=== PATIENT | male | born 1945 | race Caucasian/White ===

== ENCOUNTER → 2018-05-19 03:03 | Outpatient (CLI) | payer OTHER, SELFPAY ==
[2018-05-19 10:23] LABS: Abs Immature Grans 0.05 k/cumm (0.0-0.09); Absolute Basophil Count 0.02 k/cumm (0.0-0.2); Absolute Eosinophil Count 0.07 k/cumm (0.0-0.7); Absolute Lymphocyte Count 0.54 k/cumm (1.2-3.4); Absolute Monocyte Count 0.53 k/cumm (0.11-0.7); Basophils % 0.2; Eosinophils % 0.6; HCT 37.8 % (40.0-50.0); HGB 12.3 g/dL (13.5-17.5); Immature Grans % 0.4; Lymphocytes % 4.4; Mean Corp. HGB Concentration 32.5 g/dL (32.0-36.0); Mean Corpuscular Hemoglobin 31.1 pg (27.0-33.0); Mean Corpuscular Volume 95.7 fL (80-95); Mean Platelet Volume 8.1 fL (8.0-11.0); Monocytes % 4.3; Neutrophils % 90.1; Platelet Count 250 x1000/uL (130-400); RBC 3.95 m/cumm (4.50-6.00); RBC Distribution Width 15.9 % (11.8-14.1); White Blood Cell Count 12.33 k/cumm (4.4-10.8)
[2018-05-19 10:25] LABS: Absolute Neutrophil Count 11.11 k/cumm (1.2-6.7)
[2018-05-19 10:40] LABS: ALT 16 U/L (12-78); AST 17 U/L (15-37); Albumin 3.2 g/dL (3.4-5.0); Alkaline Phosphatase 53 U/L (46-116); BUN 13 mg/dL (7-18); Bilirubin, Total 0.6 mg/dL (0.2-1.0); CREATININE 0.83 mg/dL (0.70-1.30); Calcium 8.8 mg/dL (8.5-10.1); Chloride 98 mmol/L (98-107); Glucose 153 mg/dL (70-100); Potassium 3.5 mmol/L (3.5-5.1); Sodium 138 mmol/L (136-145); Total Protein 6.7 g/dL (6.4-8.2)
[2018-05-19 11:12] LABS: ESR 45 MM/HR (1-20)
== END ==
PROVIDERS: PCP Internal Medicine; Visit Provider Internal Medicine Rheumatology
DX: M19.90 Unspecified osteoarthritis, unspecified site (principal); M35.3 Polymyalgia rheumatica; R79.82 Elevated C-reactive protein (CRP); Z79.899 Other long term (current) drug therapy
CPT/HCPCS: 36415; 80053; 85652; 85025; 86140

== ENCOUNTER 2018-06-23 02:37 | Outpatient (CLI) | payer OTHER, SELFPAY ==
[2018-06-23 16:21] LABS: Abs Immature Grans 0.04 k/cumm (0.0-0.09); Absolute Basophil Count 0.02 k/cumm (0.0-0.2); Absolute Eosinophil Count 0.02 k/cumm (0.0-0.7); Absolute Monocyte Count 0.88 k/cumm (0.11-0.7); Absolute Neutrophil Count 10.51 k/cumm (1.2-6.7); Basophils % 0.2; Eosinophils % 0.2; HCT 35.9 % (40.0-50.0); HGB 11.7 g/dL (13.5-17.5); Immature Grans % 0.3; Lymphocytes % 7.3; Mean Corp. HGB Concentration 32.6 g/dL (32.0-36.0); Mean Corpuscular Hemoglobin 29.7 pg (27.0-33.0); Mean Corpuscular Volume 91.1 fL (80-95); Mean Platelet Volume 7.6 fL (8.0-11.0); Monocytes % 7.1; Neutrophils % 84.9; Platelet Count 302 x1000/uL (130-400); RBC 3.94 m/cumm (4.50-6.00); RBC Distribution Width 15.6 % (11.8-14.1); White Blood Cell Count 12.38 k/cumm (4.4-10.8)
[2018-06-23 17:00] LABS: ESR 67 MM/HR (1-20)
[2018-06-23 17:29] LABS: ALT 15 U/L (12-78); AST 16 U/L (15-37); Albumin 3.2 g/dL (3.4-5.0); Alkaline Phosphatase 55 U/L (46-116); Anion Gap 7.3 mmol/L (3-11); BUN 12 mg/dL (7-18); Bilirubin, Total 0.6 mg/dL (0.2-1.0); C-Reactive Protein 3.16 mg/dL (0.0-0.3); CO2 31.7 mmol/L (21.0-32.0); Calcium 8.7 mg/dL (8.5-10.1); Chloride 93 mmol/L (98-107); Glucose 129 mg/dL (70-100); Potassium 3.8 mmol/L (3.5-5.1); Sodium 132 mmol/L (136-145)
== END 2018-06-23 02:57 ==
PROVIDERS: PCP Internal Medicine; Visit Provider Internal Medicine Rheumatology
DX: R79.82 Elevated C-reactive protein (CRP) (principal); M35.3 Polymyalgia rheumatica; M19.90 Unspecified osteoarthritis, unspecified site; Z79.899 Other long term (current) drug therapy
CPT/HCPCS: 36415; 80053; 85652; 85025; 86140

== ENCOUNTER 2018-08-11 02:33 | Outpatient (CLI) | payer OTHER, SELFPAY ==
[2018-08-11 14:04] LABS: Abs Immature Grans 0.05 k/cumm (0.0-0.09); Absolute Basophil Count 0.01 k/cumm (0.0-0.2); Absolute Eosinophil Count 0.02 k/cumm (0.0-0.7); Absolute Lymphocyte Count 0.68 k/cumm (1.2-3.4); Absolute Monocyte Count 0.58 k/cumm (0.11-0.7); Absolute Neutrophil Count 10.01 k/cumm (1.2-6.7); Basophils % 0.1; Eosinophils % 0.2; HCT 37.9 % (40.0-50.0); HGB 12.4 g/dL (13.5-17.5); Immature Grans % 0.4; Mean Corp. HGB Concentration 32.7 g/dL (32.0-36.0); Mean Corpuscular Volume 91.5 fL (80-95); Mean Platelet Volume 7.9 fL (8.0-11.0); Monocytes % 5.1; Neutrophils % 88.2; Platelet Count 261 x1000/uL (130-400); RBC 4.14 m/cumm (4.50-6.00); RBC Distribution Width 16.2 % (11.8-14.1); White Blood Cell Count 11.35 k/cumm (4.4-10.8)
[2018-08-11 14:52] LABS: ESR 21 MM/HR (1-20)
[2018-08-11 15:21] LABS: ALT 24 U/L (12-78); AST 19 U/L (15-37); Albumin 3.6 g/dL (3.4-5.0); Alkaline Phosphatase 57 U/L (46-116); Anion Gap 6.9 mmol/L (3-11); BUN 12 mg/dL (7-18); Bilirubin, Total 0.7 mg/dL (0.2-1.0); C-Reactive Protein 0.17 mg/dL (0.0-0.3); CO2 30.1 mmol/L (21.0-32.0); CREATININE 0.78 mg/dL (0.70-1.30); Calcium 8.6 mg/dL (8.5-10.1); Chloride 93 mmol/L (98-107); Glucose 109 mg/dL (70-100); Potassium 3.5 mmol/L (3.5-5.1); Sodium 130 mmol/L (136-145); Total Protein 6.3 g/dL (6.4-8.2)
== END 2018-08-11 02:53 ==
PROVIDERS: PCP Internal Medicine; Visit Provider Internal Medicine Rheumatology
DX: Z00.00 Encounter for general adult medical examination without abnormal findings (principal); M35.3 Polymyalgia rheumatica; R79.82 Elevated C-reactive protein (CRP); M85.80 Other specified disorders of bone density and structure, unspecified site; Z79.52 Long term (current) use of systemic steroids; M19.90 Unspecified osteoarthritis, unspecified site; Z79.899 Other long term (current) drug therapy
CPT/HCPCS: 36415; 80053; 85652; 85025; 86140

== ENCOUNTER 2018-09-01 01:01 | Outpatient (CLI) | payer OTHER, SELFPAY ==
--- NOTE | 2018-09-01 15:21 | DI.RAD_ITS ---
SYMPTOMS/DIAGNOSIS: PMR ON CHRONIC STEROIDS, ASSESS BMD, M35.3, M85.80, Z79.52 DEXA SCAN WITH KHUSHBOO: Comparison is made with August,. The KHUSHBOO image shows accentuation of the normal thoracic kyphosis, which appears to have worsened when compared with the previous exam. No compression fractures are seen. There is stable mild anterior wedging of thoracic vertebral bodies. The bone mineral density measurements of the lumbar spine correspond to a total T score of 0.3, in the normal range. This is a 7.5% decrease when compared with 2016. The bone mineral density measurements of the left hip correspond to a total T score of - 1.2 and a femoral neck T score of -2.0. This is a 9.7% decrease when compared with 2016. The bone mineral density measurements of the left forearm correspond to a T score in the distal third of 0, in the normal range. This is a 4.7% decrease when compared with 2016. IMPRESSION: Normal bone mineral density of the lumbar spine and left forearm. Osteopenia of the left hip. Bone mineral density has decreased when compared with the previous exam.
== END 2018-09-01 01:21 ==
PROVIDERS: PCP Internal Medicine; Visit Provider Internal Medicine Rheumatology
DX: M35.3 Polymyalgia rheumatica (principal); M85.80 Other specified disorders of bone density and structure, unspecified site; Z79.52 Long term (current) use of systemic steroids
CPT/HCPCS: 77080

== ENCOUNTER 2018-09-04 09:19 | Day surgery (SDC) | payer OTHER, SELFPAY ==
--- NOTE | 2018-09-03 11:50 | POEE_ITS ---
History of Present Illness Chief Complaint: Progressive decreased vision, right eye Narrative: The patient is a 72-year-old male with history of progressive decreased vision in both eyes at both distance and near. He has significant difficulty driving at night with halos around lights. On examination he was noted to have significant bilateral nuclear cataracts with mild cortical and posterior subcapsular cataract OU. He was significantly symptomatic that he desired cataract surgery and attempt to improve and maximize his vision. NOTE: The Chief Complaint, HPI, Past Medical History, Past Surgical History, Family History, Social History, Medications, and complete Ophthalmic Exam with detailed Assessment and Plan have already been documented in the patient's outpatient ophthalmic record and are not covered again in detail here. [facility] Medical History Cortical cataract of right eye (Acute) Nuclear sclerotic cataract of right eye (Acute) Posterior subcapsular age-related cataract, right eye (Acute) Social History Smoking/Tobacco Use Status: Never Meds Home Medications Medication Instructions Recorded Confirmed Type aspirin [Aspir 81] 81 mg PO DAILY 04/20/13 09/02/18 History hydrochlorothiazide 25 mg PO DAILY 04/20/13 09/02/18 History metoprolol succinate [Toprol Xl] 100 mg PO DAILY 04/20/13 09/02/18 History valacyclovir [Valtrex] 2,000 mg PO PRN PRN 04/20/13 09/02/18 History zolpidem [Ambien Cr] 12.5 mg PO HS 04/20/13 10/15/16 History methylprednisolone [Medrol] 6 mg PO PRN 01/03/16 09/02/18 History simvastatin 20 mg PO QPM 01/12/16 09/02/18 History alendronate 35 mg PO .QWEEKLY 09/18/16 09/02/18 History methocarbamol [Robaxin] 500 mg PO QID #40 tab 10/15/16 Rx tamsulosin 0.4 mg PO DAILY 10/15/16 10/15/16 History diclofenac sodium 100 gm TOPICAL PRN gm 09/12/17 History folic acid 1 mg PO DAILY tab-cap 09/12/17 09/02/18 History methotrexate sodium 2.5 mg PO 6 TABS WEEKLY 09/12/17 History omeprazole 20 mg PO DAILY tab-cap 09/12/17 09/02/18 History triamcinolone acetonide 15 gm TOPICAL PRN script 09/12/17 09/02/18 History cholecalciferol (vitamin D3) 1,000 unit PO DAILY 08/31/18 09/02/18 History [Vitamin D3] Allergies Allergy/AdvReac Type Severity Reaction Status Date / Time No Known Allergies Allergy Unverified 09/02/18 08:48 Exam OCULAR EXAM:: Visual acuity at distance: Corrected to 20/40 right eye, 20/30 left eye Pupils: Pupils equal, round, and reactive without afferent pupillary defect IOP: 20 right eye, 20 left eye Extraocular Motility: Significant for exophoria on alternate cover test Pertinent Slit Lamp Findings: 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 Pupils dilate to 7 mm OU. 3+ nuclear cataracts with 1-2+ cortical and trace posterior subcapsular cataract OU. Dilated Funduscopic Examination: Disc cupping is 0.25 OD 0.2 OS with good color. The retinal vasculature is normal. There are some pigmentary changes in both maculas. Peripheral retina and vitreous is normal OU. BRIGHTNESS ACUITY TESTING (BAT):: Off right eye 20/40 Low: 20/60 Medium: 20/70 High: 20/80 Assessment and Plan (1) Posterior subcapsular age-related cataract, right eye: Current visit: Yes Status: Acute Assessment: Visually significant cataract, right eye. Plan: Cataract extraction with intraocular lens implantation, right eye (2) Nuclear sclerotic cataract of right eye: Current visit: Yes Status: Acute Assessment: Visually significant cataract, right eye. Plan: Cataract extraction with intraocular lens implantation, right eye (3) Cortical cataract of right eye: Current visit: Yes Status: Acute Assessment: Visually significant cataract, right eye. Plan: Cataract extraction with intraocular lens implantation, right eye Note: NOTE:: The details of the planned surgery, including the risks, indications, limitations,expectations,outcome and possible complications were explained to the patient. The patient understands the complications including, but not limited to: infection, hemorrhage, posterior dislocation of the lens or nuclear fragments which may require the intervention of a vitreoretinal surgeon, possible loss of the eye, or from anesthetic complications. The patient has been made aware of the option of not having surgery, that vision following surgery may not be equal to that prior to surgery, and that the planned surgery may not achieve the intended results. Following this discussion, which the patient appeared to understand, the patient wishes to proceed with cataract surgery with lens implantation of the affected eye to improve and maximize vision.
[2018-09-04] MEDS: Tetracaine 0.5% 4 ML BTL OD (09:01)
[2018-09-04] MEDS: Lidocaine 2% Jelly 6 ML SYR (09:02)
[2018-09-04] MEDS: Lidocaine 1% Pres-Free 5 ML VIAL (09:08)
[2018-09-04] MEDS: Balanced Salt Soln.-PLUS 500 ML BAG (09:08)
[2018-09-04] MEDS: Povidone-Iodine Ophth 30 ML BTL (09:22)
--- NOTE | 2018-09-04 09:35 | W.PM.DSUDISC ---
Discharge Plan Discharge Details Attending Provider: Tano Mccormick Primary Care Provider: Jennifer Pelaez Home Meds and New Rx's Prescriptions: No Action methylprednisolone [Medrol (Josue)] 4 MG tablets,dose pack 6 mg PO PRN RF: 0 triamcinolone acetonide 15 GM cream 15 gm Topical PRN RF: 0 methotrexate sodium 2.5 MG tablet 2.5 mg PO 6 TABS WEEKLY RF: 0 omeprazole 20 MG capsule,delayed release(DR/EC) 20 mg PO DAILY RF: 0 folic acid 1 MG tablet 1 mg PO DAILY RF: 0 metoprolol succinate [Toprol XL] 100 MG tablet extended release 24 hr 100 mg PO DAILY RF: 0 valacyclovir [Valtrex] 500 MG tablet 2,000 mg PO PRN PRNRF: 0 hydrochlorothiazide 25 MG tablet 25 mg PO DAILY RF: 0 aspirin [Aspir-81] 81 MG tablet,delayed release (DR/EC) 81 mg PO DAILY RF: 0 simvastatin 20 MG tablet 20 mg PO QPM RF: 0 cholecalciferol (vitamin D3) [Vitamin D3] 1,000 unit Capsule 1,000 unit PO DAILY RF: 0 methotrexate (PF) 25 mg/0.4 mL Auto-Injector 25 mg subcut RF: 0 alendronate 35 MG tablet 35 mg PO .QWEEKLY RF: 0 Discharge Instructions Stand Alone Forms: Post-op Topical CataractAngi (DSU) DS: Diagnosis Discharge Diagnosis (1) Posterior subcapsular age-related cataract, right eye: Status: Resolved (2) Nuclear sclerotic cataract of right eye: Status: Resolved (3) Cortical cataract of right eye: Status: Resolved (4) Status post cataract extraction and insertion of intraocular lens of right eye: Status: Chronic
--- NOTE | 2018-09-04 09:38 | ROE_ITS ---
Date of service: 09/04/18 Time of Service: 09:36 Operative Note PRE-OP DIAGNOSIS: Cataract, right eye POST-OP DIAGNOSIS: same SURGEON: Tano Mccormick ANESTHESIA: MAC and local (sub-tenon's anesthetic infiltration) PATHOLOGY: none sent COMPLICATIONS: None Patient was transported to: same day Patient's condition: stable Implants: [employer] / [employer] Tecnis ZCB00 Indications: Progressive decreased vision due to cataract, right eye Procedure Description: CATARACT SURGERY OPERATIVE REPORT PREOPERATIVE DIAGNOSIS: Nuclear/cortical/posterior subcapsular cataract, right eye POSTOPERATIVE DIAGNOSIS: Same OPERATION: Cataract extraction using phacoemulsification with posterior chamber intraocular lens implant, right eye. IOL: IOL Seismic Prospecting Supervisor/Model: J&J Vision / ADAL Tecnis ZCB00 IOL Power: + 21.0 diopters IOL Serial Number: [id number] Optic Diameter: 6.0mm Haptic/Overall Diameter: 13.0mm PHACO INFO: Joe K[employer]aturion Vision System with OZil and Active Fluidics Cumulative Dispersed Energy (CDE): 17.13 seconds SURGEON: Tano Mccormick MD, SHARON ANESTHESIA: Monitored Anesthesia Care (MAC), with local sub-tenon's anesthetic infiltration COMPLICATIONS: None SPECIMENS: None INDICATIONS FOR PROCEDURE: The patient is a 73-year-old male with history of progressive decreased vision in his right eye. He was noted to have a significant nuclear cortical and posterior subcapsular cataract in the right eye with visual acuity of 20/40 with significant glare disability. The option of cataract surgery was offered to the patient and he wished to proceed. PROCEDURE: The correct surgical eye was identified and marked as the right eye and the pupil was dilated in the preoperative area using mydriatics and cycloplegics. The dilated pupil size was 7.0 mm. Oral sedation was administered in the form of an Imprimis MKO Melt (midazolam 3mg/ketamine 25mg/ ondansetron 2mg). The patient was brought to the operating room where cardiopulmonary monitoring was instituted and surgical time-out was performed, confirming the correct operative eye and IOL power. Topical anesthesia was administered and ophthalmic povidone-iodine 5% was instilled into the conjunctival fornices. Lidocaine gel was applied to the cornea and the gabrielle-ocular area was prepped with Betadine 10% solution and draped in the usual sterile fashion for intraocular surgery. Steri-strips were used to cover the lashes and lid margins and an adhesive eye drape was placed. Care was taken to isolate the lashes and lid margins under the Steri-strips and adhesive eye drape. A lid speculum was placed between the lids of the operative eye and the Monae-Isis operating microscope was maneuvered into position. Bogdan scissors were then used to make a conjunctival buttonhole approximately 6mm posterior to the limbus in the inferonasal quadrant. Blunt dissection was carried out to expose bare sclera, and a blunt-tipped sub-tenon? s anesthesia cannula was introduced and passed posteriorly along the globe where non-preserved plain lidocaine was injected into posterior sub-Tenon?s space. A sideport knife was used to make a paracentesis port at the 7:00 postion and the anterior chamber was filled with Healon GV. A 2.4mm keratome knife was used to create a half-thickness groove at the limbus and then to construct a three-plane near-clear corneal tunnel extending 2.0mm into clear cornea at the 10:00 position. A flap was raised on the anterior capsule and capsulorhexis forceps were used to complete a continuous curvilinear capsulorhexis of 5 0 mm. Balanced salt solution was then used to perform cortical cleaving hydrodissection and nuclear hydrodelineation until the lens could be freely rotated within the capsular bag. The lens nucleus was then disassembled and removed within the capsular bag and iris plane using phacoemulsification. Residual cortical material was removed using the 45-degree angled silicone I/A tip with 0.3mm port. The posterior capsule was carefully polished to remove as much residual lens epithelial cells as safely possible. The capsular bag was then inflated and the anterior chamber deepened with viscoelastic. The lens implant described above was inserted into the capsular bag using the ADAL [place] Injector. A Kuglen hook was used to dial the IOL into position. Residual viscoelastic was then removed first from posterior to the IOL, then from the anterior chamber using the I/A handpiece. The lens implant was noted to center nicely within the capsular bag. The incisions were stromally hydrated , and the anterior chamber was reformed using BSS. Then 0.4cc of moxifloxacin 1.5mg/ml were injected into the capsular bag and anterior chamber. The incisions were checked with a Weck spear and found to be secure. Several drops of ophthalmic povidone-iodine 5% were then applied to the eye followed by two drops of Imprimis combination moxifloxacin/dexamethasone solution. The drapes were removed and a clear plastic protective eye shield was placed over the eye. The patient was then returned to Same Day Surgery in stable condition.
[2018-09-04 10:15] VITALS: BP 123/77; PULSE 81; RESP 16; TEMP 37; O2SAT 100
== END 2018-09-04 10:40 | disposition home or self-care (01) ==
LOC: SUR 09:20
PROVIDERS: PCP Internal Medicine; Visit Provider Ophthalmology
PROC: (CPT 66984; principal; 2018-09-04 09:30)
DX: H25.811 Combined forms of age-related cataract, right eye (principal); I10 Essential (primary) hypertension; K21.9 Gastro-esophageal reflux disease without esophagitis
CPT/HCPCS: 66984; V2632

== ENCOUNTER 2018-09-18 09:06 | Day surgery (SDC) | payer OTHER, SELFPAY ==
--- NOTE | 2018-09-17 17:12 | W.PIPPEYE ---
History of Present Illness Chief Complaint: Progressive decreased vision, left eye Narrative: The patient is a 72-year-old male who presented with complaints of diminished visual acuity in both eyes at both distance and near. He was noting a halo around lights at night. On examination he was noted to have moderate bilateral nuclear and cortical cataracts with mild posterior subcapsular cataracts in both eyes. He was significantly symptomatic that he desired cataract surgery which was performed in the right eye on 09/04/2018. He has regained uncorrected visual acuity of 20/20 in the right eye. He now presents for cataract surgery in the left eye. NOTE: The Chief Complaint, HPI, Past Medical History, Past Surgical History, Family History, Social History, Medications, and complete Ophthalmic Exam with detailed Assessment and Plan have already been documented in the patient's outpatient ophthalmic record and are not covered again in detail here. PFSH Nuclear sclerotic cataract of left eye (Acute) Cortical cataract of left eye (Acute) Posterior subcapsular age-related cataract of left eye (Acute) Cortical cataract of right eye (Resolved) Nuclear sclerotic cataract of right eye (Resolved) Posterior subcapsular age-related cataract, right eye (Resolved) Status post cataract extraction and insertion of intraocular lens of right eye (Chronic 09/04/18) Social History Smoking/Tobacco Use Status: Never Meds Home Medications Medication Instructions Recorded Confirmed Type aspirin [Aspir 81] 81 mg PO DAILY 04/20/13 09/02/18 History hydrochlorothiazide 25 mg PO DAILY 04/20/13 09/02/18 History metoprolol succinate [Toprol Xl] 100 mg PO DAILY 04/20/13 09/02/18 History valacyclovir [Valtrex] 2,000 mg PO PRN PRN 04/20/13 09/02/18 History methylprednisolone [Medrol] 6 mg PO PRN 01/03/16 09/02/18 History simvastatin 20 mg PO QPM 01/12/16 09/02/18 History alendronate 35 mg PO .QWEEKLY 09/18/16 09/04/18 History folic acid 1 mg PO DAILY tab-cap 09/12/17 09/02/18 History methotrexate sodium 2.5 mg PO 6 TABS WEEKLY 09/12/17 09/04/18 History omeprazole 20 mg PO DAILY tab-cap 09/12/17 09/02/18 History triamcinolone acetonide 15 gm TOPICAL PRN script 12/08/17 11/28/18 History cholecalciferol (vitamin D3) 1,000 unit PO DAILY 08/31/18 09/02/18 History [Vitamin D3] methotrexate (PF) 25 mg SUBCUT 09/04/18 History Allergies Allergy/AdvReac Type Severity Reaction Status Date / Time No Known Allergies Allergy Unverified 09/04/18 07:49 Exam OCULAR EXAM:: Most recent ocular examination reveals an uncorrected visual acuity of 20/20 in the right eye. Best corrected vision is 20/30 in the left eye. Intraocular pressure is 20 in each eye. Pupils equal, round, and reactive without afferent pupillary defect. Extraocular motility is significant for an exophoria on alternate cover testing. Slit-lamp examination reveals conjunctival chalasis OU. Pupils dilate to 7 mm. There is a well-positioned PCIOL in the right eye with clear posterior capsule. A 3+ nuclear with 1+ cortical and trace posterior subcapsular cataract is present OS. Funduscopic examination reveals disc cupping of 0.25 OD 0.2 OS with normal vessels. Macular pigmentary changes are present OU. Peripheral retina is normal OU. Retinal vasculature shows some narrowing. BRIGHTNESS ACUITY TESTING (BAT):: brightness acuity testing of the left eye off is 20/30. Low is 20/40. Medium is 20/50. High is 20/80. Assessment and Plan (1) Posterior subcapsular age-related cataract of left eye: Current visit: No Status: Acute Assessment: Visually significant cataract, left eye. Plan: Cataract extraction with intraocular lens implantation, left eye (2) Cortical cataract of left eye: Current visit: No Status: Acute Assessment: Visually significant cataract, left eye. Plan: Cataract extraction with intraocular lens implantation, left eye (3) Nuclear sclerotic cataract of left eye: Current visit: No Status: Acute Assessment: Visually significant cataract, left eye. Plan: Cataract extraction with intraocular lens implantation, left eye Note: NOTE:: The details of the planned surgery, including the risks, indications,limitations,expectations,outcome and possible complications were explained to the patient. The patient understands the complications including, but not limited to: infection, hemorrhage, posterior dislocation of the lens or nuclear fragments which may require the intervention of a vitreoretinal surgeon, possible loss of the eye, or from anesthetic complications. The patient has been made aware of the option of not having surgery, that vision following surgery may not be equal to that prior to surgery, and that the planned surgery may not achieve the intended results. Following this discussion, which the patient appeared to understand, the patient wishes to proceed with cataract surgery with lens implantation of the affected eye to improve and maximize vision.
[2018-09-18 09:36] VITALS: BP 139/85; PULSE 77; RESP 16; TEMP 36.6; O2SAT 94
[2018-09-18] MEDS: Tetracaine 0.5% 4 ML BTL OS ×4 (09:44→10:21)
[2018-09-18] MEDS: Tropicam./Phenyleph. (1/2.5%) 5 ML BTL OS ×3 (09:44→09:48)
[2018-09-18] MEDS: Povidone-Iodine Ophth 30 ML BTL (10:21)
[2018-09-18] MEDS: Lidocaine 2% Jelly 6 ML SYR (10:21)
[2018-09-18] MEDS: Lidocaine 1% Pres-Free 5 ML VIAL (10:26)
[2018-09-18] MEDS: Balanced Salt Soln.-PLUS 500 ML BAG (10:27)
--- NOTE | 2018-09-18 10:52 | W.PM.DSUDISC ---
Discharge Plan Discharge Details Reason For Visit: CATARACT OS Attending Provider: Tano Mccormick Primary Care Provider: Jennifer Pelaez Home Meds and New Rx's Prescriptions: No Action methylprednisolone [Medrol (Josue)] 4 MG tablets,dose pack 6 mg PO PRN RF: 0 triamcinolone acetonide 15 GM cream 15 gm Topical PRN RF: 0 methotrexate sodium 2.5 MG tablet 2.5 mg PO 6 TABS WEEKLY RF: 0 omeprazole 20 MG capsule,delayed release(DR/EC) 20 mg PO DAILY RF: 0 folic acid 1 MG tablet 1 mg PO DAILY RF: 0 metoprolol succinate [Toprol XL] 100 MG tablet extended release 24 hr 100 mg PO DAILY RF: 0 valacyclovir [Valtrex] 500 MG tablet 2,000 mg PO PRN PRNRF: 0 hydrochlorothiazide 25 MG tablet 25 mg PO DAILY RF: 0 aspirin [Aspir-81] 81 MG tablet,delayed release (DR/EC) 81 mg PO DAILY RF: 0 simvastatin 20 MG tablet 20 mg PO QPM RF: 0 cholecalciferol (vitamin D3) [Vitamin D3] 1,000 unit Capsule 1,000 unit PO DAILY RF: 0 methotrexate (PF) 25 mg/0.4 mL Auto-Injector 25 mg subcut RF: 0 alendronate 35 MG tablet 35 mg PO .QWEEKLY RF: 0 Discharge Instructions Stand Alone Forms: Post-op Topical Cataract, Angi Cordero (DSU) DS: Diagnosis Discharge Diagnosis (1) Status post cataract extraction and insertion of intraocular lens of left eye: Status: Acute
--- NOTE | 2018-09-18 10:56 | ROE_ITS ---
Date of service: 09/18/18 Time of Service: 10:54 Operative Note DATE OF PROCEDURE: 09/18/18 PRE-OP DIAGNOSIS: Cataract, left eye POST-OP DIAGNOSIS: same PROCEDURE: Cataract extraction using phacoemulsification with intraocular lens implant, left eye SURGEON: Tano Mccormick ANESTHESIA: MAC and local (sub-tenon's anesthetic infiltration) PATHOLOGY: none sent COMPLICATIONS: None Patient was transported to: same day Patient's condition: stable Implants: [employer] and [employer] Vision / [employer] Tecnis ZCB00 Indications: Progressive decreased vision due to cataract, left eye Procedure Description: CATARACT SURGERY OPERATIVE REPORT PREOPERATIVE DIAGNOSIS: Nuclear/cortical/posterior subcapsular cataract, left eye POSTOPERATIVE DIAGNOSIS: Same OPERATION: Cataract extraction using phacoemulsification with posterior chamber intraocular lens implant, left eye. IOL: IOL Orange Picker/Model: J&J Vision / ADAL Tecnis ZCB00 IOL Power: + 20.50 diopters IOL Serial Number: [id number] Optic Diameter: 6.0mm Haptic/Overall Diameter: 13.0mm PHACO INFO: Joe [employer] Smarturion Vision System with OZil and Active Fluidics Cumulative Dispersed Energy (CDE): 20.41 seconds SURGEON: Tano Mccormick MD, SHARON ANESTHESIA: Monitored Anesthesia Care (MAC), with local sub-tenon's anesthetic infiltration COMPLICATIONS: None SPECIMENS: None INDICATIONS FOR PROCEDURE: The patient is a 73-year old gentleman with history of having undergone eye muscle surgery many years ago. He developed significant bilateral nuclear cortical and posterior subcapsular cataracts. He was significantly symptomatic that he desired cataract surgery. He has already undergone cataract surgery in the right eye on 09/04/2018. He is doing well postoperatively, and now presents for cataract surgery of the left eye. PROCEDURE: The correct surgical eye was identified and marked as the left eye and the pupil was dilated in the preoperative area using mydriatics and cycloplegics. The dilated pupil size was 7.0 mm. Oral sedation was administered in the form of an Imprimis MKO Melt (midazolam 3mg/ketamine 25mg/ondansetron 2mg). The patient was brought to the operating room where cardiopulmonary monitoring was instituted and surgical time-out was performed, confirming the correct operative eye and IOL power. Topical anesthesia was administered and ophthalmic povidone-iodine 5% was instilled into the conjunctival fornices. Lidocaine gel was applied to the cornea and the gabrielle-ocular area was prepped with Betadine 10% solution and draped in the usual sterile fashion for intraocular surgery, including an aperture drape. A Tegaderm transparent film dressing was cut in half and used to cover the lashes and lid margins. Care was taken to sequester the lashes and lid margins under the Tegaderm dressing. A lid speculum was placed between the lids of the operative eye and the Monae-Isis operating microscope was maneuvered into position. Bogdan scissors were then used to make a conjunctival buttonhole approximately 6mm posterior to the limbus in the inferonasal quadrant. Blunt dissection was carried out to expose bare sclera, and a blunt-tipped sub-tenon?s anesthesia cannula was introduced and passed posteriorly along the globe where non- preserved plain lidocaine was injected into posterior sub-Tenon?s space. A sideport knife was used to make a paracentesis port superior/superiortemporal, and the anterior chamber was filled with Healon GV. A 2.4mm keratome knife was used to create a half-thickness groove at the limbus and then to construct a three-plane near-clear corneal tunnel extending 2.0mm into clear cornea in the temporal position. . A flap was raised on the anterior capsule and capsulorhexis forceps were used to complete a continuous curvilinear capsulorhexis of 5.0 mm. Balanced salt solution was then used to perform cortical cleaving hydrodissectio n and nuclear hydrodelineation until the lens could be freely rotated within the capsular bag. The lens nucleus was then disassembled and removed within the capsular bag and iris plane using phacoemulsification. Residual cortical material was removed using the 45-degree angled silicone I/A tip with 0.3mm port. The posterior capsule was carefully polished to remove as much residual lens epithelial cells as safely possible. The capsular bag was then inflated and the anterior chamber deepened with viscoelastic. The lens implant described above was inserted into the capsular bag using the ADAL [place] Injector. A Kuglen hook was used to dial the IOL into position. Residual viscoelastic was then removed first from posterior to the IOL, then from the anterior chamber using the I/A handpiece. The lens implant was noted to center nicely within the capsular bag. The incisions were stromally hydrated, and the anterior chamber was reformed using BSS. Then 0.4cc of moxifloxacin 1.5mg/ml were injected into the capsular bag and anterior chamber. The incisions were checked with a Weck spear and found to be secure. Several drops of ophthalmic povidone-iodine 5% were then applied to the eye followed by two drops of Imprimis combination moxifloxacin/dexamethasone solution. The drapes were removed and a clear plastic protective eye shield was placed over the eye. The patient was then returned to Same Day Surgery in stable condition.
[2018-09-18 11:10] VITALS: BP 119/76; PULSE 76; RESP 18; TEMP 37; O2SAT 100
== END 2018-09-18 11:20 | disposition home or self-care (01) ==
LOC: SUR 09:07
PROVIDERS: PCP Internal Medicine; Visit Provider Ophthalmology
PROC: (CPT 66984; principal; 2018-09-18 10:30)
DX: H25.812 Combined forms of age-related cataract, left eye (principal); Z98.41 Cataract extraction status, right eye; Z96.1 Presence of intraocular lens; I10 Essential (primary) hypertension; K21.9 Gastro-esophageal reflux disease without esophagitis
CPT/HCPCS: 66984; V2632

== ENCOUNTER 2018-09-24 07:00 | Outpatient (CLI) | payer OTHER, SELFPAY ==
[2018-09-24 08:01] LABS: ESR 27 MM/HR (1-20)
[2018-09-24 09:38] LABS: C-Reactive Protein 0.86 mg/dL (0.0-0.3)
[2018-09-24 14:52] LABS: ALT 21 U/L (12-78); AST 17 U/L (15-37); Albumin 3.6 g/dL (3.4-5.0); Alkaline Phosphatase 52 U/L (46-116); Anion Gap 10.7 mmol/L (3-11); BUN 18 mg/dL (7-18); Bilirubin, Total 0.8 mg/dL (0.2-1.0); CO2 29.3 mmol/L (21.0-32.0); CREATININE 0.88 mg/dL (0.70-1.30); Calcium 9.2 mg/dL (8.5-10.1); Chloride 100 mmol/L (98-107); Cholesterol 179 mg/dL (50-200); Glucose 105 mg/dL (70-100); HDL Cholesterol 66 mg/dL (40-60); LDL CHOLESTEROL 100 mg/dL (<100); Potassium 3.8 mmol/L (3.5-5.1); Sodium 140 mmol/L (136-145); Total Protein 6.2 g/dL (6.4-8.2); Triglyceride 90 mg/dL (30-150)
[2018-09-25 09:35] LABS: PSA, Diagnostic 6.4 ng/ml (0-6.5)
== END 2018-09-24 07:20 ==
PROVIDERS: Internal Medicine Rheumatology; Urology; PCP Internal Medicine; Visit Provider Internal Medicine
DX: R97.20 Elevated prostate specific antigen [PSA] (principal); M35.3 Polymyalgia rheumatica; Z00.00 Encounter for general adult medical examination without abnormal findings; Z79.899 Other long term (current) drug therapy; M19.90 Unspecified osteoarthritis, unspecified site; R79.82 Elevated C-reactive protein (CRP); M85.80 Other specified disorders of bone density and structure, unspecified site; Z79.52 Long term (current) use of systemic steroids; B00.1 Herpesviral vesicular dermatitis; Z13.220 Encounter for screening for lipoid disorders
CPT/HCPCS: 36415; 80053; 80061; 83721; 85652; 84153; 86140

== ENCOUNTER 2018-11-03 01:37 | Outpatient (CLI) | payer OTHER, SELFPAY ==
[2018-11-03 13:25] LABS: Abs Immature Grans 0.06 k/cumm (0.0-0.09); Absolute Basophil Count 0.01 k/cumm (0.0-0.2); Absolute Eosinophil Count 0.02 k/cumm (0.0-0.7); Absolute Lymphocyte Count 0.62 k/cumm (1.2-3.4); Absolute Monocyte Count 0.49 k/cumm (0.11-0.7); Absolute Neutrophil Count 9.79 k/cumm (1.2-6.7); Basophils % 0.1; Eosinophils % 0.2; HCT 37.9 % (40.0-50.0); HGB 12.2 g/dL (13.5-17.5); Immature Grans % 0.5; Lymphocytes % 5.6; Mean Corp. HGB Concentration 32.2 g/dL (32.0-36.0); Mean Corpuscular Volume 93.1 fL (80-95); Mean Platelet Volume 8.2 fL (8.0-11.0); Monocytes % 4.5; Neutrophils % 89.1; Platelet Count 263 x1000/uL (130-400); RBC 4.07 m/cumm (4.50-6.00); RBC Distribution Width 16.9 % (11.8-14.1); White Blood Cell Count 10.99 k/cumm (4.4-10.8)
[2018-11-03 14:20] LABS: ALT 18 U/L (12-78); AST 16 U/L (15-37); Albumin 3.5 g/dL (3.4-5.0); Alkaline Phosphatase 45 U/L (46-116); Anion Gap 8.4 mmol/L (3-11); BUN 19 mg/dL (7-18); Bilirubin, Total 0.5 mg/dL (0.2-1.0); C-Reactive Protein 0.14 mg/dL (0.0-0.3); CO2 30.6 mmol/L (21.0-32.0); CREATININE 0.89 mg/dL (0.70-1.30); Calcium 8.5 mg/dL (8.5-10.1); Chloride 100 mmol/L (98-107); Glucose 125 mg/dL (70-100); Sodium 139 mmol/L (136-145); Total Protein 6.2 g/dL (6.4-8.2)
[2018-11-03 14:36] LABS: ESR 18 MM/HR (1-20)
== END 2018-11-03 01:57 ==
PROVIDERS: PCP Internal Medicine; Visit Provider Internal Medicine Rheumatology
DX: M35.3 Polymyalgia rheumatica (principal); Z00.00 Encounter for general adult medical examination without abnormal findings; M19.90 Unspecified osteoarthritis, unspecified site; R79.82 Elevated C-reactive protein (CRP); M85.80 Other specified disorders of bone density and structure, unspecified site; Z79.52 Long term (current) use of systemic steroids; Z79.899 Other long term (current) drug therapy
CPT/HCPCS: 36415; 80053; 85652; 85025; 86140

== ENCOUNTER 2018-12-02 14:22 | Outpatient (CLI) | payer OTHER, SELFPAY ==
[2018-12-05 14:35] LABS: 25-Hydroxy D Total 39 ng/mL; 25-Hydroxy D2 <4.0 ng/mL; 25-Hydroxy D3 39 ng/mL
== END 2018-12-02 14:42 ==
PROVIDERS: PCP Internal Medicine; Visit Provider Internal Medicine Rheumatology
DX: M35.3 Polymyalgia rheumatica (principal); Z79.899 Other long term (current) drug therapy; Z79.1 Long term (current) use of non-steroidal anti-inflammatories (NSAID)
CPT/HCPCS: 36415; 82306

== ENCOUNTER 2019-02-11 14:21 | Outpatient (CLI) | payer OTHER, SELFPAY ==
[2019-02-11 14:55] LABS: Abs Immature Grans 0.03 k/cumm (0.0-0.09); Absolute Basophil Count 0.01 k/cumm (0.0-0.2); Absolute Eosinophil Count 0.02 k/cumm (0.0-0.7); Absolute Lymphocyte Count 0.62 k/cumm (1.2-3.4); Absolute Monocyte Count 0.37 k/cumm (0.11-0.7); Absolute Neutrophil Count 8.42 k/cumm (1.2-6.7); Basophils % 0.1; Eosinophils % 0.2; HGB 11.5 g/dL (13.5-17.5); Immature Grans % 0.3; Lymphocytes % 6.5; Mean Corp. HGB Concentration 31.9 g/dL (32.0-36.0); Mean Corpuscular Hemoglobin 28.8 pg (27.0-33.0); Monocytes % 3.9; Platelet Count 271 x1000/uL (130-400); RBC Distribution Width 16.5 % (11.8-14.1); White Blood Cell Count 9.47 k/cumm (4.4-10.8)
[2019-02-11 15:40] LABS: ESR 32 MM/HR (1-20)
[2019-02-11 16:25] LABS: ALT 21 U/L (12-78); AST 17 U/L (15-37); Albumin 3.6 g/dL (3.4-5.0); Alkaline Phosphatase 50 U/L (46-116); Anion Gap 7.1 mmol/L (3-11); BUN 12 mg/dL (7-18); Bilirubin, Total 0.6 mg/dL (0.2-1.0); C-Reactive Protein 0.71 mg/dL (0.0-0.3); CO2 29.9 mmol/L (21.0-32.0); CREATININE 0.67 mg/dL (0.70-1.30); Calcium 8.6 mg/dL (8.5-10.1); Chloride 95 mmol/L (98-107); Glucose 139 mg/dL (70-100); Potassium 3.9 mmol/L (3.5-5.1); Sodium 132 mmol/L (136-145); Total Protein 6.2 g/dL (6.4-8.2)
== END 2019-02-11 14:41 ==
PROVIDERS: PCP Internal Medicine; Visit Provider Internal Medicine Rheumatology
DX: M35.3 Polymyalgia rheumatica (principal); Z00.00 Encounter for general adult medical examination without abnormal findings; M19.90 Unspecified osteoarthritis, unspecified site; R79.82 Elevated C-reactive protein (CRP); M85.80 Other specified disorders of bone density and structure, unspecified site; Z79.52 Long term (current) use of systemic steroids; Z79.899 Other long term (current) drug therapy
CPT/HCPCS: 36415; 80053; 85652; 85025; 86140

== ENCOUNTER 2019-03-04 02:12 | Outpatient (CLI) | payer OTHER, SELFPAY ==
[2019-03-04 07:37] LABS: Abs Immature Grans 0.03 k/cumm (0.0-0.09); Absolute Basophil Count 0.02 k/cumm (0.0-0.2); Absolute Lymphocyte Count 0.74 k/cumm (1.2-3.4); Absolute Monocyte Count 0.66 k/cumm (0.11-0.7); Basophils % 0.2; Eosinophils % 0.7; HCT 36.5 % (40.0-50.0); HGB 11.6 g/dL (13.5-17.5); Immature Grans % 0.2; Lymphocytes % 6.1; Mean Corp. HGB Concentration 31.8 g/dL (32.0-36.0); Mean Corpuscular Volume 88.2 fL (80-95); Mean Platelet Volume 7.9 fL (8.0-11.0); Monocytes % 5.5; Neutrophils % 87.3; Platelet Count 296 x1000/uL (130-400); RBC 4.14 m/cumm (4.50-6.00); RBC Distribution Width 16.5 % (11.8-14.1); Reticulocyte 2.1 % (0.5-2.4); White Blood Cell Count 12.06 k/cumm (4.4-10.8)
[2019-03-04 07:38] LABS: Absolute Eosinophil Count 0.08 k/cumm (0.0-0.7); Absolute Neutrophil Count 10.53 k/cumm (1.2-6.7)
[2019-03-04 08:32] LABS: Iron 39 ug/dL (50-175); Total Iron Binding Capacity 292 ug/dL (250-450); Transferrin Sat 13 % (20-55)
[2019-03-04 08:57] LABS: ALT 18 U/L (12-78); AST 15 U/L (15-37); Albumin 3.5 g/dL (3.4-5.0); Alkaline Phosphatase 59 U/L (46-116); Anion Gap 8.2 mmol/L (3-11); BUN 11 mg/dL (7-18); Bilirubin, Total 0.5 mg/dL (0.2-1.0); CO2 30.8 mmol/L (21.0-32.0); CREATININE 0.76 mg/dL (0.70-1.30); Calcium 8.9 mg/dL (8.5-10.1); Chloride 98 mmol/L (98-107); Ferritin 29 ng/mL (8-388); Glucose 99 mg/dL (70-100); Potassium 3.4 mmol/L (3.5-5.1); Sodium 137 mmol/L (136-145); Total Protein 6.2 g/dL (6.4-8.2); Vitamin B12 430 pg/mL (193-986)
[2019-03-04 09:02] LABS: Folate > 20.0 ng/mL (8.6-20.0)
== END 2019-03-04 02:32 ==
PROVIDERS: PCP Internal Medicine; Visit Provider Internal Medicine Rheumatology
DX: M35.3 Polymyalgia rheumatica (principal); Z79.899 Other long term (current) drug therapy; Z00.00 Encounter for general adult medical examination without abnormal findings; M19.90 Unspecified osteoarthritis, unspecified site; R79.82 Elevated C-reactive protein (CRP); M85.80 Other specified disorders of bone density and structure, unspecified site; Z79.52 Long term (current) use of systemic steroids
CPT/HCPCS: 36415; 80053; 82607; 82728; 82746; 83036; 83540; 83550; 85025; 85045

== ENCOUNTER 2019-03-30 15:40 | Outpatient (CLI) | payer OTHER, SELFPAY ==
[2019-03-30 16:10] LABS: Abs Immature Grans 0.03 k/cumm (0.0-0.09); Absolute Basophil Count 0.01 k/cumm (0.0-0.2); Absolute Eosinophil Count 0.04 k/cumm (0.0-0.7); Absolute Lymphocyte Count 0.62 k/cumm (1.2-3.4); Absolute Monocyte Count 0.65 k/cumm (0.11-0.7); Absolute Neutrophil Count 8.75 k/cumm (1.2-6.7); Basophils % 0.1; Eosinophils % 0.4; HCT 34.3 % (40.0-50.0); HGB 10.9 g/dL (13.5-17.5); Immature Grans % 0.3; Lymphocytes % 6.1; Mean Corp. HGB Concentration 31.8 g/dL (32.0-36.0); Mean Corpuscular Hemoglobin 27.6 pg (27.0-33.0); Mean Corpuscular Volume 86.8 fL (80-95); Mean Platelet Volume 7.8 fL (8.0-11.0); Monocytes % 6.4; Neutrophils % 86.7; Platelet Count 267 x1000/uL (130-400); RBC 3.95 m/cumm (4.50-6.00); RBC Distribution Width 16.8 % (11.8-14.1)
[2019-03-30 17:00] LABS: ALT 21 U/L (12-78); AST 20 U/L (15-37); Albumin 3.5 g/dL (3.4-5.0); Alkaline Phosphatase 51 U/L (46-116); Anion Gap 10.3 mmol/L (3-11); BUN 10 mg/dL (7-18); Bilirubin, Total 0.8 mg/dL (0.2-1.0); C-Reactive Protein 0.25 mg/dL (0.0-0.3); CO2 27.7 mmol/L (21.0-32.0); CREATININE 0.72 mg/dL (0.70-1.30); Calcium 8.7 mg/dL (8.5-10.1); Chloride 94 mmol/L (98-107); Glucose 164 mg/dL (70-100); Potassium 3.9 mmol/L (3.5-5.1); Sodium 132 mmol/L (136-145); Total Protein 6.3 g/dL (6.4-8.2)
[2019-03-30 18:19] LABS: ESR 27 MM/HR (1-20)
== END 2019-03-30 16:00 ==
PROVIDERS: PCP Internal Medicine; Visit Provider Internal Medicine Rheumatology
DX: Z00.00 Encounter for general adult medical examination without abnormal findings (principal); M35.3 Polymyalgia rheumatica; Z79.899 Other long term (current) drug therapy; R79.82 Elevated C-reactive protein (CRP); M85.80 Other specified disorders of bone density and structure, unspecified site; Z79.52 Long term (current) use of systemic steroids; M19.90 Unspecified osteoarthritis, unspecified site
CPT/HCPCS: 36415; 80053; 85652; 85025; 86140

== ENCOUNTER 2019-05-14 06:58 | Outpatient (CLI) | payer OTHER, SELFPAY ==
[2019-05-14 07:19] LABS: Abs Immature Grans 0.04 k/cumm (0.0-0.09); Absolute Basophil Count 0.02 k/cumm (0.0-0.2); Absolute Eosinophil Count 0.14 k/cumm (0.0-0.7); Absolute Lymphocyte Count 1.13 k/cumm (1.2-3.4); Absolute Monocyte Count 0.59 k/cumm (0.11-0.7); Absolute Neutrophil Count 8.47 k/cumm (1.2-6.7); Basophils % 0.2; Eosinophils % 1.3; HCT 35.2 % (40.0-50.0); HGB 11.1 g/dL (13.5-17.5); Immature Grans % 0.4; Lymphocytes % 10.9; Mean Corp. HGB Concentration 31.5 g/dL (32.0-36.0); Mean Corpuscular Hemoglobin 27.2 pg (27.0-33.0); Mean Corpuscular Volume 86.3 fL (80-95); Mean Platelet Volume 7.6 fL (8.0-11.0); Monocytes % 5.7; Neutrophils % 81.5; Platelet Count 279 x1000/uL (130-400); RBC 4.08 m/cumm (4.50-6.00); RBC Distribution Width 17.4 % (11.8-14.1); White Blood Cell Count 10.39 k/cumm (4.4-10.8)
[2019-05-14 08:43] LABS: C-Reactive Protein 0.41 mg/dL (0.0-0.3)
[2019-05-14 08:50] LABS: ESR 23 mm/hr (1-20)
== END 2019-05-14 07:18 ==
PROVIDERS: PCP Internal Medicine; Visit Provider Internal Medicine Rheumatology
DX: Z00.00 Encounter for general adult medical examination without abnormal findings (principal); R79.82 Elevated C-reactive protein (CRP); M85.80 Other specified disorders of bone density and structure, unspecified site; M35.3 Polymyalgia rheumatica; Z79.899 Other long term (current) drug therapy; M19.90 Unspecified osteoarthritis, unspecified site
CPT/HCPCS: 36415; 85652; 85025; 86140

== ENCOUNTER 2019-06-08 14:16 | Outpatient (CLI) | payer OTHER, SELFPAY ==
[2019-06-08 14:51] LABS: Abs Immature Grans 0.04 k/cumm (0.0-0.09); Absolute Basophil Count 0.02 k/cumm (0.0-0.2); Absolute Eosinophil Count 0.06 k/cumm (0.0-0.7); Absolute Lymphocyte Count 0.73 k/cumm (1.2-3.4); Basophils % 0.2; Eosinophils % 0.5; HCT 33.1 % (40.0-50.0); HGB 10.4 g/dL (13.5-17.5); Immature Grans % 0.3; Lymphocytes % 6.1; Mean Corp. HGB Concentration 31.4 g/dL (32.0-36.0); Mean Corpuscular Hemoglobin 26.9 pg (27.0-33.0); Mean Corpuscular Volume 85.5 fL (80-95); Monocytes % 5.7; Neutrophils % 87.2; Platelet Count 291 x1000/uL (130-400); RBC 3.87 m/cumm (4.50-6.00); RBC Distribution Width 17.7 % (11.8-14.1); White Blood Cell Count 12.02 k/cumm (4.4-10.8)
[2019-06-08 14:52] LABS: Absolute Monocyte Count 0.69 k/cumm (0.11-0.7); Absolute Neutrophil Count 10.48 k/cumm (1.2-6.7)
[2019-06-08 15:31] LABS: C-Reactive Protein 0.31 mg/dL (0.0-0.3)
[2019-06-08 15:46] LABS: ESR 16 mm/hr (1-20)
== END 2019-06-08 14:36 ==
PROVIDERS: PCP Internal Medicine; Visit Provider Internal Medicine Rheumatology
DX: M35.3 Polymyalgia rheumatica (principal); Z79.899 Other long term (current) drug therapy; Z00.00 Encounter for general adult medical examination without abnormal findings; R79.82 Elevated C-reactive protein (CRP); M19.90 Unspecified osteoarthritis, unspecified site; M85.80 Other specified disorders of bone density and structure, unspecified site; Z79.52 Long term (current) use of systemic steroids
CPT/HCPCS: 36415; 85652; 85025; 86140

== ENCOUNTER 2019-06-17 11:27 | Outpatient (CLI) | payer OTHER, SELFPAY ==
[2019-06-17 12:09] LABS: Reticulocyte 1.7 % (0.5-2.4)
[2019-06-17 12:39] LABS: Iron 43 ug/dL (50-175); Total Iron Binding Capacity 326 ug/dL (250-450); Transferrin Sat 13 % (20-55)
[2019-06-17 12:54] LABS: Ferritin 19 ng/mL (8-388)
== END 2019-06-17 11:47 ==
PROVIDERS: PCP Internal Medicine; Visit Provider Internal Medicine Rheumatology
DX: M35.3 Polymyalgia rheumatica (principal); Z79.899 Other long term (current) drug therapy; Z79.1 Long term (current) use of non-steroidal anti-inflammatories (NSAID)
CPT/HCPCS: 36415; 82728; 83540; 83550; 85045

== ENCOUNTER 2019-08-13 07:43 | Outpatient (CLI) | payer OTHER, SELFPAY ==
[2019-08-13 08:27] LABS: Abs Immature Grans 0.06 k/cumm (0.0-0.09); Absolute Basophil Count 0.03 k/cumm (0.0-0.2); Absolute Eosinophil Count 0.13 k/cumm (0.0-0.7); Absolute Lymphocyte Count 0.91 k/cumm (1.2-3.4); Absolute Monocyte Count 0.87 k/cumm (0.11-0.7); Absolute Neutrophil Count 11.31 k/cumm (1.2-6.7); Basophils % 0.2; HCT 34.7 % (40.0-50.0); HGB 10.5 g/dL (13.5-17.5); Immature Grans % 0.5; Lymphocytes % 6.8; Mean Corp. HGB Concentration 30.3 g/dL (32.0-36.0); Mean Corpuscular Hemoglobin 25.9 pg (27.0-33.0); Mean Corpuscular Volume 85.5 fL (80-95); Mean Platelet Volume 8.2 fL (8.0-11.0); Monocytes % 6.5; Platelet Count 347 x1000/uL (130-400); RBC 4.06 m/cumm (4.50-6.00); RBC Distribution Width 18.7 % (11.8-14.1); White Blood Cell Count 13.31 k/cumm (4.4-10.8)
[2019-08-13 08:59] LABS: ALT 21 U/L (16-63); AST 17 U/L (15-37); Albumin 3.8 g/dL (3.4-5.0); Alkaline Phosphatase 48 U/L (46-116); Anion Gap 10.6 mmol/L (3-11); BUN 12 mg/dL (7-18); Bilirubin, Total 0.4 mg/dL (0.2-1.0); C-Reactive Protein 0.18 mg/dL (0.0-0.3); CO2 28.4 mmol/L (21.0-32.0); CREATININE 0.78 mg/dL (0.70-1.30); Calcium 8.9 mg/dL (8.5-10.1); Chloride 99 mmol/L (98-107); Glucose 103 mg/dL (70-100); Potassium 3.6 mmol/L (3.5-5.1); Sodium 138 mmol/L (136-145); Total Protein 6.5 g/dL (6.4-8.2)
[2019-08-13 11:08] LABS: ESR 22 mm/hr (1-20)
== END 2019-08-13 08:03 ==
PROVIDERS: PCP Internal Medicine; Visit Provider Internal Medicine Rheumatology
DX: M35.3 Polymyalgia rheumatica (principal); Z79.899 Other long term (current) drug therapy; Z79.1 Long term (current) use of non-steroidal anti-inflammatories (NSAID)
CPT/HCPCS: 36415; 80053; 85652; 85025; 86140

== ENCOUNTER 2019-08-23 08:03 | Day surgery (SDC) | payer OTHER, SELFPAY ==
--- NOTE | 2019-08-23 06:43 | COLE_ITS ---
Date of service: 08/23/19 Time of Service: 09:13 Colonoscopy Report Date of procedure: 08/23/19 Pre-op diagnosis general: Colon Cancer Screening Post-op diagnosis procedure note: other (Diverticulosis, internal hemorrhoids) Procedure: Colonoscopy Surgeon: Radha Mancera Anesthesia proc note operative: other (General/ ASA2 /Shala Le, EMILIANO) Estimated blood loss (mL): 0 Pathology: none sent Complications: None Disposition: no change Indications: Mr. Zambrano was seen in the office for a screening colonoscopy. His last colonoscopy was normal. Risks, benefits and complications have been reviewed. Complications include but are not limited to bleeding, pain, perforation, missed small lesion/polyp, sore throat, aspiration and adverse reaction to the medications. Questions were entertained and answered to their satisfaction and they wished to proceed. No guarantees were given or implied. Prep: Miralax/Dulcolax Procedure Start Time: :13 Procedure End Time: 09:29 Retraction Time: 11 minutes Findings: Mild diverticulosis of the sigmoid colon and Grade 1 internal hemor rhoids Procedure Description: After informed consent was obtained the patient was taken to the procedure room and placed in a left decubitous position. Monitors were applied and a time out was done. The patients name, date of , procedure, allergies to medications and metal in their body was reviewed. The patient was then sedated. Once sedated and comfortable a rectal exam was done. External exam was normal. Internal exam revealed a normal sphincter tone and no palpable masses. The prostate felt smooth and slightly enlarged. The scope was then introduced and retro-flexed. Grade 1 internal hemorrhoids were identified. There were no masses or polyps on retro-felxion. The scope was then advanced to the cecum without difficulty. The TI and appendiceal orifice were identified. The prep was adequate. The scope was then slowly retracted over 11 minutes back into the rectum. There were no polyps. There was mild diverticulosis in the sigmoid colon. The scope was removed and the patient was woken up and taken back to Same day surgery in stable condition. The patient tolerated the procedure well and there were no immediate c omplications. Follow up: The patient as needed if they develop changes in bowel habits or other new gastrointestinal complaints.
--- NOTE | 2019-08-23 06:45 | W.PM.DSUDISC ---
Discharge Plan Disposition Patient Disposition: HOME Condition: Good Discharge Details Reason For Visit: Colon Cancer Screening Attending Provider: Radha Mancera Primary Care Provider: Jennifer Pelaez Home Meds and New Rx's Prescriptions: Continued methylprednisolone [Medrol (Josue)] 4 MG tablets,dose pack 4 mg PO DAILY RF: 0 omeprazole 20 MG capsule,delayed release(DR/EC) 20 mg PO DAILY RF: 0 folic acid 1 MG tablet 1 mg PO DAILY RF: 0 metoprolol succinate [Toprol XL] 100 MG tablet extended release 24 hr 100 mg PO DAILY RF: 0 valacyclovir [Valtrex] 500 MG tablet 2,000 mg PO PRN PRNRF: 0 hydrochlorothiazide 25 MG tablet 25 mg PO DAILY RF: 0 aspirin [Aspir-81] 81 MG tablet,delayed release (DR/EC) 81 mg PO DAILY RF: 0 simvastatin 20 MG tablet 20 mg PO QPM RF: 0 cholecalciferol (vitamin D3) [Vitamin D3] 1,000 unit Capsule 1,000 unit PO DAILY RF: 0 methotrexate (PF) 25 mg/0.4 mL Auto-Injector 25 mg subcut RF: 0 alendronate 35 MG tablet 35 mg PO .QWEEKLY RF: 0 Discharge Instructions Instructions: Colonoscopy (DC), Diverticulosis (DC), Hemorrhoids (DC) Additional Instructions: Findings: mild diverticulosis small internal hemorrhoids Follow up: as needed Please call if you develop: fevers >101.5 Nausea or Vomiting Abdominal pain that is not transient DAY SURGERY UNIT POST ENDOSCOPY INSTRUCTIONS 1. Because there will be medication in your system for the next 24 hours, you may feel a little sleepy. Your coordination will be affected. Therefore: a. Do not drive or operate dangerous equipment for 24 hours. b. Do not drink alcohol beverages for 24 hours (not even beer). c. Plan to go home and rest for the day. 2. Generally there are no restrictions on your activity after a day or so has gone by, but you may feel a bit fatigued for a few days. 3 After you arrive home you may have a light meal and return to a normal diet as you can tolerate it without feeling sick to your stomach. 4. After surgery, you may feel pain or discomfort. This should be only transient, but if it persists please contact your doctor. 5. If there are any questions regarding the findings of your procedure, please feel free to contact your doctor. 6. If you are unable to contact your doctor with a problem, contact the hospital at [phone]. 7. Continue all your regular medications unless directed otherwise. I understand the above instructions and have no questions. Signature of Patient or Responsible Adult Escort Date/Time Name of Responsible Adult Escort Signature of Nurse Date/Time Activity:: Activity as Tolerated Diet:: High Fiebr diet Discharge Orders Discharge Orders: Discharge Order (Routine); Ordered 08/23/19 Ordered By: Radha Mancera DS: Diagnosis Discharge Diagnosis (1) S/P colonoscopy: Status: Acute (2) Diverticulosis: Status: Acute
[2019-08-23 08:33] VITALS: BP 146/86; PULSE 83; RESP 18; TEMP 36.5; O2SAT 100
[2019-08-23] MEDS: Lactated Ringers 1,000 ML 80 ML IV (08:44)
[2019-08-23 10:15] VITALS: BP 116/72; PULSE 68; RESP 16; TEMP 36.6; O2SAT 100
== END 2019-08-23 11:00 | disposition home or self-care (01) ==
LOC: SUR 08:03
PROVIDERS: PCP Internal Medicine; Visit Provider Surgery
PROC: 0DJD8ZZ Inspection of Lower Intestinal Tract, Via Natural or Artificial Opening Endoscopic (ICD-10-PCS; CPT 45378; principal; 2019-08-23 09:15)
DX: Z12.11 Encounter for screening for malignant neoplasm of colon (principal); K57.30 Diverticulosis of large intestine without perforation or abscess without bleeding; K64.0 First degree hemorrhoids; I10 Essential (primary) hypertension; K21.9 Gastro-esophageal reflux disease without esophagitis
CPT/HCPCS: 45378

== ENCOUNTER 2019-10-07 17:46 | Outpatient (REF) | payer OTHER, SELFPAY ==
[2019-10-07 13:13] LABS: Abs Immature Grans 0.03 k/cumm (0.0-0.09); Absolute Basophil Count 0.02 k/cumm (0.0-0.2); Absolute Eosinophil Count 0.12 k/cumm (0.0-0.7); Absolute Lymphocyte Count 1.36 k/cumm (1.2-3.4); Absolute Neutrophil Count 8.15 k/cumm (1.2-6.7); Basophils % 0.2; Eosinophils % 1.2; HCT 33.9 % (40.0-50.0); HGB 10.2 g/dL (13.5-17.5); Immature Grans % 0.3 %; Lymphocytes % 13.1; Mean Corp. HGB Concentration 30.1 g/dL (32.0-36.0); Mean Corpuscular Hemoglobin 25.2 pg (27.0-33.0); Mean Corpuscular Volume 83.9 fL (80-95); Mean Platelet Volume 8.5 fL (8.0-11.0); Monocytes % 6.7; Neutrophils % 78.5; Platelet Count 352 x1000/uL (130-400); RBC 4.04 m/cumm (4.50-6.00); RBC Distribution Width 18.8 % (11.8-14.1); White Blood Cell Count 10.38 k/cumm (4.4-10.8)
[2019-10-07 13:33] LABS: ALT 17 U/L (16-63); AST 20 U/L (15-37); Alkaline Phosphatase 48 U/L (46-116); Anion Gap 8.8 mmol/L (3-11); BUN 18 mg/dL (7-18); Bilirubin, Total 0.7 mg/dL (0.2-1.0); C-Reactive Protein 0.73 mg/dL (0.0-0.3); CO2 30.2 mmol/L (21.0-32.0); Calcium 8.9 mg/dL (8.5-10.1); Chloride 97 mmol/L (98-107); Glucose 93 mg/dL (74-106); Potassium 3.6 mmol/L (3.5-5.1); Sodium 136 mmol/L (136-145); Total Protein 6.6 g/dL (6.4-8.2)
[2019-10-07 14:00] LABS: ESR 27 mm/hr (1-20)
[2019-10-08 10:14] LABS: PSA, Screening 8.5 ng/mL (0.0-6.5)
== END 2019-10-07 18:06 ==
LOC: LOS 17:46
PROVIDERS: Internal Medicine Rheumatology; PCP Internal Medicine; Visit Provider Urology
DX: M35.3 Polymyalgia rheumatica (principal); Z79.899 Other long term (current) drug therapy; Z79.1 Long term (current) use of non-steroidal anti-inflammatories (NSAID); Z12.5 Encounter for screening for malignant neoplasm of prostate
CPT/HCPCS: 36415; 80053; 84153; 85652; 85025; 86140

== ENCOUNTER 2019-11-18 11:43 | Outpatient (CLI) | payer OTHER, SELFPAY ==
[2019-11-18 13:30] LABS: C-Reactive Protein 0.63 mg/dL (0.0-0.3)
[2019-11-18 13:56] LABS: ESR 26 mm/hr (1-20)
== END 2019-11-18 12:03 ==
PROVIDERS: PCP Internal Medicine; Visit Provider Nurse Practitioner Family
DX: M35.3 Polymyalgia rheumatica (principal)
CPT/HCPCS: 36415; 85652; 86140

== ENCOUNTER 2019-12-10 14:40 | Outpatient (CLI) | payer OTHER, SELFPAY ==
[2019-12-10 15:42] LABS: C-Reactive Protein 0.67 mg/dL (0.0-0.3)
[2019-12-10 15:56] LABS: ESR 31 mm/hr (1-20)
== END 2019-12-10 15:00 ==
PROVIDERS: PCP Internal Medicine; Visit Provider Nurse Practitioner Family
DX: M35.3 Polymyalgia rheumatica (principal)
CPT/HCPCS: 36415; 85652; 86140

== ENCOUNTER 2020-01-04 15:05 | Outpatient (CLI) | payer OTHER, SELFPAY ==
[2020-01-04 15:36] LABS: Abs Immature Grans 0.03 k/cumm (0.0-0.09); Absolute Basophil Count 0.01 k/cumm (0.0-0.2); Absolute Monocyte Count 0.74 k/cumm (0.11-0.7); Absolute Neutrophil Count 11.28 k/cumm (1.2-6.7); Basophils % 0.1; Eosinophils % 0.2; HCT 34.2 % (40.0-50.0); HGB 10.4 g/dL (13.5-17.5); Immature Grans % 0.2 %; Lymphocytes % 3.7; Mean Corp. HGB Concentration 30.4 g/dL (32.0-36.0); Mean Corpuscular Hemoglobin 24.9 pg (27.0-33.0); Mean Platelet Volume 8.1 fL (8.0-11.0); Monocytes % 5.9; Neutrophils % 89.9; Platelet Count 322 x1000/uL (130-400); RBC 4.17 m/cumm (4.50-6.00); RBC Distribution Width 19.6 % (11.8-14.1); White Blood Cell Count 12.55 k/cumm (4.4-10.8)
[2020-01-04 15:39] LABS: Absolute Eosinophil Count 0.03 k/cumm (0.0-0.7); Absolute Lymphocyte Count 0.46 k/cumm (1.2-3.4)
[2020-01-04 16:29] LABS: ESR 30 mm/hr (1-20)
[2020-01-04 17:14] LABS: ALT 20 U/L (16-63); AST 19 U/L (15-37); Albumin 3.8 g/dL (3.4-5.0); Alkaline Phosphatase 53 U/L (46-116); Anion Gap 10.1 mmol/L (3-11); BUN 20 mg/dL (7-18); Bilirubin, Total 0.8 mg/dL (0.2-1.0); C-Reactive Protein 1.13 mg/dL (0.0-0.3); CO2 28.9 mmol/L (21.0-32.0); CREATININE 0.73 mg/dL (0.70-1.30); Chloride 96 mmol/L (98-107); Glucose 110 mg/dL (74-106); Potassium 3.9 mmol/L (3.5-5.1); Sodium 135 mmol/L (136-145); Total Protein 6.6 g/dL (6.4-8.2)
== END 2020-01-04 15:25 ==
PROVIDERS: PCP Internal Medicine; Visit Provider Internal Medicine Rheumatology
DX: M35.3 Polymyalgia rheumatica (principal); Z79.1 Long term (current) use of non-steroidal anti-inflammatories (NSAID); Z79.899 Other long term (current) drug therapy
CPT/HCPCS: 36415; 80053; 85652; 85025; 86140

== ENCOUNTER 2020-03-28 09:59 | Outpatient (CLI) | payer OTHER, SELFPAY ==
[2020-03-28 14:56] LABS: Abs Immature Grans 0.02 k/cumm (0.0-0.09); Absolute Basophil Count 0.01 k/cumm (0.0-0.2); Absolute Eosinophil Count 0.15 k/cumm (0.0-0.7); Absolute Lymphocyte Count 0.99 k/cumm (1.2-3.4); Absolute Monocyte Count 0.71 k/cumm (0.11-0.7); Absolute Neutrophil Count 6.94 k/cumm (1.2-6.7); Basophils % 0.1; Eosinophils % 1.7; HCT 33.2 % (40.0-50.0); HGB 9.9 g/dL (13.5-17.5); Immature Grans % 0.2 %; Lymphocytes % 11.2; Mean Corp. HGB Concentration 29.8 g/dL (32.0-36.0); Mean Corpuscular Hemoglobin 24.1 pg (27.0-33.0); Mean Corpuscular Volume 80.8 fL (80-95); Mean Platelet Volume 8.1 fL (8.0-11.0); Neutrophils % 78.8; Platelet Count 310 x1000/uL (130-400); RBC 4.11 m/cumm (4.50-6.00); White Blood Cell Count 8.82 k/cumm (4.4-10.8)
[2020-03-28 15:31] LABS: Anisocytosis 1+; Diff Comment RBC Morph Reviewed
[2020-03-28 15:32] LABS: Hypochromasia 1+; Microcytosis 1+; Poikilocytes 1+
[2020-03-28 15:48] LABS: ALT 17 U/L (16-63); AST 17 U/L (15-37); Albumin 3.8 g/dL (3.4-5.0); Alkaline Phosphatase 50 U/L (46-116); Anion Gap 8.7 mmol/L (3-11); BUN 13 mg/dL (7-18); Bilirubin, Total 0.6 mg/dL (0.2-1.0); C-Reactive Protein 0.31 mg/dL (0.0-0.3); CO2 29.3 mmol/L (21.0-32.0); CREATININE 0.96 mg/dL (0.70-1.30); Calcium 8.7 mg/dL (8.5-10.1); Chloride 94 mmol/L (98-107); Glucose 130 mg/dL (74-106); Potassium 3.4 mmol/L (3.5-5.1); Sodium 132 mmol/L (136-145); Total Protein 6.3 g/dL (6.4-8.2)
[2020-03-28 15:55] LABS: ESR 22 mm/hr (1-20)
[2020-03-29 11:42] LABS: PSA, Diagnostic 5.1 ng/mL (0.0-6.5)
== END 2020-03-28 10:19 ==
PROVIDERS: Urology; PCP Internal Medicine; Visit Provider Internal Medicine Rheumatology
DX: R73.01 Impaired fasting glucose (principal); M35.3 Polymyalgia rheumatica; Z79.1 Long term (current) use of non-steroidal anti-inflammatories (NSAID); Z79.899 Other long term (current) drug therapy; R97.20 Elevated prostate specific antigen [PSA]
CPT/HCPCS: 80053; 85652; 83036; 84153; 85025; 86140

== ENCOUNTER 2020-06-22 04:25 | Outpatient (CLI) | payer OTHER, SELFPAY ==
[2020-06-22 12:29] LABS: Hemoglobin A1C 5.5 % (<5.7)
[2020-06-22 12:39] LABS: Abs Immature Grans 0.04 10^3/uL (0.0-0.06); Absolute Basophil Count 0.03 10^3/uL (0.0-0.2); Absolute Eosinophil Count 0.11 10^3/uL (0.0-0.7); Absolute Monocyte Count 0.49 10^3/uL (0.1-0.8); Absolute Neutrophil Count 8.81 10^3/uL (1.2-6.7); Basophils % 0.3; Eosinophils % 1.1; HCT 31.6 % (40.0-50.0); HGB 9.7 g/dL (13.5-17.5); Immature Grans % 0.4; Lymphocytes % 6.9; MCH 24.7 pg (27.0-33.0); MCHC 30.7 % (32.0-36.0); MCV 80.6 fL (80-95); MPV 8.5 fL (8.0-11.0); Monocytes % 4.8; Neutrophils % 86.5; Nucleated RBC 0 %; Platelet Count 307 10^3/uL (130-400); RBC 3.92 10^6/uL (4.36-5.78); RDW 19.1 % (11.8-14.1); WBC 10.18 10^3/uL (4.4-10.8)
[2020-06-22 13:09] LABS: ALT 16 U/L (16-63); AST 13 U/L (15-37); Albumin 3.2 g/dL (3.4-5.0); Alkaline Phosphatase 42 U/L (46-116); Anion Gap 7.4 mmol/L (3-11); BUN 15 mg/dL (7-18); Bilirubin, Total 0.6 mg/dL (0.2-1.0); CO2 27.6 mmol/L (21.0-32.0); CREATININE 0.75 mg/dL (0.70-1.30); Calcium 8.4 mg/dL (8.5-10.1); Chloride 104 mmol/L (98-107); Ferritin 59 ng/mL (26-388); Glucose 90 mg/dL (74-106); Potassium 4.2 mmol/L (3.5-5.1); Sodium 139 mmol/L (136-145)
[2020-06-22 13:14] LABS: ESR 39 mm/hr (1-20)
[2020-06-22 22:39] LABS: PSA, Screening 7.8 ng/mL (0.0-6.5)
== END 2020-06-22 04:45 ==
PROVIDERS: PCP Internal Medicine; Visit Provider Internal Medicine Rheumatology
DX: D50.9 Iron deficiency anemia, unspecified (principal); R73.01 Impaired fasting glucose; R97.20 Elevated prostate specific antigen [PSA]; M35.3 Polymyalgia rheumatica; Z79.899 Other long term (current) drug therapy; Z00.00 Encounter for general adult medical examination without abnormal findings; M19.90 Unspecified osteoarthritis, unspecified site; R79.82 Elevated C-reactive protein (CRP); M85.80 Other specified disorders of bone density and structure, unspecified site; Z79.52 Long term (current) use of systemic steroids
CPT/HCPCS: 36415; 80053; 84153; 85652; 82728; 83036; 85025; 86140

== ENCOUNTER 2020-07-27 04:01 | Outpatient (CLI) | payer OTHER, SELFPAY ==
[2020-07-27 11:41] LABS: ESR 18 mm/hr (1-20)
[2020-07-27 11:48] LABS: C-Reactive Protein 0.14 mg/dL (0.0-0.3)
== END 2020-07-27 04:21 ==
PROVIDERS: PCP Internal Medicine; Visit Provider Nurse Practitioner
DX: M35.3 Polymyalgia rheumatica (principal)
CPT/HCPCS: 36415; 85652; 86140

== ENCOUNTER 2020-08-29 20:37 | Emergency (ER) | payer OTHER, SELFPAY ==
[2020-08-29 20:47] VITALS: BP 151/74; PULSE 72; RESP 18; TEMP 36.5; O2SAT 99
--- NOTE | 2020-08-29 20:59 | ED.GENADUL_ITS ---
Discharge Plan Disposition Patient Disposition: HOME Condition: Good Discharge Details Clinical Impression: Contusion, Skin tear Primary Care Provider: Jennifer Pelaez ED Provider: Evelyn Smith Meds and New Rx's Prescriptions: Continued prednisone 2.5 mg tablet 6 mg PO DAILY RF: 0 omeprazole 20 MG capsule,delayed release(DR/EC) 20 mg PO DAILY RF: 0 folic acid 1 MG tablet 1 mg PO DAILY RF: 0 metoprolol succinate [Toprol XL] 100 MG tablet extended release 24 hr 100 mg PO DAILY RF: 0 valacyclovir [Valtrex] 500 MG tablet 2,000 mg PO PRN PRNRF: 0 aspirin [Aspir-81] 81 MG tablet,delayed release (DR/EC) 81 mg PO DAILY RF: 0 simvastatin 20 MG tablet 20 mg PO QPM RF: 0 cholecalciferol (vitamin D3) [Vitamin D3] 1,000 unit Capsule 1,000 unit PO DAILY RF: 0 methotrexate (PF) 25 mg/0.4 mL Auto-Injector 25 mg subcut QWEEK RF: 0 alendronate 35 mg tablet 70 mg PO .QWEEKLY RF: 0 Medrol 2 mg tablet 2 mg PO DAILY RF: 0 Discharge Instructions Instructions: Contusion in Adults (ED) Additional Instructions: Your imaging is reassuring as discussed. Incidental findings as discussed, please discuss these further with your primary care. Tylenol as needed for discomfort. Rest, ice, elevation. Please continue with non-adhesive dressings for your skin tears. These should be rechecked by your primary care in one week. If you noticed redness, warmth, drainage, increased pain, fevers/chill, vomiting or other new/worsening symptoms please seek care urgently once again. Referrals: Jennifer Pelaez [Primary Care Provider] - Discharge Data Discharge Date/Time-TO BE ENTERED AT DEPARTURE: 08/29/20 23:10 Medical Decision Making Patient is a pleasant 75-year-old gentleman presenting today for pain after fall. He reports he was walking outside when he tripped over a rise in the sidewalk and landed with his left lower chest wall striking the edge of a step. Suffered injury to the left thumb, skin tears to left forearm and pain in the left lower ribs. He denies striking his head. No loss conscious. Denies any neck or back pain. Denies any nausea vomiting. Denies any numbness or tingling in the left upper extremity. On exam, patient appears to be resting comfortably. He appears to be in the distress. He has swelling and ecchymosis to the interphalangeal joint of the left thumb. He does have good range of motion and is ligamentously intact. Sensation is intact in the distal phalanx. Plan for x-ray. Patient also has 2 skin tears to the left forearm. No deep wound requiring closure. Plan to wash and dress wounds. He does have very fragile skin. We will apply a nonadhesive dressing. Patient initially reported rib tenderness on exam the pain seems to much more in the left upper quadrant than left ribs. He does have some guarding with palpation over this area. I am concerned for potential splenic injury and feel that imaging would be appropriate. I discussed this plan with the patient who is in agreement. FINDINGS: Bones/joints: A tiny bony density adjacent to the interphalangeal joint of the 1st digit is unchanged. There are moderate degenerative changes. Slight subluxation of the 1st MCP joint is unchanged from the prior study. There is a tiny bony density adjacent to the radial styloid which was not seen on the prior study. Soft tissues: There is mild soft tissue swelling. IMPRESSION: Tiny bony density seen adjacent to the radial styloid is of indeterminate age. X-ray results did not correlate clinically. FINDINGS: Liver: Small hypodensity in the liver may be a cyst. Gallbladder and bile ducts: Unremarkable. Pancreas: Unremarkable. Spleen: Unremarkable. Adrenal glands: Unremarkable. Kidneys and ureters: There are multiple renal cysts. No hydronephrosis. Subcentimeter renal hypodensities are too small to characterize. Stomach and bowel: No bowel obstruction. There is colonic diverticulosis. No evidence of acute diverticulitis. Appendix: No evidence of appendicitis. Intraperitoneal space: No free air. No significant fluid collection. Vasculature: There are coronary artery calcifications. No aortic aneurysm. No aortic dissection. There are atherosclerotic calcifications of the aorta. Lymph nodes: No pathologically enlarged lymph nodes. Urinary bladder: There is mild diffuse bladder wall thickening. Reproductive: The prostate is mildly enlarged. Bones/joints: Mild wedge deformities seen in the thoracic and lumbar spine. L1 and L2 vertebral body deformities are unchanged from the prior study. Lower thoracic spine deformities were not included prior study. There are multilevel degenerative changes in the spine. Soft tissues: Unremarkable. IMPRESSION: 1. Stable mild wedge deformities in the lumbar spine. Mild wedge deformities seen in the lower thoracic spine are of uncertain age. Recommend correlation with exam. 2. Bladder wall thickening may be due to cystitis or outlet obstruction. 3. No other acute abnormality identified. Discussed these findings with the patient. Discussed the incidental findings. Will follow up with primary care regarding the incidentals. No evidence to suggest acute traumatic injury. Patient reports he is feeling improved after the acetaminophen. His wounds were cleansed and dressed. I encouraged that he follow-up closely with his primary care she could have his wounds were evaluated. He would continue with Tylenol as needed for discomfort. Return precautions were discussed. All his questions and concerns were addressed and he is in agreement this plan. [facility] General Mode of arrival: ambulatory . Date/Time Provider Initiated Documentation: 08/29/20 20:59 . Limitations to Documentation: no limitations . Information obtained by: patient and RN notes reviewed . History of Present Illness 75 year old M presents to the emergency department with the chief complaint of left sided rib and arm pain, described as moderate, with intensity rated at 7. Quality is described as aching, and is localized to the chest. Patient reports no radiation. Patient started experiencing this minute(s) and it has been constant. Immobilization improves symptom(s), Movement worsens symptoms . Patient notes no other symptoms.. Patient did receive the following treatments prior to arrival, none Related Data Home Medications Medication Instructions Recorded Confirmed aspirin [Aspir-81] 81 mg PO DAILY 04/20/13 04/14/20 metoprolol succinate [Toprol XL] 100 mg PO DAILY 04/20/13 08/29/20 valacyclovir [Valtrex] 2,000 mg PO PRN PRN 04/20/13 08/29/20 simvastatin 20 mg PO QPM 01/12/16 08/29/20 folic acid 1 mg PO DAILY tab-cap 09/12/17 08/29/20 omeprazole 20 mg PO DAILY tab-cap 09/12/17 08/29/20 cholecalciferol (vitamin D3) 1,000 unit PO DAILY 08/31/18 04/14/20 [Vitamin D3] methotrexate (PF) 25 mg SUBCUT QWEEK 09/04/18 08/29/20 alendronate 35 mg tablet 70 mg PO .QWEEKLY tab 11/26/19 04/14/20 prednisone 2.5 mg tablet 6 mg PO DAILY tab 11/26/19 08/29/20 Medrol 2 mg PO DAILY 08/29/20 08/29/20 Allergies Allergy/AdvReac Type Severity Reaction Status Date / Time No Known Allergies Allergy Unverified 08/29/20 20:55 General Stated Complaint: Trauma JOE: 3 Review of Systems Constitutional Constitutional: Reports as per HPI, Denies chills, Denies fatigue, Denies fever(s), Denies headache(s) and Denies weakness Eyes Eyes: Reports as per HPI, Denies blurry vision, Denies change in vision and Denies loss of vision ENT Ears, Nose, Mouth, and Throat: Denies abnormal hearing and Denies headache(s) Cardiovascular Cardiovascular: Reports as per HPI, Denies chest pain and Denies dyspnea Respiratory Respiratory: Reports as per HPI, Denies cough, Denies pain on inspiration, Denies pain with cough and Denies dyspnea Gastrointestinal Gastrointestinal: Reports as per HPI, Denies abdominal pain, Denies nausea and Denies vomiting Genitourinary Genitourinary: Reports as per HPI and Denies urinary incontinence Musculoskeletal Musculoskeletal: Reports as per HPI Integumentary/Breasts Skin/Breast: Reports as per HPI and Reports wounds Neurologic Neurologic: Reports as per HPI, Denies abnormal hearing, Denies abnormal movements, Denies abnormal speech, Denies headache(s), Denies lack of coordination, Denies localized weakness, Denies loss of vision, Denies seizure- like activity, Denies paresthesias and Denies weakness Endocrine Endocrine: Denies fatigue [facility] Medical History (Updated 08/29/20 @ 23:06 by GERONIMO Davis) Cortical cataract of left eye Cortical cataract of right eye Diverticulosis Elevated PSA (09/12/17) GERD (gastroesophageal reflux disease) Hypertension Internal hemorrhoids Nuclear sclerotic cataract of left eye Nuclear sclerotic cataract of right eye Posterior subcapsular age-related cataract of left eye Posterior subcapsular age-related cataract, right eye Primary osteoarthritis of right knee (04/30/18) Sensorineural hearing loss, bilateral (07/23/16) Surgical History History of carpal tunnel release of both wrists History of heart bypass surgery History of hernia repair S/P colonoscopy (~08/23/19) Status post cataract extraction and insertion of intraocular lens of left eye (09/18/18) Status post cataract extraction and insertion of intraocular lens of right eye (09/04/18) Social History Smoking/Tobacco Use Status: Never Smoking risk assessment performed?: Yes Alcohol Intake: current Alcohol Intake frequency: holidays/special occasions only Drug use: Never Substance use type: does not use Current gender identity: male Do you feel safe at home: Yes Do you feel safe in your relationship?: Yes Exam Const General: cooperative, healthy appearing, comfortable, no acute distress, well developed and well groomed Nutritional Appearance: average body habitus and well nourished Orientation: alert, awake and oriented x3 HENMT Head: normal to inspection, no palpable skull fracture, normocephalic and atraumatic Ears: hearing grossly normal bilaterally, external ears normal and TM's normal bilaterally General nose exam: external nose normal Mouth: oral mucosae normal, lip normal and tongue normal Throat: posterior oropharynx normal Eyes General: appearance normal, both eyes and all related structures Visual Puga: normal visual puga by confrontation Alignment and Position: alignment normal Periorbital: periorbital findings normal Eyelids: eyelids normal Conjunctivae: conjunctivae normal Pupils: PERRL EOM: EOM intact bilaterally Neck Neck: normal visual inspection, full ROM, no lymphadenopathy, no meningeal signs, trachea midline and supple Chest Chest: normal inspection of the chest, normal palpation of entire chest wall, no crepitus and no localized rib tenderness Resp Effort & Inspection: normal respiratory effort, able to speak in complete sentences and no respiratory distress Auscultation: clear to auscultation bilaterally, no rales, no rhonchi and no wheezes Cardio Rate: regular rate Rhythm: regular rhythm Heart Sounds: S1 normal and S2 normal GI Inspection: normal to inspection, no abdominal wall ecchymosis, no edema and non-distended Palpation: soft, no hepatosplenomegaly, not firm, guarding in the LUQ, no pulsatile masses, not rigid and tender Auscultation: normal bowel sounds Back/Spine/Pelvis Back: no CVA tenderness Cervical Spine: normal cervical lordosis and cervical ROM normal Thoracic/Lumbar Spine: thoracic and lumbar spine normal to inspection, thoraco- lumbar ROM normal, No thoraco-lumbar ROM limited, No thoraco-lumbar spasm and No thoracic spinal tenderness Pelvis: no pain with anterior-posterior compression and no pain with lateral compression Skin Wounds: wounds noted (2 skin tears to left forearm/elbow) Neuro General: patient alert, patient awake, patient oriented x3, gait normal, tone normal and moves all extremities Cranial Nerves: CN's II-XI intact bilaterally Cognition: normal cognition Speech: speech normal Gait: normal gait Motor: muscle tone normal throughout and strength 5/5 throughout Sensory Exam: no sensory deficits noted (no saddle paresthesias) Extrem General: normal to inspection, full ROM and capillary refill normal Left upper extremity: abnormal to inspection (swelling and pain to IP joint) Psych Appearance: grossly normal and well kempt Mental Status: mental status grossly normal Speech and Movement: speech and movement normal Course Vital Signs Vital signs: Vital Signs Temperature 36.5 C 08/29/20 20:47 Pulse 72 08/29/20 20:47 Respiratory Rate 18 08/29/20 20:47 Blood Pressure 151/74 H 08/29/20 20:47 Pulse Oximetry 99 08/29/20 20:47 Temperature 36.5 C 08/29/20 20:47 Pulse 72 08/29/20 20:47 Respiratory Rate 18 08/29/20 20:47 Respiratory Effort Non-Labored 08/29/20 20:56 Respiratory Depth Normal 08/29/20 20:56 Respiratory Pattern Normal 08/29/20 20:56 Blood Pressure 151/74 H 08/29/20 20:47 Blood Pressure Position Sitting 08/29/20 20:47 Pulse Oximetry 99 08/29/20 20:47 Oxygen Delivery Method Room Air 08/29/20 20:47 Oxygen Flow Rate 0 08/29/20 20:47 Pain Level 7 08/29/20 20:56
[2020-08-29 22:03] LABS: Abs Immature Grans 0.07 10^3/uL (0.0-0.06); Absolute Basophil Count 0.01 10^3/uL (0.0-0.2); Absolute Eosinophil Count 0.04 10^3/uL (0.0-0.7); Absolute Lymphocyte Count 0.41 10^3/uL (1.2-3.4); Absolute Monocyte Count 0.59 10^3/uL (0.1-0.8); Absolute Neutrophil Count 9.47 10^3/uL (1.2-6.7); Basophils % 0.1; Eosinophils % 0.4; HCT 35.9 % (40.0-50.0); HGB 10.5 g/dL (13.5-17.5); Immature Grans % 0.7; Lymphocytes % 3.9; MCH 23.9 pg (27.0-33.0); MCHC 29.2 % (32.0-36.0); MCV 81.6 fL (80-95); MPV 8.8 fL (8.0-11.0); Monocytes % 5.6; Neutrophils % 89.3; Nucleated RBC 0 %; Platelet Count 234 10^3/uL (130-400); RDW 19.6 % (11.8-14.1); RDW-SD 57.1 fL; WBC 10.59 10^3/uL (4.4-10.8)
[2020-08-29] MEDS: Omnipaque 350 MG/ML 100 ML BTL IV (22:10)
--- NOTE | 2020-08-29 22:15 | DI.RAD_ITS ---
EXAM: XR THUMB LT CLINICAL HISTORY: FOOSH TECHNIQUE: COMPARISON: No exams were available for comparison FINDINGS: Three views were obtained. There are degenerative changes of the joints of thumb. Periarticular ero sions of the head of the 1st metatarsal may represent erosive osteoarthritis or gout. There is no evidence of acute fracture or dislocation. IMPRESSION: RADIATION DOSE DELIVERED: Total DLP
[2020-08-29] MEDS: Normal Saline - Diluent 50 ML VIAL IV (22:16)
--- NOTE | 2020-08-29 22:17 | DI.CT_ITS ---
EXAM: CT ABDOMEN PELVIS W CLINICAL HISTORY: LUQ pain after fall TECHNIQUE: COMPARISON: CT ABD PELVIS WITH CONTRAST from 12/18/2011 CT LUMBAR SPINE WITHOUT CONTRAST from 10/15/2016 FINDINGS: CT examination of the abdomen and pelvis was performed with bolus infusion of 100 cc of Omnipaque 350 . Images obtained through the lung bases are unremarkable. Mild stable chronic lower thoracic and upper lumbar vertebral deformities noted, unchanged from prior CT of October 2016. The liver appears normal with no evidence of a focal mass except for a tiny incidental presumed right hepatic lobe cyst.. Spleen is unremarkable in appearance.. Gallbladder and bile ducts are unremarkable. Pancreas is unremarkable in appearance. Adrenals appear normal bilaterally. There are bilateral renal cysts. Kidneys are otherwise unremarkable in appearance with no evidence o f hydronephrosis or nephrolithiasis. Urinary bladder has thickened wall which may represent chronic bladder obstruction. There is no evidence of abdominal or pelvic adenopathy. Abdominal aorta is of normal diameter and no major vascular abnormality is seen. Appendix is normal. No evidence diverticulitis or bowel obstruction. No significant abdominal wall hernia seen. Impression: No evidence of acute intra-abdominal process. RADIATION DOSE DELIVERED: 785.71mGy.cm Total DLP 785.71mGy.cm Total DLP DATA REPOSITORY: All CT scans at this facility are submitted to the National Radiology Data Registry (NRDR) Dose Index Registry (DIR) with the [employer] (A[employer]). RADIATION OPTIMIZATION: All CT scans at this facility use at least one of these dose optimization te chniques: automated exposure control; mA and/or kV adjustment per patient size (includes targeted exa ms where dose is matched to clinical indication); or iterative reconstruction.
[2020-08-29] MEDS: Normal Saline Flush 10 ML SYR IVP (22:19)
[2020-08-29] MEDS: ACETAMINOPHEN 1,000 MG/100 ML BTL 400 MG IVPB (22:31)
[2020-08-29] MEDS: Lactated Ringers 1,000 ML 150 ML IV (22:31)
[2020-08-29 22:37] LABS: ALT 20 U/L (16-63); AST 21 U/L (15-37); Albumin 3.5 g/dL (3.4-5.0); Alkaline Phosphatase 47 U/L (46-116); Anion Gap 7.3 mmol/L (3-11); BUN 21 mg/dL (7-18); Bilirubin, Total 0.5 mg/dL (0.2-1.0); CO2 26.7 mmol/L (21.0-32.0); CREATININE 0.82 mg/dL (0.70-1.30); Calcium 8.8 mg/dL (8.5-10.1); Chloride 101 mmol/L (98-107); Glucose 96 mg/dL (74-106); Potassium 4.6 mmol/L (3.5-5.1); Sodium 135 mmol/L (136-145); Total Protein 6.2 g/dL (6.4-8.2)
--- NOTE | 2020-08-29 22:50 | DI.VRAD_ITS ---
PROCEDURE INFORMATION: Exam: XR Left Finger(s) Exam date and time: 08/29/2020 10:30 PM Age: 75 years old Clinical indication: Other: [place] TECHNIQUE: Imaging protocol: XR Left fingers. Views: Minimum 2 views. COMPARISON: CR ARTHITIS SERIES-[place] [facility] 02/02/2016 1:20 PM FINDINGS: Bones/joints: A tiny bony density adjacent to the interphalangeal joint of the 1st digit is unchanged. There are moderate degenerative changes. Slight subluxation of the 1st MCP joint is unchanged from the prior study. There is a tiny bony density adjacent to the radial styloid which was not seen on the prior study. Soft tissues: There is mild soft tissue swelling. IMPRESSION: Tiny bony density seen adjacent to the radial styloid is of indeterminate age. Dictated and Authenticated by: Marlon Longoria MD. Ordering:ANTELMO Rivas MD
--- NOTE | 2020-08-29 22:55 | DI.VRAD_ITS ---
PROCEDURE INFORMATION: Exam: CT Abdomen And Pelvis With Contrast Exam date and time: 08/29/2020 10:17 PM Age: 75 years old Clinical indication: Abdominal tenderness and other: Luq pain after fall TECHNIQUE: Imaging protocol: Computed tomography of the abdomen and pelvis with intravenous contrast. Radiation optimization: All CT scans at this facility use at least one of these dose optimization techniques: automated exposure control; mA and/or kV adjustment per patient size (includes targeted exams where dose is matched to clinical indication); or iterative reconstruction. Contrast material: OMNIPAQUE 350; Contrast volume: 100 ml; Contrast route: INTRAVENOUS (IV); COMPARISON: 1. MRI - PELVIS WO CONTRAST 06/27/2015 5:[address] - LUMBAR SPINE WITHOUT CONTRAST 10/15/2016 1:36:10 PM FINDINGS: Liver: Small hypodensity in the liver may be a cyst. Gallbladder and bile ducts: Unremarkable. Pancreas: Unremarkable. Spleen: Unremarkable. Adrenal glands: Unremarkable. Kidneys and ureters: There are multiple renal cysts. No hydronephrosis. Subcentimeter renal hypodensities are too small to characterize. Stomach and bowel: No bowel obstruction. There is colonic diverticulosis. No evidence of acute diverticulitis. Appendix: No evidence of appendicitis. Intraperitoneal space: No free air. No significant fluid collection. Vasculature: There are coronary artery calcifications. No aortic aneurysm. No aortic dissection. There are atherosclerotic calcifications of the aorta. Lymph nodes: No pathologically enlarged lymph nodes. Urinary bladder: There is mild diffuse bladder wall thickening. Reproductive: The prostate is mildly enlarged. Bones/joints: Mild wedge deformities seen in the thoracic and lumbar spine. L1 and L2 vertebral body deformities are unchanged from the prior study. Lower thoracic spine deformities were not included prior study. There are multilevel degenerative changes in the spine. Soft tissues: Unremarkable. IMPRESSION: 1. Stable mild wedge deformities in the lumbar spine. Mild wedge deformities seen in the lower thoracic spine are of uncertain age. Recommend correlation with exam. 2. Bladder wall thickening may be due to cystitis or outlet obstruction. 3. No other acute abnormality identified. Dictated and Authenticated by: Marlon Longoria MD. Ordering:ANTELMO Rivas MD
[2020-08-29 23:00] VITALS: BP 153/63; PULSE 67; RESP 20; O2SAT 98
== END 2020-08-29 23:10 | disposition home or self-care (01) ==
PROVIDERS: Emergency Provider Physician Assistant; PCP Internal Medicine
DX: S20.212A Contusion of left front wall of thorax, initial encounter (principal); S51.812A Laceration without foreign body of left forearm, initial encounter; W01.198A Fall on same level from slipping, tripping and stumbling with subsequent striking against other object, initial encounter; R10.12 Left upper quadrant pain; I10 Essential (primary) hypertension; S60.012A Contusion of left thumb without damage to nail, initial encounter
CPT/HCPCS: 80053; 96361; 96365; 99285; 73140; 74177; 85025; J0131; J3490

== ENCOUNTER 2020-10-05 03:20 | Outpatient (CLI) | payer OTHER, SELFPAY ==
[2020-10-06 08:22] LABS: PSA, Diagnostic 6.1 ng/mL (0.0-6.5)
== END 2020-10-05 03:40 ==
PROVIDERS: PCP Internal Medicine; Visit Provider Urology
DX: R97.20 Elevated prostate specific antigen [PSA] (principal)
CPT/HCPCS: 36415; 84153

== ENCOUNTER → 2020-10-13 12:54 | Outpatient (BNVA) | payer MEDICARE, OTHER, SELFPAY | PROVIDERS: PCP Internal Medicine; Referring Provider Internal Medicine; Visit Provider Urology | DX: Z12.5 Encounter for screening for malignant neoplasm of prostate (principal); R97.20 Elevated prostate specific antigen [PSA] | CPT/HCPCS: 99213 ==

== ENCOUNTER 2020-10-31 03:43 | Outpatient (CLI) | payer MEDICARE, OTHER, SELFPAY ==
[2020-10-31 11:38] LABS: Abs Immature Grans 0.08 10^3/uL (0.0-0.06); Absolute Basophil Count 0.03 10^3/uL (0.0-0.2); Absolute Eosinophil Count 0.15 10^3/uL (0.0-0.7); Absolute Lymphocyte Count 1.37 10^3/uL (1.2-3.4); Absolute Monocyte Count 0.82 10^3/uL (0.1-0.8); Absolute Neutrophil Count 8.31 10^3/uL (1.2-6.7); Basophils % 0.3; Eosinophils % 1.4; HCT 38.2 % (40.0-50.0); HGB 11.5 g/dL (13.5-17.5); Immature Grans % 0.7; Lymphocytes % 12.7; MCH 25.9 pg (27.0-33.0); MCHC 30.1 % (32.0-36.0); Monocytes % 7.6; Neutrophils % 77.3; Nucleated RBC 0 %; Platelet Count 240 10^3/uL (130-400); RBC 4.44 10^6/uL (4.36-5.78); RDW 19.1 % (11.8-14.1); RDW-SD 59.7 fL; WBC 10.76 10^3/uL (4.4-10.8)
[2020-10-31 12:22] LABS: ALT 16 U/L (16-63); AST 15 U/L (15-37); Albumin 3.6 g/dL (3.4-5.0); Alkaline Phosphatase 49 U/L (46-116); Anion Gap 5.9 mmol/L (3-11); BUN 15 mg/dL (7-18); Bilirubin, Total 0.7 mg/dL (0.2-1.0); C-Reactive Protein 1.26 mg/dL (0.0-0.3); CO2 29.1 mmol/L (21.0-32.0); CREATININE 0.76 mg/dL (0.70-1.30); Calcium 8.6 mg/dL (8.5-10.1); Chloride 101 mmol/L (98-107); Glucose 89 mg/dL (74-106); Sodium 136 mmol/L (136-145); Total Protein 6.4 g/dL (6.4-8.2)
[2020-10-31 12:54] LABS: ESR 33 mm/hr (1-20)
== END 2020-10-31 04:03 ==
PROVIDERS: PCP Internal Medicine; Visit Provider Internal Medicine Rheumatology
DX: M35.3 Polymyalgia rheumatica (principal); Z79.899 Other long term (current) drug therapy; M19.90 Unspecified osteoarthritis, unspecified site; M85.80 Other specified disorders of bone density and structure, unspecified site; Z79.52 Long term (current) use of systemic steroids; R79.82 Elevated C-reactive protein (CRP)
CPT/HCPCS: 36415; 80053; 85652; 85025; 86140

== ENCOUNTER 2021-01-23 02:42 | Outpatient (CLI) | payer MEDICARE, OTHER, SELFPAY ==
[2021-01-23 10:17] LABS: Abs Immature Grans 0.07 10^3/uL (0.0-0.06); Absolute Basophil Count 0.02 10^3/uL (0.0-0.2); Absolute Lymphocyte Count 1.12 10^3/uL (1.2-3.4); Absolute Neutrophil Count 6.88 10^3/uL (1.2-6.7); Basophils % 0.2; ESR 14 mm//hr (0-20); Eosinophils % 1.1; HCT 39.6 % (40.0-50.0); HGB 11.8 g/dL (13.5-17.5); Immature Grans % 0.8; Lymphocytes % 12.6; MCH 26.2 pg (27.0-33.0); MCHC 29.8 % (32.0-36.0); MCV 87.8 fL (80-95); MPV 7.8 fL (8.0-11.0); Monocytes % 7.9; Neutrophils % 77.4; Nucleated RBC 0 %; Platelet Count 225 10^3/uL (130-400); RBC 4.51 10^6/uL (4.36-5.78); RDW 17.7 % (11.8-14.1); RDW-SD 56.3 fL; WBC 8.89 10^3/uL (4.4-10.8)
[2021-01-23 11:50] LABS: ALT 18 U/L (16-63); AST 15 U/L (15-37); Albumin 3.5 g/dL (3.4-5.0); Alkaline Phosphatase 50 U/L (46-116); Anion Gap 8.3 mmol/L (3-11); BUN 12 mg/dL (7-18); Bilirubin, Total 0.5 mg/dL (0.2-1.0); C-Reactive Protein 2.54 mg/dL (0.0-0.3); CO2 28.7 mmol/L (21.0-32.0); CREATININE 0.8 mg/dL (0.70-1.30); Calcium 8.9 mg/dL (8.5-10.1); Chloride 102 mmol/L (98-107); Glucose 80 mg/dL (74-106); Potassium 4.7 mmol/L (3.5-5.1); Sodium 139 mmol/L (136-145); Total Protein 6.4 g/dL (6.4-8.2)
== END 2021-01-23 02:43 | disposition home or self-care (01) ==
LOC: LBO 02:42
PROVIDERS: PCP Internal Medicine; Visit Provider Internal Medicine Rheumatology
DX: M35.3 Polymyalgia rheumatica (principal); Z79.899 Other long term (current) drug therapy; R79.82 Elevated C-reactive protein (CRP); M85.80 Other specified disorders of bone density and structure, unspecified site; Z79.52 Long term (current) use of systemic steroids
CPT/HCPCS: 36415; 80053; 85652; 85025; 86140

== ENCOUNTER 2021-02-14 03:15 | Outpatient (CLI) | payer MEDICARE, OTHER, SELFPAY ==
--- NOTE | 2021-02-14 14:21 | DI.DEXA_ITS ---
Exam(s) XR DEXA BONE DENSITY W/WO KHUSHBOO EXAM: XR DEXA BONE DENSITY W/WO KHUSHBOO CLINICAL HISTORY: SKILLED NURSING USE SYSTEMIC STEROIDS,Z79.52,HIGH RISK MEDICATION USE,Z79.899,PMR TECHNIQUE: Routine DEXA evaluation of the lumbar spine, hip, or forearm. COMPARISON: Prior DXA scans 2016 and 2018 FINDINGS: Performed on a [employer] unit. Lateral image: No acute compression fracture evident. Lumbar Spine total T-score: 0.4. Prior 2018 reading was 0.3 Hip total T-score:-1.7. Prior 2018 reading was -1.2. Independent reading at the femoral neck level yields a T-score of -2.3. Forearm total T-score: -0.7 IMPRESSION: Bone mineral density measures in the osteopenia range. Fracture risk is moderate. Note: Any spine fracture indicates 5x risk for subsequent spine fracture and 2x risk for subsequent h ip fracture. World Health Organization criteria for BMD interpretation classify patients: Normal...... T- Score at or above -1.0 Osteopenic... T- Score between -1.0 and -2.5 Osteoporosis... T-Score at or below -2.5
[2021-02-14 14:54] LABS: ESR 25 mm//hr (0-20)
[2021-02-14 15:25] LABS: C-Reactive Protein 2.22 mg/dL (0.0-0.3)
== END 2021-02-14 03:16 | disposition home or self-care (01) ==
LOC: LBO 03:15
PROVIDERS: PCP Internal Medicine; Visit Provider Internal Medicine Rheumatology
DX: M35.3 Polymyalgia rheumatica (principal); M81.0 Age-related osteoporosis without current pathological fracture; R79.82 Elevated C-reactive protein (CRP); M85.88 Other specified disorders of bone density and structure, other site; Z79.899 Other long term (current) drug therapy; Z79.52 Long term (current) use of systemic steroids
CPT/HCPCS: 36415; 77080; 85652; 86140

== ENCOUNTER 2021-04-02 14:16 | Outpatient (CLI) | payer MEDICARE, OTHER, SELFPAY ==
[2021-04-02 22:19] LABS: PSA, Diagnostic 8.2 ng/mL (0.0-6.5)
== END 2021-04-02 14:17 | disposition home or self-care (01) ==
LOC: LOS 14:16
PROVIDERS: PCP Internal Medicine; Visit Provider Urology
DX: R97.20 Elevated prostate specific antigen [PSA] (principal)
CPT/HCPCS: 36415; 84153

== ENCOUNTER → 2021-04-13 09:46 | Outpatient (BNVA) | payer MEDICARE, OTHER, SELFPAY | PROVIDERS: PCP Internal Medicine; Referring Provider Internal Medicine; Visit Provider Urology | DX: R39.15 Urgency of urination (principal); R97.20 Elevated prostate specific antigen [PSA]; F52.21 Male erectile disorder | CPT/HCPCS: 99213 ==

== ENCOUNTER 2021-07-31 03:35 | Outpatient (CLI) | payer MEDICARE, OTHER, SELFPAY ==
[2021-07-31 22:27] LABS: PSA, Diagnostic 9.8 ng/mL (0.0-6.5)
== END 2021-07-31 03:36 | disposition home or self-care (01) ==
LOC: LBO 03:36
PROVIDERS: PCP Internal Medicine; Visit Provider Urology
DX: R97.20 Elevated prostate specific antigen [PSA] (principal)
CPT/HCPCS: 36415; 84153

== ENCOUNTER 2021-10-11 04:22 | Outpatient (CLI) | payer MEDICARE, OTHER, SELFPAY ==
[2021-10-11 22:25] LABS: PSA, Diagnostic 9.5 ng/mL (0.0-6.5)
== END 2021-10-11 04:23 | disposition home or self-care (01) ==
LOC: LBO 04:22
PROVIDERS: Urology; PCP Internal Medicine; Visit Provider Nurse Practitioner Gerontology
DX: R97.20 Elevated prostate specific antigen [PSA] (principal)
CPT/HCPCS: 36415; 84153

== ENCOUNTER → 2021-10-19 10:17 | Outpatient (BNVA) | payer MEDICARE, OTHER, SELFPAY | PROVIDERS: PCP Internal Medicine; Visit Provider Urology | DX: R35.1 Nocturia (principal); R97.20 Elevated prostate specific antigen [PSA]; Z79.899 Other long term (current) drug therapy; Z12.5 Encounter for screening for malignant neoplasm of prostate | CPT/HCPCS: 99214 ==

== ENCOUNTER → 2022-01-29 14:18 | Outpatient (BNVA) | payer MEDICARE, OTHER, SELFPAY | PROVIDERS: PCP Internal Medicine; Referring Provider Internal Medicine; Visit Provider Urology | DX: R31.29 Other microscopic hematuria (principal); R97.20 Elevated prostate specific antigen [PSA]; M35.3 Polymyalgia rheumatica | CPT/HCPCS: 81003; 99214 ==

== ENCOUNTER 2022-04-12 02:20 | Outpatient (CLI) | payer MEDICARE, OTHER, SELFPAY ==
--- OUTSIDE RECORDS SUMMARY | 2022-04-12 02:24 | XMS_ITS | Encounter Summary ---
:1945 Author Organization [facility] [place] [place] [address] Care Team Providers Name Role Phone Jennifer Pelaez MD Primary Care Provider Reason for Referral Consultation (Routine) - Authorized Specialty Diagnoses / Referred By Referred To Cont act Procedures Contact Electrophysiology / Diagnoses SVT (supraventricular tachycardia) Syncope, unspecified syncope type SVT Jennifer Pelaez [facility] 4a Cardiology MD Tommie [address] [place], [place] [phone] Phone: Phone: Referral ID Status Reason Start Date Expiration Visits Visits Date Requested Authorized [id number] Authorized Consult, 03/12/2022 03/12/2023 1 1 Test & Treat Encounter Details Date Type Department Care Team Description 03/12/2022 Transcribe Orders eDH Incoming JER PelaezT (supra ventricular tachycardia); Referrals Jennifer Reilly MD Syncope, unspecified syncope type [phone] [place] [id number] Social History Tobacco Use Types Packs/Day Years Used Date Never Smoker Smokeless Tobacco: Never Used Sex Assigned at Date Recorded Not on file documented as of this encounter Plan of Treatment Upcoming Encounters Date Type Specialty Care Team Description 04/23/2022 Office Visit Dermatology Cecilio Barillas MD [address] [place] [address] DERMATOLOGY [place], [place] [address] (Wo rk) 05/30/2022 Office Visit Rheumatology Theresa Robledo, DO [facility] RHEUMATOLOGY [place], [place] [address] (Wo rk) Scheduled Referrals Name Type Priority Associated Order Schedule Diagnoses Referral to Cardiac Outpatient Routine SVT Ordered: Electrophysiology Referral (supraventricular 03/12 tachycardia) Syncope, unspecified syncope type documented as of this encounter Visit Diagnoses Diagnosis SVT (supraventricular tachycardia) Other specified cardiac dysrhythmias Syncope, unspecified syncope type documented in this encounter Care Teams Linoleum Floor Installer Relationship Specialty Start Date End Date Jennifer Pelaez MD PCP - General 02/09/[address] [place] [address] [place] [address] documented as of this encounter
--- OUTSIDE RECORDS SUMMARY | 2022-04-12 02:24 | XMS_ITS | Encounter Summary ---
:1945 Author Organization [facility] [address] Care Team Providers Name Role Phone Jennifer Pelaez MD Primary Care Provider Encounter Details Date Type Department Care Team Description 04/02/2021 Office Visit Rheumatology at [facility] Lois Robledo PMR (polymyalgia rheumatica) ; [facility] D, DO High risk medication use; Drive [facility] Osteoporosis, unspecified os teoporosis type, unspecified pathological fracture presence; [place] [address] [address] care home current use of non-steroidal a nti-inflammatories (NSAID); [phone] RHEUMATOLOGY DEP T Pain of great toe, unspecified lateralit y; [place], [place] [address] Healthcare maintenance; [phone] Arthritis; (Work) Elevated C-reactive protein (CRP); Osteopeni a, unspecified location; roasterman curre nt use of systemic steroids Social History Tobacco Use Types Packs/Day Years Used Date Never Smoker Smokeless Tobacco: Never Used Sex Assigned at Date Recorded Not on file documented as of this encounter Last Filed Vital Signs Vital Sign Reading Time Taken Comments Blood Pressure 136/72 04/02/2021 1:49 PM EDT Pulse 90 04/02/2021 1:49 PM EDT Temperature 37.4 ??C (99.3 ??F) 04/02/2021 1:49 PM EDT Respiratory Rate - - Oxygen Saturation 100% 04/02/2021 1:49 PM EDT Inhaled Oxygen Concentration - - Weight 75.3 kg (166 lb) 04/02/2021 1:49 PM EDT Height 177.8 cm (5' 10) 04/02/2021 1:49 PM EDT Body Mass Index 23.82 04/02/2021 1:49 PM EDT documented in this encounter Progress Notes Lois Robledo, DO - 04/02/2021 2:00 PM EDT Rheumatology History: PMR -difficulty tapering <6 mg of methylprednisone -methotrexate added, increased to 25 mg subcu IN April 2018; decreased to 20 mg subcu in April 2020. -no actemra due to extensive diverticulosis Interval History: Cruz Zambrano is a 75 y.o. male who presents today for continued management of polymyalgia rheumatica. His last visit was inperson with me in January 2021 Last labs were last week. Hb 11.1, sed rate 40, crp 9.7. cmp normal. He previously had hemoglobins in the nines and was diagnosed with B12 deficiency, he is currently on B12 supplementation with improvement in his anemia. He also is discontinued his baby aspirin. He is following with his primary care anand huerta for this issue. He overall reports that he is doing okay. He is on 4 mg of Medrol. He reports he is just started working out at the gym and has had some increased soreness, he is uncertain whether to attribute this toexercise versus his polymyalgia. Most of his pain seems to be unilateral on the left side. He notes some stiffness in the neck and the shoulders in the morning but this is after he falls asleep in his chair with his neck flexed forward. He denies any headaches, vision changes, jaw claudication. He denies any side effects from his medications and no recent infections. He did recently have left great toe swelling which occurred after exercise where he was doing calf raises and some leg strengthening he denies any trauma otherwise to the toe. He notes it swelled up over couple hours and was red and tender he also has large callus formation on the bottom of the foot. He has never anything like this before it did last 1 day he did not take anything for it. His queries if this could be gout there are also seeing podiatry today. Current Treatment: Medrol 4mg alternating with 3.5 mg daily, methotrexate 0.8 mg SC weekly, folic acid 1 mg daily Background: PMR history reviewed 07/12/2020: Patient reports that initially had swelling of two fingers swollen a few years ago, had carpel tunnel release but surgeon told him he had underlying issues. Does not recall joint swelling or redness. Then thighs and knees were stiff upon getting out of bed. He was on prednisone and plaquenil for a few months but that did not help. A few months later all of the sudden he had a flair with shoulder, leg, neck pain with aches. Couldn't get out of bed. He denies any history of GCA symptoms. Per Dr. Montano account, he has had longstanding polymyalgia rheumatica which has been difficult to control and he struggled to taper down his prednisone; symptoms initially presented like seronegative RA and then he developed PMR symptoms. Patient agrees with this account. Review of Systems: General: Denies fevers, chills, night sweats, unintended weight change. Fatigue. Energy level is good, he is sleeping well. Stable weight. 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 Negative subscap liftoff negative empty can sign no pain with AC joint testingsome mild pain with impingement Hips no tenderness to palpation over the greater trochanters Feet mild erythema and swelling over the left first great toe at the MTP joint no swelling or tenderness palpation of the other joints normal range of motion bilateral callus formation on the plantar surface of both MTPs. Quick look ultrasound showed a small effusion with out erosive disease at the first MTP no evidence of gout on ultrasonography.. Laboratory Data: 10/31/2020 [facility]: CBC unremarkable except for low --Hgb 11.5; HCT 38.2; MCV 86; RDW elevated at 19.1 (ULN 14.1); see scanned report for other mild abnormalities CMP unremarkable. CRP 1.26 mg/dL ESR 33 crp 2.5 01/2406/22/2020 [facility] : CBC unremarkable except low -- RBC 3.92; Hgb 9.7; Hct 31.6; borderline low MCV 80.6. CMP unremarkable except (not inclusive) low -- Calcium 8.4; total protein 6.0 (LLN 6.4); albumin 3.2(LLN 3.4) Normal ferritin at 59. Normal HgbA1c at 5.5%. ESR 39 Elevated CRP 3.60 mg/dL Per prior progress note: Last labs 05/23: ESR 45 (down from 54) and CrP 1 (down from 3). Labs: 08/11/18: esr 21, crp 0.17 Labs 09/22 esr 18, crp, 0.14.8 10/24 esr 18, crp0.31 02/21 esr 35 crp 0.71 06/24 esr 16 crp 0.31 12/23 crp 0.41, esr 23 Impression/Recommendations: Polymyalgia Rheumatica -- Cruz Zambrano is a 75 y.o. male who presents today for continued management of long-standing polymyalgia rheumatica which is been very difficult to control and has struggledto taper down his prednisone. He initially presented like seronegative RA and then developed PMR symptoms. We have had a challenge tapering down below 8mg without methotrexate, and on methotrexate 25 mg SC weekly he has been able to taper down to methylprednisolone 4 mg, with occasional tapers up to 4.5 or down to 3.5. We discussed tapering strategies before and he will try again once he is feeling be tter. His recent CRP was within normal limits and a sed rate was slightly elevated at 40 for repeat labs in a few weeks to reassess. This also may have nearly coincided with his toe swelling. Toe swelling was not classic for gout but definitely consideration will check his uric acid he can use topical diclofenac gel for this for now as it is improving already without intervention. Osteoporosis on Fosamax we will continue this continue calcium and vitamin D Tinnitus offenders on his list include alendronate, omeprazole holding alendronate did not make any major difference he is following with his primary care physician with use of his hearing aids has improvement in this. Anemia -- improved H&H with B12 supplementation per direction of PCP. Low albumin/total protein -- followed by primary care. Follow-up 3 months or sooner with issues Lois Robledo DO CC: Jennifer Pelaez MD documented in this encounter Plan of Treatment Upcoming Encounters Date Type Specialty Care Team Description 04/23/2022 Office Visit Dermatology Cecilio Barillas MD [address] [facility] DERMATOLOGY [place], [place] [address] (Wo rk) 05/30/2022 Office Visit Rheumatology Theresa Robledo DO [facility] DR RHEUMATOLOGY [place], [place] [address] (Wo rk) Scheduled Orders Name Type Priority Associated Diagnoses Order S chedule Uric acid Lab Routine Pain of great toe, unspecifi ed Expected: 04/02/2021 laterality (Approximate), Expires: 04/02/2022 documented as of this encounter Visit Diagnoses Diagnosis PMR (polymyalgia rheumatica) Polymyalgia rheumatica High risk medication use Encounter for long-term (current) use of other medications Osteoporosis, unspecified osteoporosis t ype, unspecified pathological fracture presence care home current use of non-steroidal a nti-inflammatories (NSAID) Encounter for long-term (current) use of non-steroidal anti-inflammatories Pain of great toe, unspecified lateralit y Healthcare maintenance Routine general medical examination at a health care facility Arthritis Arthropathy, unspecified, site unspecifi ed Elevated C-reactive protein (CRP) Osteopenia, unspecified location care home current use of systemic steroi ds Encounter for long-term (current) use of steroids documented in this encounter Care Teams Motor Teacher Relationship Specialty Start Date End Date Jennifer Pelaez MD PCP - General 02/09/[address] [place] [address] [place] [address] documented as of this encounter
--- OUTSIDE RECORDS SUMMARY | 2022-04-12 02:24 | XMS_ITS | Encounter Summary ---
:1945 Author Organization [facility] Address [address] [place] [address] Care Team Providers Name Role Phone Sandro Garcia MD Primary Care Provider Encounter Details Date Type Department Care Team Description 01/12/2016 Hospital Encounter [facility]- Karen Unknown, Provider, [facility] [address] [facility] [phone] [place] [address] (Work) [phone] Social History Tobacco Use Types Packs/Day Years Used Date Never Assessed Sex Assigned at Date Recorded Not on file documented as of this encounter Medications at Time of Discharge Medication Sig Dispensed Refills Start Date End Date aspirin chewable 81 mg tablet Take 81 mg by 0 mouth daily. ezetimibe-simvastatin (VYTORIN Take 1 Tab by 0 10-40) 10-40 mg per tablet mouth daily. hydrochlorothiazide Take 25 mg by 0 (HYDRODIURIL) 25 mg tablet mouth daily. metoprolol XL (TOPROL-XL) 100 Take 100 mg by 0 mg tablet mouth daily. valACYclovir (VALTREX) 500 mg Take 500 mg by 0 tablet mouth 3 times daily. zolpidem (AMBIEN CR) 12.5 mg CR Take 12.5 mg by 0 tablet mouth at bedtime. documented as of this encounter Discharge Disposition Disposition Code Departure Means Destination Home or Self [facility] documented in this encounter Plan of Treatment Not on filedocumented as of this encounter Visit Diagnoses Not on filedocumented in this encounter Care Teams Mixer Crane Operator Relationship Specialty Start Date End Date Sandro Garcia MD PCP - General 02/21/[address] [place] [address] DR [place] [id number] documented as of this encounter
--- OUTSIDE RECORDS SUMMARY | 2022-04-12 02:24 | XMS_ITS | Encounter Summary ---
:1945 Author Organization [place] [address] Care Team Providers Name Role Phone Jennifer Pelaez MD Primary Care Provider Reason for Visit Reason Comments Follow-up Encounter Details Date Type Department Care Team Description 04/20/2021 Office Visit Dermatology at Cec[facility] Barillas [place] (act inic keratosis); Dileep ANGULO History of basal cell carcinoma; [address] [address] [facility] [facility] [address] Seborrheic keratosis [address] DERMATOLOGY [place], [place] [phone] Social History Tobacco Use Types Packs/Day Years Used Date Never Smoker Smokeless Tobacco: Never Used Sex Assigned at Date Recorded Not on file documented as of this encounter Progress Notes Cecilio Barillas MD - 04/20/2021 10:00 AM EDT Problem: 1.?6-month??skin checkup??for actinic damage 2. ??Polymyalgia rheumatica/poorly defined connective tissue disease on prednisone/SC?methotrexate 3. 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 Status post 14-day course of 5-FU October 2020 Cruz follows up for 6-month check and has been doing well. He has noticed some new lesions on the right preauricular cheek and also in the right upper nasal sidewall. He has folds number of actinic's remaining on the scalp that are somewhat hyperkeratotic but many many fewer than he had prior to his course of 5-FU back in October. He is fully retired from [employer]. Physical examination confirms actinic present diffusely over the scalp, a total of 8 are noted. Otherwise examination of the sun exposed skin of the face the neck the hands and forearms is benign. Assessment and plan: Actinic keratosis, hyperkeratotic, thinning parietal scalp 1. LN2 applied to each of 8 sites [address]. Post LN2 instructions given 3. Return to clinic in another 6 months for repeat check Irritated seborrheic keratoses right preauricular cheek and right upper nasal sidewall near just below right medial canthus 1. Could consider C&D removal of these. CC: Jennifer Pelaez MD ?? documented in this encounter Plan of Treatment Upcoming Encounters Date Type Specialty Care Team Description 04/23/2022 Office Visit Dermatology Cecilio Barillas MD [address] [place] [address] DERMATOLOGY [place], [place] [address] (Wo rk) 05/30/2022 Office Visit Rheumatology Theresa Robledo, DO [facility] DR RHEUMATOLOGY [place], [place] [address] (Wo rk) documented as of this encounter Visit Diagnoses Diagnosis AK (actinic keratosis) Actinic keratosis History of basal cell carcinoma Personal history of other malignant neop lasm of skin Seborrheic keratosis Other seborrheic keratosis documented in this encounter Care Teams Acetone Button Paster Relationship Specialty Start Date End Date Jennifer Pelaez MD PCP - General 02/09/[address] [place] [address] [place] [address] documented as of this encounter
--- OUTSIDE RECORDS SUMMARY | 2022-04-12 02:24 | XMS_ITS | Encounter Summary ---
:1945 Author [address] [facility] [place] [address] Care Team Providers Name Role Phone Jennifer Pelaez MD Primary Care Provider Encounter Details Date Type Department Care Team Description 01/12/2020 Clinical Support [place] [address] Social History Tobacco Use Types Packs/Day Years Used Date Never Smoker Smokeless Tobacco: Never Used Sex Assigned at Date Recorded Not on file documented as of this encounter Progress Notes Evelyn Brown - 01/12/2020 11:00 AM EDT Patient showed no sign of adverse reaction after receiving medication or upon departure. documented in this encounter Plan of Treatment Upcoming Encounters Date Type Specialty Care Team Description 04/23/2022 Office Visit Dermatology Cecilio Barillas MD [address] [place] [address] DERMATOLOGY [place], [place] [address] (Wo rk) 05/30/2022 Office Visit Rheumatology Theresa Robledo, [facility] RHEUMATOLOGY [place], [place] [address] (Wo rk) documented as of this encounter Visit Diagnoses Diagnosis Health care maintenance Unspecified general medical examination documented in this encounter Care Teams Lining Caser Relationship Specialty Start Date End Date Jennifer Pelaez MD PCP - General 02/09/[address] [place] [address] [place] [address] documented as of this encounter
--- OUTSIDE RECORDS SUMMARY | 2022-04-12 02:24 | XMS_ITS | Encounter Summary ---
:1945 Author Organization [facility] Address [address] [place] [address] Care Team Providers Name Role Phone Sandro Garcia MD Primary Care Provider Reason for Visit Reason Comments Anal Fissure NPV Encounter Details Date Type Department Care Team Description 04/03/2012 Office Visit [facility] García Lin MD Coccydynia (Primary General Surgery - [address] [facility]) [facility] [address] [place] [address] Pavilion, [place] [id number] (Wo rk) Social History Tobacco Use Types Packs/Day Years Used Date Never Assessed Sex Assigned at Date Recorded Not on file documented as of this encounter Last Filed Vital Signs Vital Sign Reading Time Taken Comments Blood Pressure 161/83 04/03/2012 1020 EDT Pulse 62 04/03/2012 1020 EDT Temperature - - Respiratory Rate - - Oxygen Saturation - - Inhaled Oxygen Concentration - - Weight 87.1 kg (192 lb) 04/03/2012 1020 EDT Height 177.8 cm (5' 10) 04/03/2012 1020 EDT Body Mass Index 27.55 04/03/2012 1020 EDT documented in this encounter Progress Notes Sandro Lin MD - 04/03/2012 1048 EDT This office note has been dictated. documented in this encounter Consult Notes Sandro Lin MD - 04/06/2012 1037 EDT DIVISION OF GENERAL SURGERY CONSULTATION - 04/03/2012 REFERRING PHYSICIAN: Sandro Garcia MD CONSULTING PHYSICIAN: Sandro Lin MD HISTORY OF PRESENT ILLNESS: The patient is a 66-year-old gentleman with anal pain. The patient has had some left-sided pain and groin pain, which was treated with a transection of what presumably was his ilioinguinal or perhaps iliohypogastric nerve. This has not improved his symptoms dramatically. He developed some symptoms associated with an anal fissure and constipation, which was treated conservatively and resolved, and he developed some pain on the right posterior aspect of his anus, which was not related to bowel movements and absolutely related to sitting. The more he sat the worst in hurt. If he sat in this relative position it got worse. Sitting up was better. Physical activity otherwise is fine. Bowel movements did not exacerbate the pain. The pain even felt better after bowel movements on occasion. The patient does have constipation, but he currently denies change in bowel habits, weight loss, fatigue, nausea, vomiting or other systemic symptoms. Review of systems x10 is positive for the pain previously mentioned but otherwise negative. Past medical history, medications, allergies are all available on [facility]. The patient has had pyloricstenosis as a child, aortic surgery as well. He has not had anorectal surgery. OBJECTIVE: HEENT exam is unremarkable. Constitutional exam is positive for a gentleman who is standing up and clearly sits with difficulty. Lungs are clear. Cardiac exam is regular rate and rhythm. Abdomen is benign. External anal exam reveals no fissures, fistulae. There is tenderness over the coccyx. That does reproduce the patient's tenderness. Digital exam reveals no tenderness within the anal canal. Palpation of the coccyx, particularly on the right, clearly reproduces the patient's discomfort. No other abnormalities are noted. Prostate is smooth. IMPRESSION: Coccydynia. RECOMMENDATIONS: I informed the patient there is no surgical treatment for this. I have encouraged him to sit up straight, with weight off his coccyx, not to slouch, to try ibuprofen and ice and see physical therapy and also to continue with his myofascial release and also perhaps consider acupuncture. He will follow up p.r.n. Electronically Signed by Sandro Lin MD, FACS 04/13/2012 19:01 Sandro Lin MD, FACS [phone] - Sandro Lin MD, FACS - Job ID: SM Doc ID: [id number] Ext Doc ID: [id number] cc: MD Theodore Balderas MD documented in this encounter Plan of Treatment Not on filedocumented as of this encounter Visit Diagnoses Diagnosis Coccydynia - Primary Other disorder of coccyx documented in this encounter Historical Medications This list may reflect changes made after this encounter. Medication Sig Dispensed Refills Start Date End Date valACYclovir (VALTREX) 500 mg Take 500 mg by 0 tablet mouth 3 times daily. zolpidem (AMBIEN CR) 12.5 mg CR Take 12.5 mg by 0 tablet mouth at bedtime. ezetimibe-simvastatin (VYTORIN Take 1 Tab by 0 10-40) 10-40 mg per tablet mouth daily. aspirin chewable 81 mg tablet Take 81 mg by 0 mouth daily. hydrochlorothiazide Take 25 mg by 0 (HYDRODIURIL) 25 mg tablet mouth daily. metoprolol XL (TOPROL-XL) 100 Take 100 mg by 0 mg tablet mouth daily. added in this encounter Care Teams Director Consumer Affairs Relationship Specialty Start Date End Date Sandro Garcia MD PCP - General 02/21/[address] [place] [address] [place] [address] documented as of this encounter
--- OUTSIDE RECORDS SUMMARY | 2022-04-12 02:24 | XMS_ITS | Encounter Summary ---
:1945 [place] [address] Care Team Providers Name Role Phone Jennifer Pelaez MD Primary Care Provider Encounter Details Date Type Department Care Team Description 04/18/2020 Telephone [place] [facility] [place] [address] Social History Tobacco Use Types Packs/Day Years Used Date Never Smoker Smokeless Tobacco: Never Used Sex Assigned at Date Recorded Not on file documented as of this encounter Miscellaneous Notes Telephone Encounter - Suman Mendez - 04/18/2020 10:26 AM EDT Called patient to schedule 3 month f/u with Lois Robledo. Pt answered phone, but then connection was lost. Tried alternate phone number in chart, and voicemail box not set up. Letter sent for patient to call back to schedule appointment. documented in this encounter Plan of Treatment Upcoming Encounters Date Type Specialty Care Team Description 04/23/2022 Office Visit Dermatology Cecilio Barillas MD [address] [place] [address] RD DERMATOLOGY [place], [place] [address] (Wo rk) 05/30/2022 Office Visit Rheumatology Theresa Robledo, [facility] DR RHEUMATOLOGY [place], [place] [address] (Eren rk) documented as of this encounter Visit Diagnoses Not on filedocumented in this encounter Care Teams People Greeter Relationship Specialty Start Date End Date Jennifer Pelaez MD PCP - General 02/09/[address] [place] [address] [place] [address] documented as of this encounter
--- OUTSIDE RECORDS SUMMARY | 2022-04-12 02:24 | XMS_ITS | Clinical Summary ---
:1945 Author Organization [facility] Address [address] [place] [address] Care Team Providers Name Role Phone Sandro Garcia MD Primary Care Provider Allergies No known active allergies Medications Medication Sig Dispensed Refills Start Date End Date Status metoprolol XL (TOPROL-XL) Take 100 mg 0 Active 100 mg tablet by mouth daily. hydrochlorothiazide Take 25 mg by 0 Active (HYDRODIURIL) 25 mg tablet mouth daily. aspirin chewable 81 mg Take 81 mg by 0 Active tablet mouth daily. ezetimibe-simvastatin Take 1 Tab by 0 Active (VYTORIN 10-40) 10-40 mg mouth daily. per tablet zolpidem (AMBIEN CR) 12.5 Take 12.5 mg 0 Active mg CR tablet by mouth at bedtime. valACYclovir (VALTREX) 500 Take 500 mg 0 Active mg tablet by mouth 3 times daily. Active Problems Problem Noted Date Pain in the coccyx 04/03/2012 Social History Tobacco Use Types Packs/Day Years Used Date Never Assessed Sex Assigned at Date Recorded Not on file Last Filed Vital Signs Vital Sign Reading Time Taken Comments Blood Pressure 161/83 04/03/2012 1020 EDT Pulse 62 04/03/2012 1020 EDT Temperature - - Respiratory Rate - - Oxygen Saturation - - Inhaled Oxygen Concentration - - Weight 87.1 kg (192 lb) 04/03/2012 1020 EDT Height 177.8 cm (5' 10) 04/03/2012 1020 EDT Body Mass Index 27.55 04/03/2012 1020 EDT Plan of Treatment Health Maintenance Due Date Last Done Comments Hepatitis C Screen 1945 COVID-19 Vaccine (1) 1950 Fall Risk Screening 2012 Advance Directives For more information, please contact: [phone] Documents on File Type Date Recorded Patient Track Layer Head Explanati on Advance Directives and Living Will Power of Drilling Plant Operator Care Teams Welfare Aide Relationship Specialty Start Date End Date Sandro Garcia MD PCP - General 02/21/[address] [place] [address] [place] [address]
--- OUTSIDE RECORDS SUMMARY | 2022-04-12 02:24 | XMS_ITS | Encounter Summary ---
:1945 [place] [address] Care Team Providers Name Role Phone Jennifer Pelaez MD Primary Care Provider Encounter Details Date Type Department Care Team Description 08/02/2020 Telephone [place] [facility] [place] [address] Social History Tobacco Use Types Packs/Day Years Used Date Never Smoker Smokeless Tobacco: Never Used Sex Assigned at Date Recorded Not on file documented as of this encounter Miscellaneous Notes Telephone Encounter - Suman Mendez - 08/02/2020 10:29 AM EDT Called patient to schedule 4 month f/u with Lois Robledo or Bela Sawant. Spoke with patient's , she said that was just getting in, and asked if I could hold. Letwife know that I unfortunately could not, as I work at the department Exit desk, and had a patient in line. She will have patient call back to schedule appt. documented in this encounter Plan of Treatment Upcoming Encounters Date Type Specialty Care Team Description 04/23/2022 Office Visit Dermatology Cecilio Barillas MD [address] [place] [address] DERMATOLOGY [place], [place] [address] (Wo rk) 05/30/2022 Office Visit Rheumatology Theresa Robledo, [facility] DR RHEUMATOLOGY [place], [place] [address] (Wo rk) documented as of this encounter Visit Diagnoses Not on filedocumented in this encounter Care Teams Assembler Dc Field Yoke Relationship Specialty Start Date End Date Jennifer Pelaez MD PCP - General 02/09/[address] [place] [address] [place] [address] documented as of this encounter
--- OUTSIDE RECORDS SUMMARY | 2022-04-12 02:24 | XMS_ITS | Encounter Summary ---
:1945 Author Organization Health system Address [address] [place] [address] Care Team Providers Name Role Phone Sandro Garcia MD Primary Care Provider Encounter Details Date Type Department Care Team Description 09/20/2016 Results Only [facility] Kiran Holcomb, DPM [address] [place] [phone] (Wo rk) Social History Tobacco Use Types Packs/Day Years Used Date Never Assessed Sex Assigned at Date Recorded Not on file documented as of this encounter Plan of Treatment Not on filedocumented as of this encounter Procedures Procedure Name Priority Date/Time Associated Diagnosis [facility] SURGICAL PATHOLOGY Routine 09/20/2016 11:05 Resul ts for this EST procedure are i n the results section. documented in this encounter Results SURGICAL PATHOLOGY (09/20/2016 11:05 EST) Pathology Report: SURGICAL PATHOLOGY REPORT [facility] Reports generated via electronic interface contain javon ginal data; LABORATORY however they are lacking the format of the original re port. SERVICES Caution should be taken when reading/interpreting unfo rmatted reports. Name: ? ANTONIETTA ZHAO ? Accession #: ? [id number] ? : ? 1945 (Age: 71) ??M ? Collect Date: ? 09/20/2016 ? Location: ? [facility] ? Receive Date: ? 016 ? Provider: KIRAN HOLCOMB DPM Copy to: KANG MOMIN MD ? Final Pathologic Diagnosis: SOFT TISSUE, 3RD SPACE OF RIGHT FOOT, EXCISION: - Consistent with neuroma. Document reviewed and electronically signed by: GUZMAN FOSTER MD Report ??Date: 09/25/2016 17:45 By the signature above, the attending physician certif ies that he/she has personally conducted a gross and/or microscopic examin ation of the described specimens and rendered or confirmed the above diagnosi s. Specimen(s) Received: Soft tissue mass (neuroma) right 3rd space Clinical History: Neuroma Rt 3rd space Gross Description: ? Received in formalin labelled with proper patient identification (initials T, J) and soft tissue (neuroma) right 3rd space are two unoriented firm yellow-white fibrous soft tissues (1.5 x 1.5 x 0.3 cm in aggregate). The specimens are entirely submitted as 1. Dr. Sheridan 09/23/2016 3:58 PM End of Report Specimen Performing Organization Address City/State/ZIP Code Phon e Number [facility] [address] [place] [address] SERVICES documented in this encounter Visit Diagnoses Not on filedocumented in this encounter Care Teams Tire Buffer Relationship Specialty Start Date End Date Sandro Garcia MD PCP - General 02/21/[address] [place] [address] [place] [id number] documented as of this encounter
--- OUTSIDE RECORDS SUMMARY | 2022-04-12 02:24 | XMS_ITS | Encounter Summary ---
:1945 Author Organization [facility] Address [address] [place] [address] Care Team Providers Name Role Phone Sandro Garcia MD Primary Care Provider Encounter Details Date Type Department Care Team Description 10/11/2021 Lab Requisition [facility] Outr Resulting Lab, Pathology & Laboratory Provider [facility] [address] [place] [id number] Social History Tobacco Use Types Packs/Day Years Used Date Never Assessed Sex Assigned at Date Recorded Not on file documented as of this encounter Plan of Treatment Not on filedocumented as of this encounter Procedures Procedure Name Priority Date/Time Associated Comments Diagnosis PSA TOTAL, Routine 10/11/2021 13:08 Results for this DIAGNOSTIC EST procedure are i n the results section. documented in this encounter Results (ABNORMAL) PSA TOTAL, DIAGNOSTIC (10/11/2021 13:08 EST) Pathologist Sig nature PSA 9.5 (H) 0.0 - 6.5 ng/mL [facility] Specimen Blood - Venous blood (substance) Narrative [facility] - 10/11/2021 22:21 EST NOTE: Serum PSA concentration should not be in terpreted as absolute evidence for the presence or absence of malignant disease. Assayed on Siemens ADVIA Centaur XPT usi ng chemiluminescent technology.??Values obtained by using different assay methods cannot be used interchangeably. Performing Organization Address City/State/ZIP Code Phon e Number [facility] [address] [place] [address] SERVICES documented in this encounter Visit Diagnoses Not on filedocumented in this encounter Care Teams Link Cutter Relationship Specialty Start Date End Date Sandro Garcia MD PCP - General 02/21/[address] [place] [address] [place] [address] documented as of this encounter
--- OUTSIDE RECORDS SUMMARY | 2022-04-12 02:24 | XMS_ITS | Encounter Summary ---
:1945 Author Organization [facility] [place] [address] Care Team Providers Name Role Phone Jennifer Pelaez MD Primary Care Provider Reason for Visit Reason Comments Callouses Encounter Details Date Type Department Care Team Description 04/02/2021 Office Visit Podiatry at [facility] Bridget Castro DPM Foot arthropathy [facility] [place] [address] [address] [address] [phone] [place], [place] [address] (Wo rk) Social History Tobacco Use Types Packs/Day Years Used Date Never Smoker Smokeless Tobacco: Never Used Sex Assigned at Date Recorded Not on file documented as of this encounter Patient Instructions Patient InstructionsBridget Castro DPM - 04/02/2021 3:00 PM EDT Images from the original note were not included. Patient Education Foot Arthritis: Exercises Introduction Here are some examples of exercises for you to try. The exercises may be suggested for a condition or for rehabilitation. Start each exercise slowly. Ease off the exercises if you start to have pain. You will be told when to start these exercises and which ones will work best for you. How to do the exercises Calf stretch (knees straight) 1. Place a book on the floor a few inches from a wall or countertop, and put the balls of your feet on it. Your heels should be on the floor. The book needs to be thick enough so that you can feel a gentle stretch in your calf. If you are not steady on your feet, hold on to a chair, counter, or wall while you do this stretch. 2. Keep your knees straight, and lean forward until you feel a stretch in your calf. 3. To get more stretch, add another book or use a thicker book, such as a phone book, a dictionary, or an encyclopedia. 4. Hold the stretch for at least 15 to 30 seconds. 5. Repeat 2 to 4 times. Calf stretch (knees bent) 1. Place a book on the floor a few inches from a wall or countertop, and put the balls of your feet on it. Your heels should be on the floor. The book needs to be thick enough so that you can feel a gentle stretch in your calf. If you are not steady on your feet, hold on to a chair, counter, or wall while you do this stretch. 2. Bend your knees, and lean forward until you feel a stretch in your calf. 3. To get more stretch, add another book or use a thicker book, such as a phone book, a dictionary, or an encyclopedia. 4. Hold the stretch for at least 15 to 30 seconds. 5. Repeat 2 to 4 times. Great toe extension stretch 1. Sit in a chair, and put your affected foot across your other knee. 2. Grasp your heel with one hand and then slowly pull your big toe back with your other hand. Pull your toe back toward your ankle until you feel a stretch along the bottom of your foot. 3. Hold the stretch for at least 15 to 30 seconds. 4. Repeat 2 to 4 times. 5. Switch feet and repeat steps 1 through 4, even if only one foot is sore. Great toe flexion stretch 1. Sit in a chair, and put your affected foot across your other knee. 2. Grasp your heel with one hand and then slowly push your big toe down with your other hand. Push your toe down and away from your ankle until you feel a stretch along the top of your foot. 3. Hold the stretch for at least 15 to 30 seconds. 4. Repeat 2 to 4 times. 5. Switch feet and repeat steps 1 through 4, even if only one foot is sore. Ankle alphabet 1. Sit in a chair with your feet flat on the floor. (You can also do this exercise lying on your back with your affected leg propped up on a pillow). 2. Lift the heel of your sore foot off the floor, and slowly trace the letters of the alphabet. 3. Switch feet and repeat steps 1 through 2, even if only one foot is sore. Resisted ankle dorsiflexion 1. Tie the ends of an exercise band together to form a loop. Attach one end of the loop to a secure object or shut a door on it to hold it in place. (Or you can have someone hold one end of the loop toprovide resistance.) 2. While sitting on the floor or in a chair, loop the other end of the band over the top of your affected foot. 3. Keeping your knee and leg straight, slowly flex your foot to pull back on the exercise band, and then slowly relax. 4. Repeat 8 to 12 times. 5. Switch feet and repeat steps 1 through 4, even if only one foot is sore. Towel curl 1. While sitting, place your affected foot on a towel on the floor, and scrunch the towel toward youwith your toes. 2. Then use your toes to push the towel away from you. 3. Repeat 8 to 12 times. 4. Switch feet and repeat steps 1 through 3, even if only one foot is sore. Resisted ankle eversion 1. Sit on the floor with your legs straight. 2. Hold both ends of an exercise band and loop the band around the outside of your affected foot. Then press your other foot against the band. 3. Keeping your leg straight, slowly push your affected foot outward against the band and away from your other foot without letting your leg rotate. Then slowly relax. 4. Repeat 8 to 12 times. 5. Switch feet and repeat steps 1 through 4, even if only one foot is sore. Resisted ankle inversion 1. Sit on the floor with your good leg crossed over your other leg. 2. Hold both ends of an exercise band and loop the band around the inside of your affected foot. Then press your other foot against the band. 3. Keeping your legs crossed, slowly push your affected foot against the band so that foot moves away from your other foot. Then slowly relax. 4. Repeat 8 to 12 times. 5. Switch feet and repeat steps 1 through 4, even if only one foot is sore. Follow-up care is a ceja part of your treatment and safety. Be sure to make and go to all appointments, and call your doctor if you are having problems. It's also a good idea to know your test results and keep a list of the medicines you take. Where can you learn more? Visit our health information library at [email or web address] You can also view health information on [employer], your personal patient account. Log in or sign up today. Enter K113 in the search box to learn more about Foot Arthritis: Exercises. Current as of: August 21, 2020?Content Version: 12.9 ?? [employer]. Care instructions adapted under license by [facility]. If you have questions about a medical condition or this instruction, always ask your healthcare professional. [employer] disclaims any warranty or liability for your use of this information. Patient Education Purine-Restricted Diet: Care Instructions Your Care Instructions Purines are substances that are found in some foods. Your body turns purines into uric acid. High levels of uric acid can cause gout, which is a form of arthritis that causes pain and inflammation in joints. You may be able to help control the amount of uric acid in your body by limiting high-purine foods in your diet. Follow-up care is a ceja part of your treatment and safety. Be sure to make and go to all appointments, and call your doctor if you are having problems. It's also a good idea to know your test results and keep a list of the medicines you take. How can you care for yourself at home? ?? Plan your meals and snacks around foods that are low in purines and are safe for you to eat. These foods include: ? Green vegetables and tomatoes. ? Fruits. ? Whole-grain breads, rice, and cereals. ? Eggs, peanut butter, and nuts. ? Low-fat milk, cheese, and other milk products. ? Popcorn. ? Gelatin desserts, chocolate, cocoa, and cakes and sweets, in small amounts. ?? You can eat certain foods that are medium-high in purines, but eat them only once in a while. These foods include: ? Legumes, such as dried beans and dried peas. You can have 1 cup cooked legumes each day. ? Asparagus, cauliflower, spinach, mushrooms, and green peas. ? Fish and seafood (other than very high-purine seafood). ? Oatmeal, wheat bran, and wheat germ. ?? Limit very high-purine foods, including: ? Organ meats, such as liver, kidneys, sweetbreads, and brains. ? Meats, including andrade, beef, pork, and dawn. ? Game meats and any other meats in large amounts. ? Anchovies, sardines, chacon, mackerel, and scallops. ? Gravy. ? Beer. Where can you learn more? Visit our health information library at [email or web address] You can also view health information on [employer], your personal patient account. Log in or sign up today. Enter F448 in the search box to learn more about Purine-Restricted Diet: Care Instructions. Current as of: September 21, 2020?Content Version: 12.9 ?? [employer]. Care instructions adapted under license by [facility]. If you have questions about a medical condition or this instruction, always ask your healthcare professional. [employer] disclaims any warranty or liability for your use of this information. documented in this encounter Progress Notes Bridget Castro DPM - 04/02/2021 3:00 PM EDT Outpatient [facility] Note Name: Cruz Zambrano Age:75 y.o. MR#: [id number] Date of Service: 04/02/2021 SUBJECTIVE: Cruz Zambrano is a 75 y.o. male with PMR who returns to clinic today with chief complaint of left foot changes. Patient reports a weeks ago left great toe joint became red and swollen with severe pain which subsided within a week. Relates no significant discomfort today. Relates arthritic changes in feet and chronic callus bottom of right foot. Relates new sites which he is not activelytreating. No other pedal complaints today. Podiatric medical history: Abraham's neuroma, status post decompression nerve surgery right foot No Known Allergies No past medical history on file. Social History Socioeconomic History ??? Marital status: Spouse name: Not on file ??? Number of children: Not on file ??? Years of education: Not on file ??? Highest education level: Not on file Occupational History ??? Not on file Tobacco Use ??? Smoking status: Never Smoker ??? Smokeless tobacco: Never Used Vaping Use ??? Vaping Use: Never used Substance and Sexual Activity ??? Alcohol use: Not on file ??? Drug use: Not on file ??? Sexual activity: Not on file Other Topics Concern ??? Not on file Social History Narrative ??? Not on file Social Determinants of Health Financial Resource Strain: ??? Difficulty of Paying Living Expenses: Food Insecurity: ??? Worried About Running Out of Food in the Last Year: ??? Ran Out of Food in the Last Year: Transportation Needs: ??? Lack of Transportation (Medical): ??? Lack of Transportation (Non-Medical): Physical Activity: ??? Days of Exercise per Week: ??? Minutes of Exercise per Session: No family history on file. Current Outpatient Medications on File Prior to Visit Medication Sig Dispense Refill ??? ascorbic acid (VITAMIN C ORAL) Take by mouth. 2 gummies Daily ??? MAGNESIUM ORAL Take by mouth. 2 gummies Daily ??? BD SafetyGlide Shielding REG 1 mL 25 gauge x 5/8 Syringe Inject 1 Syringe subcutaneously once aweek. 50 Syringe 0 ??? cyanocobalamin, Vitamin B-12, (Vitamin B-12) 100 mcg Tablet Take 100 mcg by mouth daily. ??? simvastatin (Zocor) 10 mg Tablet ??? folic acid (Folvite) 1 mg Tablet Take 2 tablets by mouth daily. 180 tablet 3 ??? cholecalciferol, Vitamin D3, (VITAMIN D) 1,000 unit Capsule Take by mouth daily. ??? metoprolol succinate (TOPROL XL) 100 mg XL tablet (Patient taking differently: 50 mg daily.) ??? valACYclovir (VALTREX) 500 mg tablet ??? metHOTREXate 25 mg/mL Solution Inject 0.8 mLs subcutaneously once for 1 dose. 6 vial 2 No current facility-administered medications on file prior to visit. ROS: MSK: + foot pain--improved SKIN: + Callus The remainder of 10 ROS were reviewed and negative. OBJECTIVE: GEN: Alert, awake, NAD DERM: Hyperkeratosis improved right plantar forefoot centrally however minor changes to sub 1st-5th met heads. Skin atrophic, intact, not erythematous with no open lesions or signs of infection. No increased warmth. No rashes or maceration. VASC: Pedal pulses palpable. No color changes. No rest pain. NEURO: Epicritic sensation intact to light touch with no deficits. MSK: No significant pain on palpation. Gait stable and nonantalgic. Fat pad decreased. ASSESSMENT: Foot arthropathy Preulcerative foot callus right foot secondary to fat pad atrophy--improved History of neuroma right foot PLAN: Patient reexamined. Discussed with patient based on previous symptoms it may have been a possible episode of gout, however at this time no significant symptoms and previously reported changes have resolved. Discussed if any recurrence to return to clinic. Foot exercises dispensed for arthritic changes. Perform as tolerated. Prevention discussed. Continue with supportive shoe gear, moisturization. Increase use of pumice stone, avoidance of barefoot ambulation. Offloading would be beneficial. Uric acid pending. Patient verbalized understanding of all instructions. FOLLOW UP: NADINE Castro DPM Senior Quality Methods Specialist, [facility] documented in this encounter Plan of Treatment Upcoming Encounters Date Type Specialty Care Team Description 04/23/2022 Office Visit Dermatology Cecilio Barillas MD [address] [facility] DERMATOLOGY [place], [place] [address] (Wo rk) 05/30/2022 Office Visit Rheumatology Theresa Robledo, DO [facility] RHEUMATOLOGY [place], [place] [address] (Wo rk) documented as of this encounter Visit Diagnoses Diagnosis Foot arthropathy Unspecified arthropathy, ankle and foot documented in this encounter Care Teams Visual Display Manager Relationship Specialty Start Date End Date Jennifer Pelaez MD PCP - General 02/09/[address] [place] [address] [place] [address] documented as of this encounter
--- OUTSIDE RECORDS SUMMARY | 2022-04-12 02:24 | XMS_ITS | Encounter Summary ---
:1945 Author Organization [facility] Address [place] [id number] Care Team Providers Name Role Phone Jennifer Pelaez MD Primary Care Provider Encounter Details Date Type Department Care Team Description 01/29/2021 Office Visit Rheumatology at [facility] Lois Robledo PMR (polymyalgia rheumatica) ; [facility] D, DO High risk medication use; [facility] manager long term care current use of sys temic steroids; [place] [address] Osteoporosis, unspecified osteoporosis t ype, unspecified pathological fracture presence; [phone] RHEUMATOLOGY DEP T Healthcare maintenance; [place] [address] 6 Arthritis; [phone] Elevated C-reac tive protein (CRP); (Work) Osteopenia, unspecified location; Tinnitus, unspecified laterality Social History Tobacco Use Types Packs/Day Years Used Date Never Smoker Smokeless Tobacco: Never Used Sex Assigned at Date Recorded Not on file documented as of this encounter Last Filed Vital Signs Vital Sign Reading Time Taken Comments Blood Pressure 147/73 01/29/2021 1:58 PM EDT Pulse 83 01/29/2021 1:58 PM EDT Temperature 36.2 ??C (97.2 ??F) 01/29/2021 1:58 PM EDT Respiratory Rate - - Oxygen Saturation 100% 01/29/2021 1:58 PM EDT Inhaled Oxygen Concentration - - Weight 76.6 kg (168 lb 12.8 oz) 01/29/2021 1:58 PM EDT Height 177.8 cm (5' 10) 01/29/2021 1:58 PM EDT Body Mass Index 24.22 01/29/2021 1:58 PM EDT documented in this encounter Progress Notes Lois Robledo, DO - 01/29/2021 2:00 PM EDT Rheumatology History: PMR -difficulty tapering <6 mg of methylprednisone -methotrexate added, increased to 25 mg subcu IN April 2018; decreased to 20 mg subcu in April 2020. -no actemra due to extensive diverticulosis Interval History: Cruz Zambrano is a 75 y.o. male who presents today for continued management of polymyalgia rheumatica. His last visit was via telemed with Bela in Oct 2020. Current Treatment: Medrol 4mg alternating with 3.5 mg daily, methotrexate 0.8 mg SC weekly, folic acid 1 mg daily He notes blanco in the back ofh is head a week ago and notes he then had his las done and waited to do anything about his prednisone and then it went Away. Notes some pain in his legs and arms but is more activity related. This pain is intermittent as well. No vison changes no jaw claudciation. Notes he is okay first things in the am. No scalp tenderness. No injections symptoms covid vaccination first week nov- He has ringing in his ears which frequent. He has not seen ENT. Had his hearing aid fixed and then developed ringing, notes it when it is quiet in the house. Started one month ago, no hearing change. Background: PMR history reviewed 07/12/2020: Patient reports [...] scalp/temporal tenderness, dysphagia, dysphonia Skin: Denies rash Cardiovascular: Denies chest pain, palpitations, PND, orthopnea, LE claudication, DELANEY Pulmonary: Denies SOB, cough, hemoptysis Gastrointestinal: Denies abdominal pain, nausea, vomiting, melena, ryan blood in stool Neurologic: Denies dizziness, presyncope, syncope, recurrent or severe BLANCO SurgHX Right cts surgery, left cts surgery Knee athroscopic surgery Hernia repair, on the left side Pyloric stenosis as a child ?? 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 Laboratory Data: 10/31/2020 [facility]: CBC unremarkable except [...] 18, crp0.31 02/21 esr 35 crp 0.71 9/19 esr 16 crp 0.31 12/23 crp 0.41, [...] been able to taper down to methylprednisolone tp 3.5 mg alt with 4. He is interested in transitioning back to prednisone -repeat labs next week to see if crp trended back down to his baselin -start pred 8 mg if it has and taper by 0.5 mg every month as tolerated -cont' mtx -repeat bmd Tinnitus offenders on his list include alendronate, omeprazole (which he is not reg taking). Hold alendronate, fu with ent se. Anemia -- improved H&H with B12 supplementation per direction of PCP. Low albumin/total protein -- followed by primary care. Osteoporosis -- on Fosamax-on hold for how and vit d, has had 9% loss in two years,dexa ordered?? Follow up in 3 months. Lois Robledo DO CC: Jennifer Pelaez MD documented in this encounter Plan of Treatment Upcoming Encounters Date Type Specialty Care Team Description 04/23/2022 Office Visit Dermatology Cecilio Barillas MD [address] [place] [address] DERMATOLOGY [place], [place] [address] (Eren murdock) 05/30/2022 Office Visit Rheumatology Theresa Robledo DO [facility] DR RHEUMATOLOGY [place], [place] [address] (Eren murdock) documented as of this encounter Visit Diagnoses Diagnosis PMR (polymyalgia rheumatica) Polymyalgia rheumatica High risk medication use Encounter for long-term (current) use of other medications group home current use of systemic steroi ds Encounter for long-term (current) use of steroids Osteoporosis, unspecified osteoporosis t ype, unspecified pathological fracture presence Healthcare maintenance Routine general medical examination at a health care facility Arthritis Arthropathy, unspecified, site unspecifi ed Elevated C-reactive protein (CRP) Osteopenia, unspecified location Tinnitus, unspecified laterality documented in this encounter Care Teams Forming Department Supervisor Relationship Specialty Start Date End Date Jennifer Pelaez MD PCP - General 02/09/[address] [place] [address] [place] [address] documented as of this encounter
--- OUTSIDE RECORDS SUMMARY | 2022-04-12 02:24 | XMS_ITS | Encounter Summary ---
:1945 Author Organization [facility] [place] [address] Care Team Providers Name Role Phone Jennifer Pelaez MD Primary Care Provider Reason for Visit Reason Onset Date Comments Medication Refill 02/21/2020 Encounter Details Date Type Department Care Team Description 02/21/2020 Refill Rheumatology at [facility] Lois Robledo, PMR (polymyalgia rheumatica) ; [facility] Kam ferreira DO High risk medication use; [place] [address] [facility] Healthcare maintenance; [phone] RHEUMATOLOGY DEP T Arthritis; [address] Elevated C-reactive protein (CRP); [phone] (Wo rk) Osteopenia, unspecified location; alf current use of systemic steroids Social History Tobacco Use Types Packs/Day Years Used Date Never Smoker Smokeless Tobacco: Never Used Sex Assigned at Date Recorded Not on file documented as of this encounter Plan of Treatment Upcoming Encounters Date Type Specialty Care Team Description 04/23/2022 Office Visit Dermatology Cecilio Barillas MD [address] [place] [address] DERMATOLOGY [place], [place] [address] (Wo rk) 05/30/2022 Office Visit Rheumatology Theresa Robledo DO [facility] ER DR RHEUMATOLOGY DEP T [address] (Wo rk) documented as of this encounter Visit Diagnoses Diagnosis PMR (polymyalgia rheumatica) Polymyalgia rheumatica High risk medication use Encounter for long-term (current) use of other medications Healthcare maintenance Routine general medical examination at a health care facility Arthritis Arthropathy, unspecified, site unspecifi ed Elevated C-reactive protein (CRP) Osteopenia, unspecified location 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
--- OUTSIDE RECORDS SUMMARY | 2022-04-12 02:24 | XMS_ITS | Encounter Summary ---
:1945 Author Organization [facility] [place] [address] Care Team Providers Name Role Phone Jennifer Pelaez MD Primary Care Provider Encounter Details Date Type Department Care Team Description 07/31/2020 TH Visit Rheumatology at [facility] Lois Robledo PMR (polymyalgia rheumatica) ; (TeleHealth) [facility] D, DO High risk medication use; [facility] Healthcare maintenance; Line [place], [place] DR Arthritis; [id number] RHEUMATOLOGY DEPT Elevated C-reactive protein (CRP); [phone] [place], [place] [address] Osteopenia, unspecified location; [phone] retirement curre nt use of systemic steroids (Work) Social History Tobacco Use Types Packs/Day Years Used Date Never Smoker Smokeless Tobacco: Never Used Sex Assigned at Date Recorded Not on file documented as of this encounter Progress Notes Lois Robledo DO - 07/31/2020 1:30 PM EDT Rheumatology Outpatient Follow-up Note CC: here for a f/u for PMR RHEUMATOLOGY ATTENDING TELEPHONE VISIT Called Mr Zambrano at July 31, 2020 1:33 PM. At the outset of this visit, I made them aware that this telephone visit may be billed similar to a clinic visit to him or his insurance company. Maged were in agreement to continue this visit. Total telephone visit time: 133-155for a total 22 minutes. Rheumatology History: PMR -difficulty tapering <6 mg of methylprednisone -methotrexate added, increased to 25 mg subcu IN April 2018; decreased to 20 mg subcu in April 2020. -no actemra due to extensive diverticulosis Interval History: Cruz Zambrano is a 74 y.o. male who presents today for continued management of polymyalgia rheumatica. He was seen by Bela on 07/12 when he was on qod 3/4 mg and mtx. He had tried to taper his mtx down to 20 mg daily. He had been very active over the summer with walking, he started to have some mild myalgias and arthralgias which he initially attributed to his incr activity. Then he noted incr am stiffness in the beginning of June and completed labs in 06/22 with incr markers of inflammation. He was seen by Bela on 07/12. They increased his prednisone to 8 mg and his mtx is at 0.8cc. he is currently feeling well, without am stiffness, no shoulder or hip girdle pain, no headaches. heis overall feeling well and looking forward to getting back to activity. He denies cp/dyspnea.cough/f/c/night sweats/n/v/d/blanco/vision change/jaw claudication. Background: PMR history reviewed today: Patient reports that initially had swelling of two fingers swollen a few years ago, had carpel tunnel release but surgeon told him he had underlying issues. Doesnot recall joint swelling or redness. Then thighs [...] to taper down his prednisone; symptoms initially p resented like seronegative RA and then he developed PMR symptoms. Patient agrees with this account. Review of Systems: General: Denies fevers, chills, night sweats, unintended weight change. fatigue. 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 Alert and oriented x 3, mood appropriate, speaking in full sentences w/o dyspnea cough or wheeze Laboratory Data: 06/22/2020 [facility] (previously reviewed with patient by Dr. Robledo and pt reports that he has a copy of all results): CBC unremarkable except low -- RBC 3.92; [...] 0.71 06/24 esr 16 crp 0.31 12/23 crossbar frame wirer 0.41, esr 23 Impression/Recommendations: Polymyalgia Rheumatica -- Cruz Zambrano is a 74 y.o. male who presents today for continued [...] been able to taper down to methylprednisolone QOD 3mg and QOD 4 mg. At his visit in April 2020 he was doing very well, was asymptomatic re PMR/GCA symptoms, and he had normal markers of inflammation so methotrexate dose was reduced to 20 mg SC weekly. He did well with this new regimenuntil June when he had a flare of PMR symptoms, he was seen the first week of July and his medrol increased to 8 mg daily and he is now doing well. We dicussed decreasing to 7mg next week for 1-2 weeks and continuing at 1mg taper every 1-2 weeks until 5mg, then proceeding with 1mg every 3-4 weeks back to his base of 3mg alt with 4mg daily. con't mtx at 20 mg for now Repeat labs in 1 month Anemia/low albumin/total protein -- ongoing issues. Has been normocytic though looks like iron deficiency and I reiterated Dr. Robledo's recommendation that he needs to follow up with his PCP for additional evaluation. Evaluation thus far has been neg with us and his pcm. ?? Osteoporosis. on fosamax and vit d, has had 9% loss in two years, repeat bmd in 08/25, continue calcium and vit d ?? Lab order for CRP and ESR as well as cbcadn cmp sent to [facility] Fu 3 months with me or Bela CC: Jennifer Pelaez MD documented in this encounter Plan of Treatment Upcoming Encounters Date Type Specialty Care Team Description 04/23/2022 Office Visit Dermatology Cecilio Barillas MD [address] [place] [address] DERMATOLOGY [place], [place] [address] (Wo collette) 05/30/2022 Office Visit Rheumatology Theresa Robledo DO [facility] [address] RHEUMATOLOGY [place], [place] [address] (Wo rk) documented as of this encounter Visit Diagnoses Diagnosis PMR (polymyalgia rheumatica) Polymyalgia rheumatica High risk medication use Encounter for long-term (current) use of other medications Healthcare maintenance Routine general medical examination at a health care facility Arthritis Arthropathy, unspecified, site unspecifi ed Elevated C-reactive protein (CRP) Osteopenia, unspecified location retirement current use of systemic steroi ds Encounter for long-term (current) use of steroids documented in this encounter Care Teams Ore Grader Relationship Specialty Start Date End Date Jennifer Pelaez MD PCP - General 02/09/[address] [place] [id number] documented as of this encounter
--- OUTSIDE RECORDS SUMMARY | 2022-04-12 02:24 | XMS_ITS | Encounter Summary ---
:1945 Author Organization [facility] [place] [address] Care Team Providers Name Role Phone Jennifer Pelaez MD Primary Care Provider Reason for Referral Physical Therapy (Routine) - Specialty Diagnoses / Procedures Referred By Contact Refer red To Contact Physical Therapy Diagnoses PMR (polymyalgia rheumatica) High risk medication use Muscle weakness (generalized) oLis Robledo DO [facility] [place] [address] Referral ID Status Reason Start Date Expiration Date Visits V isits Requested Authorized [id number] Evaluate and 03/06/2021 09/02/2021 12 12 Treat Encounter Details Date Type Department Care Team Description 03/06/2021 Orders Only Rheumatology at [facility] [place] Lois Robledo PMR (polymyalgia rheumatica) ; [facility] DO Kam High risk medication use; [facility] Muscle weakness (generalized ) [place] [address] RHEUMATOLOGY DEP T [place], [place] [address] (Wo rk) Social History Tobacco Use Types Packs/Day Years Used Date Never Smoker Smokeless Tobacco: Never Used Sex Assigned at Date Recorded Not on file documented as of this encounter Plan of Treatment Upcoming Encounters Date Type Specialty Care Team Description 04/23/2022 Office Visit Dermatology Cecilio Barillas MD [address] [place] [address] DERMATOLOGY [place], [place] [address] (Wo rk) 05/30/2022 Office Visit Rheumatology Theresa Robledo, DO [facility] DR RHEUMATOLOGY [place], [place] [address] (Wo rk) Scheduled Referrals Name Type Priority Associated Diagnoses Order S chedule Referral to Outpatient Referral Routine PMR (polymyalgia Orde red: Physical Therapy rheumatica) 03/06/2021 High risk medication use Muscle weakness (generalized) documented as of this encounter Visit Diagnoses Diagnosis PMR (polymyalgia rheumatica) Polymyalgia rheumatica High risk medication use Encounter for long-term (current) use of other medications Muscle weakness (generalized) documented in this encounter Care Teams Harness Fitter Relationship Specialty Start Date End Date Jennifer Pelaez MD PCP - General 02/09/[address] [place] [address] [place] [address] documented as of this encounter
--- OUTSIDE RECORDS SUMMARY | 2022-04-12 02:24 | XMS_ITS | Encounter Summary ---
:1945 Author Organization [facility] Address [address] [place] [address] Care Team Providers Name Role Phone Sandro Garcia MD Primary Care Provider Encounter Details Date Type Department Care Team Description 03/27/[address] [facility] Outr Resulting Lab, Pathology & Laboratory Provider [facility] [address] [place], [place] [address] Social History Tobacco Use Types Packs/Day Years Used Date Never Assessed Sex Assigned at Date Recorded Not on file documented as of this encounter Plan of Treatment Not on filedocumented as of this encounter Procedures Procedure Name Priority Date/Time Associated Diagnosis Comme nts C REACTIVE PROTEIN Routine 03/27/2021 9:44 EDT Re sults for this procedure are i n the results section. documented in this encounter Results C REACTIVE PROTEIN (03/27/2021 9:44 EDT) Pathologist Sig nature C-Reactive Protein 9.7 <10.0 mg/L [facility] Specimen Blood - Venous blood (substance) Performing Organization Address City/State/ZIP Code Phon e Number [facility] [address] [place] [address] SERVICES documented in this encounter Visit Diagnoses Not on filedocumented in this encounter Care Teams Spring Crater Relationship Specialty Start Date End Date Sandro Garcia MD PCP - General 02/21/[address] [place] [address] [address] [place], [place] [phone] documented as of this encounter
--- OUTSIDE RECORDS SUMMARY | 2022-04-12 02:24 | XMS_ITS | Encounter Summary ---
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 MR#: [id number] Date of Service: 04/10/2020 SUBJECTIVE: Cruz Zambrano is a pleasant 74 y.o. 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 Patient reports he canceled last visit due to COVID-19. Relates using offloading padding and supportive shoe gear as instructed along with supportive orthotics. Reports significant improvement since last visit. Rates discomfort at thistime 1 out of 10. States he only feels discomfort when he is barefoot or only in socks. Relates using house slippers. Denies any recent injury, trauma or recent treatment. Denies other sites of involvement. Denies any previous episodes. Denies any sensory changes. Relates being active on feet. Denies any constitutional symptoms today. No other pedal complaints. No Known Allergies No past medical history on file. Social History Socioeconomic History ??? Marital status: Spouse name: Not on file ??? Number of children: Not on file ??? Years of education: Not on file ??? Highest education level: Not on file Occupational History ??? Not on file Social Needs ??? Financial resource strain: Not on file ??? Food insecurity Worry: Not on file Inability: Not on file ??? Transportation needs Medical: Not on file Non-medical: Not on file Tobacco Use ??? Smoking status: Never Smoker ??? Smokeless tobacco: Never Used Substance and Sexual Activity ??? Alcohol use: Not on file ??? Drug use: Not on file ??? Sexual activity: Not on file Lifestyle ??? Physical activity Days per week: Not on file Minutes per session: Not on file ??? Stress: Not on file Relationships ??? Social connections Talks on phone: Not on file Gets together: Not on file Attends [employer] service: Not on file Active member of club or organization: Not on file Attends meetings of clubs or organizations: Not on file Relationship status: Not on file ??? Intimate partner violence Fear of current or ex partner: Not on file Emotionally abused: Not on file Physically abused: Not on file Forced sexual activity: Not on file Other Topics Concern ??? Not on file Social History Narrative ??? Not on file No family history on file. Current Outpatient Medications on File Prior to Visit Medication Sig Dispense Refill ??? metHOTREXate 25 mg/mL Solution Inject 0.8 mLs subcutaneously once for 1 dose. 6 vial 2 ??? folic acid (Folvite) 1 mg Tablet Take 2 tablets by mouth daily. 180 tablet 3 ??? methylPREDNISolone (Medrol) 4 mg Tablet tablet Take 1.5 tablets by mouth daily. 120 tablet 3 ??? methylPREDNISolone (Medrol) 2 mg Tablet tablet Take 0.5 tablets by mouth daily. 180 tablet 1 ??? Syringe with Needle, Disp, (BD Tuberculin Syringe) 1 mL 27 x 1/2 Syringe 1 Units by [facility].(Non-Drug; Combo Route) route once a week. 20 Syringe 3 ??? cholecalciferol, Vitamin D3, (VITAMIN D) 1,000 unit Capsule Take by mouth daily. ??? alendronate (FOSAMAX) 70 mg Tablet Take 1 tablet by mouth every 7 days. 12 tablet 3 ??? vqqroyql-sgzgbensb-jhjflryyodxyb (DEXACINE) 3.5 mg/g-10,000 unit/g-0.1 % Ointment 5 ??? VIRTUSSIN AC 10-100 mg/5 mL Liquid ??? brimonidine (ALPHAGAN) 0.2 % Drops Place into both eyes 2 times daily. 3 ??? omeprazole (PRILOSEC) 20 mg Capsule, Delayed Release(E.C.) Take 1 capsule by mouth daily. ??? triamcinolone (KENALOG) 0.1 % Cream Apply 1 Application topically as needed. ??? aspirin 81 mg Tablet, Delayed Release (E.C.) Take 81 mg by mouth daily. ??? simvastatin (ZOCOR) 20 mg Tablet Take 20 mg by mouth nightly. ??? hydrochlorothiazide (HYDRODIURIL) 25 mg tablet (Patient taking differently: 25 mg by mouth daily.) ??? metoprolol succinate (TOPROL XL) 100 mg XL tablet (Patient taking differently: 100 mg by mouth daily.) ??? valACYclovir (VALTREX) 500 mg tablet (Patient taking differently: PRN.) ??? [DISCONTINUED] Syringe with Needle, Disp, (BD Tuberculin Syringe) 1 mL 27 x 1/2 Syringe 1 Unitsby [facility].(Non-Drug; Combo Route) route once a week. 20 Syringe 3 ??? [DISCONTINUED] folic acid (Folvite) 1 mg Tablet Take 2 tablets by mouth daily. 180 tablet 3 ??? [DISCONTINUED] metHOTREXate 25 mg/mL Solution 1 ml subcutaneous weekly 6 vial 2 ??? [DISCONTINUED] methylPREDNISolone (MEDROL) 4 mg Tablet Take 1.5 tablets by mouth daily. 120 tablet 3 ??? [DISCONTINUED] methylPREDNISolone (MEDROL) 2 mg Tablet Take 0.5 tablets by mouth daily. 180 tablet 1 No current facility-administered medications on file prior to visit. ROS: MSK: + Right foot pain NEURO: + Sensory changes right foot The remainder of 10 ROS were reviewed and negative. OBJECTIVE: GEN: Patient is in no acute distress and AAOX3. Gait stable and non-antalgic. DERM: Skin warm and dry with no open lesions or macerations appreciated. Hair growth present. Temperature gradient within normal limits. No apparent increased warmth to the affected side. No evidence of infection bilaterally. Slight hyperkeratotic skin lesion noted plantar aspect of right forefoot with no evidence of underlying infection or ulceration. VASC: Dorsalis pedis +2/4 bilaterally and posterior tibial pulse +2/4 bilaterally. Capillary refill 3 seconds. No edema noted. No varicose veins. No claudication, no rest pain, no color changes. Posterior calves soft and nontender. NEURO: Epicritic sensation intact bilaterally. MSK: No significant pain upon lateral compression of right forefoot. +Kra's sign. Minimal tenderness in third interspace right foot. No significant palpable mass appreciated. Muscle strength 5/5 allgroups. Active painfree ROM noted of ankle/pedal joints. +evidence of loss of the fat pad bilaterally, right greater than left. ASSESSMENT: Neuroma right foot with history of prior decompression surgery--improved Pre-ulcerative foot callus right foot--improved, infected Fat pad atrophy bilaterally, right greater than left PLAN: ??? Patient evaluated with condition and treatment options for management discussed at length. ??? Encouraged patient to continue using orthotics, supportive shoe gear, metatarsal offloading pads ??? Strict avoidance of barefoot ambulation ??? Encourage patient to use pumice stone after shower and daily moisturize feet ??? If failure to improve or any worsening will consider imaging studies. At this time symptoms are largely resolved with mild discomfort only when barefoot. ??? Advised patient to seek prompt medical care if any worsening/changes noted. ??? Answered all questions. Patient verbalized understanding of all instructions. FOLLOW UP: As needed or sooner if any concerns or changes arise Bridget Castro DPM Pbx Technician, [facility] documented in this encounter Plan of Treatment Upcoming Encounters Date Type Specialty Care Team Description 04/23/2022 Office Visit Dermatology Cecilio Barillas MD [address] [facility] DERMATOLOGY [place], [place] [address] (Wo rk) 05/30/2022 Office Visit Rheumatology Theresa Robledo, DO 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
--- OUTSIDE RECORDS SUMMARY | 2022-04-12 02:24 | XMS_ITS | Encounter Summary ---
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 use of non-steroidal a nti-inflammatories (NSAID); [facility] High risk medication use; [place] [address] [address] Arthritis; [phone] RHEUMATOLOGY DEP T Elevated C-reactive protein (CRP); [place] [id number] Healthcare maintenance; [phone] Osteopenia, uns pecified location; (Work) detention current use of systemic steroi ds; Osteoporo sis, unspecified osteoporosis type, unspecified pathological fracture presence Social History Tobacco Use Types Packs/Day Years Used Date Never Smoker Smokeless Tobacco: Never Used Sex Assigned at Date Recorded Not on file documented as of this encounter Last Filed Vital Signs Vital Sign Reading Time Taken Comments Blood Pressure 132/68 11/01/2021 1:52 PM EST Pulse 70 11/01/2021 1:52 PM EST Temperature 35.7 ??C (96.2 ??F) 11/01/2021 1:52 PM EST Respiratory Rate 16 11/01/2021 1:52 PM EST Oxygen Saturation 100% 11/01/2021 1:52 PM EST Inhaled Oxygen Concentration - - Weight 77.2 kg (170 lb 1.6 oz) 11/01/2021 1:52 PM EST Height 177.8 cm (5' 10) 11/01/2021 1:52 PM EST Body Mass Index 24.41 11/01/2021 1:52 PM EST documented in this encounter Progress Notes Lois Robledo, DO - 11/01/2021 2:00 PM EST Rheumatology History: PMR -difficulty tapering <6 mg of methylprednisone -methotrexate added, increased to 25 mg subcu IN April 2018; decreased to 20 mg subcu in April 2020. -no actemra due to extensive diverticulosis Interval History: Cruz Zambrano is a 76 y.o. male who presents today for continued management of polymyalgia rheumatica. His last visit was inperson with me in March 2021. He had an elevated crp in jun to and most recenlty to . He reports increasing pain over the last few weeks. Reports stiffness in the morning and inability to raise his arm above his head. He also had hip pain in the ability to bend over. He reports he increased his corticosteroids from 4-5. His pain got significantly better with the increase from 4 mg to 5mg. He denies any headache, jaw claudication, vision changes he denies any recent fevers chills night sweats. He has been fully vaccinated without any issues. He did have Covid s several months ago which was minor Denies any chest pain dyspnea cough. He denies any nausea vomiting diarrhea. Current Treatment: Medrol 5 mg mg methotrexate 0.8 mg SC weekly, folic acid [...] agrees with this account. 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 Physical Examination: Patient Vitals for the past 24 hrs: Temp Pulse Resp BP SpO2 11/01/21 1352 35.7 ??C (96.2 ??F) 70 16 132/68 100 % HEENT: Normocephalic atraumatic extraocular muscles intact Cardiovascular no lower extremity edema Pulmonary speaking in full sentences without dyspnea cough or wheeze Hands scattered OA changes is increasing Heberden nodes and on the third right DIP and on the right second PIP has Frederick's nodes no synovitis of the MCPs or PIPs Wrists no tenderness palpation or swelling Shoulders normal range of motion in abduction with palms facing up has some impingement otherwise nosig pain Hips no tenderness to palpation over the greater trochanters Lower extremities mild edema bilaterally Skin has thin skin with areas of mild bruising Laboratory Data: 10/31/2020 [facility]: CBC unremarkable except [...] Polymyalgia Rheumatica -- Cruz Zambrano is a 76 y.o. male who presents today for continued [...] been able to taper down to methylprednisolone 4.5 mg, he most recently had an increase in his CRP with increasing symptoms of polymyalgia rheumatica. He self increased his prednisone to 5 mg and notes improvement in his symptoms overall. We will repeat his inflammatory markers and see if the CRP has trended down. He would like to switch methotrexate to oral. We will transition to 20mg p.o. weekly with folic acid 2 mg daily. He has completed 3 vaccinations of Covid and will need his booster for maternal. We will give his influenza vaccine today. We discussed tapering strategies before and he will try again once he is feeling better and completed his 3rd moderna vaccine and his flu vaccination.. Osteoporosis on Fosamax, continue calcium and vitamin D Last bmd shows t score -2.3 in february 2021 FRAX showed risk of 9% and 3.5%. He is on Fosamax but still showed decline in bone density from 2018to now. He has been on Fosamax during that time. Question if this needs to be transitioned to Reclast. We will check a vitamin D. Uncertain if or would like to order the Reclast locally or if she would like me to try to order it up to [facility]. Anemia -- improved H&H with B12 supplementation per direction of PCP. Low albumin/total protein -- followed by primary care. Follow-up 3 months or sooner with issues Lois Robledo DO CC: Jennifer Pelaez MD documented in this encounter Plan of Treatment Upcoming Encounters Date Type Specialty Care Team Description 04/23/2022 Office Visit Dermatology Cecilio Barillas MD [address] [facility] DERMATOLOGY [place], [place] [address] (Wo rk) 05/30/2022 Office Visit Rheumatology Theresa Robledo DO [facility] [address] RHEUMATOLOGY [place], [place] [address] (Wo rk) Scheduled Orders Name Type Priority Associated Diagnoses Order S chedule CRP, acute inflammation Lab Routine PMR (polymyalgia Expected: 11/01/2021, rheumatica) Expires: 2021 Vitamin D, 25-Hydroxy Lab Routine Osteoporosis, unspe cified Expected: 11/01/2021 osteoporosis type, (Approxim ate), unspecified pathological Exp ires: 05/03/2022 fracture presence documented as of this encounter Visit Diagnoses Diagnosis PMR (polymyalgia rheumatica) 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-steroidal a nti-inflammatories (NSAID) Encounter for long-term (current) use of non-steroidal anti-inflammatories High risk medication use Encounter for long-term (current) use of other medications Arthritis Arthropathy, unspecified, site unspecifi ed Elevated C-reactive protein (CRP) Healthcare maintenance Routine general medical examination at a health care facility Osteopenia, unspecified location detention current use of systemic steroi ds Encounter for long-term (current) use of steroids Osteoporosis, unspecified osteoporosis t ype, unspecified pathological fracture presence documented in this encounter Care Teams Compliance Assistant Relationship Specialty Start Date End Date Jennifer Pelaez MD PCP - General 02/09/[address] [place] [address] [place] [address] documented as of this encounter
--- OUTSIDE RECORDS SUMMARY | 2022-04-12 02:24 | XMS_ITS | Encounter Summary ---
:1945 Author Organization [facility] [address] Care Team Providers Name Role Phone Jennifer Pelaez MD Primary Care Provider Reason for Visit Reason Comments Follow-up Encounter Details Date Type Department Care Team Description 03/10/2020 Office Visit Dermatology at Cecilio Barillas, Seborrh eic keratosis; Dileep ANGULO [place] (actinic keratosis) [address] [facility] [address] [place] B DERMATOLOGY [place], [place] [id number] [phone] Social History Tobacco Use Types Packs/Day Years Used Date Never Smoker Smokeless Tobacco: Never Used Sex Assigned at Date Recorded Not on file documented as of this encounter Progress Notes Cecilio Barillas MD - 03/10/2020 8:15 AM EDT Problem: 1. ??6-month skin checkup for actinic damage 2. ??Polymyalgia rheumatica/poorly defined connective tissue disease on prednisone/SC methotrexate 3. 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 He has been doing well. He is on 3.5 mg of prednisone a day and this seems to be keeping him fairly comfortable with his connective tissue disease. [facility] [place] [place] by Dr. Robledo in rheumatology. He has noted some new actinic's on his scalp. He has no lesions of concern on his torso or extremities. He is debating whether to retire or not at this point. We discussed the pros and cons of that. Physical examination reveals a pleasant 74-year-old gentleman who has hyperkeratotic actinic keratoses on the thinning parietal scalp on the frontal forehead several also on the lateral cheeks. He has number of seborrheic keratosis on the right lateral cheek and the right sideburn area. A total of 7 are noted. Otherwise careful examination of the scalp the ears the face the hands is benign. He continues to have ecchymoses of the dorsal hands from his chronic prednisone dosing. Assessment and plan: Actinic keratosis scalp and facial 1. LN2 applied each of 7 sites 2. Patient asked about and we discussed the utility of 5-FU and when it might be used. I do not think he is a candidate for that today. 3. Return to clinic in 6 months for recheck. Sooner for new lesion/concerns 4. No evidence of any cutaneous malignancies today. CC: Jennifer Pelaez MD documented in this encounter Plan of Treatment Upcoming Encounters Date Type Specialty Care Team Description 04/23/2022 Office Visit Dermatology Cecilio Barillas MD [address] [facility] DERMATOLOGY [place], [place] [address] (Wo rk) 05/30/2022 Office Visit Rheumatology Theresa Robledo, DO [facility] RHEUMATOLOGY [place], [place] [address] (Wo rk) documented as of this encounter Visit Diagnoses Diagnosis Seborrheic keratosis Other seborrheic keratosis [place] (actinic keratosis) Actinic keratosis documented in this encounter Care Teams Pull Tab Dealer Relationship Specialty Start Date End Date Jennifer Pelaez MD PCP - General 02/09/[address] [place] [address] FELY QUIROZ [address] documented as of this encounter
--- OUTSIDE RECORDS SUMMARY | 2022-04-12 02:24 | XMS_ITS | Encounter Summary ---
:1945 [place] [address] Care Team Providers Name Role Phone Jennifer Pelaez MD Primary Care Provider Encounter Details Date Type Department Care Team Description 02/14/2021 Ancillary Procedure [facility] [place] [address] RHEUMATOLOGY DEPT [phone] [place], [place] [address] (Wo rk) Social History Tobacco Use Types Packs/Day Years Used Date Never Smoker Smokeless Tobacco: Never Used Sex Assigned at Date Recorded Not on file documented as of this encounter Plan of Treatment Upcoming Encounters Date Type Specialty Care Team Description 04/23/2022 Office Visit Dermatology Cecilio Barillas MD [address] [place] [address] DERMATOLOGY [place], [place] [address] (Wo rk) 05/30/2022 Office Visit Rheumatology Theresa Robledo, [facility] RHEUMATOLOGY DEP T [place], [place] [address] (Wo rk) documented as of this encounter Procedures Procedure Name Priority Date/Time Associated Diagnosis Comme nts FILM LIBRARY- Routine 02/14/2021 8:49 PM Results for this STORAGE ONLY DXA EDT procedure a re in IMAGES the results section. documented in this encounter Results Film Library- Storage Only DXA Images (02/14/2021 8:49 PM EDT) Specimen (Source) Anatomical Location Collection Method / Collectio n Time Received Time / Laterality Volume Narrative RAD - 02/14/2021 8:49 PM EDT This exam is auto-finalizing. It's purpo se is for storage only. Lois Robledo DO IMG FILM LIBRARY ORDERABLES Performing Organization Address City/State/ZIP Code Phon e Number [place], [place] documented in this encounter Visit Diagnoses Not on filedocumented in this encounter Care Teams Certified Registered Dental Assistant Relationship Specialty Start Date End Date Jennifer Pelaez MD PCP - General 02/09/[address] [place] [address] [place] [address] documented as of this encounter
--- OUTSIDE RECORDS SUMMARY | 2022-04-12 02:24 | XMS_ITS | Encounter Summary ---
:1945 Author Organization [facility] [place] [address] Care Team Providers Name Role Phone Jennifer Pelaez MD Primary Care Provider Encounter Details Date Type Department Care Team Description 01/11/2020 Telephone Rheumatology at [facility] [place] [address] Social History Tobacco Use Types Packs/Day Years Used Date Never Smoker Smokeless Tobacco: Never Used Sex Assigned at Date Recorded Not on file documented as of this encounter Plan of Treatment Upcoming Encounters Date Type Specialty Care Team Description 04/23/2022 Office Visit Dermatology Cecilio Barillas MD [address] [place] [address] DERMATOLOGY [place], [place] [address] (Wo rk) 05/30/2022 Office Visit Rheumatology Theresa Robledo, DO [facility] DR RHEUMATOLOGY [place], [place] [address] (Wo rk) documented as of this encounter Visit Diagnoses Not on filedocumented in this encounter Care Teams Screw Machine Repairer Relationship Specialty Start Date End Date Jennifer Pelaez MD PCP - General 02/09/[address] [place] [address] [place] [address] documented as of this encounter
--- OUTSIDE RECORDS SUMMARY | 2022-04-12 02:24 | XMS_ITS | Encounter Summary ---
:1945 Author Organization [facility] Address [address] [place] [address] Care Team Providers Name Role Phone Sandro Garcia MD Primary Care Provider Encounter Details Date Type Department Care Team Description 10/05/2020 Lab Requisition [facility] Outr Resulting Lab, Pathology & Laboratory Provider [facility] [address] [place] [id number] Social History Tobacco Use Types Packs/Day Years Used Date Never Assessed Sex Assigned at Date Recorded Not on file documented as of this encounter Plan of Treatment Not on filedocumented as of this encounter Procedures Procedure Name Priority Date/Time Associated Comments Diagnosis PSA TOTAL, Routine 10/05/2020 14:44 Results for this DIAGNOSTIC EST procedure are i n the results section. documented in this encounter Results PSA TOTAL, DIAGNOSTIC (10/05/2020 14:44 EST) Pathologist Sig nature PSA 6.1 0.0 - 6.5 ng/mL [facility] Specimen Blood - Venous blood (substance) Narrative [facility] - 10/06/2020 8:18 EST NOTE: Serum PSA concentration should not be in terpreted as absolute evidence for the presence or absence of malignant disease. Assayed on Siemens ADVIA Centaur XPT usi ng chemiluminescent technology.??Values obtained by using different assay methods cannot be used interchangeably. Performing Organization Address City/State/ZIP Code Phon e Number [facility] [address] [place] [address] SERVICES documented in this encounter Visit Diagnoses Not on filedocumented in this encounter Care Teams Curtain Feller Blindstitch Relationship Specialty Start Date End Date Sandro Garcia MD PCP - General 02/21/[address] [place] [address] [place] [address] documented as of this encounter
--- OUTSIDE RECORDS SUMMARY | 2022-04-12 02:24 | XMS_ITS | Encounter Summary ---
:1945 Author Organization [facility] Address [address] [place] [address] Care Team Providers Name Role Phone Sandro Garcia MD Primary Care Provider Encounter Details Date Type Department Care Team Description 06/25/2021 Lab Requisition [facility] Outr Resulting Lab, Pathology & Laboratory Provider [facility] [address] [place], [place] [address] Social History Tobacco Use Types Packs/Day Years Used Date Never Assessed Sex Assigned at Date Recorded Not on file documented as of this encounter Plan of Treatment Not on filedocumented as of this encounter Procedures Procedure Name Priority Date/Time Associated Diagnosis Comme nts C REACTIVE PROTEIN Routine 06/25/2021 14:20 Resul ts for this EDT procedure are i n the results section. documented in this encounter Results (ABNORMAL) C REACTIVE PROTEIN (06/25/2021 14:20 EDT) Pathologist Sig nature C-Reactive Protein 19.7 (H) <10.0 mg/L [facility] Specimen Blood - Venous blood (substance) Performing Organization Address City/State/ZIP Code Phon e Number [facility] [address] [place] [address] SERVICES documented in this encounter Visit Diagnoses Not on filedocumented in this encounter Care Teams Satin Finisher Relationship Specialty Start Date End Date Sandro Garcia MD PCP - General 02/21/[address] [place] [address] [place], [place] [id number] documented as of this encounter
--- OUTSIDE RECORDS SUMMARY | 2022-04-12 02:24 | XMS_ITS | Encounter Summary ---
:1945 Author Organization [facility] Address [address] [place] [address] Care Team Providers Name Role Phone Jennifer Pelaez MD Primary Care Provider Reason for Visit Reason Comments Foot Pain Encounter Details Date Type Department Care Team Description 08/14/2020 Office Visit Podiatry at [facility] Bridget Castro DPM Right foot pain; [facility] Pre -ulcerative calluses; Drive Plantar fat pad atrophy [place] [phone] Social History Tobacco Use Types Packs/Day Years Used Date Never Smoker Smokeless Tobacco: Never Used Sex Assigned at Date Recorded Not on file documented as of this encounter Progress Notes Bridget Castro DPM - 08/14/2020 1:00 PM EST Out[facility] Note Name: Cruz Zambrano Age:74 y.o. MR#: [id number] Date of Service: 08/14/2020 SUBJECTIVE: Cruz Zambrano is a 74 y.o. male returns to clinic today with chief complaint of painful right foot. Patient patient was last seen approximately 4 months ago for evaluation. Relates overall improvement since then, however relates persisting discomfort ball of the right foot at site of callus. Denies any sensory changes. Rates pain today as 1 out of 10. Relates using pumice stone after shower. Denies moisturizing regularly. Relates supportive shoe gear. No other pedal complaints today. No constitutional symptoms. Podiatric medical history: Rosario's neuroma, status post decompression nerve surgery right [...] file Gets together: Not on file Attends moravian service: Not on file Active member of [...] to Visit Medication Sig Dispense Refill ??? methylPREDNISolone (Medrol) 4 mg Tablet tablet Take 1.5 tablets by mouth daily. 120 tablet 3 ??? methylPREDNISolone (Medrol) 2 mg Tablet tablet Take 1.5 tablets by mouth daily. 120 tablet 1 ??? alendronate (Fosamax) 70 mg Tablet Take 1 tablet by mouth every 7 days. Take in AM with full glass of water, on an empty stomach. Do not lie down for 30 min. 8 tablet 3 ??? folic acid (Folvite) 1 mg Tablet Take 2 tablets by mouth daily. 180 tablet 3 ??? methylPREDNISolone (Medrol) 2 mg Tablet tablet Take 0.5 tablets by mouth daily. 180 tablet 1 ??? Syringe with Needle, Disp, (BD Tuberculin Syringe) 1 mL 27 x 1/2 Syringe 1 Units by [facility].(Non-Drug; Combo Route) route once a week. 20 Syringe 3 ??? cholecalciferol, Vitamin D3, (VITAMIN D) 1,000 unit Capsule Take by mouth daily. ??? alendronate (FOSAMAX) 70 mg Tablet Take 1 tablet by mouth every 7 days. 12 tablet 3 ??? tthnnkyb-sgglvixcc-kxpvmwxfuytfy (DEXACINE) 3.5 mg/g-10,000 unit/g-0.1 % Ointment 5 [...] nightly. ??? hydrochlorothiazide (HYDRODIURIL) 25 mg tablet ??? metoprolol succinate (TOPROL XL) 100 mg XL tablet (Patient taking differently: 100 mg by mouth daily.) ??? valACYclovir (VALTREX) 500 mg tablet (Patient taking differently: PRN.) ??? metHOTREXate 25 mg/mL Solution Inject 0.8 mLs subcutaneously once for 1 dose. 6 vial 2 No current facility-administered medications on file prior to visit. ROS: MSK: + foot pain SKIN: + Callus The remainder of 10 ROS were reviewed and negative. OBJECTIVE: GEN: NAD, AAOx3 DERM: Skin thin dry and intact with no open lesions. No macerations. No signs of infection. Minimal hyperkeratotic lesion noted plantar right forefoot with no evidence of underlying infection or ulceration. VASC: No calf pain. No rest pain. No edema. No color changes. Pedal pulses palpable. Capillary refill 3 seconds. NEURO: Sensation intact to light touch with no deficits. MSK: No tenderness on exam. Active range of motion noted of bilateral lower extremities. Diminished plantar fat pad. 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 Advised patient to begin using full-length orthotic with metatarsal offloading pad. Consider custom orthotics long-term. Discussed with patient importance of using pumice stone after shower and daily moisturization. Continue with supportive shoe gear and avoidance of barefoot ambulation. Explained to patient high risk of recurrence due to foot structure and diminished fat pad and to begin using orthotic with gradual transition. Discussed if worsening or failure to improve return to clinic. Answered all questions. Patient verbalized understanding of all instructions. FOLLOW UP: As needed or sooner if any concerns or changes arise Bridget Castro DPM Health Careers Instructor, [facility] documented in this encounter Plan of Treatment Upcoming Encounters Date Type Specialty Care Team Description 04/23/2022 Office Visit Dermatology Cecilio Barillas MD [address] [place] [address] DERMATOLOGY [place], [place] [address] (Wo rk) 05/30/2022 Office Visit Rheumatology Theresa Robledo, DO [facility] DR RHEUMATOLOGY [place], [place] [address] (Wo rk) documented as of this encounter Visit Diagnoses Diagnosis Right foot pain Pain in limb Pre-ulcerative calluses Corns and callosities Plantar fat pad atrophy Other musculoskeletal symptoms referable to limbs documented in this encounter Care Teams Shell Plater Relationship Specialty Start Date End Date Jennifer Pelaez MD PCP - General 02/09/[address] [place] [address] [place] [address] documented as of this encounter
--- OUTSIDE RECORDS SUMMARY | 2022-04-12 02:24 | XMS_ITS | Encounter Summary ---
:1945 Author Organization [facility] [place] [address] Care Team Providers Name Role Phone Jennifer Pelaez MD Primary Care Provider Reason for Visit Reason Comments Follow-up Encounter Details Date Type Department Care Team Description 10/20/2020 Office Visit Dermatology at Cecilio Barillas [place] (act inic keratosis); Dileep ANGULO History of basal cell carcinoma [address] Fortun[place] B DERMATOLOGY [place], [place] [id number] [phone] Social History Tobacco Use Types Packs/Day Years Used Date Never Smoker Smokeless Tobacco: Never Used Sex Assigned at Date Recorded Not on file documented as of this encounter Progress Notes Cecilio Barillas MD - 10/20/2020 9:30 AM EST Problem: Follow-up 2-week course 5-FU/triamcinolone Cruz follows up and has had a moderately brisk reaction. The treated area looks quite red but it is not painful nor it does not feel sore he states. Physical examination reveals patchy erythema at sites of application on the lateral cheeks the temples the forehead and back to the thinning parietal scalp. He had a brisk moderate reaction but not excessive Assessment plan: Actinic keratoses status post 2-week course of 5-FU 5% cream/triamcinolone cream 1. May discontinue fluorouracil 2. Continue triamcinolone 0.1% cream applying on a twice daily basis for 10 to 14 days until erythema fades, then discontinue. 3. Return to clinic another 6 months for repeat check. CC: Jennifer Pelaez MD documented in this encounter Plan of Treatment Upcoming Encounters Date Type Specialty Care Team Description 04/23/2022 Office Visit Dermatology Cecilio Barlilas MD [address] [facility] DERMATOLOGY [place], [place] [address] (Wo rk) 05/30/2022 Office Visit Rheumatology Theresa Robledo, DO [facility] MEDICAL [facility] [address] RHEUMATOLOGY [place], [place] [address] (Wo rk) documented as of this encounter Visit Diagnoses Diagnosis [place] (actinic keratosis) Actinic keratosis History of basal cell carcinoma Personal history of other malignant neop lasm of skin documented in this encounter Care Teams Cinder Dump Crane Operator Relationship Specialty Start Date End Date Jennifer Pelaez MD PCP - General 02/09/[address] [place] [address] [place] [address] documented as of this encounter
--- OUTSIDE RECORDS SUMMARY | 2022-04-12 02:24 | XMS_ITS | Encounter Summary ---
:1945 Author Organization [facility] [place] [address] Care Team Providers Name Role Phone Jennifer Pelaez MD Primary Care Provider Encounter Details Date Type Department Care Team Description 07/02/2021 Office Visit Rheumatology at [facility] Lois Robledo PMR (polymyalgia rheumatica) ; [facility] D, DO care home current use of non-steroidal a nti-inflammatories (NSAID); [facility] Arthritis; [place] [address] Osteoporosis, unspecified osteoporosis t ype, unspecified pathological fracture presence [phone] RHEUMATOLOGY DEP [place], [place] [address] Social History Tobacco Use Types Packs/Day Years Used Date Never Smoker Smokeless Tobacco: Never Used Sex Assigned at Date Recorded Not on file documented as of this encounter Last Filed Vital Signs Vital Sign Reading Time Taken Comments Blood Pressure 152/80 07/02/2021 11:00 AM EDT Pulse 85 07/02/2021 11:00 AM EDT Temperature 36.9 ??C (98.4 ??F) 07/02/2021 11:00 AM EDT Respiratory Rate - - Oxygen Saturation 100% 07/02/2021 11:00 AM EDT Inhaled Oxygen Concentration - - Weight 74.8 kg (165 lb) 07/02/2021 11:00 AM EDT Height 177.8 cm (5' 10) 07/02/2021 11:00 AM EDT Body Mass Index 23.68 07/02/2021 11:00 AM EDT documented in this encounter Progress Notes oLis Robledo, DO - 07/02/2021 11:00 AM EDT Rheumatology History: PMR -difficulty tapering <6 mg of methylprednisone -methotrexate added, increased to 25 mg subcu IN April 2018; decreased to 20 mg subcu in April 2020. -no actemra due to extensive diverticulosis Interval History: Cruz Zambrano is a 75 y.o. male who presents today for continued management of polymyalgia rheumatica. His last visit was inperson with me in March 2021 He tested pos for covid with URI about one month ago. He had congestion and otherwise felt okay. He was walking 3-4 miles. He got tested and he didn't get his results. Notes Fri and and hewas monitoring his labs. He had his results on Friday from the [facility]. Hen otes that he was fine, and his was negative. He felt fine throughout. He reports yesterday. He didn't sleep well as he was up late and then ddin to feel well. He was fatigued. Reports he went to bed early and feels better today. No blanco no vision no jaw claudication Notes some new blinking. And reports it starts on its own. He tried drops. 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 Physical Examination: Patient Vitals for the past 24 hrs: Temp Pulse BP SpO2 07/02/21 1100 36.9 ??C (98.4 ??F) 85 152/80 100 % HEENT: Normocephalic atraumatic extraocular muscles intact Cardiovascular no lower extremity edema Pulmonary speaking in full sentences without dyspnea cough or wheeze Hands scattered OA changes no synovitis of the MCPs or PIPs Wrists no tenderness palpation or swelling Shoulders normal range of motion in abduction no sig pain Hips no tenderness to palpation over the greater trochanters Laboratory Data: 10/31/2020 [facility]: CBC unremarkable except [...] to taper down to methylprednisolone 4.5 mg, We discussed tapering strategies before and he will try again once he is feeling better and completed his 3rd moderna vaccine andhis flu vaccination.. Osteoporosis on Fosamax we will continue this continue calcium and vitamin D Last bmd shows t score -2.3 in february 2021 Anemia -- improved H&H with B12 supplementation per direction of PCP. Low albumin/total protein -- followed by primary care. Follow-up 3 months or sooner with issues Lois Robledo DO CC: Jennifer Pelaez MD documented in this encounter Plan of Treatment Upcoming Encounters Date Type Specialty Care Team Description 04/23/2022 Office Visit Dermatology Cecilio Barillas MD [address] [facility] DERMATOLOGY [place], [place] [address] (Eren murdock) 05/30/2022 Office Visit Rheumatology Theresa Robledo DO [facility] DR RHEUMATOLOGY [place], [place] [address] (Eren murdock) Scheduled Orders Name Type Priority Associated Diagnoses Order S chedule CBC (with Diff) Lab Routine PMR (polymyalgia Every 3 months for 4 rheumatica) Occurrences starting assistant terminal manager current use of until non-steroidal 07/02/2022 anti-inflammatories (NSAID) Arthritis Osteoporosis, unspecified osteoporosis type, unspecified pathological fracture presence Comprehensive metabolic Lab Routine PMR (polymyalgia Every 3 months for 4 panel (non-fasting) rheumatica) Occurrences starting care home current use of until non-steroidal 07/02/2022 anti-inflammatories (NSAID) Arthritis Osteoporosis, unspecified osteoporosis type, unspecified pathological fracture presence Sedimentation rate Lab Routine PMR (polymyalgia Every 3 months for 5 rheumatica) Occurrences starting care home current use of until non-steroidal 07/03/2022 anti-inflammatories (NSAID) Arthritis Osteoporosis, unspecified osteoporosis type, unspecified pathological fracture presence CRP, acute inflammation Lab Routine PMR (polymyalgia Every 3 months for 4 rheumatica) Occurrences starting assistant terminal manager current use of until non-steroidal 07/02/2022 anti-inflammatories (NSAID) Arthritis Osteoporosis, unspecified osteoporosis type, unspecified pathological fracture presence CBC (with Diff) Lab Routine PMR (polymyalgia Every 3 months for 4 rheumatica) Occurrences starting assistant terminal manager current use of until non-steroidal 07/02/2022 anti-inflammatories (NSAID) Arthritis Osteoporosis, unspecified osteoporosis type, unspecified pathological fracture presence Sedimentation rate Lab Routine PMR (polymyalgia Every 3 months for 5 rheumatica) Occurrences starting assistant terminal manager current use of until non-steroidal 07/03/2022 anti-inflammatories (NSAID) Arthritis Osteoporosis, unspecified osteoporosis type, unspecified pathological fracture presence CRP, acute inflammation Lab Routine PMR (polymyalgia Every 3 months for 4 rheumatica) Occurrences starting assistant terminal manager current use of until non-steroidal 07/02/2022 anti-inflammatories (NSAID) Arthritis Osteoporosis, unspecified osteoporosis type, unspecified pathological fracture presence documented as of this encounter Visit Diagnoses Diagnosis PMR (polymyalgia rheumatica) Polymyalgia rheumatica assistant terminal manager current use of non-steroidal a nti-inflammatories (NSAID) Encounter for long-term (current) use of non-steroidal anti-inflammatories Arthritis Arthropathy, unspecified, site unspecifi ed Osteoporosis, unspecified osteoporosis t ype, unspecified pathological fracture presence documented in this encounter Care Teams System Validation Engineer Relationship Specialty Start Date End Date Jennifer Pelaez MD PCP - General 02/09/[address] [place] [address] [place] [address] documented as of this encounter
--- OUTSIDE RECORDS SUMMARY | 2022-04-12 02:24 | XMS_ITS | Encounter Summary ---
:1945 Author Organization [facility] Address [address] [place] [address] Care Team Providers Name Role Phone Sandro Garcia MD Primary Care Provider Encounter Details Date Type Department Care Team Description 07/31/2021 Lab Requisition [facility] Outr Resulting Lab, Pathology & Laboratory Provider [facility] [address] [id number] Social History Tobacco Use Types Packs/Day Years Used Date Never Assessed Sex Assigned at Date Recorded Not on file documented as of this encounter Plan of Treatment Not on filedocumented as of this encounter Procedures Procedure Name Priority Date/Time Associated Comments Diagnosis PSA TOTAL, Routine 07/31/2021 13:00 Results for this DIAGNOSTIC EDT procedure are i n the results section. documented in this encounter Results (ABNORMAL) PSA TOTAL, DIAGNOSTIC (07/31/2021 13:00 EDT) Pathologist Sig nature PSA 9.8 (H) 0.0 - 6.5 ng/mL [facility] Specimen Blood - Venous blood (substance) Narrative [facility] - 07/31/2021 22:23 EDT NOTE: Serum PSA concentration should not be in terpreted as absolute evidence for the presence or absence of malignant disease. Assayed on Siemens ADVIA Centaur XPT usi ng chemiluminescent technology.??Values obtained by using different assay methods cannot be used interchangeably. Performing Organization Address City/State/ZIP Code Phon e Number [facility] [address] [place] [address] SERVICES documented in this encounter Visit Diagnoses Not on filedocumented in this encounter Care Teams Offal Roller Relationship Specialty Start Date End Date Sandro Garcia MD PCP - General 02/21/12 [address] [facility] [place] [address] documented as of this encounter
--- OUTSIDE RECORDS SUMMARY | 2022-04-12 02:24 | XMS_ITS | Encounter Summary ---
:1945 Author Organization [facility] [place] [address] Care Team Providers Name Role Phone Jennifer Pelaez MD Primary Care Provider Reason for Visit Reason Comments Skin Check Encounter Details Date Type Department Care Team Description 09/11/2020 Office Visit Dermatology at Cecilio Barillas, Seborrh eic keratosis; Dileep ANGULO [place] (actinic keratosis); [address] [facility] [facility] [address] History of basal cell carcinoma Fortunato B DERMATOLOGY [place], [place] [id number] [phone] Social History Tobacco Use Types Packs/Day Years Used Date Never Smoker Smokeless Tobacco: Never Used Sex Assigned at Date Recorded Not on file documented as of this encounter Progress Notes Cecilio Barillas MD - 09/11/2020 8:15 AM EST Problem: 1.?6-month??skin checkup for actinic damage 2. ??Polymyalgia rheumatica/poorly defined connective tissue disease on prednisone/SC?methotrexate 3. 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 Is noted a number of new actinic keratoses. He is still working[employer] only [employer]. Officially he is retired now from [employer]. Physical examination reveals a pleasant 75-year-old gentleman who has a number of hyperkeratotic actinic keratoses present on the parietal scalp temples and forehead. There is no evidence of any malignant lesions today. Assessment plan: Actinic keratosis scalp 1. Half an hour spent today discussing the use and appropriate application of 5 fluorouracil 5% cream. 2. Answered patient questions regarding this treatment. 3. Handwritten prescription were given the patient today to fill out his [facility] pharmacy for the followin. 5 fluorouracil 5% cream applied scalp forehead and temples twice daily for 2 weeks then return toclin. Dispense 30 g with 0 refills. He will begin this in the new year on October 09 return to clinic October 23 5. Triamcinolone 0.1% cream apply twice daily to 5-FU treated areas 30 minutes after each 5-FU application, then apply by itself twice daily until redness clears. Dispense 30 g with 0 refills. 6. Return to clinic October 23 for repeat check. 7. Hyperkeratotic actinic keratoses were treated today with LN 2 x 2 aggressively total of 5 sites treated Note: Discussed the option of 4.5% fluorouracil cream from [facility]. CC: Jennifer Pelaez MD documented in this encounter Plan of Treatment Upcoming Encounters Date Type Specialty Care Team Description 04/23/2022 Office Visit Dermatology Cecilio Barilals MD [address] [place] [address] DERMATOLOGY [place], [place] [address] (Wo rk) 05/30/2022 Office Visit Rheumatology Theresa Robledo, DO [facility] [address] RHEUMATOLOGY [place], [place] [address] (Wo rk) documented as of this encounter Visit Diagnoses Diagnosis Seborrheic keratosis Other seborrheic keratosis [place] (actinic keratosis) Actinic keratosis History of basal cell carcinoma Personal history of other malignant neop lasm of skin documented in this encounter Care Teams Tufting Supervisor Relationship Specialty Start Date End Date Jennifer Pelaez MD PCP - General 02/09/[address] [place] [address] [place] [address] documented as of this encounter
--- OUTSIDE RECORDS SUMMARY | 2022-04-12 02:24 | XMS_ITS | Encounter Summary ---
:1945 Author Organization [facility] [place] [address] Care Team Providers Name Role Phone Jennifer Pelaez MD Primary Care Provider Encounter Details Date Type Department Care Team Description 01/19/2020 TH Visit Rheumatology at [facility] Lois Robledo Arthritis; (TeleHealth) [facility] DDO PMR (polymyalgia rheumatica); [facility][note 2] Elevated C-reactive protein (CRP); [place], [place] High risk medication use; [address] RHEUMATOLOGY DEPT Healthcare maintenance; [phone] [place], [place] [address] Osteopenia, unspecified location; [phone] jail curre nt use of systemic steroids (Work) Social History Tobacco Use Types Packs/Day Years Used Date Never Smoker Smokeless Tobacco: Never Used Sex Assigned at Date Recorded Not on file documented as of this encounter Progress Notes Lois Robleod DO - 01/19/2020 12:30 PM EDT Rheumatology Outpatient Follow-up Note RHEUMATOLOGY ATTENDING TELEPHONE VISIT Called Mr Zambrano at January 19, 2020 12:07 PM. At the outset of this visit, I made them aware that this telephone visit may be billed similar to a clinic visit to him or his insurance company. MR Zambrano were in agreement to continue this visit. Total telephone visit time: [id number] for a total 25 minutes. CC: here for a f/u for PMR PMR -difficulty tapering <6 mg of methylprednisone -methotrexate added, increased to 25 mg sc April 2018 Able to taper to 3.5 mg Interval Hx: ESR 27 uln 20 CRP 0.73 uln 0.3 Cruz Zambrano is a 74 y.o. male w a hx of PMR, last seen by Jennifer in Oct. Last labs were done at the end of December. Notes some leg pain at the end of the day. Notes he is walking 1.5 hours, and is doing stuff around the house and is doing ok w that. Denies any sig am stiffness and feels good overall. He has been on 3.5 mg for 2 months and will stay on this. He did his shingrix vaccine as well. He noted the day after he had chills, he had sweats that night. This was done last Friday He still on mtx.. he feels the mtx has allowed him ot taper further. The colonoscopy was on 09/22/19 and had diverticulosis on it which was classified as mild. No GCA sxs No f/c/GI sxs; no n/v/diarrhea Past Dr. Robledo 06/14/19 Pt last seen in February 2019. He noted his hb was 10.4 on labs , in May it was 11.1 and 11.6 in May. The crp 0.41 and the esr 23. He had a low iron but nl ferritin. He is on 4/4.5 mg alternating which he has been on a month. He has been feeling well. He notes 3 weeks he has been doing well very active no sig pain. No headaches no vision changes. 72 y/o male here for a follow up for polymyalgia rheumatica who has had difficulty tapering down below 6 mg of methylprednisolone and mtx was added. He does develop increase markers of inflammation with the consistent symptoms of PMR as well Last labs 05/23: ESR 45 (down from 54) and CrP 1 (down from 3). Labs: 08/11/18: esr 21, crp 0.17 Labs 09/22 esr 18, crp, 0.14.8 10/24 esr 18, crp0.31 02/21 esr 35 crp 0.71 06/24 esr 16 crp 0.31 10/07/19 labs ESR 27 CRP 0.73 uln 0.3 No sig am stiffness, has some le pain with activity, has a hard time getting up from a squatting position No newberry.no vision changes. No jaw pain. Current Outpatient Medications: ??? metHOTREXate 25 mg/mL Solution, 1 ml subcutaneous weekly, Disp: 6 vial, Rfl: 2 ??? cholecalciferol, Vitamin D3, (VITAMIN D) 1,000 unit Capsule, Take by mouth daily., Disp: , Rfl: ??? alendronate (FOSAMAX) 70 mg Tablet, Take 1 tablet by mouth every 7 days., Disp: 12 tablet, Rfl: 3 ??? Syringe with Needle, Disp, (BD TUBERCULIN SYRINGE) 1 mL 27 x 1/2 Syringe, 1 Units by [facility].(Non-Drug; Combo Route) route once a week., Disp: 20 Syringe, Rfl: 3 ??? methylPREDNISolone (MEDROL) 4 mg Tablet, Take 1.5 tablets by mouth daily., Disp: 120 tablet, Rfl: 3 ??? methylPREDNISolone (MEDROL) 2 mg Tablet, Take 0.5 tablets by mouth daily., Disp: 180 tablet, Rfl: 1 ??? folic acid (FOLVITE) 1 mg Tablet, Take 2 tablets by mouth daily., Disp: 180 tablet, Rfl: 3 ??? glnefgoa-nptuvzemc-dfmtgjliomtdc (DEXACINE) 3.5 mg/g-10,000 unit/g-0.1 % Ointment, , Disp: , Rfl: 5 ??? VIRTUSSIN AC 10-100 mg/5 mL Liquid, , Disp: , Rfl: ??? brimonidine (ALPHAGAN) 0.2 % Drops, Place into both eyes 2 times daily., Disp: , Rfl: 3 ??? omeprazole (PRILOSEC) 20 mg Capsule, Delayed Release(E.C.), Take 1 capsule by mouth daily., Disp: , Rfl: ??? triamcinolone (KENALOG) 0.1 % Cream, Apply 1 Application topically as needed., Disp: , Rfl: ??? aspirin 81 mg Tablet, Delayed Release (E.C.), Take 81 mg by mouth daily., Disp: , Rfl: ??? simvastatin (ZOCOR) 20 mg Tablet, Take 20 mg by mouth nightly., Disp: , Rfl: ??? hydrochlorothiazide (HYDRODIURIL) 25 mg tablet, , Disp: , Rfl: ??? metoprolol succinate (TOPROL XL) 100 mg XL tablet, , Disp: , Rfl: ??? 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 General pt alert and oriented x 3, nad Mood appropriate Impression/Recommendations : PMR: Patient has had long-standing polymyalgia rheumatica which is been very difficult to control and has struggled to taper his prednisone. He initially presented like seronegative RA and then developed PMR symptoms. We have had a challenge tapering down below 8mg without methotrexate, and on mtx he has been able totaper down to his current dosing at 3.5 mg daily, he is currently asymptomatic but his most recent markers of inflammation were 1.13 (prior 0.7, lab nl 0.33). He has no current symptoms so will maintain on 3.5 mg for now with mtx 25 mg q weekly. Given dificulty given labs during the Coronavirus pandemic would hold off on tapering his medications. Labs this summer utd on vaccines Osteoporosis. On fosamax. Cont ca and vit d supplementation. Cont weight bearing activity. 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 Fu in 4 months Lois Robledo DO documented in this encounter Plan of Treatment Upcoming Encounters Date Type Specialty Care Team Description 04/23/2022 Office Visit Dermatology Cecilio Barillas MD [address] [place] [address] RD DERMATOLOGY [place], [place] [address] (Eren murdock) 05/30/2022 Office Visit Rheumatology Theresa Robledo DO [facility] DR RHEUMATOLOGY [place], [place] [address] (Eren murdock) documented as of this encounter Visit Diagnoses Diagnosis Arthritis Arthropathy, unspecified, site unspecifi ed PMR (polymyalgia rheumatica) Polymyalgia rheumatica Elevated C-reactive protein (CRP) High risk medication use Encounter for long-term (current) use of other medications Healthcare maintenance Routine general medical examination at a health care facility Osteopenia, unspecified location jail current use of systemic steroi ds Encounter for long-term (current) use of steroids documented in this encounter Care Teams Fire Management Technician Relationship Specialty Start Date End Date Jennifer Pelaez MD PCP - General 02/09/[address] [place] [address] [place] [address] documented as of this encounter
--- OUTSIDE RECORDS SUMMARY | 2022-04-12 02:24 | XMS_ITS | Encounter Summary ---
:1945 Author Organization [facility] Address [place] [id number] Care Team Providers Name Role Phone Jennifer Pelaez MD Primary Care Provider Encounter Details Date Type Department Care Team Description 04/10/2020 Office Visit Rheumatology at [facility] Lois Robledo PMR (polymyalgia rheumatica) ; [facility] D, DO High risk medication use; [facility] Healthcare maintenance; [place] [phone] Arthritis; [phone] RHEUMATOLOGY DEP T Elevated C-reactive protein (CRP); [place] [address] 6 Osteopenia, unspecified location; [phone] (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 of systemic steroi ds Social History Tobacco Use Types Packs/Day Years Used Date Never Smoker Smokeless Tobacco: Never Used Sex Assigned at Date Recorded Not on file documented as of this encounter Last Filed Vital Signs Vital Sign Reading Time Taken Comments Blood Pressure 136/65 04/10/2020 1:10 PM EDT Pulse 68 04/10/2020 1:10 PM EDT Temperature 36.8 ??C (98.3 ??F) 04/10/2020 1:10 PM EDT Respiratory Rate - - Oxygen Saturation 100% 04/10/2020 1:10 PM EDT Inhaled Oxygen Concentration - - Weight 77.6 kg (171 lb) 04/10/2020 1:10 PM EDT Height 175.3 cm (5' 9) 04/10/2020 1:10 PM EDT Body Mass Index 25.25 04/10/2020 1:10 PM EDT documented in this encounter Progress Notes Lois Robledo DO - 04/10/2020 1:30 PM EDT Rheumatology Outpatient Follow-up Note CC: here for a f/u for PMR PMR -difficulty tapering <6 mg of methylprednisone -methotrexate added, increased to 25 mg subcu IN April 2018 -no actemra due to extensive diverticulosis HPI: Pt last seen in January 2020 he is on 4/3 mg for some time and is doing well. He is at 3.5 overall. Notes some pain which is activity related in the hips/thighs but it is not particularly bothersome. No headaches, jaw claudication, vision changes, no prolonged am stiffness in the hips or shoulder girdle. Has been losing weight intentionally, retired las week. . . He noted his hb was 10.4 on [...] doing well very active no sig pain. Last labs 05/23: ESR 45 (down from 54) and CrP 1 (down from 3). 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 Syringe with Needle, Disp, (BD Tuberculin Syringe) 1 mL 27 x 1/2 Syringe, 1 Units by [facility].(Non-Drug; Combo Route) route once a week., Disp: 20 Syringe, Rfl: 3 ??? folic acid (Folvite) 1 mg Tablet, Take 2 tablets by mouth daily., Disp: 180 tablet, Rfl: 3 ??? metHOTREXate 25 mg/mL Solution, 1 ml subcutaneous weekly, Disp: 6 vial, Rfl: 2 ??? cholecalciferol, Vitamin D3, (VITAMIN D) 1,000 unit Capsule, Take by mouth daily., Disp: , Rfl: ??? alendronate (FOSAMAX) 70 mg Tablet, Take 1 tablet by mouth every 7 days., Disp: 12 tablet, Rfl: 3 ??? methylPREDNISolone (MEDROL) 4 mg Tablet, Take 1.5 tablets by mouth daily., Disp: 120 tablet, Rfl: 3 ??? methylPREDNISolone (MEDROL) 2 mg Tablet, Take 0.5 tablets by mouth daily., Disp: 180 tablet, Rfl: 1 ??? omeprazole (PRILOSEC) 20 mg Capsule, Delayed [...] 500 mg tablet, , Disp: , Rfl: ??? jplpvbhk-mloynlyyo-egkqyyizuctnu (DEXACINE) 3.5 mg/g-10,000 unit/g-0.1 % Ointment, , Disp: , Rfl: 5 ??? VIRTUSSIN AC 10-100 mg/5 mL Liquid, , Disp: , Rfl: ??? 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 General: Alert and oriented. Well developed and nourished. The patient did not appear distressed or uncomfortable. The patient ambulated without difficulty or assistance. Scalp: no prominent temporal artery vessels, no ttp Eyes: Extraocular muscles were intact. External Eye: No hyperemia of the conjunctiva noted Sclera: Not red. Neck: no lymphadenopathy Lungs: Respiration rhythm and depth was normal. Work of breathing was not increased. Cta bl no wrr Cardiovascular system: Lower Extremity Edema:none. rrr no mrg Musculoskeletal system: Hands: no ttp on the mcps, pips or dips, wrists; nl Elbows: nl Shoulders normal range of motion no sig pain Hips no tenderness palpation over the greater trochanters Ankles nl Skin: No rash seen.brusing bl ue skin tears bl upper ext Impression/Recommendations : PMR: Patient has had long-standing polymyalgia rheumatica which is been very difficult to control ndhas struggled to taper down his prednisone. He initially presented like seronegative RA and then developed PMR symptoms. We have had a challenge tapering down below 8mg without methotrexate, and on mtx he has been able totaper down to his current dosing, he is currently asymptomatic and with normal markers of inflammation, however he is havign some anemia which is normocytic. Evaluation thus far has been neg with us and his pcm. Will trial coming down on mtx to 20 mg q weekly and repeat labs in 4-8 weeks. Osteoporosis. Repeat dexa 08/25 on fosamax and vit d, has had 9% loss in two years, repeat bmd in 08/25,c on't calcium and vit d Anemia: mild, may be med related. Iron studies, retic, folate and b12 were wnl.. . rec fu with his pcm. decr mtx Vaccines utd F/U in 12 weeks Lois Robledo DO documented in this encounter Plan of Treatment Upcoming Encounters Date Type Specialty Care Team Description 04/23/2022 Office Visit Dermatology Cecilio Barillas MD [address] [address] RD DERMATOLOGY [place], [place] [address] (Wo rk) 05/30/2022 Office Visit Rheumatology Theresa Robledo DO [facility] DR RHEUMATOLOGY [place], [place] [address] (Wo rk) documented as of this encounter Visit Diagnoses Diagnosis PMR (polymyalgia rheumatica) Polymyalgia rheumatica High risk medication use Encounter for long-term (current) use of other medications Healthcare maintenance Routine general medical examination at a health care facility Arthritis Arthropathy, unspecified, site unspecifi ed Elevated C-reactive protein (CRP) Osteopenia, unspecified location [facility] current use of systemic steroi ds Encounter for long-term (current) use of steroids documented in this encounter Care Teams Absorber Operator Relationship Specialty Start Date End Date Jennifer Pelaez MD PCP - General 02/09/[address] [place] [address] [place] [address] documented as of this encounter
--- OUTSIDE RECORDS SUMMARY | 2022-04-12 02:24 | XMS_ITS | Encounter Summary ---
:1945 Author Organization [facility] Address [address] [place] [address] Care Team Providers Name Role Phone Sandro Garcia MD Primary Care Provider Encounter Details Date Type Department Care Team Description 06/22/2020 Lab Requisition [facility] Outr Resulting Lab, Pathology & Laboratory Provider [facility] [address] [place] [id number] Social History Tobacco Use Types Packs/Day Years Used Date Never Assessed Sex Assigned at Date Recorded Not on file documented as of this encounter Plan of Treatment Not on filedocumented as of this encounter Procedures Procedure Name Priority Date/Time Associated Comments Diagnosis PSA TOTAL, Routine 06/22/2020 12:05 Results for this DIAGNOSTIC EDT procedure are i n the results section. documented in this encounter Results (ABNORMAL) PSA TOTAL, DIAGNOSTIC (06/22/2020 12:05 EDT) Pathologist Sig nature PSA 7.8 (H) 0.0 - 6.5 ng/mL [facility] Specimen Blood - Venous blood (substance) Narrative [facility] - 06/22/2020 22:35 EDT NOTE: Serum PSA concentration should not be in terpreted as absolute evidence for the presence or absence of malignant disease. Assayed on Siemens ADVIA Centaur XPT usi ng chemiluminescent technology.??Values obtained by using different assay methods cannot be used interchangeably. Performing Organization Address City/State/ZIP Code Phon e Number [facility] [address] [place] [address] SERVICES documented in this encounter Visit Diagnoses Not on filedocumented in this encounter Care Teams No Bake Molder Relationship Specialty Start Date End Date Sandro Garcia MD PCP - General 02/21/[address] [place] [address] [place] [address] documented as of this encounter
--- OUTSIDE RECORDS SUMMARY | 2022-04-12 02:24 | XMS_ITS | Encounter Summary ---
:1945 [place] [address] Care Team Providers Name Role Phone Jennifer Pelaez MD Primary Care Provider Encounter Details Date Type Department Care Team Description 07/12/2020 Office Visit [place] [facility] Bela Sawant, PMR ([facility] RECOVERY ROOM RN rheumatica) [place] [address] [place] [address] [place] [address] Social History Tobacco Use Types Packs/Day Years Used Date Never Smoker Smokeless Tobacco: Never Used Sex Assigned at Date Recorded Not on file documented as of this encounter Last Filed Vital Signs Vital Sign Reading Time Taken Comments Blood Pressure 136/66 07/12/2020 1:44 PM EDT Pulse 78 07/12/2020 1:44 PM EDT Temperature 37.1 ??C (98.8 ??F) 07/12/2020 1:44 PM EDT Respiratory Rate - - Oxygen Saturation 100% 07/12/2020 1:44 PM EDT Inhaled Oxygen Concentration - - Weight 76.2 kg (168 lb) 07/12/2020 1:44 PM EDT Height 175.3 cm (5' 9) 07/12/2020 1:44 PM EDT Body Mass Index 24.81 07/12/2020 1:44 PM EDT documented in this encounter Patient Instructions Patient InstructionsBela Sawant APRN - 07/12/2020 2:00 PM EDT Medrol 8 mg daily. Continue Methotrexate 20 mg injections weekly. Continue folic acid 1 mg daily. Labs in 2 1/2 weeks. Telephone visit in [address] Robledo or me. documented in this encounter Progress Notes Bela Sawant APRN - 07/12/2020 2:00 PM EDT Rheumatology Outpatient Follow-up Note CC: here for a f/u for PMR Rheumatology History: PMR -difficulty tapering <6 mg of methylprednisone -methotrexate added, increased to 25 mg subcu IN April 2018; decreased to 20 mg subcu in April 2020. -no actemra due to extensive diverticulosis Interval History: Cruz Zambrano is a 74 y.o. male who presents today for continued management of polymyalgia rheumatica. He is accompanied by his , Bri. He has been followed by Lois Root DO and was lastseen in this practice on 04/10/2020. At that time he was feeling very well with methylprednisolone QOD3mg and QOD 4 mg plus he was taking injectible methotrexate 25 mg once weekly. At that April 2020 visit, his methotrexate was decreased to 20 mg subcu weekly. He says he did well for about 2-1/2 months.In the summer he would walk 3-6 miles per day at a good pace, work around the house, I could pick things up off the floor. About a month ago he noted rapid progression of symptoms reminiscent of his PMR symptoms including: His neck started to get stiff, leg stiffness, a little bit of a headache (upon questioning, he described this as in the muscles in the back of his neck), shoulders aches, pickingsomething off of the floor was very difficult due to lower extremity aching and getting up again waseven more difficult. He has continued to be active though has cut back somewhat. + fatigue. He has decreased his walking distance/pace and gets tired more easily. In the past 2-3 days he increased his methylprednisolone by 2 mg per day so now he is taking 5 mg and 6 mg alternating for the last 3 days.This increase helped a lot starting on the first day and he feels a bit better today, though he still has aching with lifting his arms over his head and he notes that he was very sore and tired in his legs getting out of the car. He is discouraged and says that he has been working closely with Dr. Robledo to decrease his steroid. He says that every time he changes the dose of methylprednisolone he does it very slowly and has not needed to increase it. CRP is now 3.6 mg/dL at an outside lab (see data section) He has anemia which has been worsening with no clearly identified etiology though he says Dr. Pelaez thinks it is related to the prednisone. Colonoscopy within a year showing diverticulosis per pt report. Cruz requests RFs of fosamax and a new Rx for Medrol for new dose today. Background PMR history reviewed today: Patient reports that [...] Couldn't get out of bed. He denies anyhistory of GCA symptoms. Per Dr. Montano account, he has had longstanding polymyalgia rheumatica which has been difficult to control and he struggled to taper down his prednisone; symptoms initially pr esented like seronegative RA and then he developed PMR symptoms. Patient agrees with this account. Review of Systems: General: Denies fevers, chills, night sweats, unintended weight change. + fatigue. HEENT: Denies acute visual changes, jaw claudication, scalp/temporal tenderness, dysphagia, dysphonia Skin: Denies rash Cardiovascular: Denies chest pain, palpitations, PND, orthopnea, LE claudication, DELANEY Pulmonary: Denies SOB, cough, hemoptysis Gastrointestinal: Denies abdominal pain, nausea, vomiting, melena, ryan blood in stool Musculoskeletal: See Interval History Neurologic: Denies dizziness, presyncope, syncope, recurrent or severe BLANCO SurgHX Right cts surgery, left cts surgery Knee athroscopic surgery Hernia repair, on the left side Pyloric stenosis as a child ?? 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 Normal gait. HEENT: No hyperemia, scleral injection, no icterus Neck: Supple, no lymphadenopathy, full range of motion Heart/Vascular: Regular rate and rhythm, no murmur/rub/gallop; 2+ radial and posterior tibialis pulses = bilaterally. No temporal bruits/marked pulsation/induration/tenderness; also no bruits over carotid, subclavian, renal arteries or abdominal aorta. Normal femoral pulses = bilaterally. Lungs: Clear to auscultation (no wheezes, rales, rubs) with expected respiratory excursion Abdomen: Soft, non-tender. Rectal: No ryan blood on exam, scant stool for sample with negative guaiac x 1 today. Neuro: Gait even and co-ordinated. Speech clearly articulated. No obvious deficits. International Accountant strength +5/5 = bilaterally. Skin: no obvious rashes Extremities: No tenderness or swelling of MCPs/PIPs/DIPs/wrists. Shoulders/upper arm aching with active lateral extension past 90 degrees, NT. Laboratory Data: 06/22/2020 [facility] RH (previously reviewed with patient by Dr. 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 male who presents today for continued management of long-standing polymyalgia rheumatica which is been very difficult to control nd has struggled to taper down his prednisone. He initially presented like seronegative RA and then developed PMR symptoms. We have had a challenge tapering down below 8mg without methotrexate, and on methotrexate 25 mgSC weekly he has been able to taper down to methylprednisolone QOD 3mg and QOD 4 mg. At his last visit in April 2020 he was doing very well, was asymptomatic re PMR/GCA symptoms, and he had normal markers of inflammation so methotrexate dose was reduced to 20 mg SC weekly. He did well with this new manuel men until about a month ago when he had a flare of PMR symptoms, which has persisted, with now elevated inflammatory markers. Partial improvement in symptoms with patient initiated increase in methylprednisolone to 5 mg/6 mg alternating days. No history of GCA symptoms and no exam findings concerning for GCA today. Anemia/low albumin/total protein -- ongoing issues. Has been normocytic though looks like iron deficiency and I reiterated Dr. Robledo's recommendation that he needs to follow up with his PCP for additional evaluation. Evaluation thus far has been neg with us and his pcm. ?? Osteoporosis. Repeat dexa 08/25 on fosamax and vit d, has had 9% loss in two years, repeat bmd in 08/25, continue calcium and vit d ?? I reviewed this case with Dr. Robledo on 07/13/2020. Will plan to get him in for an appointment with Dr. Robledo on 07/31/2020 at 1:30 via [employer]. Patient Instructions Medrol 8 mg daily. Continue Methotrexate 20 mg injections weekly. Continue folic acid 1 mg daily. Labs in 2 1/2 weeks. Telephone visit in [address] Robledo or me. Lab order for CRP and ESR provided to patient at office visit. CC: Jennifer Pelaez MD documented in this encounter Plan of Treatment Upcoming Encounters Date Type Specialty Care Team Description 04/23/2022 Office Visit Dermatology Cecilio Barillas MD [address] [facility] DERMATOLOGY [place], [place] [address] (Wo rk) 05/30/2022 Office Visit Rheumatology Theresa Robledo, DO [facility] DR RHEUMATOLOGY [place], [place] [address] (Wo rk) documented as of this encounter Visit Diagnoses Diagnosis PMR (polymyalgia rheumatica) Polymyalgia rheumatica documented in this encounter Care Teams Account Executive Healthcare Relationship Specialty Start Date End Date Jennifer Pelaez MD PCP - General 02/09/[address] [place] [address] [place] [address] documented as of this encounter
--- OUTSIDE RECORDS SUMMARY | 2022-04-12 02:24 | XMS_ITS | Clinical Summary ---
:1945 Author Organization [facility] [place] [address] Care Team Providers Name Role Phone Jennifer Pelaez MD Primary Care Provider Allergies No known active allergies Medications Medication Sig Dispensed Refills Start End Date Status Date valACYclovir (VALTREX) 0 Active 500 mg tablet 0 cholecalciferol, Take by mouth 0 Active Vitamin D3, (VITAMIN D) daily. 1,000 unit Capsule simvastatin (Zocor) 10 Take 10 mg by mouth 0 08/04/ 02 Active mg Tablet nightly. 0 cyanocobalamin, Vitamin Take 100 mcg by 0 Active B-12, (Vitamin B-12) mouth daily. 100 mcg Tablet ascorbic acid (VITAMIN Take by mouth. 2 0 Active C ORAL) gummies Daily MAGNESIUM ORAL Take by mouth. 2 0 Active gummies Daily BD SafetyGlide Inject 1 Syringe 50 Syringe 0 Active Shielding REG 1 mL 25 subcutaneously once 1 gauge x 5/8 a week. SyringeIndications: PMR (polymyalgia rheumatica), High risk medication use, intermediate manager current use of systemic steroids, Osteoporosis, unspecified osteoporosis type, unspecified pathological fracture presence, Healthcare maintenance, Arthritis, Elevated C-reactive protein (CRP), Osteopenia, unspecified location metoprolol succinate XL Take 50 mg by mouth 0 Active (Toprol-XL) 50 mg daily. 1 Tablet Sustained Release 24 hr folic acid (Folvite) 1 Take 2 tablets by 180 tablet 3 11/01/19 2 Active mg TabletIndications: mouth daily. 2 PMR (polymyalgia rheumatica), halfway current use of non-steroidal anti-inflammatories (NSAID), High risk medication use, Arthritis, Elevated C-reactive protein (CRP), Healthcare maintenance, Osteopenia, unspecified location, halfway current use of systemic steroids alendronate (Fosamax) Take 1 tablet by 12 tablet 3 Active 70 mg Tablet mouth every 7 days. 2 Take in AM with full glass of water, on an empty stomach. Do not lie down for 30 min. methylPREDNISolone Take 1.5 tablets by 120 tablet 3 Active (Medrol) 4 mg Tablet mouth daily. 2 tabletIndications: PMR (polymyalgia rheumatica), High risk medication use, Arthritis, Elevated C-reactive protein (CRP), Healthcare maintenance, Osteopenia, unspecified location, halfway current use of systemic steroids metHOTREXate 2.5 mg Take 8 tablets (20 96 tablet 1 Active TabletIndications: PMR mg) by mouth once a 2 (polymyalgia week. rheumatica), Arthritis, intermediate manager current use of systemic steroids, intermediate manager current use of non-steroidal anti-inflammatories (NSAID), High risk medication use, Elevated C-reactive protein (CRP), Healthcare maintenance, Osteopenia, unspecified location Active Problems Problem Noted Date intermediate manager current use of systemic steroids 04/10/2020 Arthritis 04/10/2020 PMR (polymyalgia rheumatica) 11/10/2018 intermediate manager current use of non-steroidal anti-inflammato porfirio (NSAID) 11/10/2018 High risk medication use 11/10/2018 Seborrheic keratosis 11/28/2015 Nevus 11/28/2015 AK (actinic keratosis) 02/09/2015 Inflamed seborrheic keratosis 12/04/2012 Encounters Date Type Specialty Care Team Description 03/12/2022 Transcribe Orders Primary Care Jennifer Pelaez SVT (supraventricular tachycardia); MD Tommie Syncope, unspec ified syncope type 01/30/2022 TH Visit Rheumatology Lois Robledo PMR (polym yalgia rheumatica); (TeleHealth) D, DO Arthritis; Osteoporosis, u nspecified osteoporosis type, unspecified pathological fracture presence; intermediate manager curre nt use of systemic steroids; halfway curre nt use of non-steroidal anti-inflammatories (NSAID); High risk medic ation use; Elevated C-reac tive protein (CRP); Healthcare main tenance; Osteopenia, uns pecified location from Last 3 Months Immunizations Name Administration Dates Next Due Influenza Vaccine (Novel) [id number], 11/08/2009 Injectable Influenza Vaccine w/Preservative, Split 07/06/2015 Influenza Vaccine, High Dose Quadrivalent 11/01/2021 PF Moderna Covid-19 (Rn Or Lpn 100mcg) Vaccine 07/14/2021, 2020, 10/31/2020 Pneumococcal Conjugate (13 Valent) 08/17/2018 Pneumococcal Polyvalent 23 11/11/2018, 08/24/2006 Zoster, Recombinant 01/12/2020, 10/13/2019 Social History Tobacco Use Types Packs/Day Years [...] Mass Index 24.41 11/01/2021 1:52 PM EST Plan of Treatment Upcoming Encounters Date Type Specialty Care Team Description 04/23/2022 Office Visit Dermatology Cecilio Barillas MD [address] [place] [address] RD DERMATOLOGY [place], [place] [address] (Wo rk) 05/30/2022 Office Visit Rheumatology Theresa Robledo, DO [facility] RHEUM[facility]OLOGY [place], [place] [address] (Wo rk) Health Maintenance Due Date Last Done Comments Hepatitis C Screening 1965 Tdap adult 1966 Tetanus vaccine 1966 Colonoscopy 1992 Covid-19 Vaccine (4 - Booster for 11/14/2021 07/14/2021, , Moderna series) 10/31/2020 Influenza (Flu) vaccine (1 of - 06/06/2022 11/01/2021, , Influenza standard series) 11/08/2009 Pneumoccocal Vaccine: 65+ Completed 11/11/2018, 08/17/2018 , 08/24/2006 Zoster vaccine Completed 01/12/2020, 10/13/2019 Procedures Procedure Name Priority Date/Time Associated Diagnosis Comme nts ECHO SCAN (SCAN) 02/26/2022 12:00 AM Resu lts for this EDT procedure are i n the results section. ORDS - PROVIDER 02/25/2022 12:00 AM CARE SCAN EDT BUILDING ASSOCIATE 02/15/2022 12:00 AM Resul ts for this SCAN EDT procedure are i n the results section. LAB SCAN 01/24/2022 12:00 AM Results for this EDT procedure are i n the results section. from Last 3 Months Results SCAN DOC: ECHO (02/26/2022 12:00 AM EDT) Narrative This result has an attachment that is no t available. Unknown MEDIA MGR SCAN EXT ORDR/RSLT SCAN DOC: ORDS - PROVIDER CARE (02/25/2022 12:00 AM EDT) Narrative This result has an attachment that is no t available. Unknown MEDIA MGR SCAN EXT ORDR/RSLT SCAN DOC: BUILDING ASSOCIATE (02/15/2022 12:00 AM EDT) Narrative This result has an attachment that is no t available. Unknown MEDIA MGR SCAN EXT ORDR/RSLT SCAN DOC: LAB (01/24/2022 12:00 AM EDT) Narrative This result has an attachment that is no t available. Unknown MEDIA MGR SCAN EXT ORDR/RSLT from Last 3 Months Insurance Payer Benefit Plan / Subscriber ID Effective Phone Address T ype Group Dates MEDICARE MEDICARE PART A [id number] 2020-Pres [id number] [place] [id number] AETNA MEDICARE AETNA MEDICARE [id number] 2020-Prese [address] [address] [place] [address] [phone] (Work) Advance Directives Documents on File Type Date Recorded Patient Public Health Educator Explanati on Advance Directives and Living 12/05/2010 8:39 AM Will Care Teams Installer Soft Top Relationship Specialty Start Date End Date Jennifer Pelaez MD PCP - General 02/09/[address] [place] [address] [place], [place] [id number]
--- OUTSIDE RECORDS SUMMARY | 2022-04-12 02:24 | XMS_ITS | Encounter Summary ---
:1945 Author Organization [facility] [place] [address] Care Team Providers Name Role Phone Jennifer Pelaez MD Primary Care Provider Encounter Details Date Type Department Care Team Description 10/23/2021 Office Visit Dermatology at Cecilio Barillas [place] (act inic keratosis); Dileep ANGULO History of basal cell carcinoma; [address] Seborrheic keratosis Fortunato B DERMATOLOGY [place], [place] [phone] [phone] Social History Tobacco Use Types Packs/Day Years Used Date Never Smoker Smokeless Tobacco: Never Used Sex Assigned at Date Recorded Not on file documented as of this encounter Progress Notes Cecilio Barillas MD - 10/23/2021 10:30 AM EST Problem: 1.?6-month??skin checkup??for actinic damage 2. ??Polymyalgia rheumatica/poorly defined connective tissue disease on prednisone/SC?methotrexate 3. 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 Status post 14-day course of 5-FU October 2020 Cruz follows up for a 6-month check. He has noted some new actinic's on his scalp. He is otherwise been doing well. He remains on his methylprednisolone for his polymyalgia rheumatica with a dose varying between 4-1/2 to 6 mg a day, and methotrexate for with fair control. He desires just to check of his scalp face and hands but I requested today that we also check his torso. Physical examination reveals a pleasant 76-year-old gentleman who has actinic's present throughout the entire balding parietal scalp. There is no evidence of any malignant lesions. Examination of the face the neck the chest the back hands arms forearms is otherwise benign. He has a number of small seborrheic keratosis keratoses developing on his back. Assessment and plan: Actinic keratoses thinning parietal scalp 1. LN 2 x 2 applied to each of 7 sites. 2. Post LN2 instructions given 3. Return to clinic in another 6 months recheck Benign seborrheic keratoses 1. Patient reassured about these benign lesions, no treatment necessary. CC: Jennifer Pelaez MD documented in this encounter Plan of Treatment Upcoming Encounters Date Type Specialty Care Team Description 04/23/2022 Office Visit Dermatology Cecilio Barillas MD [address] [place] [address] DERMATOLOGY [place], [place] [address] (Wo rk) 05/30/2022 Office Visit Rheumatology Theresa Robledo, DO [facility] DR RHEUMATOLOGY [place], [place] [address] (Wo rk) documented as of this encounter Visit Diagnoses Diagnosis AK (actinic keratosis) Actinic keratosis History of basal cell carcinoma Personal history of other malignant neop lasm of skin Seborrheic keratosis Other seborrheic keratosis documented in this encounter Care Teams Acoustical Installer Relationship Specialty Start Date End Date Jennifer Pelaez MD PCP - General 02/09/[address] [place] [address] [place] [address] documented as of this encounter
--- OUTSIDE RECORDS SUMMARY | 2022-04-12 02:24 | XMS_ITS | Encounter Summary ---
:1945 Author Organization [facility] [place] [address] Care Team Providers Name Role Phone Jennifer Pelaez MD Primary Care Provider Encounter Details Date Type Department Care Team Description 11/03/2020 TH Visit Rheumatology at [facility] Bela Sawant, PMR (polymyalgia rheumatica) ; (TeleHealth) [facility] CERTIFIED PROFESSIONAL CODER [place] [address] Center [phone] [place], [place] [address] Social History Tobacco Use Types Packs/Day Years Used Date Never Smoker Smokeless Tobacco: Never Used Sex Assigned at Date Recorded Not on file documented as of this encounter Progress Notes Bela Sawant APRN - 11/03/2020 12:00 PM EST Rheumatology Outpatient Follow-up Note TELEPHONE VISIT This visit was conducted via telephone due to COVID19 restrictions. I advised Cruz Zambrano that this telephone visit may be billed similar to a clinic visit to patient and insurance company. Patientagreed to continue this visit. Time (in minutes) with patient on the telephone: 23 Total time (in minutes) associated with this visit: 45 Rheumatology History: PMR -difficulty tapering <6 mg of methylprednisone -methotrexate added, increased to 25 mg subcu IN April 2018; decreased to 20 mg subcu in April 2020. -no actemra due to extensive diverticulosis Interval History: Cruz Zambrano is a 75 y.o. male who presents today for continued management of polymyalgia rheumatica. His last visit was 07/31/2020 via telehealth with Lois Root DO. He is doing well today. Current Treatment: Medrol 5 mg daily for the last month, methotrexate 0.8 mg SC weekly, folic acid 1mg daily At 07/12/2020 OV he was having some myalgias, arthralgias, AM stiffness, and elevated laboratory markers consistent with PMR flare. He had some improvement by increasing his dose of Medrol from 5 mg / 6mg on alternating days x3 days (up from his prior 3 mg / 4 mg regimen) prior to appointment. He responded well to increase in Medrol to 8 mg daily. At follow-up with Dr. Robledo on 07/31/2020 he was feeling well, without AM stiffness, no shoulder or hip girdle pain, no headaches and he was feeling welloverall and looking forward to getting back to his usual activities. The plan was to continue with the 1 mg taper every 1 to 2 weeks until 5 mg, then proceed with 1 mg every 3 to 4 weeks back to base of 3 mg alternating with 4 mg daily plus continuation of methotrexate 20 mg SC weekly. He is continue to feel well and tapered to 5 mg Medrol daily about a month ago. He is currently replacing his bathroom which he anticipates will take a month and plans to stay on 5 mg Medrol throughoutthat project. Previously noted anemia has improved with vitamin B12 supplementation. COVID vaccine #1 scheduled for next week. 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 CRP 1.26 mg/dL ESR 33 06/22/2020 [facility] : CBC unremarkable except low -- [...] did well with this new regimenuntil June 2020 when he had a flare of PMR symptoms, he was seen the first week of July and his medrol increased to 8 mg daily with rapid resolution of symptoms. He has tapered to 5 mg medrol daily a month ago and continues to feel well. He wants to continue with this dose until he finishes the hard work of renovating his bathroom which should take about a month. Plan: PMR -- Continue 5mg medrol daily while he renovates his bathroom and then taper by 1mg every 3-4 weeks backto his base of 3mg alt with 4mg daily. Continue mtx at 20 mg for now Repeat labs in 3 months (prefers [facility]) followed by OV with Dr. Robledo to review results and in-person assessment per patient preference. Hold methotrexate 2 doses after COVID vaccine. Reviewed rationale. If he feels that he is having anyPMR symptoms after holding the first dose then he should not hold the second dose. Anemia -- improved though still low H&H with B12 supplementation per direction of PCP. Low albumin/total protein -- followed by primary care. Osteoporosis -- on fosamax and vit d, has had 9% loss in two years, last DEXA 08/2018 and he is due for follow-up. Advised to split calcium dosing for better absorption. ?? Follow up in 3 months. Bela Sawant APRN CC: Jennifer Pelaez MD documented in this encounter Plan of Treatment Upcoming Encounters Date Type Specialty Care Team Description 04/23/2022 Office Visit Dermatology Cecilio Barillas MD [address] DERMATOLOGY [address] (Wo rk) 05/30/2022 Office Visit Rheumatology Theresa Robledo, DO [facility] ER DR RHEUMATOLOGY [place], [place] [address] (Wo rk) documented as of this encounter Visit Diagnoses Diagnosis PMR (polymyalgia rheumatica) Polymyalgia rheumatica High risk medication use Encounter for long-term (current) use of other medications documented in this encounter Care Teams Product Mgmt Dev Manager Relationship Specialty Start Date End Date Jennifer Pelaez MD PCP - General 02/09/[address] [place] [address] [place] [address] documented as of this encounter
--- OUTSIDE RECORDS SUMMARY | 2022-04-12 02:24 | XMS_ITS | Encounter Summary ---
:1945 Author Organization [facility] Address [address] [place] [address] Care Team Providers Name Role Phone Sandro Garcia MD Primary Care Provider Encounter Details Date Type Department Care Team Description 10/07/2019 Lab Requisition [facility] Unknown, Provider, Pathology & Laboratory [facility] [address] [place] [address] [place] [address] Social History Tobacco Use Types Packs/Day Years Used Date Never Assessed Sex Assigned at Date Recorded Not on file documented as of this encounter Plan of Treatment Not on filedocumented as of this encounter Procedures Procedure Name Priority Date/Time Associated Comments Diagnosis PSA TOTAL, Routine 10/07/2019 10:14 Results for this DIAGNOSTIC EST procedure are i n the results section. documented in this encounter Results (ABNORMAL) PSA TOTAL, DIAGNOSTIC (10/07/2019 10:14 EST) Pathologist Sig nature PSA 8.5 (H) 0.0 - 6.5 ng/mL [facility] Specimen Blood - Venous blood (substance) Narrative [facility] - 10/08/2019 10:10 EST NOTE: Serum PSA concentration should not be in terpreted as absolute evidence for the presence or absence of malignant disease. Assayed on Siemens ADVIA Centaur XPT usi ng chemiluminescent technology.??Values obtained by using different assay methods cannot be used interchangeably. Performing Organization Address City/State/ZIP Code Phon e Number [facility] [address] [place] [address] SERVICES documented in this encounter Visit Diagnoses Not on filedocumented in this encounter Care Teams Site Safety Coordinator Relationship Specialty Start Date End Date Sandro Garcia MD PCP - General 02/21/[address] [address] documented as of this encounter
--- OUTSIDE RECORDS SUMMARY | 2022-04-12 02:24 | XMS_ITS | Encounter Summary ---
:1945 Author Organization [facility] Address [address] [place] [address] Care Team Providers Name Role Phone Sandro Garcia MD Primary Care Provider Encounter Details Date Type Department Care Team Description 01/12/2016 Results Only [facility]- Kiran Alvarez MD [phone] [facility] [place] [address] (Wo rk) Social History Tobacco Use Types Packs/Day Years Used Date Never Assessed Sex Assigned at Date Recorded Not on file documented as of this encounter Plan of Treatment Not on filedocumented as of this encounter Procedures Procedure Name Priority Date/Time Associated Diagnosis Comme [facility] SURGICAL PATHOLOGY Routine 01/12/2016 6:19 EDT Re sults for this procedure are i n the results section. documented in this encounter Results SURGICAL PATHOLOGY (01/12/2016 6:19 EDT) Pathology SURGICAL PATHOLOGY REPORT [facility] Report: Reports generated via electronic interface conta in original data; CENTER however they are lacking the format of the original re port. LABORATORY Caution should be taken when reading/interpretin g unformatted reports. SERVICES Name: ? ANTONIETTA ZHAO ? Accession #: ? [id number] ? : ? 1945 (Age: 70) ??M ? Collect Date: ? 01/12/2016 ? Location: ? [facility] ? Receive Date: ? 6 ? Provider: KIRAN PACK MD Copy to: KANG MOMIN MD ? Final Pathologic Diagnosis: SYNOVIUM, WRIST/HAND, RIGHT, EXCISIONAL BIOPSY: - ??Chronic synovitis with reactive changes. ??See com ment. Comment: Superintendent Renting Managing slides of this case were reviewed at [facility] intradepartmental consultation conference. ??Sections feature reac tive synovitis with a mild to focally moderate amount of accompanying lymphoplasmacy tic inflammation. ??A detached portion of fibrin with neutrophils is present , but a neutrophilic infiltrate of the synovial tissue is not seen. ??A Treponema pallidum (polyclonal, Biocare) (block 2) to further evaluate for syphilitic synovitis is nega tive. ??No crystalline deposits are seen. ??However, crystal analysis is limited by the tissue having been submitted in aqueous (non-EtOH) media. 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 ??Amyloid deposition can be seen as a secondary phenomenon in a variety of chronic infl ammatory conditions. Features that would strongly support rheumatoid arthri tis, such as glorid papillary synovial hyperplasia with robust lymphoid ag gregates are not seen. However, the findings could still be compatible with r heumatoid arthritis. Other autoimmune etiologies, as well as Lyme disease, should also be considered. Correlation with the results of microbiological cultu res and clinicoradiographic findings is necessary. Document reviewed and electronically signed by: JASON WHITFIELD MD Report ??Date: 01/17/2016 16:17 By the signature above, the attending physician certif ies that he/she has personally conducted a gross and/or microscopic examin ation of the described specimens and rendered or confirmed the above diagnosi s. Specimen(s) Received: Synovium #1, #2 Clinical History: Acute flexor tenosynovitis R wrist causing carpal tunnel syndrome; no trauma; no signs of infection; sed rate 44; CRP 1.08; uric acid 5 .0; bilateral foot symptoms; suspect RA or inflammatory condition; RF augusta t (-); specimens are tenosynovium both in saline and formalin; cultures rosaura davila Gross Description: ? Received in formalin labelled with proper patient identification (initials T, J) and synovium right wrist/hand deep are multipl e phelan-monroy unoriented fibrous tissue fragments (2. 0 x 2.0 x 0.7 cm in aggregate). Specimen is entirely submitted as 1 and 2. Maryellen Marvin 01/15/2016 10:17 AM End of Report Specimen Performing Organization Address City/State/ZIP Code Phon e Number [facility] [address] [place] [address] SERVICES documented in this encounter Visit Diagnoses Not on filedocumented in this encounter Care Teams Zinc Furnace Charger Relationship Specialty Start Date End Date Sandro Garcia MD PCP - General 02/21/[address] [place] [address] [place], [place] [id number] documented as of this encounter
--- OUTSIDE RECORDS SUMMARY | 2022-04-12 02:24 | XMS_ITS | Encounter Summary ---
:1945 Author Organization [facility] [place] [address] Care Team Providers Name Role Phone Jennifer Pelaez MD Primary Care Provider Encounter Details Date Type Department Care Team Description 01/30/2022 [place] [facility]is Robledo PMR (polymyalgia rheumatica) ; (TeleHealth) [facility] D, DO Arthritis; [facility] Osteoporosis, unspecified os teoporosis type, unspecified pathological fracture presence; [place], [place] senior living current use of systemic steroi ds; [id number] RHEUMATOLOGY DEPT senior living current use of non-steroidal a nti-inflammatories (NSAID); [phone] [place], [place] [address] High risk medication use; [phone] Elevated C-reac tive protein (CRP); (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 At the outset of this visit, I made them aware that this telephone visit may be billed similar to a clinic visit to him or his insurance company. [employer] telephone visit time:2:05-2:25 for a total 20 minutes. Rheumatology History: PMR -difficulty tapering <6 mg of methylprednisone -methotrexate added, increased to 25 mg subcu IN April 2018; decreased to 20 mg subcu in April 2020. -no actemra due to extensive diverticulosis Interval History: Cruz Zambrano is a 76 y.o. male who presents today for continued management of polymyalgia rheumatica. His last visit was inperson with me in Oct 27. He notes he is doing well. Last mtx labs done in Oct 2021, was flaring w elevated crp. Then repeat crp in December was back down to 7. He is down to 4.5 mg Denies any am stiffness, no shoulder or hip girdle pain, no neck pain. No vision change that is acute, no headaches. He had an eyelid lift recently. He passed out at the gym after surgery was seen in in the ED and nothing was found. No medication side effects. 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 Speaking in full sentences w/o dyspnea cough or wheeze Laboratory Data: 10/31/2020 [facility]: CBC unremarkable except [...] taper down to methylprednisolone 4.5 mg, he is currently doing well without elevation in his inflammatory markers and his down on his corticosteroids. He is ready to taper again and will try tapering down his prednisone further. We do taper down quite slowly with him as he has had difficulty tolerating this before. His most recent CRP was within normal limits. His last labs were in October and repeat labs will be due in February. He has completed 3 vaccinations of Covid and will need his booster for moderna. Hold mtx one week after Osteoporosis on Fosamax, continue calcium and vitamin D Last bmd shows t score -2.3 in february 2021 FRAX showed risk of 9% and 3.5%. He is on Fosamax but still showed decline in bone density from 2018to now. He has been on Fosamax during that time. Question if this needs to be transitioned to Reclast. Recent vit d was normal Uncertain if or would like to order the Reclast locally or if she would like me to try to order it up to [facility]. Follow-up 4 months or sooner with issues Lois Robledo DO CC: Jennifer Pelaez MD documented in this encounter Plan of Treatment Upcoming Encounters Date Type Specialty Care Team Description 04/23/2022 Office Visit Dermatology Cecilio Barillas MD [address] [facility] DERMATOLOGY [place], [place] [address] (Wo rk) 05/30/2022 Office Visit Rheumatology Theresa Robledo DO [facility] DR RHEUMATOLOGY [place], [place] [address] (Wo rk) Scheduled Orders Name Type Priority Associated Diagnoses Order S chedule CBC (with Diff) Lab Routine PMR (polymyalgia Every 3 months for 4 rheumatica) Occurrences starting Arthritis 01/30/2022 until Osteoporosis, 01/30/2023 unspecified osteoporosis type, unspecified pathological fracture presence egg setter current use of systemic steroids Comprehensive metabolic Lab Routine PMR (polymyalgia Every 3 months for 4 panel (non-fasting) rheumatica) Occurrences starting Arthritis 01/30/2022 until Osteoporosis, 01/30/2023 unspecified osteoporosis type, unspecified pathological fracture presence egg setter current use of systemic steroids Sedimentation rate Lab Routine PMR (polymyalgia Every 3 months for 5 rheumatica) Occurrences starting Arthritis 01/30/2022 until Osteoporosis, 01/31/2023 unspecified osteoporosis type, unspecified pathological fracture presence egg setter current use of systemic steroids CRP, acute inflammation Lab Routine PMR (polymyalgia Every 3 months for 4 rheumatica) Occurrences starting Arthritis 01/30/2022 until Osteoporosis, 01/30/2023 unspecified osteoporosis type, unspecified pathological fracture presence senior living current use of systemic steroids documented as of this encounter Visit Diagnoses Diagnosis PMR (polymyalgia rheumatica) Polymyalgia rheumatica Arthritis Arthropathy, unspecified, site unspecifi ed Osteoporosis, unspecified osteoporosis t ype, unspecified pathological fracture presence senior living current use of systemic steroi ds Encounter for long-term (current) use of steroids senior living current use of non-steroidal a nti-inflammatories (NSAID) Encounter for long-term (current) use of non-steroidal anti-inflammatories High risk medication use Encounter for long-term (current) use of other medications Elevated C-reactive protein (CRP) Healthcare maintenance Routine general medical examination at a health care facility Osteopenia, unspecified location documented in this encounter Care Teams Dumper Mold Cleaner Relationship Specialty Start Date End Date Jennifer Pelaez MD PCP - General 02/09/[address] [place] [address] [place] [address] documented as of this encounter
--- OUTSIDE RECORDS SUMMARY | 2022-04-12 02:25 | XMS_ITS | Encounter Summary ---
:1945 Author Organization [place] [address] Care Team Providers Name Role Phone Jennifer Pelaez MD Primary Care Provider Reason for Visit Reason Comments Follow-up Skin Check Encounter Details Date Type Department Care Team Description 01/14/2017 Office Visit Dermatology at Cecilio Barillas, Seborrh eic keratosis; Dileep ANGULO [place] (actinic keratosis) [address] [place] [address] DERMATOLOGY [place], [place] [id number] [phone] Social History Tobacco Use Types Packs/Day Years Used Date Never Smoker Smokeless Tobacco: Never Used Sex Assigned at Date Recorded Not on file documented as of this encounter Progress Notes Cecilio Barillas MD - 01/14/2017 10:15 AM EDT PROBLEM: 1. Repeat skin checkup. 2. History of actinic keratoses. 3. Skin lesions of concern. Cruz follows up after last being seen in 05/2016. He continues on prednisone for some rheumatologic issues with his right hand strength and is now down to 5 mg a day. He is being followed by Rheumatology at [facility]. Dermatologically he is concerned about some rough scabbing spots on his scalp. Physical examination reveals an irritated seborrheic keratosis on the left adventism. There are about 5 actinic keratoses present throughout the occipital scalp and frontal parietal scalp. A/P: Actinic keratoses. a. LN2 x2 applied to each of 5 sites. b. Patient reassured about benign seborrheic keratosis. c. Recommend I see him again in another 6 months for repeat check. d. Discussed the difference between seborrheic keratosis and actinic keratosis, and the benign nature of the former. e. Continue sun avoidance precautions. cc: Jennifer Pelaez MD documented in this encounter Plan of Treatment Upcoming Encounters Date Type Specialty Care Team Description 04/23/2022 Office Visit Dermatology Cecilio Barillas MD [address] [facility] DERMATOLOGY [place], [place] [address] (Wo rk) 05/30/2022 Office Visit Rheumatology Theresa Robledo, DO [facility] DR RHEUMATOLOGY [place], [place] [address] (Wo rk) documented as of this encounter Visit Diagnoses Diagnosis Seborrheic keratosis Other seborrheic keratosis AK (actinic keratosis) Actinic keratosis documented in this encounter Care Teams Hog Room Supervisor Relationship Specialty Start Date End Date Jennifer Pelaez MD PCP - General 02/09/[address] [place] [address] [place] [address] documented as of this encounter
--- OUTSIDE RECORDS SUMMARY | 2022-04-12 02:25 | XMS_ITS | Encounter Summary ---
:1945 Author Organization [facility] Address [place] [id number] Care Team Providers Name Role Phone Jennifer Pelaez MD Primary Care Provider Encounter Details Date Type Department Care Team Description 06/29/2018 Office Visit [place] [facility] [place]is Robledo PMR (polymyalgia rheumatica) ; [facility] DDO High risk medication use; [facility] Healthcare maintenance; [place] [phone] Arthritis; [phone] RHEUMATOLOGY DEP T Elevated C-reactive protein (CRP); [place] [address] Osteopenia, unspecified location; [phone] (Wo rk) intermediate current use of systemic steroi ds Social History Tobacco Use Types Packs/Day Years Used Date Never Smoker Smokeless Tobacco: Never Used Sex Assigned at Date Recorded Not on file documented as of this encounter Last Filed Vital Signs Vital Sign Reading Time Taken Comments Blood Pressure 149/78 06/29/2018 2:21 PM EDT Pulse 76 06/29/2018 2:21 PM EDT Temperature - - Respiratory Rate - - Oxygen Saturation 100% 06/29/2018 2:21 PM EDT Inhaled Oxygen Concentration - - Weight 82.6 kg (182 lb) 06/29/2018 2:21 PM EDT Height 175.3 cm (5' 9) 06/29/2018 2:21 PM EDT Body Mass Index 26.88 06/29/2018 2:21 PM EDT documented in this encounter Progress Notes Lois Robledo DO - 06/29/2018 2:30 PM EDT Rheumatology Outpatient Follow-up Note CC: here for a f/u for PMR HPI: 72 y/o male here for a follow up for polymyalgia rheumatica. He was doing well on 6mg/4mg for 5 weeks without significant problems and he decreased to 4mg daily,he was on this dose for 4-5 days and had increasing pain and stiffness in shoulders and hips for hours in the am. He notes his crp was 3, and his esr was in the 50s on the Jun per his report. He went up to 8 mg for 2 days and felt better, he then went back to 6mg but does not feel great on this. He denies any newberry/jaw pain/vision changes. He is tolerating mtx without any issues. Taking folic acid daily. No recent infections. We increased his mtx to 25 mg in April. Patient denies any fevers, chills, night sweats, or GI symptoms. No pronounced headaches, no vision changes, no scalp tenderness or no jaw/tongue claudication. No CP or SOB. Current Outpatient Prescriptions: ??? BD SAFETYGLIDE SHIELDING REG 1 mL 25 gauge x 5/8 Syringe, once a week., Disp: , Rfl: ??? methylPREDNISolone (MEDROL) 4 mg Tablet, Take 2 tablets by mouth daily. (Patient taking differently: Take 6 mg by mouth daily.), Disp: 180 each, Rfl: 1 ??? metHOTREXate 25 mg/mL Solution, Inject 0.8 mLs into the vein once a week. (Patient taking differently: 1 ml subcutaneous weekly), Disp: 6 vial, Rfl: 2 ??? Syringe with Needle, Disp, (BD TUBERCULIN SYRINGE) 1 mL 27 x 1/2 Syringe, 1 Units by [facility]Non-Drug; Combo Route) route once a week., Disp: 25 Syringe, Rfl: 3 ??? alendronate (FOSAMAX) 35 mg Tablet, Take 1 tablet by mouth every 7 days. Take as directed., Disp: 4 tablet, Rfl: 12 ??? folic acid (FOLVITE) 1 mg Tablet, Take 1 tablet by mouth daily., Disp: 90 tablet, Rfl: 3 ??? omeprazole (PRILOSEC) 20 mg Capsule, Delayed Release(E.C.), Take 1 capsule by mouth daily., Disp: , Rfl: ??? ERGOCALCIFEROL, VITAMIN D2, (VITAMIN D ORAL), Take 2,000 Units by mouth daily., Disp: , Rfl: ??? 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 Well developed and nourished. The patient did not appear distressed or uncomfortable. The patient ambulated without difficulty or assistance. Scalp: No tenderness to palpation no prominent temporal artery vessels Eyes: Extraocular muscles were intact. External Eye: No hyperemia of the conjunctiva noted Sclera: Not red. Neck: no lymphadenopathy Lungs: Respiration rhythm and depth was normal. Work of breathing was not increased. Cta bl no wrr Cardiovascular system: Lower Extremity Edema: Not present. rrr no mrg Musculoskeletal system: Able to get up from the chair and onto the exam table with no difficulty. Nojoint swelling or tenderness. Shoulders normal range of motion Hips no tenderness palpation over the greater trochanters Neurologic: non antalgic gait, sensory grossly intact Skin: No rash seen. + multiple bruises and small skin tears Impression/Recommendations : PMR: Patient has had long-standing polymyalgia rheumatica which is been very difficult to control and a very difficult and tapering down his prednisone. He initially presented like seronegative RA and then developed PMR symptoms. We have had a challenge tapering down below 8mg without methotrexate, and on mtx he was able to taper down to 5 mg (average dosing) daily. We dicussed taking 8 mg daily x 1-2 weeks, then 6mg/8 mg x 2 weeks then 6mg for 4-8 weeks. We dicussed With him trying a TNF agent, he would like to hold off for now.He is not a candidate forActemra given extensive diverticulosis seen on colonoscopy several years ago. High risk med; mtx utd, recommend flu vaccination labs every 3 months intermediate frame tender steroids, osteopenia, Con't fosamax, ca/vit d.dexa due in August/ in 8 weeks Lois Robledo DO documented in this encounter Plan of Treatment Upcoming Encounters Date Type Specialty Care Team Description 04/23/2022 Office Visit Dermatology Cecilio Barillas MD [address] [facility] DERMATOLOGY [place], [place] [address] (Wo rk) 05/30/2022 Office Visit Rheumatology Theresa Robledo DO [address] [facility] [address] RHEUMATOLOGY [place], [place] [address] (Wo rk) documented as of this encounter Visit Diagnoses Diagnosis PMR (polymyalgia rheumatica) Polymyalgia rheumatica High risk medication use Encounter for long-term (current) use of other medications Healthcare maintenance Routine general medical examination at a health care facility Arthritis Arthropathy, unspecified, site unspecifi ed Elevated C-reactive protein (CRP) Osteopenia, unspecified location intermediate frame tender current use of systemic steroi ds Encounter for long-term (current) use of steroids documented in this encounter Care Teams Plant Assigner Relationship Specialty Start Date End Date Jennifer Pelaez MD PCP - General 02/09/[address] [place] [address] [place] [address] documented as of this encounter
--- OUTSIDE RECORDS SUMMARY | 2022-04-12 02:25 | XMS_ITS | Encounter Summary ---
:1945 [place] [address] Care Team Providers Name Role Phone Jennifer Pelaez MD Primary Care Provider Encounter Details Date Type Department Care Team Description 08/12/2017 [facility] [place] [address] [place] [address] [phone] (Wo rk) Social History Tobacco Use Types Packs/Day Years Used Date Never Smoker Smokeless Tobacco: Never Used Sex Assigned at Date Recorded Not on file documented as of this encounter Medications at Time of Discharge Medication Sig Dispensed Refills Start Date End Date valACYclovir (VALTREX) 500 0 0 mg tablet methylPREDNISolone Take 8 mg by mouth 0 7 09/10/2017 (MEDROL) 4 mg Tablet daily. alendronate (FOSAMAX) 35 Take 1 tablet by 4 tablet 12 08/1106/29/2018 mg TabletIndications: mouth every 7 Osteopenia, unspecified days. Take as location directed. methotrexate 2.5 mg Take 6 tablets by 36 tablet 2 7 09/10/2017 TabletIndications: mouth once a week. Arthritis, PMR (polymyalgia rheumatica), Elevated C-reactive protein (CRP) folic acid (FOLVITE) 1 mg Take 1 tablet by 90 tablet 3 07/0606/29/2018 TabletIndications: mouth daily. Arthritis, PMR (polymyalgia rheumatica), Elevated C-reactive protein (CRP) hydroxychloroquine Take 1 tablet by 120 tablet 3 07/16/2017 03/11/2018 (PLAQUENIL) 200 mg mouth 2 times TabletIndications: daily. Arthritis, PMR (polymyalgia rheumatica), Elevated C-reactive protein (CRP) omeprazole (PRILOSEC) 20 Take 1 capsule by 0 05/0 05/201709/11/2020 mg Capsule, Delayed mouth daily. Release(E.C.)Indications: Arthritis, PMR (polymyalgia rheumatica), Elevated C-reactive protein (CRP) ERGOCALCIFEROL, VITAMIN Take 2,000 Units 0 06/14/2019 D2, (VITAMIN D by mouth daily. ORAL)Indications: PMR (polymyalgia rheumatica), Arthritis triamcinolone (KENALOG) Apply 1 0 05/22/2016 0 11/03/2020 0.1 % CreamIndications: Application Arthritis, PMR topically as (polymyalgia rheumatica), needed. Pain in right hip, Pain in left hip aspirin 81 mg Tablet, Take 81 mg by 0 04/02/2021 Delayed Release mouth daily. (E.C.)Indications: Pseudogout zolpidem (AMBIEN CR) 12.5 Take 12.5 mg by 0 12/0611/19/2017 mg Tablet, Multiphasic mouth nightly. ReleaseIndications: Pseudogout simvastatin (ZOCOR) 20 mg Take 20 mg by 0 09/11/2020 TabletIndications: mouth nightly. Tenosynovitis hydrochlorothiazide 0 03/19/201009/11 (HYDRODIURIL) 25 mg tablet metoprolol succinate 0 03/19/201004/05 (TOPROL XL) 100 mg XL tablet documented as of this encounter Plan of Treatment Upcoming Encounters Date Type Specialty Care Team Description 04/23/2022 Office Visit Dermatology Cecilio Barillas MD [address] [place] [address] DERMATOLOGY [place], [place] [address] (Eren murdock) 05/30/2022 Office Visit Rheumatology Theresa Robledo, DO [facility] [address] RHEUMATOLOGY [place], [place] [address] (Wo rk) documented as of this encounter Procedures Procedure Name Priority Date/Time Associated Comments Diagnosis FILM LIBRARY STORAGE Routine 08/12/2017 12:00 AM Results for this ONLY ULTRASOUND EST procedure ar jerica in STUDY the results section. documented in this encounter Results Film Library- Storage Only Ultrasound Study (08/12/2017 12:00 AM EST) Specimen (Source) Anatomical Location Collection Method / Collectio n Time Received Time / Laterality Volume Narrative MICHEAL - 08/13/2017 8:13 AM EST This exam is for storage only and is aut o-finalizing. Lois Robledo DO IMG FILM LIBRARY ORDERABLES Performing Organization Address City/State/ZIP Code Phon e Number [place], [place] documented in this encounter Visit Diagnoses Not on filedocumented in this encounter Care Teams Application Architect Manager Relationship Specialty Start Date End Date Jennifer Pelaez MD PCP - General 02/09/[address] [place] [address] [place] [address] documented as of this encounter
--- OUTSIDE RECORDS SUMMARY | 2022-04-12 02:25 | XMS_ITS | Encounter Summary ---
:1945 Author Organization [facility] [place] [address] Care Team Providers Name Role Phone Jennifer Pelaez MD Primary Care Provider Encounter Details Date Type Department Care Team Description 11/19/2017 Office Visit Rheumatology at [facility] Haley Hamilton PMR (polymyalgia rheumatica) ; [facility] SKIP Albert High risk medication use; Drive [facility] Osteopenia, unspecified loca tion; [place] [address] [address] [address] correction current use of systemic steroi ds; [phone] [place] [id number] 6 Arthritis; [phone] (Wo rk) Steroid-induced myopathy Social History Tobacco Use Types Packs/Day Years Used Date Never Smoker Smokeless Tobacco: Never Used Sex Assigned at Date Recorded Not on file documented as of this encounter Last Filed Vital Signs Vital Sign Reading Time Taken Comments Blood Pressure 142/82 11/19/2017 10:31 AM EST Pulse 90 11/19/2017 10:31 AM EST Temperature 36.3 ??C (97.3 ??F) 11/19/2017 10:31 AM EST Respiratory Rate 100 11/19/2017 10:31 AM EST Oxygen Saturation - - Inhaled Oxygen Concentration - - Weight 84.9 kg (187 lb 3.2 oz) 11/19/2017 10:31 AM EST Height 175.3 cm (5' 9) 11/19/2017 10:31 AM EST Body Mass Index 27.64 11/19/2017 10:31 AM EST documented in this encounter Progress Notes Haley Hamilton APRN - 11/19/2017 10:30 AM EST Rheumatology Outpatient Follow-up Note Pt of Dr. Robledo Last OV Sep 2017 CC: here for a f/u for PMR HPI: 72 y/o male here for a follow up for polymyalgia rheumatica. Has been on alt 6 mg with 8 mg of methylprednisolone for 2 weeks. He started 15 mg MTX weekly in Jul 2017 and the dose was increased 6 weeksago to 20 mg per week for elevated APRs, ESR 43, CRP 7.9. His medrol dose was 6 mg alt 7 mg and he was feeling so so, his whole body was hurting, butt and legs were the most bothersome. On Nov 06 ESR 28, CRP 0.28. His butt and leg pain is also better. He is tolerating MTX well. No oral ulcers, hair loss, or GI upset. No infections or fevers. He is on400 mg plaquenil per day. His eye exam is up to date. Joints are good, he seems to be responding to increased MTX. He has no joint complaints today. Stillwith generalized diffuse muscle weakness. 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 Started PT for weakness, this is going well. Stopped Ambien and sleep is better. Had been on Ambien for 10 years. Patient denies any fevers, chills, night sweats, or GI symptoms. No pronounced headaches, no vision changes, no scalp tenderness or no jaw/tongue claudication. No CP or SOB. Labs dated Nov 06 2017 are stable and will be scanned into [facility]. Current Outpatient Prescriptions: ??? methotrexate 2.5 mg Tablet, Take 8 tablets by mouth once a week., Disp: 40 tablet, Rfl: 3 ??? methylPREDNISolone (MEDROL) 4 mg Tablet, Tapering by 2 mg as tolerated., Disp: 60 tablet, Rfl: 3 ??? alendronate (FOSAMAX) 35 mg Tablet, Take 1 tablet by mouth every 7 days. Take as directed., Disp: 4 tablet, Rfl: 12 ??? folic acid (FOLVITE) 1 mg Tablet, Take 1 tablet by mouth daily., Disp: 90 tablet, Rfl: 3 ??? hydroxychloroquine (PLAQUENIL) 200 mg Tablet, Take 1 tablet by mouth 2 times daily., Disp: 120 tablet, Rfl: 3 ??? omeprazole (PRILOSEC) 20 mg Capsule, Delayed Release(E.C.), Take 1 capsule by mouth daily., Disp: , Rfl: ??? ERGOCALCIFEROL, VITAMIN D2, (VITAMIN D ORAL), Take 2,000 Units by mouth daily., Disp: , Rfl: ??? triamcinolone (KENALOG) 0.1 % Cream, prn, Disp: , Rfl: ??? aspirin 81 mg [...] mg tablet, , Disp: , Rfl: ??? 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 Well developed and nourished. The patient did not appear distressed or uncomfortable. The patient ambulated without difficulty or assistance. in the exam room with himtoday. Oral: no ulcers Eyes: Extraocular muscles were intact. External Eye: No hyperemia of the conjunctiva noted Sclera: Not red. Neck: no lymphadenopathy Lungs: Respiration rhythm and depth was normal. Work of breathing was not increased. Cardiovascular system:RRR Lower Extremity Edema: Not present. Musculoskeletal system: Able to get up from the chair and onto the exam table with no difficulty. No joint swelling or tenderness. Neurologic: non antalgic gait, sensory grossly intact Skin: No rash seen. + multiple bruises and small skin tears Impression/Recommendations : PMR, seems stable on medrol 8 mg alt with 6 mg, 20 mg weekly MTX and 400 mg daily plaquenil. Will continue to taper medrol as tolerated, he is alternating doses of 8 mg and 6 mg every other day and will attempt 6 mg per day now. Keep same MTX. Labs every 4 weeks, due on December 04. Is taking FA 1 mg every day. Had his flu vaccine this fall Poor sleep, he stopped his ambien and is sleeping better and he wants to hold off on sleep study fornow. 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 correction steroids, osteopenia, Con't fosamax, ca/vit d. DEXA due Aug 2018. OA, seems stable. Gets his knee injected every 6 months. F/U in 2 months HALEY HAMILTON APRN documented in this encounter Plan of Treatment Upcoming Encounters Date Type Specialty Care Team Description 04/23/2022 Office Visit Dermatology Cecilio Barillas MD [address] [facility] DERMATOLOGY [place], [place] [address] (Wo rk) 05/30/2022 Office Visit Rheumatology Theresa Robledo, DO [facility] DR RHEUMATOLOGY [place], [place] [address] (Wo rk) documented as of this encounter Visit Diagnoses Diagnosis PMR (polymyalgia rheumatica) Polymyalgia rheumatica High risk medication use Encounter for long-term (current) use of other medications Osteopenia, unspecified location correction current use of systemic steroi ds Encounter for long-term (current) use of steroids Arthritis Arthropathy, unspecified, site unspecifi ed Steroid-induced myopathy Toxic myopathy documented in this encounter Care Teams Telecommunications Consultant Relationship Specialty Start Date End Date Jennifer Pelaez MD PCP - General 02/09/[address] [place] [address] [place] [address] documented as of this encounter
--- OUTSIDE RECORDS SUMMARY | 2022-04-12 02:25 | XMS_ITS | Encounter Summary ---
:1945 [place] [address] Care Team Providers Name Role Phone Jennifer Pelaez MD Primary Care Provider Encounter Details Date Type Department Care Team Description 09/04/2018 Orders Only Rheumatology at [facility] Lois Robledo, [facility] [place] [address] RHEUMATOLOGY DEPT [phone] [place], [place] [address] (Wo rk) Social History Tobacco Use Types Packs/Day Years Used Date Never Smoker Smokeless Tobacco: Never Used Sex Assigned at Date Recorded Not on file documented as of this encounter Plan of Treatment Upcoming Encounters Date Type Specialty Care Team Description 04/23/2022 Office Visit Dermatology Cecilio Barillas MD [address] [place] [address] DERMATOLOGY [place], [place] [address] (Wo rk) 05/30/2022 Office Visit Rheumatology Theresa Robledo, [facility] RHEUMATOLOGY DEP T [place], [place] [address] (Wo rk) documented as of this encounter Visit Diagnoses Not on filedocumented in this encounter Care Teams Commercial Assistant Relationship Specialty Start Date End Date Jennifer Pelaez MD PCP - General 02/09/[address] [place] [address] [place] [id number] documented as of this encounter
--- OUTSIDE RECORDS SUMMARY | 2022-04-12 02:25 | XMS_ITS | Encounter Summary ---
:1945 Author Organization [facility] [place] [address] Care Team Providers Name Role Phone Jennifer Pelaez MD Primary Care Provider Reason for Visit Reason Comments Follow-up 6 month Encounter Details Date Type Department Care Team Description 05/28/2016 Office Visit Dermatology at Cecilio Barillas, Seborrh eic keratosis; Dileep ANGULO [place] (actinic keratosis) [address] Fortunato B DERMATOLOGY [place], [place] [id number] [phone] Social History Tobacco Use Types Packs/Day Years Used Date Never Smoker Smokeless Tobacco: Never Used Sex Assigned at Date Recorded Not on file documented as of this encounter Progress Notes Cecilio Barillas MD - 05/28/2016 10:00 AM EDT PROBLEM: 1. Repeat skin checkup. 2. History of actinic keratosis. 3. Skin lesion of concern. Cruz follows up after last being seen in November. He has been doing well. He has been having some problems with decreased hand strength in the right hand which seems to wax and wane. He has been on and off of prednisone over the last 5 months. He is being seen by rheumatology and being followed by Dr. Parker. Workup is ongoing. Physical examination today reveals seborrheic keratoses present on the patient's right flank and back. He has a benign examination of the head and the neck, with 3 actinic keratoses present on the balding vertex of the scalp. He also has 1 on the right forehead, for a total of 4. Otherwise, careful examination of the head and the neck, the chest, the back, the hands, the forearms, the thighs, and the calves is otherwise benign. ASSESSMENT/PLAN: 1. Actinic keratoses. A. LN x2 applied at each of 4 sites. B. Patient reassured about remainder of benign skin examination. C. Return to clinic now in 8 months for repeat check. 2. Seborrheic keratoses. A. Patient reassured about benign seborrheic keratoses. B. No treatment necessary. cc: JENNIFER PELAEZ MD documented in this encounter Plan of Treatment Upcoming Encounters Date Type Specialty Care Team Description 04/23/2022 Office Visit Dermatology Cecilio Barillas MD [address] [facility] DERMATOLOGY [place], [place] [address] (Wo rk) 05/30/2022 Office Visit Rheumatology Theresa Robledo, [facility] DR RHEUMATOLOGY [place], [place] [address] (Wo rk) documented as of this encounter Visit Diagnoses Diagnosis Seborrheic keratosis Other seborrheic keratosis [place] (actinic keratosis) Actinic keratosis documented in this encounter Care Teams Cardiac Cath Rn Relationship Specialty Start Date End Date Jennifer Pelaez MD PCP - General 02/09/[address] [place] [address] [place] [address] documented as of this encounter
--- OUTSIDE RECORDS SUMMARY | 2022-04-12 02:25 | XMS_ITS | Encounter Summary ---
:1945 Author Organization [facility] [place] [address] Care Team Providers Name Role Phone Jennifer Pelaez MD Primary Care Provider Encounter Details Date Type Department Care Team Description 10/02/2016 Orders Only Rheumatology at [facility] [place] Lois Robledo Vitamin D deficiency [facility], [place] [address] RHEUMATOLOGY [place], [place] [address] (Wo rk) Social History Tobacco Use Types Packs/Day Years Used Date Never Smoker Smokeless Tobacco: Never Used Sex Assigned at Date Recorded Not on file documented as of this encounter Plan of Treatment Upcoming Encounters Date Type Specialty Care Team Description 04/23/2022 Office Visit Dermatology Cecilio Barillas MD [address] [place] [address] DERMATOLOGY [place], [place] [address] (Wo rk) 05/30/2022 Office Visit Rheumatology Theresa Robledo, [facility] RHEUMATOLOGY [place], [place] [address] (Wo rk) documented as of this encounter Visit Diagnoses Diagnosis Vitamin D deficiency Unspecified vitamin D deficiency documented in this encounter Care Teams Guest Service Representative Relationship Specialty Start Date End Date Jennifer Pelaez MD PCP - General 02/09/[address] [place] [address] [address] [place], [place] [address] documented as of this encounter
--- OUTSIDE RECORDS SUMMARY | 2022-04-12 02:25 | XMS_ITS | Encounter Summary ---
:1945 Author Organization [facility] [place] [address] Care Team Providers Name Role Phone Jennifer Pelaez MD Primary Care Provider Reason for Visit Reason Comments Follow-up Skin Check Encounter Details Date Type Department Care Team Description 01/22/2019 Office Visit Dermatology at Cecilio Barillas [place] (act inic keratosis); Dileep ANGULO Seborrheic keratosis [address] Fortunato B DERMATOLOGY [place], [place] [phone] Social History Tobacco Use Types Packs/Day Years Used Date Never Smoker Smokeless Tobacco: Never Used Sex Assigned at Date Recorded Not on file documented as of this encounter Progress Notes Cecilio Barillas MD - 01/22/2019 8:30 AM EDT Problem: 1. Repeat skin checkup 2. Polymyalgia rheumatica/poorly defined connective tissue disease on prednisone/subcu methotrexate Cruz follows after last being seen in July. He is here for 6-month check. He is on methotrexate and prednisone for his connective tissue disorder with numerous ecchymoses on arms from cutaneous at atrophic changes. He is no some lesions on his face. He is concerned about lesion on the right lower nasolabial fold on the right temporal scalp Physical examination reveals a waxy stuck on appearing seborrheic keratosis which is somewhat inflamed irritated on the right temporal scalp. Measured about 2.5 cm in diameter. He has a papule on the right lower nasolabial fold. Differential would include nevus intradermal versus compound, versus possible BCCA. Has been present now for about 6 months he states. He has actinic keratoses 5 present over the temples and forehead. He continues to have numerous prednisone-induced ecchymoses 1.5 Bravo in diameter on the dorsal forearms and arms Assessment plan: Actinic keratosis 1. LN 2 x 2 applied to each of 5 sites 2. Patient reassured about remainder benign skin examination 3. Continue 6-month repeat for follow-up routine New lesions of concern, right nasolabial fold and right temporal scalp 1. We will schedule a 45-minute appointment for excision of nasolabial fold site, and shave biopsy removal of right temporal scalp probable Jackson K 2. Discussed procedure with patient answered patient questions. CC: Jennifer Keller MD documented in this encounter Plan of Treatment Upcoming Encounters Date Type Specialty Care Team Description 04/23/2022 Office Visit Dermatology Cecilio Barillas MD [address] [place] [address] DERMATOLOGY [place], [place] [address] (Wo rk) 05/30/2022 Office Visit Rheumatology Theresa Robledo, DO [facility] RHEUMATOLOGY [place], [place] [address] (Wo rk) documented as of this encounter Visit Diagnoses Diagnosis AK (actinic keratosis) Actinic keratosis Seborrheic keratosis Other seborrheic keratosis documented in this encounter Care Teams Home Care Attendant Relationship Specialty Start Date End Date Jennifer Pelaez MD PCP - General 02/09/[address] [place] [address] [place] [address] documented as of this encounter
--- OUTSIDE RECORDS SUMMARY | 2022-04-12 02:25 | XMS_ITS | Encounter Summary ---
:1945 Author Organization [facility] [place] [address] Care Team Providers Name Role Phone Jennifer Pelaez MD Primary Care Provider Encounter Details Date Type Department Care Team Description 03/11/2018 Office Visit Rheumatology at [facility] [place] Lois Robledo PMR (polymyalgia rheumatica) ; [facility] D, DO Osteopenia, unspecified location; Drive [facility] care home current use [place] [address] RHEUMATOLOGY [place], [place] [address] (Wo rk) Social History Tobacco Use Types Packs/Day Years Used Date Never Smoker Smokeless Tobacco: Never Used Sex Assigned at Date Recorded Not on file documented as of this encounter Last Filed Vital Signs Vital Sign Reading Time Taken Comments Blood Pressure 138/74 03/11/2018 3:54 PM EDT Pulse 84 03/11/2018 3:54 PM EDT Temperature - - Respiratory Rate 18 03/11/2018 3:54 PM EDT Oxygen Saturation 100% 03/11/2018 3:54 PM EDT Inhaled Oxygen Concentration - - Weight 83.9 kg (185 lb) 03/11/2018 3:54 PM EDT Height 175.3 cm (5' 9) 03/11/2018 3:54 PM EDT Body Mass Index 27.32 03/11/2018 3:54 PM EDT documented in this encounter Patient Instructions Patient InstructionsMaLois mcclure DO - 03/11/2018 4:15 PM EDT Methylprednisolone 6 mg x 2 weeks more Then 4/6 mg alternating x 2-4 weeks Then stay on 4mg until follow up Stay on methotrexate Labs in April -for methotrexate and esr/crp Labs before jun visit documented in this encounter Progress Notes Lois Robledo DO - 03/11/2018 4:15 PM EDT Rheumatology Outpatient Follow-up Note CC: here for a f/u for PMR HPI: 72 y/o male here for a follow up for polymyalgia rheumatica. He completed labs yesterday. His esr was 37, and crp 1.0.1. He is on 6 mg of methylpred. He has some leg stiffness in the am for <10 min in duration. He has been on 6 mg x 2 weeks. He was on 6/8 mg alteranting x 2-3 weeks. He is on methotrexate, no side effects. No sig headaches, no acute vision changes. Has chronic blurry vision with distance. Patient denies any fevers, chills, night sweats, [...] 0.8 mLs into the vein once a week., Disp: 6 vial, Rfl: 2 ??? 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 Well developed [...] Work of breathing was not increased. Cardiovascular system: Lower Extremity Edema: Not present. Musculoskeletal system: [...] Impression/Recommendations : PMR: Patient has had long-standing probably myalgia rheumatica which is been very difficult to control and a very difficult and tapering down his prednisone. He has been unable historically to get below 8 mg of prednisone without flaring. He is currently doing quite well after switching to injectable methotrexate and has been able to taper to 6 mg of methylprednisolone for the last 2 weeks. He will remain on methylprednisolone for additional 2 weeks and then trial transitioning to 4 mg alternating with 6 mg for at least 2 weeks duration. He will complete labs for his methotrexate in April as well asrepeat markers of inflammation at that time. Her main on methotrexate 0.8 cc q. weekly as well as folic acid 1 mg daily. We discussed with him that if he is unable to continue tapering methylprednisolone but consider either remaining at the dose or alternatively increasing the methotrexate to 1 cc or potentially trying Remicade or Enbrel. He is not a candidate for Actemra given extensive diverticulosis seen on colonoscopy several years ago. . care home steroids, osteopenia, Con't fosamax, ca/vit d. F/U in 3 months Lois Robledo DO documented in this encounter Plan of Treatment Upcoming Encounters Date Type Specialty Care Team Description 04/23/2022 Office Visit Dermatology Cecilio Barillas MD [address] [place] [address] DERMATOLOGY [place], [place] [address] (Wo collette) 05/30/2022 Office Visit Rheumatology Theresa Robledo DO [facility] DR RHEUMATOLOGY [place], [place] [address] (Wo rk) documented as of this encounter Visit Diagnoses Diagnosis PMR (polymyalgia rheumatica) Polymyalgia rheumatica Osteopenia, unspecified location ad terminal makeup operator current use of systemic steroi ds Encounter for long-term (current) use of steroids documented in this encounter Care Teams Coil Strapper Relationship Specialty Start Date End Date Jennifer Pelaez MD PCP - General 02/09/[address] [place] [address] [place] [address] documented as of this encounter
--- OUTSIDE RECORDS SUMMARY | 2022-04-12 02:25 | XMS_ITS | Encounter Summary ---
:1945 [place] [address] Care Team Providers Name Role Phone Jennifer Pelaez MD Primary Care Provider Encounter Details Date Type Department Care Team Description 06/27/2016 [facility] [place] [facility] [place] [address] [place] [address] [phone] (Wo rk) Social History Tobacco Use Types Packs/Day Years Used Date Never Smoker Smokeless Tobacco: Never Used Sex Assigned at Date Recorded Not on file documented as of this encounter Medications at Time of Discharge Medication Sig Dispensed Refills Start Date End Date valACYclovir (VALTREX) 500 0 0 mg tablet triamcinolone (KENALOG) Apply 1 0 05/22/2016 0 11/03/2020 0.1 % CreamIndications: Application Arthritis, PMR topically as (polymyalgia rheumatica), needed. Pain in right hip, Pain in left hip predniSONE (DELTASONE) 10 Take 2 tablets by 90 tablet 1 01/08/2017 mg TabletIndications: mouth daily. Arthritis, PMR (polymyalgia rheumatica), Pain in right hip, Pain in left hip predniSONE (DELTASONE) 5 Take 1 tablet by 90 tablet 1 06/2108/07/2016 mg TabletIndications: mouth daily. Arthritis, PMR (polymyalgia rheumatica), Pain in right hip, Pain in left hip hydroxychloroquine Take 1 tablet by 180 tablet 3 04/29/2016 07/28/2016 (PLAQUENIL) 200 mg mouth 2 times TabletIndications: daily for 90 days. Arthritis aspirin 81 mg Tablet, Take 81 mg [...] 04/23/2022 Office Visit Dermatology Cecilio Barillas MD [address] [place] [address] DERMATOLOGY [place], [place] [address] (Wo rk) 05/30/2022 Office Visit Rheumatology Theresa Robledo, DO [facility] DR RHEUMATOLOGY [place], [place] [address] (Wo rk) documented as of this encounter Procedures Procedure Name Priority Date/Time Associated Diagnosis Comme [facility] FILM LIBRARY Routine 06/27/2016 12:00 AM Pain Results for this STORAGE ONLY DX HIP EDT procedur e are in the results section. documented in this encounter Results Film Library- Storage only DX Hip (06/27/2016 12:00 AM EDT) Specimen (Source) Anatomical Location Collection Method / Collectio n Time Received Time / Laterality Volume Narrative RAD - 06/28/2016 1:00 PM EDT This exam is for storage only and is aut o-finalizing. Lois Robledo DO G FILM LIBRARY ORDERABLES Performing Organization Address City/State/ZIP Code Phon e Number [place], [place] documented in this encounter Visit Diagnoses Diagnosis Pain Generalized pain documented in this encounter Care Teams Sweatband Shaper Relationship Specialty Start Date End Date Jennifer Pelaez MD PCP - General 02/09/[address] [place] [address] [place] [address] documented as of this encounter
--- OUTSIDE RECORDS SUMMARY | 2022-04-12 02:25 | XMS_ITS | Encounter Summary ---
:1945 Author Organization [facility] [place] [address] Care Team Providers Name Role Phone Jennifer Pelaez MD Primary Care Provider Reason for Visit Reason Comments Follow-up Excision/C & D Encounter Details Date Type Department Care Team Description 02/09/2019 Procedure visit Dermatology at [facility], [place]isselle orcatalina of basal cell carcinoma; Dileep ANGULO Seborrheic keratosis [address] [place], [place] DERMATOLOGY [address] [place], [place] [phone] [id number] Social History Tobacco Use Types Packs/Day Years Used Date Never Smoker Smokeless Tobacco: Never Used Sex Assigned at Date Recorded Not on file documented as of this encounter Progress Notes Cecilio Barillas MD - 02/09/2019 2:30 PM EDT Clinical impression: Basal cell carcinoma right lower nasolabial fold site A Seborrheic keratosis, often irritated, right temporal scalp site B Size: Site A 2.5 cm, site B 1 cm Deep suture: Site B only 4-0 Vicryl Surface suture site B only 5-0 Ethilon Follow-up: Another 6 months. Suture removal by patient's who is a nurse by patient request Indications for surgery, possible adverse outcomes, and activity restrictions discussed. Informed verbal consent was obtained. Skin surface was prepared with 4% hexedine and draped in the usual sterile manner. Local anesthesia with 1% lidocaine, 1 100,000 epinephrine and 0.1 mEq/mL bicarbonate. Using a 15 blade, and 3 mm margins, an elliptical incision carried out around site the site be suspected a BCCA. Undermining performed peripherally. Hemostasis with electrodesiccation. Layered closure performed, specimen to pathology.Wound care reviewed. End length of suture line was 2.0 cm. Then attention was turned to site A wherea shave biopsy was utilized to remove the irritated seborrheic keratosis. It also was submitted for pathologic analysis. Patient will apply triple antibiotic ointment to the site on a twice daily basis Suture removal in 1 week by patient's who is an RN at his request. I will see the patient againin 6 months for repeat skin checkup. CC: Jennifer Keller MD documented in this encounter Plan of Treatment Upcoming Encounters Date Type Specialty Care Team Description 04/23/2022 Office Visit Dermatology Cecilio Barillas MD [address] [place] [address] DERMATOLOGY [place], [place] [address] (Wo rk) 05/30/2022 Office Visit Rheumatology Theresa Robledo, DO [facility] DR RHEUMATOLOGY [place], [place] [address] (Wo rk) documented as of this encounter Visit Diagnoses Diagnosis History of basal cell carcinoma Personal history of other malignant neop lasm of skin Seborrheic keratosis Other seborrheic keratosis documented in this encounter Care Teams Chain Testing Machine Operator Relationship Specialty Start Date End Date Jennifer Pelaez MD PCP - General 02/09/[address] [place] [address] [place] [address] documented as of this encounter
--- OUTSIDE RECORDS SUMMARY | 2022-04-12 02:25 | XMS_ITS | Encounter Summary ---
:1945 Author Organization [facility] Address [place] [id number] Care Team Providers Name Role Phone Jennifer Pelaez MD Primary Care Provider Encounter Details Date Type Department Care Team Description 06/14/2019 Office Visit Rheumatology at [facility] Lois Robledo PMR (polymyalgia rheumatica) ; [facility] D, DO long-term current use of non-steroidal a nti-inflammatories (NSAID); [facility] High risk medication use; [place] [address] [address] Healthcare maintenance; [phone] RHEUMATOLOGY DEP T Arthritis; [place] [address] Elevated C-reactive protein (CRP); [phone] (Wo rk) 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, unspecified location; 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 Social History Tobacco Use Types Packs/Day Years Used Date Never Smoker Smokeless Tobacco: Never Used Sex Assigned at Date Recorded Not on file documented as of this encounter Last Filed Vital Signs Vital Sign Reading Time Taken Comments Blood Pressure 132/79 06/14/2019 12:56 PM EDT Pulse 73 06/14/2019 12:56 PM EDT Temperature 36.5 ??C (97.7 ??F) 06/14/2019 12:56 PM EDT Respiratory Rate - - Oxygen Saturation 100% 06/14/2019 12:56 PM EDT Inhaled Oxygen Concentration - - Weight 83.9 kg (185 lb) 06/14/2019 12:56 PM EDT Height 175.3 cm (5' 9) 06/14/2019 12:56 PM EDT Body Mass Index 27.32 06/14/2019 12:56 PM EDT documented in this encounter Progress Notes Lois Robledo Kam, DO - 06/14/2019 1:00 PM EDT Rheumatology Outpatient Follow-up Note CC: here for a f/u for PMR PMR -difficulty tapering <6 mg of methylprednisone -methotrexate added, increased to 25 mg IN April 2018 -no actemra due to extensive diverticulosis HPI: Pt last seen in February 2019. He [...] crp 0.71 06/24 esr 16 crp 0.31 No sig am stiffness, has some le pain with activity, has a hard time getting up from a squatting position No newberry.no vision changes. No jaw pain. Current Outpatient Medications: ??? cholecalciferol, Vitamin D3, (VITAMIN D) 1,000 unit Capsule, Take by mouth daily., Disp: , Rfl: ??? alendronate (FOSAMAX) 70 mg Tablet, Take 1 tablet by mouth every 7 days., Disp: 12 tablet, Rfl: 3 ??? Syringe with Needle, Disp, (BD TUBERCULIN SYRINGE) 1 mL 27 x 1/2 Syringe, 1 Units by [facility]Non-Drug; Combo Route) route once a week., Disp: 20 Syringe, Rfl: 3 ??? metHOTREXate 25 mg/mL Solution, 1 ml subcutaneous weekly, Disp: 6 vial, Rfl: 2 ??? methylPREDNISolone (MEDROL) 4 mg Tablet, Take 1.5 tablets by mouth daily., Disp: 120 tablet, Rfl: 3 ??? methylPREDNISolone (MEDROL) 2 mg Tablet, Take 0.5 tablets by mouth daily., Disp: 180 tablet, Rfl: 1 ??? folic acid (FOLVITE) 1 mg Tablet, Take 2 tablets by mouth daily., Disp: 180 tablet, Rfl: 3 ??? arnistem-qlalzgsoz-vxcizwrpbiblk (DEXACINE) 3.5 mg/g-10,000 unit/g-0.1 % Ointment, , Disp: , Rfl: 5 ??? omeprazole (PRILOSEC) 20 mg Capsule, Delayed [...] mg tablet, , Disp: , Rfl: ??? 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 General: Alert and oriented. Well developed [...] no wrr Cardiovascular system: Lower Extremity Edema: very minimal bl. rrr no mrg Musculoskeletal system: Hands: no ttp on the mcps, pips or dips, wrists; nl Elbows: nl Shoulders normal range of motionno sig pain Hips no tenderness palpation over [...] currently asymptomatic and with normal markers of inflammation. He will taper at the end of next month to 4 mg medrol. Cont' mtx for now at current doses. Osteoporosis. Repeat dexa 08/25 on fosamax and vit d Anemia: mild, may be med related. Check iron studies, reituc, but, folic acid, b12 were normal. rec fu with his pcm. Would hold off on changes to mtx at this time. Flu shot utd . Pneumovax Given today Bmd: osteopenia, with 9% loss in 2 years on fosamax. Repeat bmd in 08/24 given loss con't ca/vit d supplementation. 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 (NSAID) Encounter for long-term (current) use of non-steroidal anti-inflammatories High risk medication use Encounter for long-term (current) use of other medications Healthcare maintenance Routine general medical examination at a health care facility Arthritis Arthropathy, unspecified, site unspecifi ed Elevated C-reactive protein (CRP) Osteopenia, unspecified location 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
--- OUTSIDE RECORDS SUMMARY | 2022-04-12 02:25 | XMS_ITS | Encounter Summary ---
:1945 Author Organization [facility] [place] [address] Care Team Providers Name Role Phone Jennifer Pelaez MD Primary Care Provider Encounter Details Date Type Department Care Team Description 08/17/2018 Office Visit Rheumatology at [facility] Lois Robledo PMR (polymyalgia rheumatica) ; [facility] DDO [facility] current use of systemic steroi ds; [facility] Osteopenia, [place] [address] RHEUMATOLOGY [place], [place] [address] (Wo rk) Social History Tobacco Use Types Packs/Day Years Used Date Never Smoker Smokeless Tobacco: Never Used Sex Assigned at Date Recorded Not on file documented as of this encounter Last Filed Vital Signs Vital Sign Reading Time Taken Comments Blood Pressure 142/70 08/17/2018 1:28 PM EST Pulse 80 08/17/2018 1:28 PM EST Temperature - - Respiratory Rate - - Oxygen Saturation 100% 08/17/2018 1:28 PM EST Inhaled Oxygen Concentration - - Weight 84.8 kg (187 lb) 08/17/2018 1:28 PM EST Height 175.3 cm (5' 9) 08/17/2018 1:28 PM EST Body Mass Index 27.62 08/17/2018 1:28 PM EST documented in this encounter Progress Notes Lois Robledo DO - 08/17/2018 1:30 PM EST Rheumatology Outpatient Follow-up Note CC: here for a f/u for PMR PMR -difficulty tapering <6 mg of methylprednisone -methotrexate added, increaed to 25 mg IN April 2018 -no actemra due to extensive diverticulosis HPI: 72 y/o male here for a follow up for polymyalgia rheumatica who has had difficulty tapering down below 6 mg of methylprednisolone and mtx was added. He does devlope increase markers of inflammation with the consistent symptoms of PMR as well. Last labs 05/23: ESR 45 (down from 54) and CrP 1 (down from 3). Labs: 08/11/18: esr 21, crp 0.17 methylpred 6/8 mg x 2-3 weeks and then 6mg x 4 weeks Thus far. No sig am stiffness in the am, no swelling in the joints. Notes am headache, on rare occ, lasts 20 minutes or so. The pain is more posterior. Denies any acute vision changes, he is having cataract surgery on 04 September and 18 September. He is tolerating mtx without any issues. Taking folic acid daily. No recent infections. We increased his mtx to 25 mg in April. Patient denies any fevers, chills, night sweats, or GI symptoms. No pronounced headaches, no vision changes, no scalp tenderness or no jaw/tongue claudication. No CP or SOB. Current Outpatient Medications: ??? metHOTREXate 25 mg/mL Solution, 1 ml subcutaneous weekly, Disp: 6 vial, Rfl: 2 ??? folic acid (FOLVITE) 1 mg Tablet, Take 1 tablet by mouth daily., Disp: 90 tablet, Rfl: 3 ??? Syringe with Needle, Disp, (BD TUBERCULIN SYRINGE) 1 mL 27 x 1/2 Syringe, 1 Units [place] [facility]Non-Drug; Combo Route) route once a week., Disp: 20 Syringe, Rfl: 3 ??? methylPREDNISolone (MEDROL) 4 mg Tablet, Take 2 tablets by mouth daily., Disp: 180 each, Rfl: 1 ??? alendronate (FOSAMAX) 35 mg Tablet, Take 1 tablet by mouth every 7 days. Take as directed., Disp: 4 tablet, Rfl: 12 ??? BD SAFETYGLIDE SHIELDING REG 1 mL 25 gauge x 5/8 Syringe, once a week., Disp: , Rfl: ??? 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 General: Alert and oriented. Well developed [...] or tenderness. Shoulders normal range of motion no pain Hips no tenderness palpation over the greater trochanters Skin: No rash seen. + multiple bruises [...] down to 5 mg (average dosing) daily. He has been on medrol 6mg daily with mtx 25 mg subcu week. Labs are utd and last set of markers of inflammation were within normal limits. He will stay on medrol 6 mg through the holidays and then trial tapering 4mg alternating with 6mg x 2 months and will assess based on labs and symptoms from there. From there we will likely taper to 4mg for an extended period of time. If he is able to taper down significantly on medrol would consider mtx taper from there. Flu shot utd prevnar 13 given today. 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
--- OUTSIDE RECORDS SUMMARY | 2022-04-12 02:25 | XMS_ITS | Encounter Summary ---
:1945 Author Organization [facility] [place] [address] Care Team Providers Name Role Phone Jennifer Pelaez MD Primary Care Provider Encounter Details Date Type Department Care Team Description 08/07/2016 Office Visit Rheumatology at [facility] Lois Robledo PMR (polymyalgia rheumatica) ; [facility] D, Primary osteoarthritis of both knees; Drive [facility] Arthritis; [place], [place] DR Pain in right hip; [phone] RHEUMATOLOGY DEPT Pain in left hip [phone] [place], [place] [address] Social History Tobacco Use Types Packs/Day Years Used Date Never Smoker Smokeless Tobacco: Never Used Sex Assigned at Date Recorded Not on file documented as of this encounter Last Filed Vital Signs Vital Sign Reading Time Taken Comments Blood Pressure 127/82 08/07/2016 1:19 PM EDT Pulse 74 08/07/2016 1:19 PM EDT Temperature 36.4 ??C (97.5 ??F) 08/07/2016 1:19 PM EDT Respiratory Rate 18 08/07/2016 1:19 PM EDT Oxygen Saturation 100% 08/07/2016 1:19 PM EDT Inhaled Oxygen Concentration - - Weight 88.9 kg (196 lb) 08/07/2016 1:19 PM EDT Height 176.5 cm (5' 9.5) 08/07/2016 1:19 PM EDT Body Mass Index 28.53 08/07/2016 1:19 PM EDT documented in this encounter Patient Instructions Patient InstructionsLois Robledo DO - 08/07/2016 1:30 PM EDT Images from the original note were not included. [facility] Knee Arthritis: Exercises Your Care Instructions Here are some examples of exercises for knee arthritis. Start each exercise slowly. Ease off the exercise if you start to have pain. Your doctor or physical therapist will tell you when you can start these exercises and which ones will work best for you. How to do the exercises Knee flexion with heel slide 1. Lie on your back with your knees bent. 2. Slide your heel back by bending your affected knee as far as you can. Then hook your other foot around your ankle to help pull your heel even farther back. 3. Hold for about 6 seconds, then rest for up to 10 seconds. 4. Repeat 8 to 12 times. 5. Switch legs and repeat steps 1 through 4, even if only one knee is sore. Quad sets 1. Sit with your affected leg straight and supported on the floor or a firm bed. Place a small, rolled-up towel under your knee. Your other leg should be bent, with that foot flat on the floor. 2. Tighten the thigh muscles of your affected leg by pressing the back of your knee down into the towel. 3. Hold for about 6 seconds, then rest for up to 10 seconds. 4. Repeat 8 to 12 times. 5. Switch legs and repeat steps 1 through 4, even if only one knee is sore. Straight-leg raises to the front 1. Lie on your back with your good knee bent so that your foot rests flat on the floor. Your affected leg should be straight. Make sure that your low back has a normal curve. You should be able to slipyour hand in between the floor and the small of your back, with your palm touching the floor and your back touching the back of your hand. 2. Tighten the thigh muscles in your affected leg by pressing the back of your knee flat down to thefloor. Hold your knee straight. 3. Keeping the thigh muscles tight and your leg straight, lift your affected leg up so that your heel is about 12 inches off the floor. Hold for about 6 seconds, then lower slowly. 4. Relax for up to 10 seconds between repetitions. 5. Repeat 8 to 12 times. 6. Switch legs and repeat steps 1 through 5, even if only one knee is sore. Active knee flexion 1. Lie on your stomach with your knees straight. If your kneecap is uncomfortable, roll up a washcloth and put it under your leg just above your kneecap. 2. Lift the foot of your affected leg by bending the knee so that you bring the foot up toward your buttock. If this motion hurts, try it without bending your knee quite as far. This may help you avoidany painful motion. 3. Slowly move your leg up and down. 4. Repeat 8 to 12 times. 5. Switch legs and repeat steps 1 through 4, even if only one knee is sore. Quadriceps stretch (facedown) 1. Lie flat on your stomach, and rest your face on the floor. 2. Wrap a towel or belt strap around the lower part of your affected leg. Then use the towel or beltstrap to slowly pull your heel toward your buttock until you feel a stretch. 3. Hold for about 15 to 30 seconds, then relax your leg against the towel or belt strap. 4. Repeat 2 to 4 times. 5. Switch legs and repeat steps 1 through 4, even if only one knee is sore. Stationary exercise bike If you do not have a stationary exercise bike at home, you can find one to ride at your local [facility] or community center. 1. Adjust the height of the bike seat so that your knee is slightly bent when your leg is extended downward. If your knee hurts when the pedal reaches the top, you can raise the seat so that your knee does not bend as much. 2. Start slowly. At first, try to do 5 to 10 minutes of cycling with little to no resistance. Then increase your time and the resistance bit by bit until you can do 20 to 30 minutes without pain. 3. If you start to have pain, rest your knee until your pain gets back to the level that is normal for you. Or cycle for less time or with less effort. Follow-up care is a ceja part of your treatment and safety. Be sure to make and go to all appointments, and call your doctor if you are having problems. It's also a good idea to know your test results and keep a list of the medicines you take. Where can you learn more? Visit our health information library at [email or web address] You can also view health information on [employer], your personal patient account. Log in or sign up today. Enter C159 in the search box to learn more about Knee Arthritis: Exercises. ?? [id number] [employer]. Care instructions adapted under license by [facility]. This care instruction is for use with your licensed healthcare professional. If you have questionsabout a medical condition or this instruction, always ask your healthcare professional. [employer] disclaims any warranty or liability for your use of this information. Content Version: 11.0.831741; Current as of: February 26, 2016 [facility] Knee Arthritis: Care Instructions Your Care Instructions Knee arthritis is a breakdown of the cartilage that cushions your knee joint. When the cartilage wears down, your bones rub against each other. This causes pain and stiffness. Knee arthritis tends to get worse with time. Treatment for knee arthritis involves reducing pain, making the leg muscles stronger, and staying michelle healthy body weight. The treatment usually does not improve the health of the cartilage, but it can reduce pain and improve how well your knee works. You can take simple measures to protect your knee joints, ease your pain, and help you stay active. Follow-up care is a ceja part of your treatment and safety. Be sure to make and go to all appointments, and call your doctor if you are having problems. It's also a good idea to know your test results and keep a list of the medicines you take. How can you care for yourself at home? ?? Know that knee arthritis will cause more pain on some days than on others. ?? Stay at a healthy weight. Lose weight if you are overweight. When you stand up, the pressure on your knees from every pound of body weight is multiplied four times. So if you lose 10 pounds, you will reduce the pressure on your knees by 40 pounds. ?? Talk to your doctor or physical therapist about exercises that will help ease joint pain. ?? Stretch to help prevent stiffness and to prevent injury before you exercise. You may enjoy gentleforms of yoga to help keep your knee joints and muscles flexible. ?? Walk instead of jog. ?? Ride a bike. This makes your thigh muscles stronger and takes pressure off your knee. ?? Wear well-fitting and comfortable shoes. ?? Exercise in chest-deep water. This can help you exercise longer with less pain. ?? Avoid exercises that include squatting or kneeling. They can put a lot of strain on your knees. ?? Talk to your doctor to make sure that the exercise you do is not making the arthritis worse. ?? Do not sit for long periods of time. Try to walk once in a while to keep your knee from getting stiff. ?? Ask your doctor or physical therapist whether shoe inserts may reduce your arthritis pain. ?? If you can afford it, get new athletic shoes at least every year. This can help reduce the strainon your knees. ?? Use a device to help you do everyday activities. ?? A cane or walking stick can help you keep your balance when you walk. Hold the cane or walking stick in the hand opposite the painful knee. ?? If you feel like you may fall when you walk, try using crutches or a front- wheeled walker. These can prevent falls that could cause more damage to your knee. ?? A knee brace may help keep your knee stable and prevent pain. ?? You also can use other things to make life easier, such as a higher toilet seat and handrails in the bathtub or shower. ?? Take pain medicines exactly as directed. ?? Do not wait until you are in severe pain. You will get better results if you take it sooner. ?? If you are not taking a prescription pain medicine, take an wgak-iod-zsgqjoe medicine such as acetaminophen (Tylenol), ibuprofen (Advil, Motrin), or naproxen (Aleve). Read and follow all instructions on the label. ?? Do not take two or more pain medicines at the same time unless the doctor told you to. Many pain medicines have acetaminophen, which is Tylenol. Too much acetaminophen (Tylenol) can be harmful. ?? Tell your doctor if you take a blood thinner, have diabetes, or have allergies to shellfish. ?? Ask your doctor if you might benefit from a shot of steroid medicine into your knee. This may provide pain relief for several months. ?? Many people take the supplements glucosamine and chondroitin for osteoarthritis. Some people feelthey help, but the medical research does not show that they work. Talk to your doctor before you take these supplements. When should you call for help? Call your doctor now or seek immediate medical care if: ?? You have sudden swelling, warmth, or pain in your knee. ?? You have knee pain and a fever or rash. ?? You have such bad pain that you cannot use your knee. Watch closely for changes in your health, and be sure to contact your doctor if you have any problems. Where can you learn more? Visit our health information library at [email or web address] You can also view health information on [employer], your personal patient account. Log in or sign up today. Enter W187 in the search box to learn more about Knee Arthritis: Care Instructions. ?? [id number] [employer]. Care instructions adapted under license by [facility]. This care instruction is for use with your licensed healthcare professional. If you have questionsabout a medical condition or this instruction, always ask your healthcare professional. [employer] disclaims any warranty or liability for your use of this information. Content Version: 11.0.858407; Current as of: November 29, 2015 Prednisone 12.5 mg x 1 month 10 mg x 1 month 9 mg until follow up documented in this encounter Progress Notes Lois Robledo DO - 08/07/2016 1:30 PM EDT HPI: He is currenlty doing well. He was on 25 mg an dnotes his hip resolved in 2 days, the had improved in a week (w the 5th digit). He still has some n.t on the right. He can still banquet lead and do things. He has bl hand tightness bl. The tendon inflammation is better. No shoulder pain. He has had some left knee pain. Pain is worse with walking, has soreness. Denies any crepitus, denies any am stiffness. Hand is better in the am and worse as the day goes on. Notes pain pain in the balls of his feet at the end of the day. He follows w podiatry and has jose's neuroma and has had injections which is better. He has been on 12.5 mg x 4 days. He 25 mg x 3 weeks, then 20 mg x 2 weeks 15 mg x 3 weeks for each. Last visit jun 2016 Pt presents for follow up. He is on plaquenil at this time. He notes early May he started flaringwith his r 5th finger, and we increased his prednisone to 25 mg and he tapered down. When he got down to 10 and 5 mg he had recurrence. He did another taper and he had some incr pain. Now he has thumb pain and and pain into his right upper ext. He also notes right hip pain. He was seen by an [employer] [facility]ER. He notes the hip pain went away w the prednisone. He notes within hours he had improvement in the hip pain. He notes pain in in buttock and groin. He also has right knee pain, he dneies any sig shoulder painand no neck. He notes pain is worse in the am. Worse with activity. He notes it in the groin it hurts with walking. Background hx Cruz Zambrano is a 70 y.o. male who presents today for evaluation of right hand pain. He was seen by orthopedic surgery for dorsal hand swelling and he was treated w steroids, 5 day course and as soon as it stopped it returned. He notes that the pain initially increased into his 3rd adn 4th digits. He was seen in the ED and treated w ultram which did nothelp his symptoms. He notes pain in the balls of his feet at night and rec referral to rheumatology. He dneies any mtp pain In the am, only happens at night. Notes he is wearing older shoes at work. Pain is primarily at rest.no mcp or pip joint pian. He notes he has had chronic pain: Left side of his abd, has had CT scan, and he had nerve cutting to relieve it, has been ongoing x 20 yrs 5 years he has had left sij pain, notes that it will go intot he buttock. He has had an MRI which was negative. More recently he notes hip pain and rectal pain He has been seen by pain physicians and hoop riveter. He went to PT/accupunture/chiropracter without relief He notes he cannot sit at times d/t It He notes the the buttock pain feels like he has a diaper rash He has tried lyrica, cymbalta, which have not helped, elavil He notes bl le swelling a few years ago, lasted some time, was sen in [place] for it, was tried oncorticosteroids, and then came here and saw rheumatology and was given a script to resolve the inflammation adn was dx as sarcoidosis and his symptoms went away and never resolved. No rash at the time,and the chest x-ray was clear and he the eye exam at the time was normla He has had righ tknee pain-occ bothers, and he getts synvic which hleps with this. He is currently on 20 mg of prednisone 1 week. Those symptoms did not improve steroids, the mtp pain did not imrpove with steroids either. He just had CTS release, and the orthopedic surgeon said there was some swelling. 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 Comments are only made for responses that are changed fromprevious, not discussed in HPI, or otherwise require clarification. Systemic Comments 1. Generalized pain 2. Fatigue/tiredness 3. Fevers 4. Chills 5. Night sweats 6. Recent weight loss 7. Recent Weight gain x Head and neck 8. Headaches 9. Neck pain/stiffness 10. Lymphadenopathy 11. Ocular erythema 12. Xerophthalmia 13. Gritty eyes 14. Eye pain 15. Photophobia 16. Oral sores 17. Xerostomia 18. Jaw claudication Cardiopulmonary 19. Chest discomfort 20. Dyspnea 21. Cough 22. Hemoptysis Gastrointestinal 23. Dysphagia 24. Heartburn X,on prilosec 25. Nausea 26. Emesis 27. Abdominal pain 28. Hematochezia 29. Diarrhea 30. Constipation Genitourinary 31. Hematuria 32. Dysuria Musculoskeletal 33. Muscle weakness 34. Myalgia x 35. Shoulder pain 36. Raynaud's Neuropsychiatric 37. Paresthesia 38. Dysesthesia 39. Dizziness/vertigo 40. Anxiety 41. Depression 42. Cognitive problems 43. Initial insomnia X w pred 44. Night awakenings X 45. Nonrestorative sleep x Dermatologic 46. Xerosis cutis 47. Photosensitivity 48. 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 Well developed and nourished. The patient did not appear distressed or uncomfortable. The patient ambulated without difficulty or assistance. Head: Scalp: Appeared normal. Eyes: PERRL. Extraocular muscles were intact. External Eye: No hyperemia of the conjunctiva noted Sclera: Not red. Lungs: Respiration rhythm and depth was normal. Work of breathing was not increased. Cardiovascular system: Lower Extremity Edema: Not present. Musculoskeletal system: (???NML?? means normal; No swelling, warmth, tenderness, loss of range of motion, or deformity as applicable) Hands: MCP???s: NML PIP???s: NML ,DIP???s: NML, full fist and claw on the left, has bl dupuytren's on the 2nd and 3rd digits, s/p CTS right , no swelling or warmth noted Wrists: NMl s/p surgery ont he right Elbows: NML Shoulders: nl bl c spine: nl Knees: Crepitus bl, no wamrth or swelling Hips: nl bl Nails: No nail pitting, onycholysis or periungual erythema noted. Neurologic: gati nl from of all ext. Skin: No rash seen Laboratory Data: rf neg/ccp neg crp 2, esr 42 Uric acid during joint flare 5.3 Studies: synvoium right hand right wrist: Reactive syonvitis w mild to focally moderate lymphoplastic inflamm. No neutrophilic infiltrate, no crystals seen (but was in aqueous solution), focal amyloid deposition, robust features for RA were absent., still poss compatible for ra Impression/Recommendations : Cruz Zambrano is a 70 y.o. male w right who presented initially with right hand wrist/swelling and3/4/5 digit swelling along with w tenosyonvitis of the palmaris longus, who then developed bl hip and shoulder pain with am stiffness and elevated markers of inflammation along with rapid response to co rticosteroids c/w PMR. Pmr: Pt doing well from this standpoint, currenlty on 12.5 mg of prednisone which will stay on x 4 weeks total, then taper to 10 mg x 4 weeks then 9mg until follow up. Suspect he also has seroneg RA, currenlty on hcq, but if he starts to flare will add mtx. Steroids: Pt will be on intermediate corticosteroids, reviewed se. Will check a1c, dexa, vit d. Plan tostart bisphosphonate after dexa. Take in AM with glass of water, on empty stomach, nothing else by mouth or lying down for 30 min. The patient was educated on bisphoshponate use to include risk of pill esophagitis, AVN of the jaw and atypical subtrochanteric fractures. Knee oa: pt w knee oa bl on xrays, exercises provided in clinic, discussed bracing and PT as well. CC: Jennifer Pelaez MD documented in this encounter Plan of Treatment Upcoming Encounters Date Type Specialty Care Team Description 04/23/2022 Office Visit Dermatology Cecilio Barillas MD [address] [place] [address] RD DERMATOLOGY [place], [place] [address] ([place]) 05/30/2022 Office Visit Rheumatology Tehresa Robledo DO [facility] DR RHEUMATOLOGY [place], [place] [address] ([place]) documented as of this encounter Visit Diagnoses Diagnosis PMR (polymyalgia rheumatica) Polymyalgia rheumatica Primary osteoarthritis of both knees Primary localized osteoarthrosis, lower leg Arthritis Arthropathy, unspecified, site unspecifi ed Pain in right hip Pain in joint, pelvic region and thigh Pain in left hip Pain in joint, pelvic region and thigh documented in this encounter Care Teams Wheel Polisher Relationship Specialty Start Date End Date Jennifer Pelaez MD PCP - General 02/09/[address] [place] [address] [place] [address] documented as of this encounter
--- OUTSIDE RECORDS SUMMARY | 2022-04-12 02:25 | XMS_ITS | Encounter Summary ---
:1945 [place] [address] Care Team Providers Name Role Phone Sandro Garcia MD Primary Care Provider Encounter Details Date Type Department Care Team Description 11/29/2013 Notes Only Pain Management [place] [phone] Social History Tobacco Use Types Packs/Day Years Used Date Never Smoker Sex Assigned at Date Recorded Not on file documented as of this encounter Progress Notes Estefania Sinclair - 11/29/2013 3:45 PM EST Cruz Zambrano :1945 As follows are results of the Analgesic Implantation Committee Meeting held on November 25, 2013, at [facility] to evaluate the above named patient for trial and implantation of Spinal Cord Stimulator. The Analgesic Implantation Committee is attended by Pain Medicine and Behavioral Medicine Specialists. Mr. Zambrano was approved by the Analgesic Implantation Committee to proceed to trial and implantation for above named procedure. Mr. Zambrano received 4 EXCELLENT votes, 3 GOOD votes, and 2 FAIR votes. Notes from meeting include: Schedule patient for trial. This note has been transcribed by: Janie Sinclair Senior Clinical Environmental Science Professor Pain Management Center [facility]. documented in this encounter Plan of Treatment Upcoming Encounters Date Type Specialty Care Team Description 04/23/2022 Office Visit Dermatology Cecilio Barillas MD [address] DERMATOLOGY [place], [place] [address] ([place]) 05/30/2022 Office Visit Rheumatology Theresa Robledo, DO [facility] DR RHEUMATOLOGY [place], [place] [address] ([place]o r[place]) documented as of this encounter Visit Diagnoses Not on filedocumented in this encounter Care Teams Box Storage Worker Relationship Specialty Start Date End Date Sandro Garcia MD PCP - General 08/28/10 02/08/[address] [place] [address] [place] [address] documented as of this encounter
--- OUTSIDE RECORDS SUMMARY | 2022-04-12 02:25 | XMS_ITS | Encounter Summary ---
:1945 Author Organization [facility] [place] [address] Care Team Providers Name Role Phone Sandro Garcia MD Primary Care Provider Reason for Visit Reason Comments Skin Check Encounter Details Date Type Department Care Team Description 12/04/2012 Office Visit Dermatology Cecilio Barillas, Inflamed seborrheic [address] [facility] keratosis (Primary [address]) [place], [place] DERMATOLOGY [address] [place] [address] [phone] (Wo rk) Social History Tobacco Use Types Packs/Day Years Used Date Never Smoker Sex Assigned at Date Recorded Not on file documented as of this encounter Progress Notes Cecilio Barillas MD - 12/04/2012 4:09 PM EST Problem: Facial lesions. Cruz follows after last being seen in 2000. The cyst on the right arm never recurred; however, he noted a lesion in the right eyebrow and on the right church. Physical examination reveals seborrheic keratosis present on the right church and a hyperkeratotic elevated papule on the right lateral eyebrow, which appears to be consistent with a verruca versus hyperkeratotic actinic versus early SCCA. Assessment and Plan: 1. Facial lesions of concern. a. After obtaining informed consent, sites on the right church and right eyebrow were anesthetized and removed with C and D. b. Not submitted for pathologic analysis. c. Wound care instructions and supplies given. 2. Return to clinic p.r.n. for lesions of concern. documented in this encounter Plan of Treatment Upcoming Encounters Date Type Specialty Care Team Description 04/23/2022 Office Visit Dermatology Cecilio Barillas MD [address] [place] [address] DERMATOLOGY [place], [place] [address] (Wo rk) 05/30/2022 Office Visit Rheumatology Theresa Robledo, DO [facility] [address] RHEUMATOLOGY [place], [place] [address] (Wo rk) documented as of this encounter Visit Diagnoses Diagnosis Inflamed seborrheic keratosis - Primary documented in this encounter Care Teams Neuro Urologist Relationship Specialty Start Date End Date Sandro Garcia MD PCP - General 08/28/10 02/08/[address] [place] [address] [place] [address] documented as of this encounter
--- OUTSIDE RECORDS SUMMARY | 2022-04-12 02:25 | XMS_ITS | Encounter Summary ---
:1945 Author Organization [facility] [place] [address] Care Team Providers Name Role Phone Jennifer Pelaez MD Primary Care Provider Reason for Visit Reason Onset Date Comments Medication Refill 12/01/2019 Medication Refill 12/02/2019 Encounter Details Date Type Department Care Team Description 12/01/2019 Refill Rheumatology at [facility] Lois Robledo, PMR (polymyalgia rheumatica) ; [facility] Kam ferreira DO High risk medication use; [place] [address] [facility] Healthcare maintenance; [phone] RHEUMATOLOGY DEP T Arthritis; [place], [place] [address] Elevated C-reactive protein (CRP); [phone] (Wo rk) Osteopenia, unspecified location; 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 Social History Tobacco Use Types Packs/Day Years Used Date Never Smoker Smokeless Tobacco: Never Used Sex Assigned at Date Recorded Not on file documented as of this encounter Plan of Treatment Upcoming Encounters Date Type Specialty Care Team Description 04/23/2022 Office Visit Dermatology Cecilio aBrillas MD [address] [facility] DERMATOLOGY [place], [place] [address] (Wo rk) 05/30/2022 Office Visit Rheumatology Theresa Robledo DO [facility] DR RHEUMATOLOGY DEP T [place], [place] [address] (Wo rk) documented as of this encounter Visit Diagnoses Diagnosis PMR (polymyalgia rheumatica) Polymyalgia rheumatica High risk medication use Encounter for long-term (current) use of other medications Healthcare maintenance Routine general medical examination at a health care facility Arthritis Arthropathy, unspecified, site unspecifi ed Elevated C-reactive protein (CRP) Osteopenia, unspecified location 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
--- OUTSIDE RECORDS SUMMARY | 2022-04-12 02:25 | XMS_ITS | Encounter Summary ---
:1945 Author Organization [facility] [place] [address] Care Team Providers Name Role Phone Jennifer Pelaez MD Primary Care Provider Reason for Visit Reason Onset Date Comments Medication Refill 03/15/2019 Encounter Details Date Type Department Care Team Description 03/15/2019 Refill Rhe[place]ology at [facility] Lois Robledo, PMR (polymyalgia rheumatica) ; [facility] Kam ferreira DO High risk medication use; [place] [address] [facility] Healthcare maintenance; [phone] RHEUMATOLOGY DEP T Arthritis; [place], [place] [address] Elevated C-reactive protein (CRP); [phone] (Wo rk) Osteopenia, unspecified location; [facility] current use of systemic steroids Social History Tobacco Use Types Packs/Day Years Used Date Never Smoker Smokeless Tobacco: Never Used Sex Assigned at Date Recorded Not on file documented as of this encounter Plan of Treatment Upcoming Encounters Date Type Specialty Care Team Description 04/23/2022 Office Visit Dermatology Cecilio Barillas MD [address] [place] [address] DERMATOLOGY [place], [place] [address] (Wo rk) 05/30/2022 Office Visit Rheumatology Theresa Robledo DO [facility] DR RHEUMATOLOGY DEP T [place], [place] [address] (Wo rk) documented as of this encounter Visit Diagnoses Diagnosis PMR (polymyalgia rheumatica) Polymyalgia rheumatica High risk medication use Encounter for long-term (current) use of other medications Healthcare maintenance Routine general medical examination at a health care facility Arthritis Arthropathy, unspecified, site unspecifi ed Elevated C-reactive protein (CRP) Osteopenia, unspecified location [facility]P current use of systemic steroi ds Encounter for long-term (current) use of steroids documented in this encounter Care Teams Supervisor Fur Dressing Relationship Specialty Start Date End Date Jennifer Pelaez MD PCP - General 02/09/[address] [place] [address] [place] [address] documented as of this encounter
--- OUTSIDE RECORDS SUMMARY | 2022-04-12 02:25 | XMS_ITS | Encounter Summary ---
:1945 Author Organization [facility] [place] [address] Care Team Providers Name Role Phone Jennifer Pelaez MD Primary Care Provider Encounter Details Date Type Department Care Team Description 01/08/2017 Office Visit Rheumatology at [facility] Lois Robledo PMR (polymyalgia rheumatica) ; [facility] D, DO Arthritis; 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 [place] [address] RHEUMATOLOGY DEP [place], [place] [address] (Wo rk) Social History Tobacco Use Types Packs/Day Years Used Date Never Smoker Smokeless Tobacco: Never Used Sex Assigned at Date Recorded Not on file documented as of this encounter Last Filed Vital Signs Vital Sign Reading Time Taken Comments Blood Pressure 139/73 01/08/2017 2:37 PM EDT Pulse 81 01/08/2017 2:37 PM EDT Temperature 36.6 ??C (97.8 ??F) 01/08/2017 2:37 PM EDT Respiratory Rate - - Oxygen Saturation 100% 01/08/2017 2:37 PM EDT Inhaled Oxygen Concentration - - Weight 88.5 kg (195 lb) 01/08/2017 2:37 PM EDT Height 176.5 cm (5' 9.5) 01/08/2017 2:37 PM EDT Body Mass Index 28.38 01/08/2017 2:37 PM EDT documented in this encounter Progress Notes Lois Robledo DO - 01/08/2017 2:45 PM EDT HPI: Mr Zambrano presents for follow up. He has been very active remodeling his house, tiling a Bathroom and crawling in the crawl space. He has not had trouble doing these activities, but now has some aching and stiffness in his hands,. No prolonged am stiffness, no overt swelling. No bl shoulder or hip girdle pain. He has some knee and thigh pain from crawling and kneeling No newberry, vision changes, or jaw claudication He has been on 6mg prednisone for 3 weeks. Repeat vit d was 35 Background hx Cruz Zambrano is a 71 y.o. male who presents today for evaluation [...] has been seen by pain physicians and adjunct psychology instructor. He went to PT/accupunture/chiropracter without relief He notes he cannot sit at times d/t It He notes the the buttock pain feels like he has a diaper rash He has tried lyrica, cymbalta, which have not helped, elavil He notes bl le swelling a few years ago, lasted some time, was sen in [place] for it, was tried oncorticosteroids, and then [...] had screening no hx of pos DXA z -0.6 HCQ Eye Exam Jun 2016 Viral Hepatitis Screen Review of Systems: X [...] Dysuria Musculoskeletal 33. Muscle weakness 34. Myalgia 35. Shoulder pain 36. Raynaud's Neuropsychiatric 37. Paresthesia 38. Dysesthesia 39. Dizziness/vertigo 40. Anxiety 41. Depression 42. Cognitive problems 43. Initial insomnia X w pred 44. Night awakenings X 45. Nonrestorative sleep x Dermatologic 46. Xerosis cutis 47. Photosensitivity 48. 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 Well developed [...] no swelling or warmth noted Wrists: NMl Elbows: NML Shoulders: nl bl c spine: [...] were absent., still poss compatible for ra Hand xrays: oa dips and pips Impression/Recommendations : Cruz Zambrano is a 71 y.o. male w right who presented initially with right hand wrist/swelling and3/4/5 digit swelling along with w tenosyonvitis of the palmaris longus, who then developed bl hip and shoulder pain with am stiffness and elevated markers of inflammation along with rapid response to co rticosteroids c/w PMR. Pmr: Pt doing well from this standpoint, currenlty on 6 mg of prednisone which will stay on x 4 weeks total, then taper to 5 mg x 4 weeks then by 1 mg every 6- 8 weeks Seroneg RA vs OA: Believe pt current symptoms are related to the prednisone tapering and OA. He is on hcq and will see if he has recurrent tenosynovitis moving forward as we taper the prednisone. If things worsen plan to add mtx Steroids: Pt will be on longterm corticosteroids, reviewed se. Con't fosamax, ca/vit d. The patient was educated on bisphoshponate use to include risk of pill esophagitis, AVN of the jaw and atypical subtrochanteric fractures. 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
--- OUTSIDE RECORDS SUMMARY | 2022-04-12 02:25 | XMS_ITS | Encounter Summary ---
:1945 Author Organization [facility] [place] [address] Care Team Providers Name Role Phone Jennifer Pelaez MD Primary Care Provider Encounter Details Date Type Department Care Team Description 01/04/[address] [facility] [place] [address] Social History Tobacco Use Types Packs/Day Years Used Date Never Smoker Smokeless Tobacco: Never Used Sex Assigned at Date Recorded Not on file documented as of this encounter Plan of Treatment Upcoming Encounters Date Type Specialty Care Team Description 04/23/2022 Office Visit Dermatology Cecilio Barillas MD [address] [place] [address] DERMATOLOGY [place], [place] [address] (Wo rk) 05/30/2022 Office Visit Rheumatology Theresa Robledo, DO [facility] DR RHEUMATOLOGY [place], [place] [address] (Wo rk) documented as of this encounter Visit Diagnoses Not on filedocumented in this encounter Care Teams Tablet Technician Relationship Specialty Start Date End Date Jennifer Pelaez MD PCP - General 02/09/[address] [place] [address] [place] [address] documented as of this encounter
--- OUTSIDE RECORDS SUMMARY | 2022-04-12 02:25 | XMS_ITS | Encounter Summary ---
:1945 Author Organization [facility] [place] [address] Care Team Providers Name Role Phone Jennifer Pelaez MD Primary Care Provider Encounter Details Date Type Department Care Team Description 10/10/2017 Telephone Rheumatology at [facility] [place] [address] Social History Tobacco Use Types Packs/Day Years Used Date Never Smoker Smokeless Tobacco: Never Used Sex Assigned at Date Recorded Not on file documented as of this encounter Miscellaneous Notes Telephone Encounter - Daniel Knight RN - 10/14/2017 2:33 PM EST error documented in this encounter Plan of Treatment Upcoming Encounters Date Type Specialty Care Team Description 04/23/2022 Office Visit Dermatology Cecilio Barillas MD [address] [place] [address] DERMATOLOGY [place], [place] [address] (Wo rk) 05/30/2022 Office Visit Rheumatology Theresa Robledo, DO [facility] DR RHEUMATOLOGY [place], [place] [address] (Wo rk) documented as of this encounter Visit Diagnoses Diagnosis High risk medication use - Primary Encounter for long-term (current) use of other medications documented in this encounter Care Teams Ultrasound Technologist Sonographer Relationship Specialty Start Date End Date Jennifer Pelaez MD PCP - General 02/09/[address] [place] [address] [place] [address] documented as of this encounter
--- OUTSIDE RECORDS SUMMARY | 2022-04-12 02:25 | XMS_ITS | Encounter Summary ---
:1945 Author Organization [facility] [address] Care Team Providers Name Role Phone Jennifer Pelaez MD Primary Care Provider Reason for Visit Reason Onset Date Comments Medication Refill 11/03/2017 Encounter Details Date Type Department Care Team Description 11/04/2017 Refill Rheumatology at [facility] Haley [place], Arthritis; [facility] Kam ferreira APRN PMR (polymyalgia rheumatica) [place] [address] [facility] [phone] [place], [place] [address] (Wo rk) Social History Tobacco Use Types Packs/Day Years Used Date Never Smoker Smokeless Tobacco: Never Used Sex Assigned at Date Recorded Not on file documented as of this encounter Miscellaneous Notes Telephone Encounter - Haley [place] APRN - 11/04/2017 7:23 AM EST From: Cruz Zambrano To: Haley [place] APRN Sent: 11/03/2017 5:41 PM EST Subject: Medication Renewal Request Original authorizing provider: SKIP JOHNSON Hernandez Juan Manuel would like a refill of the following medications: methotrexate 2.5 mg Tablet [HALEY HAMILTON APRN] Preferred pharmacy: [address] Comment: documented in this encounter Plan of Treatment Upcoming Encounters Date Type Specialty Care Team Description 04/23/2022 Office Visit Dermatology Cecilio Barillas MD [address] [facility] DERMATOLOGY [place], [place] [address] (Wo rk) 05/30/2022 Office Visit Rheumatology Theresa Robledo, DO [facility] ER RHEUMATOLOGY [place], [place] [address] (Wo rk) documented as of this encounter Visit Diagnoses Diagnosis Arthritis Arthropathy, unspecified, site unspecifi ed PMR (polymyalgia rheumatica) Polymyalgia rheumatica documented in this encounter Care Teams Client Success Director Relationship Specialty Start Date End Date Jennifer Pelaez MD PCP - General 02/09/[address] [place] [address] [place] [address] documented as of this encounter
--- OUTSIDE RECORDS SUMMARY | 2022-04-12 02:25 | XMS_ITS | Encounter Summary ---
:1945 Author Organization [facility] [place] [address] Care Team Providers Name Role Phone Jennifer Pelaez MD Primary Care Provider Encounter Details Date Type Department Care Team Description 04/09/2017 Office Visit Rheumatology at [facility] Lois Robledo Arthritis; [facility] DO Kam PMR (polymyalgia rheumatica); Drive [facility] Elevated C-reactive protein (CRP); [place] [address] [address] [place], unspecified location [phone] RHEUMATOLOGY [place] [id number] (Wo rk) Social History Tobacco Use Types Packs/Day Years Used Date Never Smoker Smokeless Tobacco: Never Used Sex Assigned at Date Recorded Not on file documented as of this encounter Last Filed Vital Signs Vital Sign Reading Time Taken Comments Blood Pressure 129/71 04/09/2017 11:14 AM EDT Pulse 74 04/09/2017 11:14 AM EDT Temperature - - Respiratory Rate 18 04/09/2017 11:14 AM EDT Oxygen Saturation 100% 04/09/2017 11:14 AM EDT Inhaled Oxygen Concentration - - Weight 84.8 kg (187 lb) 04/09/2017 11:14 AM EDT Height 176.5 cm (5' 9.5) 04/09/2017 11:14 AM EDT Body Mass Index 27.22 04/09/2017 11:14 AM EDT documented in this encounter Patient Instructions Patient InstructionsMaLois mcclure DO - 04/09/2017 11:30 AM EDT Methylprednisolone 5 tabs x 2 weeks 4 tabs x 2 weeks documented in this encounter Progress Notes Lois Robledo DO - 04/09/2017 11:30 AM EDT HPI: Pt presents for follow up. He reports increasing bl shoulder and hip girdle pain. He also has incr stiffness in he neck, low back and buttock area and into the posterior knees, He reports stiffness lasts until 2pm or so. He completed labs in early March with a CRP of 34, and prior to this in January it was 28. He increased prednisone from 5 mg to 25 mg and feels he has not had sig response. Interestingly his pin can be intermittent with a good day or two followed by several bad days. He denies any sig hand pain or swelling, always has a little stiffness, but albe to do everything hewants to do. He denies any f/c/night sweats. Has had weight loss, but intentional, no dyspnea, no gi symptoms. No newberry, vision changes, jaw pain. He is also remodeling his shed and is laying afoundation He denies any back pain later in the day, not worse with bending over, no radicular symptoms. Background hx Cruz Zambrano is a 71 [...] has been seen by pain physicians and research and insights executive. He went to PT/accupunture/chiropracter without relief He notes he cannot sit at times d/t It He notes the the buttock pain feels like he has a diaper rash He has tried lyrica, cymbalta, which have not helped, elavil He notes bl le swelling a few years ago, lasted some time, was sen in [place] for it, was tried oncorticosteroids, and then [...] require clarification. Systemic Comments 1. Generalized pain x 2. Fatigue/tiredness x 3. Fevers 4. Chills 5. Night sweats 6. Recent weight loss x 7. Recent Weight gain Head and neck 8. Headaches 9. 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 Well developed and [...] warmth noted Wrists: NMl Elbows: NML Shoulders: pain with abduciton no ttp no warmth c spine: nl rom Knees: Crepitus bl, no wamrth or swelling [...] Cruz Zambrano is a 71 y.o. male Who initially presented with r right hand wrist/swelling and 3/4/5digit swelling along with w tenosyonvitis of the palmaris longus, who then developed bl hip and shoulder pain with am stiffness and elevated markers of inflammation along with rapid response to corticos teroids c/w PMR. PMR: he had been doing well and was able to taper down to 5mg of prednisone. He flared in January, andhas not had consistent improvement since. He was up to 25 mg of prednisone most recetnly w/o great response.will recheck labs today to see if his crp repsonded to the higher dose prednisone Dicussed with him that we will transition to medrol and repeat labs and reassess symptoms. If he does not imrpove, we need to consider alternative etiologies for his pain. A seroneg arthritis should respond to prednisone, so other alternatives could include occult malignancy. Labs today cbc, cmp, esr, crp,s pep. transitointo medrol 20 mg q daily x 2 weeks taper to 16 mg until fu Fu with Dolores in 4 weeks Labs in 4 weeks Con't hcq for poss seroneg inflmam arthritis Steroids: Pt will be on machine long goods helper corticosteroids Con't fosamax, ca/vit d. The patient was educated on bisphoshponate use to include risk of pill esophagitis, AVN of the jaw and atypical subtrochanteric fractures. CC: Jennifer Pelaez MD documented in this encounter Plan of Treatment Upcoming Encounters Date Type Specialty Care Team Description 04/23/2022 Office Visit Dermatology Cecilio Barillas MD [address] [facility] [facility] [address] DERMATOLOGY [place], [place] [address] (Wo rk) 05/30/2022 Office Visit Rheumatology Theresa Robledo, DO [facility] [address] RHEUMATOLOGY [place], [place] [address] (Wo rk) documented as of this encounter Visit Diagnoses Diagnosis Arthritis Arthropathy, unspecified, site unspecifi ed PMR (polymyalgia rheumatica) Polymyalgia rheumatica Elevated C-reactive protein (CRP) Osteopenia, unspecified location documented in this encounter Care Teams Metal Miner Blasting Relationship Specialty Start Date End Date Jennifer Pelaez MD PCP - General 02/09/[address] [place] [address] [place] [address] documented as of this encounter
--- OUTSIDE RECORDS SUMMARY | 2022-04-12 02:25 | XMS_ITS | Encounter Summary ---
:1945 [place] [address] Care Team Providers Name Role Phone Jennifer Pelaez MD Primary Care Provider Encounter Details Date Type Department Care Team Description 03/26/2016 Hospital Encounter Radiology [place] [facility] [place] [facility] [place] [address] [place] [address] [phone] (Wo rk) Social History Tobacco Use Types Packs/Day Years Used Date Never Smoker Sex Assigned at Date Recorded Not on file documented as of this encounter Medications at Time of Discharge Medication Sig Dispensed Refills Start Date End Date valACYclovir (VALTREX) 500 0 0 mg tablet aspirin 81 mg Tablet, Take 81 mg by 0 04/02/2021 Delayed Release mouth daily. (E.C.)Indications: Pseudogout zolpidem (AMBIEN CR) 12.5 mg Take 12.5 mg by 0 11/19/2017 Tablet, Multiphasic mouth nightly. ReleaseIndications: Pseudogout predniSONE (DELTASONE) 10 mg Take 4 tablets 90 tablet 0 04/15/2016 TabletIndications: by mouth daily. Pseudogout colchicine (COLCRYS) 0.6 mg Take 1 tablet by 180 tablet 3 06/21/2016 TabletIndications: mouth 2 times Pseudogout daily. simvastatin (ZOCOR) 20 mg Take 20 mg by 0 09/11/2020 TabletIndications: mouth nightly. Tenosynovitis predniSONE (DELTASONE) 5 mg Take 3 tablets 100 tablet 0 01/0504/15/2016 TabletIndications: by mouth daily. Tenosynovitis ezetimibe-simvastatin 0 03/19/2010 (VYTORIN 10-20) 10-20 mg per tablet hydrochlorothiazide 0 03/19/201009/11 (HYDRODIURIL) 25 mg tablet metoprolol succinate (TOPROL 0 010 04/20/2021 XL) 100 mg XL tablet documented as of this encounter Plan of Treatment Upcoming Encounters Date Type Specialty Care Team Description 04/23/2022 Office Visit Dermatology Cecilio Barillas MD [address] [place] [address] DERMATOLOGY [place], [place] [address] (Wo rk) 05/30/2022 Office Visit Rheumatology Theresa Robledo, DO [facility] DR RHEUMATOLOGY [place], [place] [address] (Wo rk) documented as of this encounter Procedures Procedure Name Priority Date/Time Associated Diagnosis Comme nts FILM LIBRARY Routine 03/26/2016 12:00 AM Pain Results for this STORAGE ONLY DX EDT procedure ar e in KNEE the results section. documented in this encounter Results Film Library- Storage only DX Knee (03/26/2016 12:00 AM EDT) Specimen (Source) Anatomical Location Collection Method / Collectio n Time Received Time / Laterality Volume Narrative MICHEAL - 03/27/2016 9:16 AM EDT This exam is for storage only and is aut o-finalizing. Lois Robledo DO IMG FILM LIBRARY ORDERABLES Performing Organization Address City/State/ZIP Code Phon e Number [place], [place] documented in this encounter Visit Diagnoses Diagnosis Pain Generalized pain documented in this encounter Care Teams Cardiac Rehabilitation Specialist Relationship Specialty Start Date End Date Jennifer Pelaez MD PCP - General 02/09/[address] [place] [address] [place] [address] documented as of this encounter
--- OUTSIDE RECORDS SUMMARY | 2022-04-12 02:25 | XMS_ITS | Encounter Summary ---
:1945 Author Organization [facility] Address [facility] [place] [address] Care Team Providers Name Role Phone Jennifer Pelaez MD Primary Care Provider Encounter Details Date Type Department Care Team Description 10/13/2019 Office Visit Rheumatology at [facility] Jennifer Vega, PMR (polymyalgia rheumatica) ; [facility] RISK ADJUSTMENT SPECIALIST High risk medication use; [facility] Osteopenia, unspecified loca tion; [place] [address] care home current use of systemic steroi ds [phone] [place], [place] [address] Social History Tobacco Use Types Packs/Day Years Used Date Never Smoker Smokeless Tobacco: Never Used Sex Assigned at Date Recorded Not on file documented as of this encounter Last Filed Vital Signs Vital Sign Reading Time Taken Comments Blood Pressure 138/70 10/13/2019 1:46 PM EST Pulse 93 10/13/2019 1:46 PM EST Temperature 36.4 ??C (97.6 ??F) 10/13/2019 1:46 PM EST Respiratory Rate - - Oxygen Saturation 100% 10/13/2019 1:46 PM EST Inhaled Oxygen Concentration - - Weight 84.4 kg (186 lb) 10/13/2019 1:46 PM EST Height 175.3 cm (5' 9) 10/13/2019 1:46 PM EST Body Mass Index 27.47 10/13/2019 1:46 PM EST documented in this encounter Patient Instructions Patient InstructionsJennifer Vega, RISK ADJUSTMENT SPECIALIST - 10/13/2019 2:00 PM EST Repeat labs in one month Continue to taper down the medrol as you are currently Follow-up with Dr. Robledo in January documented in this encounter Progress Notes Jennifer Vega APRN - 10/13/2019 2:00 PM EST Rheumatology Outpatient Follow-up Note CC: here for a f/u for PMR PMR -difficulty tapering <6 mg of methylprednisone -methotrexate added, increased to 25 mg sc April 2018 -no actemra due to extensive diverticulosis Interval Hx: ESR 27 uln 20 CRP 0.73 uln 0.3 The colonoscopy was on 09/22/19 and it was normal pt reports He is coming down by 0.25mg medrol about every month He is doing well. On 3.75mg for about a month. If he is sitting for a while, his legs are a bit achy, but loosen up quickly with walking No profound or prolonged AM stiffness Hasn't noticed any swelling No GCA sxs No f/c/GI sxs; no n/v/diarrhea No changes to health since last seen He works 3 days per week, does a lot of walking, takes steps at work, doesn't intentionally exercising. 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 Robledo 06/14/19 Pt last seen [...] 27 x 1/2 Syringe, 1 Units by [facility] [place]Non-Drug; Combo Route) route once [...] daily., Disp: 180 tablet, Rfl: 3 ??? omeprazole (PRILOSEC) 20 [...] mg tablet, , Disp: , Rfl: ??? 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 General: Alert and oriented. Well developed and nourished. The patient did not appear distressed or uncomfortable. The patient ambulated without difficulty or assistance. Scalp: TA pulsations nl bl, no ttp Eyes: Extraocular muscles were intact. External Eye: No hyperemia of the conjunctiva noted Sclera: Not red. Neck: no lymphadenopathy Lungs: Respiration rhythm and depth was normal. Work of breathing was not increased. Cta bl no wrr Cardiovascular system: rrr no mrg Musculoskeletal system: Hands: no swelling or ttp at the mcps, pips or dips, wrists: wnl Elbows: FROM Shoulders FROM Hips: FROM, no ttp over GT Ankles: FROM Skin: No rash seen. brusing bue Impression/Recommendations : PMR: Patient has had long-standing [...] asymptomatic and with normal markers of inflammation. CRP mildly elevated at 0.73 with uln 0.3 on medrol 3.75mg. Based upon history (no prolonged AM stiffness, no major pain/stiffness complaints) and exam will continue to taper down slowly at pt's preferred pace; he is decreasing by 0.25mg medrol about monthly. New standing CRP, ESR orders provided. Requested he repeated these in 1 month. Frequency of lab testing will then be determined based on those results. Continue on current dose of mtx (25mg sc) with FA for now. UTD CMP, CBC. Shingrix today. UTD flu andpna IZs No s/sxs GCA Osteoporosis. On fosamax. Cont ca and vit d supplementation. Cont weight bearing activity. Reviewed [facility] skilled nursing steroid use Anemia: Recent colo normal per pt report. Cont to follow with PCP. F/U in January with Dr. Robledo as scheduled Jennifer Vega APRN documented in this encounter Plan of Treatment Upcoming Encounters Date Type Specialty Care Team Description 04/23/2022 Office Visit Dermatology Cecilio Barillas MD [address] [place] [address] RD DERMATOLOGY [place], [place] [address] (Wo rk) 05/30/2022 Office Visit Rheumatology Theresa Robledo, DO [facility] DR RHEUMATOLOGY [place], [place] [address] (Wo rk) documented as of this encounter Visit Diagnoses Diagnosis PMR (polymyalgia rheumatica) Polymyalgia rheumatica High risk medication use Encounter for long-term (current) use of other medications Osteopenia, unspecified location 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
--- OUTSIDE RECORDS SUMMARY | 2022-04-12 02:25 | XMS_ITS | Encounter Summary ---
:1945 Author Organization [facility] [place] [address] Care Team Providers Name Role Phone Jennifer Pelaez MD Primary Care Provider Encounter Details Date Type Department Care Team Description 12/02/2019 Orders Only Rheumatology at [facility] [place] Daniel Knight, PMR (polymyalgia rheumatica) ; [facility] Kam ferreira RN High risk medication use; [place] [address] Healthcare maintenance; [phone] Arthritis; Elevated C-reac tive protein (CRP); Osteopenia, uns pecified location; assisted curre nt use of systemic steroids Social History Tobacco Use Types Packs/Day Years Used Date Never Smoker Smokeless Tobacco: Never Used Sex Assigned at Date Recorded Not on file documented as of this encounter Plan of Treatment Upcoming Encounters Date Type Specialty Care Team Description 04/23/2022 Office Visit Dermatology Cecilio Barillas MD [address] [place] [address] RD DERMATOLOGY [place], [place] [address] (Wo rk) 05/30/2022 Office Visit Rheumatology Theresa Robledo, [facility] DR RHEUMATOLOGY [place], [place] [address] (Wo rk) documented as of this encounter Visit Diagnoses Diagnosis PMR (polymyalgia rheumatica) Polymyalgia rheumatica High risk medication use Encounter for long-term (current) use of other medications Healthcare maintenance Routine general medical examination at a health care facility Arthritis Arthropathy, unspecified, site unspecifi ed Elevated C-reactive protein (CRP) Osteopenia, unspecified location 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
--- OUTSIDE RECORDS SUMMARY | 2022-04-12 02:25 | XMS_ITS | Encounter Summary ---
:1945 [place] [address] Care Team Providers Name Role Phone Jennifer Pelaez MD Primary Care Provider Encounter Details Date Type Department Care Team Description 04/15/2016 Orders Only Rheumatology at [facility] [place] Lois Robledo [facility] D, [place] [address] RHEUMATOLOGY [place], [place] [address] (Wo rk) Social History Tobacco Use Types Packs/Day Years Used Date Never Smoker Sex Assigned at Date Recorded Not on file documented as of this encounter Plan of Treatment Upcoming Encounters Date Type Specialty Care Team Description 04/23/2022 Office Visit Dermatology Cecilio Barillas MD [address] [place] [address] DERMATOLOGY [place], [place] [address] (Wo rk) 05/30/2022 Office Visit Rheumatology Theresa Robledo, [facility] RHEUMATOLOGY [place], [place] [address] (Wo rk) documented as of this encounter Visit Diagnoses Diagnosis Inflammatory arthritis Unspecified inflammatory polyarthropathy documented in this encounter Care Teams Fur Glazer Relationship Specialty Start Date End Date Jennifer Pelaez MD PCP - General 02/09/[address] [place] [address] [place], [place] [id number] documented as of this encounter
--- OUTSIDE RECORDS SUMMARY | 2022-04-12 02:25 | XMS_ITS | Encounter Summary ---
:1945 Author Organization [facility] Address [facility] [place] [address] Care Team Providers Name Role Phone Jennifer Pelaez MD Primary Care Provider Reason for Visit Reason Comments Foot Pain Consultation (Routine) - Closed Specialty Diagnoses / Procedures Referred By Contact Refer red To Contact Podiatry Diagnoses Pain in right foot RIGHT FOOT PAIN, PRIOR DX OF MORTONS NEUROMA Jennifer Pelaez MD Dolan, James H, DPM [address] [place] [address] [place] [address] [place] [address] Fax: Referral ID Status Reason Start Date Expiration Date Visits V isits Requested Authorized [id number] Closed Consult, Test 10/29/2019 10/28/2020 [facility] PCP Updated and/or Approved Encounter Details Date Type Department Care Team Description 11/15/2019 Office Visit Podiatry at [facility] [place] Bridget Castro DPM 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 MR#: [id number] Date of Service: 11/15/2019 SUBJECTIVE: Cruz Zambrano is a pleasant 74 y.o. male who presents to the clinic today accompanied by for chief complaint of painful tingling/burning to right foot, radiating to toes. Reports discomfort began 2+ years ago. Relates history of Rosario's neuroma and undergoing decompression nerve surgery in the past for same condition right foot. Relates recurrence of pain and discomfort. Reports using orthotics recently with improvement noted. Rates pain as being mild 4/10 currently. Relates he notices pain mostly when barefoot ambulation and with activities. Also relates a painful callus bottomof right foot which causes discomfort with ambulation and direct pressure. Denies any injury, traumaor recent treatment. Denies any discharge, swelling, redness, or open wounds. Denies any constitutional symptoms today. No other [...] file Gets together: Not on file Attends nondenominational service: Not on file Active member of [...] to Visit Medication Sig Dispense Refill ??? cholecalciferol, Vitamin D3, (VITAMIN D) 1,000 unit Capsule Take by mouth daily. ??? alendronate (FOSAMAX) 70 mg Tablet Take 1 tablet by mouth every 7 days. 12 tablet 3 ??? Syringe with Needle, Disp, (BD TUBERCULIN SYRINGE) 1 mL 27 x 1/2 Syringe 1 Units by [facility] [place]Non-Drug; Combo Route) route once a week. 20 Syringe 3 ??? metHOTREXate 25 mg/mL Solution 1 ml subcutaneous weekly 6 vial 2 ??? methylPREDNISolone (MEDROL) 4 mg Tablet Take 1.5 tablets by mouth daily. 120 tablet 3 ??? methylPREDNISolone (MEDROL) 2 mg Tablet Take 0.5 tablets by mouth daily. 180 tablet 1 ??? folic acid (FOLVITE) 1 mg Tablet Take 2 tablets by mouth daily. 180 tablet 3 ??? cwgwtpjc-gfgamreau-zeuhkeseenorc (DEXACINE) 3.5 mg/g-10,000 unit/g-0.1 % Ointment 5 [...] 500 mg tablet (Patient taking differently: PRN.) No current facility-administered medications on file prior to visit. Review of Systems Constitutional: Negative. HENT: Negative. Eyes: Negative. Respiratory: Negative. Cardiovascular: Negative. Gastrointestinal: Negative. Genitourinary: Negative. Musculoskeletal: + Pain right foot Skin: + Callus Neurological: Positive for tingling. Endo/Heme/Allergies: Negative. Psychiatric/Behavioral: Negative. OBJECTIVE: VITALS: There were no vitals taken for this visit. GEN: Patient is in no acute distress and AAOX3. Gait stable and non-antalgic. DERM: Skin warm and dry with no open lesions or macerations appreciated. Hair growth present. Temperature gradient within normal limits. No apparent increased warmth to the affected side. No evidence of infection bilaterally. Hyperkeratotic skin lesion noted plantar aspect of right forefoot. Upon debri jessica, intact skin lines and healthy intact skin with no evidence of underlying infection or ulceration. VASC: Dorsalis pedis +2/4 bilaterally and posterior tibial pulse +2/4 bilaterally. Capillary refill 3 seconds. No edema noted. No varicose veins. No claudication, no rest pain, no color changes. Posterior calves soft and nontender. NEURO: Epicritic sensation intact bilaterally. MSK: Minimal pain upon lateral compression of right forefoot. +Kar's sign. Tenderness in third interspace right foot. No significant palpable mass appreciated. Muscle strength 5/5 all groups. Activepainfree ROM noted of ankle/pedal joints. +evidence of loss of the fat pad bilaterally, right greater than left. 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 Patient evaluated with condition and treatment options for management discussed at length. Discussed with patient importance of exhausting conservative options with surgical intervention only as last resort. ??? Debrided pre-ulcerative callus right plantar forefoot using sterile technique without incident. Advised patient to monitor site and moisturize daily. ??? Advised wide accommodative shoes, daily stretching/icing as demonstrated, supportive arch support. ??? Offloading neuroma pads dispensed with proper use discussed. ??? Strict avoidance of barefoot ambulation ??? Explained if failure to improve, will consider injection therapy next visit with possible xray. ??? Advised patient to seek prompt medical care if any worsening/changes noted. ??? Answered all questions. Patient verbalized understanding of all instructions. 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
--- OUTSIDE RECORDS SUMMARY | 2022-04-12 02:25 | XMS_ITS | Encounter Summary ---
:1945 Author Organization [facility] [place] [address] Care Team Providers Name Role Phone Jennifer Pelaez MD Primary Care Provider Encounter Details Date Type Department Care Team Description 11/11/2018 Office Visit Rheumatology at [facility] [place] Lois Robledo PMR (polymyalgia rheumatica) ; [facility] D, manager terminal current use of non-steroidal a nti-inflammatories (NSAID); [facility] [place] [address] RHEUMATOLOGY [place], [place] [address] (Wo rk) Social History Tobacco Use Types Packs/Day Years Used Date Never Smoker Smokeless Tobacco: Never Used Sex Assigned at Date Recorded Not on file documented as of this encounter Last Filed Vital Signs Vital Sign Reading Time Taken Comments Blood Pressure 135/85 11/11/2018 1:08 PM EST Pulse 69 11/11/2018 1:08 PM EST Temperature 36.4 ??C (97.5 ??F) 11/11/2018 1:08 PM EST Respiratory Rate - - Oxygen Saturation 95% 11/11/2018 1:08 PM EST Inhaled Oxygen Concentration - - Weight 87.5 kg (193 lb) 11/11/2018 1:08 PM EST Height 175.3 cm (5' 9) 11/11/2018 1:08 PM EST Body Mass Index 28.5 11/11/2018 1:08 PM EST documented in this encounter Progress Notes Lois Robledo DO - 11/11/2018 1:00 PM EST Rheumatology Outpatient Follow-up Note CC: [...] crp 0.17 Labs 09/22 esr 18, crp, 0.14. He has been on 6/5mg medrol alternating days x 5 weeks with good result. No sig am stiffness in the am, no swelling in the joints. No headaches, no acute visiion changes, had cataract surgery. He is tolerating mtx without any issues. Taking folic acid daily. No recent infections. Patient denies any fevers, chills, night sweats, [...] 27 x 1/2 Syringe, 1 Units by [facility].(Non-Drug; Combo Route) route once a week., Disp: 20 Syringe, Rfl: 3 ??? methylPREDNISolone (MEDROL) 4 mg Tablet, Take 2 tablets by mouth daily. (Patient taking differently: Take 6 mg by mouth daily. ), Disp: 180 each, Rfl: 1 ??? 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 General: Alert and oriented. Well developed and nourished. The patient did not appear distressed or uncomfortable. The patient ambulated without difficulty or assistance. Scalp: no prominent temporal artery vessels Eyes: Extraocular [...] nl Shoulders normal range of motion no pain Hips no tenderness palpation over the greater trochanters Skin: No rash seen.brusing bl ue Impression/Recommendations : PMR: Patient has had long-standing polymyalgia rheumatica which is been very difficult to control and a very difficult and tapering down his prednisone. He initially presented like seronegative RA and then developed PMR symptoms. We have had a challenge tapering down below 8mg without methotrexate, and on mtx he was able to taper down to 5.5 mg (average dosing) daily. He will con't ton this dose through December and then try to taper to5 medrol mg daily. 2mg tabs orderdso he can taper by 1mg dosing increments. Labs are utd and last set of markers of inflammation were within normal limits. Flu shot utd . Pneumovax Given today Bmd: osteopenia, with 9% loss in 2 years on fosamax. Check vit d today, dicussed transitioning to reclast. He will think about it. con't ca/vit d supplementation. 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
--- OUTSIDE RECORDS SUMMARY | 2022-04-12 02:25 | XMS_ITS | Encounter Summary ---
:1945 Author Organization [facility] [place] [place] [address] Care Team Providers Name Role Phone Jennifer Pelaez MD Primary Care Provider Reason for Visit Reason Comments Follow-up Skin Check Encounter Details Date Type Department Care Team Description 07/28/2018 Office Visit Dermatology at Cecilio Barillas [place] (act inic keratosis); Dileep ANGULO Seborrheic keratosis [address] [place] DERMATOLOGY [place], [place] [phone] Social History Tobacco Use Types Packs/Day Years Used Date Never Smoker Smokeless Tobacco: Never Used Sex Assigned at Date Recorded Not on file documented as of this encounter Progress Notes Cecilio Barillas MD - 07/28/2018 8:30 AM EDT Problem: 1. Repeat skin check 2. 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 His prednisone is now down to 6 mg a day. He got down to 4mg briefly but then his symptoms worsened. Physical examination reveals a pleasant 72-year-old gentleman who has about 10 actinic present over the thinning occipital and parietal scalp which is more easily visible today because of an accidentally aggressive hair cut at [facility] recently. Examination of the scalp the face the ears the neck handsis otherwise benign. He has numerous prednisone-induced ecchymoses 1-1.5 cm in diameter on both dorsal forearms and arms Assessment plan: Actinic keratoses 1. LN 2 x 2 applied to each of 10 sites. 2. Patient sure about remainder of benign sun exposed n skin examination 3. Return to clinic in the 6 months repeat check. CC: Jennifer Pelaez MD documented in this encounter Plan of Treatment Upcoming Encounters Date Type Specialty Care Team Description 04/23/2022 Office Visit Dermatology Cecilio Barillas MD [address] [facility] DERMATOLOGY [place], [place] [address] (Wo rk) 05/30/2022 Office Visit Rheumatology Theresa Robledo, DO [facility] [address] RHEUMATOLOGY [place], [place] [address] (Wo rk) documented as of this encounter Visit Diagnoses Diagnosis [place] (actinic keratosis) Actinic keratosis Seborrheic keratosis Other seborrheic keratosis documented in this encounter Care Teams Loan And Credit Manager Relationship Specialty Start Date End Date Jennifer Pelaez MD PCP - General 02/09/[address] [place] [address] [place] [address] documented as of this encounter
--- OUTSIDE RECORDS SUMMARY | 2022-04-12 02:25 | XMS_ITS | Encounter Summary ---
:1945 Author Organization [facility] Address [address] [place] [address] Care Team Providers Name Role Phone Jennifer Pelaez MD Primary Care Provider Encounter Details Date Type Department Care Team Description 02/02/2016 Hospital Encounter Radiology Library at [facility], [place] [phone] Social History Tobacco Use Types Packs/Day Years Used Date Never Smoker Sex Assigned at Date Recorded Not on file documented as of this encounter Medications at Time of Discharge Medication Sig Dispensed Refills Start Date End Date valACYclovir (VALTREX) 500 0 0 mg tablet zolpidem (AMBIEN CR) 12.5 mg Take 12.5 mg by 0 11/19/2017 Tablet, Multiphasic mouth nightly. ReleaseIndications: Pseudogout simvastatin (ZOCOR) 20 mg Take 20 mg by 0 09/11/2020 TabletIndications: mouth nightly. Tenosynovitis predniSONE (DELTASONE) 5 mg Take 3 tablets 100 tablet 0 01/0504/15/2016 TabletIndications: by mouth daily. Tenosynovitis traMADol (ULTRAM) 50 mg Take 50 mg by 0 03/21/2016 tablet mouth every 6 hours as needed. CIS Free Text Med - Aspirin 0 03/19/20 10 03/21/2016 ezetimibe-simvastatin 0 03/19/2010 (VYTORIN 10-20) 10-20 mg per tablet hydrochlorothiazide 0 03/19/201009/11 (HYDRODIURIL) 25 mg tablet metoprolol succinate (TOPROL 0 010 04/20/2021 XL) 100 mg XL tablet zolpidem (AMBIEN) 10 mg 0 03/19/2010 0 03/21/2016 tablet documented as of this encounter Plan of Treatment Upcoming Encounters Date Type Specialty Care Team Description 04/23/2022 Office Visit Dermatology Cecilio Barillas MD [address] [facility] DERMATOLOGY [place], [place] [address] (Wo rk) 05/30/2022 Office Visit Rheumatology Theresa Robledo, DO [facility] [address] RHEUMATOLOGY [place], [place] [address] (Wo rk) documented as of this encounter Procedures Procedure Name Priority Date/Time Associated Diagnosis Comme nts FILM LIBRARY Routine 02/02/2016 12:15 AM Pain Results for this STORAGE ONLY DX EDT procedure ar e in HAND the results section. documented in this encounter Results Film Library- Storage only DX Hand (02/02/2016 12:15 AM EDT) Specimen (Source) Anatomical Location Collection Method / Collectio n Time Received Time / Laterality Volume Narrative RAD - 02/04/2016 4:59 PM EDT This exam is for storage only and is aut o-finalizing. Dr Jeffers [facility] FILM LIBRARY ORDERABLES Performing Organization Address City/State/ZIP Code Phon e Number [place], [place] documented in this encounter Visit Diagnoses Diagnosis Pain Generalized pain documented in this encounter Care Teams Spiral Runner Relationship Specialty Start Date End Date Jennifer Pelaez MD PCP - General 02/09/[address] [place] [address] [place] [address] documented as of this encounter
--- OUTSIDE RECORDS SUMMARY | 2022-04-12 02:25 | XMS_ITS | Encounter Summary ---
:1945 Author Organization [place] [address] Care Team Providers Name Role Phone Sandro Garcia MD Primary Care Provider Encounter Details Date Type Department Care Team Description 10/13/2013 Office Visit Psychiatry and Keyona Whitney disorder Behavioral Health at [place], PhD with depressed mood [facility] (Primary Dx) [facility] [address] PSYCHIATRY DEPT. [place] [phone] Social History Tobacco Use Types Packs/Day Years Used Date Never Smoker Sex Assigned at Date Recorded Not on file documented as of this encounter Progress Notes Keyona Whitney, PhD - 10/13/2013 10:45 AM EST Behavioral Medicine Service Psychological Evaluation for Spinal Cord Stimulator 50 minutes Cruz Zambrano is a 68 y.o. year old male who was referred by Dr. Valencia for a psychological assessment prior to a spinal cord stimulator implantation. The purpose of this evaluation is to A) Determine any psychological or social barriers to compliance with or benefiting from the spinal cord stimulator procedure or to the device itself, B) To assess whether the patient is properly informed about the procedure and its potential risks and benefits, and C) to make any recommendations regarding psychological interventions. Limits to confidentiality were reviewed at the start of the session. Pain History and Functional status: The patient reports that his perianal pain began about 2 years ago for unknown reasons. He has also had some right sided abdominal pain but it is less intense. Average pain level is 4-5 on an 11-point scale with 10 being pain as bad as it could be. The patient reports that sitting more than 30 minutes increases his pain while standing can decrease pain. He stands during the last half of the interview and leans to the side when he is sitting. The patient states that he can do ADLs independently. He does not have an exercise regimen. 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 The patient reportsthat the pain itself does not limits his function but he feels like doing less things because of theconstant pain. 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 Family and Social Situation: The patient is to his second spouse of 17 years. he has 2 adultchildren. The primary social network includes his . Mr. Zambrano reports that in the past month they have sold their home and bought a much smaller home. He is happy they are downsizing but there is a lot of renovation needed which he is planning to do himself. Substance Use: 12.5 mg ambien CR. Does not like to take medications for pain because of constipation. Caffeine: drinks 1.5 liters of coke per day. Alcohol:occasional use Tobacco:never smoked Other current drug use: none Patient report of Symptoms and Stressors: Sleep:7-8 hours per night Energy: normal energy Appetite:normal with stable weight Mood:reports some down mood related to coping with chronic pain Anhedonia:moderate lack of interest or pleasure in anything Attention/memory:no difficulty reported Motivation to start or complete activities: Mild to moderate difficulty getting motivated for choresaround the house. Able to get to work with no problem. Suicidality: Denies active suicidal ideation, plan,or intent. He does report frequent passive SI in the past 6-8 months such as If I were driving home and bolder killed me quickly I would not mind. Panic attacks:denies difficulty Excessive worry:denies difficulty Trauma History/Possible PTSD Symptoms:denies any re-experiencing of past events. Any other symptoms: none Current Stressors:recent move and purchase of new home, mild job stress Psychometric Scores: [facility]- Psychiatry 10/11/2013 Marital Status School Some college or technical school Employment Status Currently working Hours per Week Working Now 20-29 hours BMI 28.79 (Overweight) Alcohol AUDIT Filtered 3 (Low Risk) Drug Use I have never tried such drugs Smoking/Tobacco Habits I have never smoked / used tobacco Current Abuse No abuse Past Abuse No abuse Patient Health Questionnaire Depression 8 (Mild Depression) Post Traumatic Stress Disorder 0 JOAQUIN-7 2 (Minimal Anxiety) VR12 - Physical Component Summary 36.04 VR12 - Mental Component Summary 46.44 Psychological Treatment and Symptom History: The patient reports a course of counseling around the time of his divorce 25 years ago. He was on amitriptyline for pain recently and noticed that his mood was a bit better, but not the pain. He stoppedtaking the medication. The patient reports no psychiatric hospitalizations. The patient reports no history of suicide attempts or self injurious behavior (e.g., cutting). The patient states that he does not have a current counselor or psychiatrist. Informed Consent: The patient is somewhat informed about the spinal cord stimulator and the risks associated with the procedure. He understands there may be nerve damage or infection as a result of theprocedure. Mr. Zambrano states that he needs more information from Dr. Valencia about the actual procedure and if there are any medications or less invasive alternative pain management strategies available to try first. He states that there is a 30% chance that it will help his pain. The patient understands that this does not alter the underlying condition, but that it is treating the resulting pain. Mental Status Examination: General Appearance: Appropriately dressed and groomed,pleasant and cooperative, stands during about half the interview. Speech: Normal rate and rhythm Mood:mildly depressed Affect:mood congruent Thought content/process: Thought process logical and linear. Cognitive Function: While not formally tested, function appears to be WNL Diagnosis: De Witt I: 309.0 adjustment disorder with depressed mood De [place] II: Diagnosis Deferred [place] III: Chronic pain [place] IV: recent move/purchase of new house, mild work stress De Witt V: 65 Conclusions/Tx Recommendations: Cruz Zambrano is somewhat informed about the spinal cord stimulator and the risks associated with the procedure. He understands there may be nerve damage or infection as a result of the procedure. Mr. Zambrano states that he needs more information from Dr. Valencia about the actual procedure and if there are any medications or less invasive alternative pain managementstrategies available to try first. There is no evidence that the pain is of a psychological origin. Mr. Zambrano has been a bit depressed the past 6-8 months with passive suicidal thoughts. He is functioning pretty well at work and home, however. Mr. Zambrano has agreed to contact his PCP to discuss an antidepressant. The case will be reviewed at the upcoming [facility]. He would likely be a reasonable candidate for the stimulator implant should he decide to proceed. It is recommended that: 1) Mr. Zambrano will reschedule an appointment with Dr. Valencia to discuss the procedure and less invasive alternative pain-management strategies. He may want to talk with someone who has had the implant previously and he understands the [employer] can help with that contact. documented in this encounter Plan of Treatment Upcoming Encounters Date Type Specialty Care Team Description 04/23/2022 Office Visit Dermatology Cecilio Barillas MD [address] [place] [address] DERMATOLOGY [place], [place] [address] (Wo rk) 05/30/2022 Office Visit Rheumatology Theresa Robledo, DO [facility] DR RHEUMATOLOGY [place], [place] [address] (Wo rk) documented as of this encounter Visit Diagnoses Diagnosis Adjustment disorder with depressed mood - Primary documented in this encounter Care Teams Vehicle Service Attendant Relationship Specialty Start Date End Date Sandro Garcia MD PCP - General 08/28/10 02/08/[address] [place] [address] [place] [address] documented as of this encounter
--- OUTSIDE RECORDS SUMMARY | 2022-04-12 02:25 | XMS_ITS | Encounter Summary ---
:1945 Author Organization [facility] Address [place] [id number] Care Team Providers Name Role Phone Jennifer Pelaez MD Primary Care Provider Encounter Details Date Type Department Care Team Description 03/03/2019 Office Visit Rheumatology at [facility] Lois Robledo PMR (polymyalgia rheumatica) ; [facility] D, DO High risk medication use; [facility] Healthcare maintenance; [place] [phone] [address] Arthritis; [phone] RHEUMATOLOGY DEP T Elevated C-reactive protein (CRP); [place] [id number] Osteopenia, unspecified location; [phone] (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 Social History Tobacco Use Types Packs/Day Years Used Date Never Smoker Smokeless Tobacco: Never Used Sex Assigned at Date Recorded Not on file documented as of this encounter Last Filed Vital Signs Vital Sign Reading Time Taken Comments Blood Pressure 142/72 03/03/2019 9:31 AM EDT Pulse 74 03/03/2019 9:31 AM EDT Temperature 36.4 ??C (97.5 ??F) 03/03/2019 9:31 AM EDT Respiratory Rate - - Oxygen Saturation 100% 03/03/2019 9:31 AM EDT Inhaled Oxygen Concentration - - Weight 84.4 kg (186 lb) 03/03/2019 9:31 AM EDT Height 175.3 cm (5' 9) 03/03/2019 9:31 AM EDT Body Mass Index 27.47 03/03/2019 9:31 AM EDT documented in this encounter Progress Notes Lois Robledo DO - 03/03/2019 9:30 AM EDT Rheumatology Outpatient Follow-up Note CC: here [...] 18, crp, 0.14.8 10/24 esr 18, crp0.31 02/20 esr 35 crp 0.71 He does mtx if he took his shot or not, this past week so ended up skippng, no adverse effects, no infections. Had some gum soreness, incr his folic acid and this ahas improved. No sig am stiffness, has some le pain with activity, has a hard time getting up from a squatting position No newberry.no vision changes. No jaw pain. Current Outpatient Medications: ??? seuodndo-ntklfxovu-iuwxivgvcfyae (DEXACINE) 3.5 mg/g-10,000 unit/g-0.1 % Ointment, , Disp: , Rfl: 5 ??? VIRTUSSIN AC 10-100 mg/5 mL Liquid, , Disp: , Rfl: ??? alendronate (FOSAMAX) 70 mg Tablet, , Disp: , Rfl: ??? brimonidine (ALPHAGAN) 0.2 % Drops, Place into both eyes 2 times daily., Disp: , Rfl: 3 ??? methylPREDNISolone (MEDROL) 2 mg Tablet, Take 3 tablets by mouth daily., Disp: 180 tablet, Rfl: 1 ??? metHOTREXate 25 mg/mL Solution, 1 ml subcutaneous weekly, Disp: 6 vial, Rfl: 2 ??? folic acid (FOLVITE) 1 mg Tablet, Take 1 tablet by mouth daily., Disp: 90 tablet, Rfl: 3 ??? 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 He will con't ton this dose through February, repeat labs in March. If esr/crp stable he can try to go to 4.25/4.5. If they are rising and he remains largely asymptomatic, he will hold the dose unless he is symptomatic, then he iwll incr the dose. Anemia: mild, may be med related. Check iron studies, folic acid, b12, retic. He has fu with his pcmnext week He requested a1c, will check Flu shot utd . Pneumovax Given today Bmd: osteopenia, with 9% loss in 2 years on fosamax. Repeat bmd in 08/24 given loss con't ca/vit d supplementation. F/U in 12 weeks Lois Robledo DO documented in this encounter Plan of Treatment Upcoming Encounters Date Type Specialty Care Team Description 04/23/2022 Office Visit Dermatology Cecilio Barillas MD [address] [place] [address] DERMATOLOGY [place], [place] [address] (Eren murdock) 05/30/2022 Office Visit Rheumatology Theresa Robledo DO [address] [facility] DR RHEUMATOLOGY [place], [place] [address] (Wo rk) documented as of this encounter Visit Diagnoses Diagnosis PMR (polymyalgia rheumatica) Polymyalgia rheumatica High risk medication use Encounter for long-term (current) use of other medications Healthcare maintenance Routine general medical examination at a health care facility Arthritis Arthropathy, unspecified, site unspecifi ed Elevated C-reactive protein (CRP) Osteopenia, unspecified location [facility] current use of systemic steroi ds Encounter for long-term (current) use of steroids documented in this encounter Care Teams Plant Operator Control Room Operator Relationship Specialty Start Date End Date Jennifer Pelaez MD PCP - General 02/09/[address] [place] [id number] documented as of this encounter
--- OUTSIDE RECORDS SUMMARY | 2022-04-12 02:25 | XMS_ITS | Encounter Summary ---
:1945 Author Organization [facility] [place] [address] Care Team Providers Name Role Phone Jennifer Pelaez MD Primary Care Provider Encounter Details Date Type Department Care Team Description 06/21/2016 [place] [facility] [place] Robledo Arthritis; [facility] DDO PMR (polymyalgia rheumatica); Drive [facility] Pain in right hip; [place] [address] [address] Pain in left hip [phone] RHEUMATOLOGY DEP T [place], [place] [address] (Wo rk) Social History Tobacco Use Types Packs/Day Years Used Date Never Smoker Smokeless Tobacco: Never Used Sex Assigned at Date Recorded Not on file documented as of this encounter Last Filed Vital Signs Vital Sign Reading Time Taken Comments Blood Pressure 137/72 06/21/2016 3:43 PM EDT Pulse 87 06/21/2016 3:43 PM EDT Temperature 36.8 ??C (98.2 ??F) 06/21/2016 3:43 PM EDT Respiratory Rate - - Oxygen Saturation 99% 06/21/2016 3:43 PM EDT Inhaled Oxygen Concentration - - Weight 87.5 kg (193 lb) 06/21/2016 3:43 PM EDT Height 176.5 cm (5' 9.5) 06/21/2016 3:43 PM EDT Body Mass Index 28.09 06/21/2016 3:43 PM EDT documented in this encounter Patient Instructions Patient InstructionsLois Robledo DO - 06/21/2016 4:00 PM EDT Prednisone 25 mg x 2 weeks 20 mg x 3 weeks 15 mg x 3 weeks 12.5 mg x 3 weeks 10 mg documented in this encounter Progress Notes Lois Robledo DO - 06/21/2016 4:00 PM EDT HPI: Pt presents for follow up. He is [...] hip pain. He was seen by an V BELT INSPECTOR. He notes the hip pain went away [...] has been seen by pain physicians and marketing analytics manager. He went to PT/accupunture/chiropracter without relief He notes he cannot sit at times d/t It He notes the the buttock pain feels like he has a diaper rash He has tried lyrica, cymbalta, which have not helped, elavil He notes bl le swelling a few years ago, lasted some time, was sen in [place] for it, was tried oncorticosteroids, and then [...] Comments 1. Generalized pain x 2. Fatigue/tiredness X 3. Fevers 4. Chills 5. Night sweats [...] Xerosis cutis 47. Photosensitivity 48. 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 Well developed and nourished. The patient did not appear distressed or uncomfortable. The patient ambulated without difficulty or assistance. Head: Scalp: Appeared normal. Eyes: PERRL. Extraocular muscles were intact. External Eye: No hyperemia of the conjunctiva noted Sclera: Not red. Lungs: Respiration rhythm and depth was normal. Clear to auscultation without rales or wheezing. Work of breathing was not increased. Cardiovascular system: Heart Rate and Rhythm: Normal. Heart Sounds: Normal. Murmurs: No murmurs were heard. Lower Extremity Edema: Not present. Musculoskeletal system: (???NML?? means normal; No swelling, warmth, tenderness, loss of range of motion, or deformity as applicable) Hands: MCP???s: NML PIP???s: NML on the left, right 5th w trace synovitis, ,DIP???s: NML, full fist and claw on the left, has bl dupuytren's on the 2nd and 3rd digits, s/p CTS right , no swelling or warmth noted Wrists: NMl s/p surgery ont he right Elbows: NML Shoulders: some pain over bl deltoid w abduction of the shoulders c spine: nl Knees: Crepitus bl Hips: mild pain over the psis bl, pain in the groin w internal rotation and sig decr rom w internal rotation Nails: No nail pitting, onycholysis or periungual [...] still poss compatible for ra Impression/Recommendations : rCuz Zambrano is a 70 y.o. male w right who presented initially with right hand wrist/swelling and3/4/5 digit swelling along with w tenosyonvitis of the palmaris longus, he now has bl hip pain with am stiffness and rapid response to corticosteroids. Considering PMR as a possible dx (and perhaps on the seroneg RA spectrum of disease). -initiate pred 25 mg x 1 week then taper to 20 mg x 3 weeks and then 15 mg until follow up. Dicussed with him other causes of hip pain to include OA, and avn, however both of these tend to worsen with walking and his pain improves with ambulation. Could also be RA synovitis of the hips. Will get plain films of the hips today Also discussed w him poss of initiating mtx given his small joint involvement, he would like to holdoff for now and assess his response to corticosteroids. Would con't hcq for now given lack of s/e, has not been on long enough to take effect, and may have some steroid sparing benefits. other ddx includes: pmr crystalline athropathy (pseudogout), no imaging evdience of cppd, vs seroneg RA, vs psA (no nail involvement, no rash) considered poss lyme disease (though atypical)-wlill order testing, don't feel c/w amyloidosis, and no changes c/w sarcoidosis CC: JENNIFER PELAEZ MD documented in this encounter Plan of Treatment Upcoming Encounters Date Type Specialty Care Team Description 04/23/2022 Office Visit Dermatology Cecilio Barillas MD [address] [facility] DERMATOLOGY [place], [place] [address] (Wo rk) 05/30/2022 Office Visit Rheumatology Theresa Robledo, DO [facility] ER RHEUMATOLOGY [place], [place] [address] (Wo rk) documented as of this encounter Visit Diagnoses Diagnosis Arthritis Arthropathy, unspecified, site unspecifi ed PMR (polymyalgia rheumatica) Polymyalgia rheumatica Pain in right hip Pain in joint, pelvic region and thigh Pain in left hip Pain in joint, pelvic region and thigh documented in this encounter Care Teams Director Translational Relationship Specialty Start Date End Date Jennifer Pelaez MD PCP - General 02/09/[address] [place] [address] [place] [address] documented as of this encounter
--- OUTSIDE RECORDS SUMMARY | 2022-04-12 02:25 | XMS_ITS | Encounter Summary ---
:1945 [place] [address] Care Team Providers Name Role Phone Jennifer Pelaez MD Primary Care Provider Encounter Details Date Type Department Care Team Description 09/03/2016 Orders Only Rheumatology at [facility] [place] Lois Robledo, DO [facility] [place] [address] RHEUMATOLOGY DEPT [phone] [place], [place] [address] (Wo rk) Social History Tobacco Use Types Packs/Day Years Used Date Never Smoker Smokeless Tobacco: Never Used Sex Assigned at Date Recorded Not on file documented as of this encounter Plan of Treatment Upcoming Encounters Date Type Specialty Care Team Description 04/23/2022 Office Visit Dermatology Cecilio Barillas MD [address] [place] [address] DERMATOLOGY [place], [place] [address] (Wo rk) 05/30/2022 Office Visit Rheumatology Theresa Robledo, DO [facility] ER RHEUMATOLOGY DEP T [place], [place] [address] (Wo rk) documented as of this encounter Visit Diagnoses Diagnosis Osteopenia Disorder of bone and cartilage, unspecif ied documented in this encounter Care Teams Stencil Printer Relationship Specialty Start Date End Date Jennifer Pelaez MD PCP - General 02/09/[address] [place] [address] [address] [place], [place] [id number] documented as of this encounter
--- OUTSIDE RECORDS SUMMARY | 2022-04-12 02:25 | XMS_ITS | Encounter Summary ---
:1945 Author Organization [facility] [place] [address] Care Team Providers Name Role Phone Jennifer Pelaez MD Primary Care Provider Encounter Details Date Type Department Care Team Description 05/21/2017 Office Visit Rheumatology at [facility] [place] Haley Hamilton PMR (polymyalgia rheumatica) ; [facility] SKIP Albert Arthritis; [facility] Osteopenia, unspecified loca tion; [place] [address] alf current use of systemic steroi ds [phone] [place], [place] [address] (Wo rk) Social History Tobacco Use Types Packs/Day Years Used Date Never Smoker Smokeless Tobacco: Never Used Sex Assigned at Date Recorded Not on file documented as of this encounter Last Filed Vital Signs Vital Sign Reading Time Taken Comments Blood Pressure 155/78 05/21/2017 1:20 PM EDT Pulse 73 05/21/2017 1:20 PM EDT Temperature 36.5 ??C (97.7 ??F) 05/21/2017 1:20 PM EDT Respiratory Rate - - Oxygen Saturation 100% 05/21/2017 1:20 PM EDT Inhaled Oxygen Concentration - - Weight 86.7 kg (191 lb 1.6 oz) 05/21/2017 1:20 PM EDT Height 176.5 cm (5' 9.5) 05/21/2017 1:20 PM EDT Body Mass Index 27.82 05/21/2017 1:20 PM EDT documented in this encounter Progress Notes Haley Hamilton APRN - 05/21/2017 1:30 PM EDT Rheumatology Outpatient Follow-up Note Pt of Dr. Robledo Last April CC: here for a f/u for PMR and possible seronegative IA HPI: 71 y/o male presents for follow up. On 14 mg of medrol/d since last , almost a week. Labs atthe end of April were OK. He is feeling pretty good. Not sleeping well at night, feels the medrol is the cause. Is taking his Ambien but it's just not working for the entire night when it used to last 8 hours. No BLANCO, vision changes, jaw or tongue pain and no scalp tenderness. No joint swelling and not overly stiff. Is on plaquenil for possible seronegative IA. Tolerating plaquenil well. Eye exam is in Jun. Current Outpatient Prescriptions: ??? omeprazole (PRILOSEC) 20 mg Capsule, Delayed Release(E.C.), Take 1 capsule by mouth daily., Disp: , Rfl: ??? methylPREDNISolone (MEDROL) 4 mg Tablet, Take 5 tablets by mouth daily. (Patient taking differently: Take 14 mg by mouth daily.), Disp: 270 tablet, Rfl: 1 ??? hydroxychloroquine (PLAQUENIL) 200 mg Tablet, Take 1 tablet by mouth 2 times daily for 90 days.,Disp: 180 tablet, Rfl: 3 ??? ERGOCALCIFEROL, VITAMIN D2, (VITAMIN D ORAL), Take 2,000 Units by mouth daily., Disp: , Rfl: ??? alendronate (FOSAMAX) 35 mg Tablet, Take 1 tablet by mouth every 7 days. Take as directed., Disp: 4 tablet, Rfl: 12 ??? triamcinolone (KENALOG) 0.1 % Cream, prn, Disp: , Rfl: ??? aspirin 81 mg Tablet, Delayed Release (E.C.), Take 81 mg by mouth daily., Disp: , Rfl: ??? zolpidem (AMBIEN CR) 12.5 mg Tablet, Multiphasic Release, Take 12.5 mg by mouth nightly., Disp: , Rfl: ??? simvastatin (ZOCOR) 20 mg Tablet, Take 20 mg by mouth nightly., Disp: , Rfl: ??? hydrochlorothiazide (HYDRODIURIL) 25 mg tablet, , Disp: , Rfl: ??? metoprolol succinate (TOPROL XL) 100 mg XL tablet, , Disp: , Rfl: ??? 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 Appetite is good. Physical Examination: BP 155/78 Pulse 73 Temp 36.5 ??C (97.7 ??F) (Oral) Ht 176.5 cm (5' 9.5) Wt 86.7 kg (191 lb 1.6 oz) SpO2 100% BMI 27.82 kg/m2 General: Alert and oriented. Well developed and nourished. The patient did not appear distressed or uncomfortable. The patient ambulated without difficulty or assistance. Head: Scalp: Appeared normal. Eyes: Extraocular muscles were intact. External Eye: No hyperemia of the conjunctiva noted Sclera: Not red. Lungs: Respiration rhythm and depth was normal. Work of breathing was not increased. Cardiovascular system: Lower Extremity Edema: Not present. Musculoskeletal system: no synovitis or tenderness. Neurologic: gati nl from of all ext. Skin: No rash seen. Skin on hands and elbows is very dry Impression/Recommendations : PMR, seems stable. Will taper to 12 mg medrol next . Will stay on this dose for 2 weeks thentaper to 10 mg per day. After he has been on the 10 mg dose for 2 weeks will get his ESR and CRP rechecked. Will stay on 10 mg dose until f/u in early Jul. Con't hcq for poss seroneg inflmam arthritis. Eye exam is scheduled for next month. Osteopenia and salvage determiner steroids, con't fosamax, ca/vit d. DEXA due Aug 2018. Flu vaccine this fall F/U in Jul as previously scheduled HALEY HAMILTON APRN documented in this encounter Plan of Treatment Upcoming Encounters Date Type Specialty Care Team Description 04/23/2022 Office Visit Dermatology Cecilio Barillas MD [address] [place] [address] DERMATOLOGY [place], [place] [address] (Wo rk) 05/30/2022 Office Visit Rheumatology Theresa Robledo, DO [facility] DR RHEUMATOLOGY [place], [place] [address] (Wo rk) documented as of this encounter Visit Diagnoses Diagnosis PMR (polymyalgia rheumatica) Polymyalgia rheumatica Arthritis Arthropathy, unspecified, site unspecifi ed Osteopenia, unspecified location alf current use of systemic steroi ds Encounter for long-term (current) use of steroids documented in this encounter Care Teams Pan Cleaner Relationship Specialty Start Date End Date Jennifer Pelaez MD PCP - General 02/09/[address] [place] [address] [place] [address] documented as of this encounter
--- OUTSIDE RECORDS SUMMARY | 2022-04-12 02:25 | XMS_ITS | Encounter Summary ---
:1945 Author Organization [facility] Address [address] [place] [address] Care Team Providers Name Role Phone Jennifer Pelaez MD Primary Care Provider Encounter Details Date Type Department Care Team Description 02/02/2016 Hospital Encounter Radiology Library at [facility], [place] [address] Social History Tobacco Use Types Packs/Day [...] MD [address] [facility] DERMATOLOGY [place], [place] [address] (Wo rk) 05/30/2022 Office Visit Rheumatology Theresa Robledo, DO [facility] ER DR RHEUMATOLOGY [place], [place] [address] (Wo rk) documented as of this encounter Procedures Procedure Name Priority Date/Time Associated Diagnosis Comme nts FILM LIBRARY Routine 02/02/2016 12:00 AM Pain Results for this STORAGE ONLY DX EDT procedure ar e in FOOT the results section. documented in this encounter Results Film Library- Storage only DX Foot (02/02/2016 12:00 AM EDT) Specimen (Source) Anatomical Location Collection Method / Collectio n Time Received Time / Laterality Volume Narrative RAD - 02/04/2016 4:57 PM EDT This exam is for storage only and is aut o-finalizing. Dr Jeffers [facility] FILM LIBRARY ORDERABLES Performing Organization Address City/State/ZIP Code Phon e Number [place], [place] documented in this encounter Visit Diagnoses Diagnosis Pain Generalized pain documented in this encounter Care Teams Ux Information Architect Relationship Specialty Start Date End Date Jennifer Pelaez MD PCP - General 02/09/[address] [place] [address] FELY QUIROZ [address] documented as of this encounter
--- OUTSIDE RECORDS SUMMARY | 2022-04-12 02:25 | XMS_ITS | Encounter Summary ---
:1945 Author Organization [facility] [place] [address] Care Team Providers Name Role Phone Jennifer Pelaez MD Primary Care Provider Encounter Details Date Type Department Care Team Description 10/02/2016 Office Visit Rheumatology at [facility] [place] Lois Robledo PMR (polymyalgia rheumatica) ; [facility] DDO Osteoarthritis, unspecified osteoarthrit is type, unspecified site; [facility] predatory animal exterminator current [place] [address] RHEUMATOLOGY DEPT [phone] [place], [place] [address] Social History Tobacco Use Types Packs/Day Years Used Date Never Smoker Smokeless Tobacco: Never Used Sex Assigned at Date Recorded Not on file documented as of this encounter Last Filed Vital Signs Vital Sign Reading Time Taken Comments Blood Pressure 125/73 10/02/2016 1:01 PM EST Pulse 77 10/02/2016 1:01 PM EST Temperature 36.6 ??C (97.8 ??F) 10/02/2016 1:01 PM EST Respiratory Rate - - Oxygen Saturation 99% 10/02/2016 1:01 PM EST Inhaled Oxygen Concentration - - Weight 90.7 kg (200 lb) 10/02/2016 1:01 PM EST Height 176.5 cm (5' 9.5) 10/02/2016 1:01 PM EST Body Mass Index 29.11 10/02/2016 1:01 PM EST documented in this encounter Progress Notes Lois Robledo DO - 10/02/2016 1:00 PM EST HPI: Pt presents for follow up. He just had his jose neuroma removed two weeks ago. He notes he is doing okay. He has some pip stiffness but no swelling no sig pain. The stiffness is always present, but no sig pain. He does not think the pain is worse in the am.d oes not notice any change with use. No newberry, no vision changes, no jaw pain, no shoulder or hip girdle pian. He is on 9mg of prednisone. Last visit jun 2016 Pt presents for [...] hip pain. He was seen by an AUTOMOBILE CLUB INFORMATION CLERK. He notes the hip pain went away [...] walking. Background hx Cruz Zambrano is a 71 [...] has been seen by pain physicians and jboss developer. 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 Well developed [...] doing well from this standpoint, currenlty on 9 mg of prednisone which will stay on x 4 weeks total, then taper to 8 mg x 4 weeks then7 mg until follow up. Seroneg RA vs OA: pt has some stiffness in the pips following the tapering of prednisone, he denies any swelling or incr am stiffness, so suspect more OA as of now. Will con't hcq at this time. He can use tylenol prn for pain control. He will monitor for incr am stiffness, joint swelling. Suspect he also has seroneg RA, currenlty on hcq, but if he starts to flare will add mtx. Steroids: Pt will be on half-way corticosteroids, reviewed se. Con't fosamax, ca/vit d. The patient was educated on bisphoshponate use to include risk of pill esophagitis, AVN of the jaw and atypical subtrochanteric fractures. CC: Jennifer Pelaez MD documented in this encounter Plan of Treatment Upcoming Encounters Date Type Specialty Care Team Description 04/23/2022 Office Visit Dermatology Cecilio Barillas MD [address] [place] [address] DERMATOLOGY [place], [place] [address] (Wo rk) 05/30/2022 Office Visit Rheumatology Theresa Robledo, DO [facility] ER RHEUMATOLOGY [place], [place] [address] (Wo rk) documented as of this encounter Visit Diagnoses Diagnosis PMR (polymyalgia rheumatica) Polymyalgia rheumatica Osteoarthritis, unspecified osteoarthrit is type, unspecified site [facility] current use of systemic steroi ds Encounter for long-term (current) use of steroids documented in this encounter Care Teams Choker Setter Relationship Specialty Start Date End Date Jennifer Pelaez MD PCP - General 02/09/[address] [place] [address] [place] [address] documented as of this encounter
--- OUTSIDE RECORDS SUMMARY | 2022-04-12 02:25 | XMS_ITS | Encounter Summary ---
:1945 Author Organization [facility] [place] [address] Care Team Providers Name Role Phone Jennifer Pelaez MD Primary Care Provider Encounter Details Date Type Department Care Team Description 02/09/2015 Office Visit Dermatology at Cecilio [place]illas [place] (act karli Falk MD keratosis) [address] [facility] [address] DERMATOLOGY [place], [place] [id number] [phone] Social History Tobacco Use Types Packs/Day Years Used Date Never Smoker Sex Assigned at Date Recorded Not on file documented as of this encounter Progress Notes Cecilio Barillas MD - 02/09/2015 10:02 AM EDT Problem: Right forehead lesion. Cruz follows up after last being seen in 2012. 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 It has healed well without recurrence and almost no scarring. Recently he noted a new lesion, much smaller than the last, on the right upper forehead at a totally new site. Physical examination reveals an actinic keratosis. The rest of the facial examination is benign. Assessment and Plan: Actinic keratosis. a. After obtaining informed patient consent, the site was anesthetized and the site was removed with shave biopsy and light C and D times one. b. Triple antibiotic ointment and Band-Aid placed. Wound care instructions and supplies given. c. Return to clinic p.r.n. for new lesions/concerns. COPY: Jennifer Pelaez M.D. documented in this encounter Plan of Treatment Upcoming Encounters Date Type Specialty Care Team Description 04/23/2022 Office Visit Dermatology Cecilio Barillas MD [address] [facility] DERMATOLOGY [place], [place] [address] (Wo rk) 05/30/2022 Office Visit Rheumatology Theresa Robledo, DO [facility] RHEUMATOLOGY [place], [place] [address] (Wo rk) documented as of this encounter Visit Diagnoses Diagnosis AK (actinic keratosis) Actinic keratosis documented in this encounter Care Teams Client Service Coordinator Relationship Specialty Start Date End Date Jennifer Pelaez MD PCP - General 02/09/[address] [place] [address] [place] [address] documented as of this encounter
--- OUTSIDE RECORDS SUMMARY | 2022-04-12 02:25 | XMS_ITS | Encounter Summary ---
:1945 Author Organization [facility] [place] [address] Care Team Providers Name Role Phone Jennifer Pelaez MD Primary Care Provider Reason for Referral Consultation (Routine) - Closed Specialty Diagnoses / Procedures Referred By Contact Refer red To Contact Gastroenterology Diagnoses PMR (polymyalgia rheumatica) High risk medication use Healthcare maintenance Lois Robledo DO [facility] [place] [address] Referral ID Status Reason Start Date Expiration Date Visits V isits Requested Authorized [id number] Closed Consult, 01/14/2018 07/13/2018 1 1 Test & Treat Encounter Details Date Type Department Care Team Description 01/14/2018 Office Visit Rheumatology at [facility] Lois Robledo PMR (polymyalgia rheumatica) ; [facility] DO Kam High risk medication use; [facility] [place] [address] RHEUMATOLOGY [place], [place] [address] (Wo rk) Social History Tobacco Use Types Packs/Day Years Used Date Never Smoker Smokeless Tobacco: Never Used Sex Assigned at Date Recorded Not on file documented as of this encounter Last Filed Vital Signs Vital Sign Reading Time Taken Comments Blood Pressure 139/69 01/14/2018 4:00 PM EDT Pulse 78 01/14/2018 4:00 PM EDT Temperature 36.5 ??C (97.7 ??F) 01/14/2018 4:00 PM EDT Respiratory Rate - - Oxygen Saturation 100% 01/14/2018 4:00 PM EDT Inhaled Oxygen Concentration - - Weight 84.2 kg (185 lb 9.6 oz) 01/14/2018 4:00 PM EDT Height 175.3 cm (5' 9) 01/14/2018 4:00 PM EDT Body Mass Index 27.41 01/14/2018 4:00 PM EDT documented in this encounter Progress Notes Lois Robledo, DO - 01/14/2018 4:15 PM EDT Rheumatology Outpatient Follow-up Note CC: here for a f/u for PMR HPI: 72 y/o male here for a follow up for polymyalgia rheumatica. He was last seen by Dolores in Nov and wasfeeling well on 6/8mg of prednisone, and he tapered to 6 mg daily and then 3 weeks ago he increased by 2 mg to 8 mg, but still is having issues. He is on mtx 20 and is tolerating this. He does respond to corticosteroids symptom correa and as far as esr and crp. His weight and appetite are stable. He notes some incr r knee pain, has lost mm mm. Used to get hyaluronic acid injections with orthopedics, and this worked well for him. He denies any swelling or warmth of the knee. He is tolerating mtx well w/o issue. Patient denies any fevers, chills, night sweats, or GI symptoms. No pronounced headaches, no vision changes, no scalp tenderness or no jaw/tongue claudication. No CP or SOB. Current Outpatient Prescriptions: ??? methotrexate 2.5 mg Tablet, Take 8 tablets by mouth once a week., Disp: 40 tablet, Rfl: 3 ??? methylPREDNISolone (MEDROL) 4 mg Tablet, Tapering by 2 mg as tolerated. (Patient taking differently: Take 8 mg by mouth daily. Tapering by 2 mg as tolerated.), Disp: 60 tablet, Rfl: 3 ??? diclofenac (VOLTAREN) 1 % Gel, Apply 1 g topically as needed., Disp: , Rfl: ??? 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 Well developed and nourished. The patient did not appear distressed or uncomfortable. The patient ambulated without difficulty or assistance. in the exam room with himtoday. Eyes: Extraocular muscles were intact. External Eye: No hyperemia of the conjunctiva noted Sclera: Not red. Neck: no lymphadenopathy Lungs: Respiration rhythm and depth was normal. Work of breathing was not increased. Cardiovascular system:RRR Lower Extremity Edema: Not present. Musculoskeletal system: Able to get up from the chair and onto the exam table with no difficulty. Neg tredenlenberg testing, mm strength intact on exam 5/5 proxm No joint swelling or tenderness. Neurologic: non antalgic gait, sensory grossly intact Skin: No rash seen. + multiple bruises and small skin tears Impression/Recommendations : PMR: ongoing disease activity and unable to taper below 8 mg of medrol, with rise in APRs and symptoms. Has had negative RF/ccp/imaging/cpk. Neg hepatitis and tb testing as well. He is currenlty on medrol 8mg, incr to 10 mg x 2 weeks then back to 8 mg. On methotrexate 20 mg q wekly, transition to 20 mg subcu and will plan to incr the dose to 25 mg qweekly. AT onset had hand and wrist swelling and fit with seroneg RA, which may benefit more for adding a biologic. Plan to add actemra, has hx of diverticulosis, will get his old colo results to me and he is due forupdated colonoscopy, ordered today. If this is not approved for him will likely add enbrel. 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 DEXA due Aug 2018. OA, worse with mm wasting, rec cont to work with pT F/U in 2 months Lois Robledo DO documented in this encounter Plan of Treatment Upcoming Encounters Date Type Specialty Care Team Description 04/23/2022 Office Visit Dermatology Cecilio Barillas MD [address] DERMATOLOGY [place], [place] [address] (Eren murdock) 05/30/2022 Office Visit Rheumatology Theresa Robledo DO [facility] [address] RHEUMATOLOGY [place], [place] [address] (Eren murdock) Scheduled Referrals Name Type Priority Associated Order Schedule Diagnoses Referral to Outpatient Routine PMR (polymyalgia Ordered: Gastroenterology Referral rheumatica) 01/14/2018 High risk medication use Healthcare maintenance documented as of this encounter Visit Diagnoses Diagnosis PMR (polymyalgia rheumatica) Polymyalgia rheumatica High risk medication use Encounter for long-term (current) use of other medications Healthcare maintenance Routine general medical examination at a health care facility documented in this encounter Care Teams Broker Agricultural Produce Relationship Specialty Start Date End Date Jennifer Pelaez MD PCP - General 02/09/[address] [place] [id number] documented as of this encounter
--- OUTSIDE RECORDS SUMMARY | 2022-04-12 02:25 | XMS_ITS | Encounter Summary ---
:1945 Author Organization [facility] [place] [address] Care Team Providers Name Role Phone Jennifer Pelaez MD Primary Care Provider Reason for Referral Physical Therapy (Routine) - Closed Specialty Diagnoses / Procedures Referred By Contact Refer red To Contact Physical Therapy Diagnoses Steroid-induced myopathy Haley Hamilton, Physical Therapy, Cash VALDIV[facility] Kam R [address] [address] [place] [address] [place] [address] Phone: Fax: Referral ID Status Reason Start Date Expiration Date Visits V isits Requested Authorized [id number] Closed Evaluate and 09/10/2017 03/09/2018 12 12 Treat Encounter Details Date Type Department Care Team Description 09/10/2017 Office Visit Rheumatology at [facility] Haley Hamilton PMR (polymyalgia rheumatica) ; [facility] SKIP [place] Osteopenia, unspecified location; [facility] Osteoarthritis, unspecified osteoarthritis type, unspecified site; [place], [place] Steroid-induced myopathy; [id number] [place] [address] Arthritis; [phone] Chronic fatigue ; (Work) Poor sleep; Snores Social History Tobacco Use Types Packs/Day Years Used Date Never Smoker Smokeless Tobacco: Never Used Sex Assigned at Date Recorded Not on file documented as of this encounter Last Filed Vital Signs Vital Sign Reading Time Taken Comments Blood Pressure 145/83 09/10/2017 12:44 PM EST Pulse 89 09/10/2017 12:44 PM EST Temperature 36.5 ??C (97.7 ??F) 09/10/2017 12:44 PM EST Respiratory Rate - - Oxygen Saturation 100% 09/10/2017 12:44 PM EST Inhaled Oxygen Concentration - - Weight 85.3 kg (188 lb) 09/10/2017 12:44 PM EST Height 176.5 cm (5' 9.5) 09/10/2017 12:44 PM EST Body Mass Index 27.36 09/10/2017 12:44 PM EST documented in this encounter Progress Notes Haley Hamilton, AIR QUALITY INSTRUMENT SPECIALIST - 09/10/2017 1:00 PM EST Rheumatology Outpatient Follow-up Note Pt of Dr. Robledo Last OV Jul 2017 CC: here for a f/u for PMR HPI: 72 y/o male here for a follow up for polymyalgia rheumatica. He is currently on 8 mg of methylprednisolone for three weeks. He started 15 mg MTX weekly in Jul. He is tolerating well. No oral ulcers, hair loss, or GI upset. No infections or fevers. He is also on plaquenil. His eye exam is up to date. Joints are good, he seems to be responding to MTX. He has no joint complaints today. Still with generalized diffuse muscle weakness. 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 Sleep is poor, wakes frequently. Has associated fatigue. Never wakes feeling refreshed even if he gets 6 hours. reports snoring, no periods of apnea. Used to respond to Ambien but not as much lately. Has been on Ambien for 10 years. Has never had a sleep study. Patient denies any fevers, chills, night sweats, or GI symptoms. No pronounced headaches, no vision changes, no scalp tenderness or no jaw/tongue claudication. No CP or SOB. Labs 09/05/17 with mildly elevated WBC ct, macrocytic anemia-Hgb 12.1, normal LFTs and creat, ESR of 26 and CRP 0.15. Labs scanned into [facility]. Current Outpatient Prescriptions: ??? methylPREDNISolone (MEDROL) 4 mg Tablet, Take 8 mg by mouth daily., Disp: , Rfl: ??? diclofenac (VOLTAREN) 1 % Gel, Apply 1 g topically as needed., Disp: , Rfl: ??? alendronate (FOSAMAX) 35 mg Tablet, Take 1 tablet by mouth every 7 days. Take as directed., Disp: 4 tablet, Rfl: 12 ??? methotrexate 2.5 mg Tablet, Take 6 tablets by mouth once a week., Disp: 36 tablet, Rfl: 2 ??? 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 Well developed [...] Skin: No rash seen. + multiple bruises Impression/Recommendations : PMR, seems stable on medrol 8 mg/d, 15 mg weekly MTX and 400 mg daily plaquenil. Will continue to taper medrol by 2 mg every month. If he runs into trouble with the taper he will try alternating every other day doses. Can try to reduce Plaquenil to 200 mg per day. Keep same MTX. Labs every 4 weeks for now, he had macrocytic anemia on his recent CBC, I don't have a pre MTX CBC for comparison-will monitor with next labs. Is taking FA 1 mg every day. Had his flu vaccine this fall Poor sleep, snoring and fatigue, sounds like he would benefit from a sleep study. He would prefer this locally and will discuss with PCP. 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 digital media associate steroids, osteopenia, Con't fosamax, ca/vit d. DEXA due Aug 2018. OA, seems stable F/U in 2 months HALEY HAMILTON APRN documented in this encounter Plan of Treatment Upcoming Encounters Date Type Specialty Care Team Description 04/23/2022 Office Visit Dermatology Cecilio Barillas MD [address] [place] [address] DERMATOLOGY [place], [place] [address] (Wo rk) 05/30/2022 Office Visit Rheumatology Theresa Robledo, DO [facility] [address] RHEUMATOLOGY [place], [place] [address] (Wo rk) Scheduled Referrals Name Type Priority Associated Diagnoses Order S chedule Referral to Outpatient Referral Routine Steroid-induced Order ed: Physical Therapy myopathy 09/10/2017 documented as of this encounter Visit Diagnoses Diagnosis PMR (polymyalgia rheumatica) Polymyalgia rheumatica Osteopenia, unspecified location Osteoarthritis, unspecified osteoarthrit is type, unspecified site Steroid-induced myopathy Toxic myopathy Arthritis Arthropathy, unspecified, site unspecifi ed Chronic fatigue Other malaise and fatigue Poor sleep Snores Other dyspnea and respiratory abnormalit y documented in this encounter Care Teams Safe And Vault Installer Relationship Specialty Start Date End Date Jennifer Pelaez MD PCP - General 02/09/[address] [place] [address] [place] [address] documented as of this encounter
--- OUTSIDE RECORDS SUMMARY | 2022-04-12 02:25 | XMS_ITS | Encounter Summary ---
:1945 [place] [address] Care Team Providers Name Role Phone Sandro Garcia MD Primary Care Provider Encounter Details Date Type Department Care Team Description 08/24/2012 Hospital Encounter Radiology Library at [facility], [place] [address] Social History Tobacco Use Types Packs/Day Years Used Date Never Assessed Sex Assigned at Date Recorded Not on file documented as of this encounter Medications at Time of Discharge Medication Sig Dispensed Refills Start Date End Date valACYclovir (VALTREX) 500 mg tablet 0 03/19/2010 [facility] Free Text Med - Aspirin 0 03/19/20 10 03/21/2016 ezetimibe-simvastatin (VYTORIN 10-20) 0 03/19/2010 04/29/2016 10-20 mg per tablet hydrochlorothiazide (HYDRODIURIL) 25 mg 0 03/19/2010 09/11/2020 tablet metoprolol succinate (TOPROL XL) 100 mg 0 03/19/2010 04/20/2021 XL tablet zolpidem (AMBIEN) 10 mg tablet 0 03/1903/21/2016 documented as of this encounter Plan of Treatment Upcoming Encounters Date Type Specialty Care Team Description 04/23/2022 Office Visit Dermatology Cecilio Barillas MD [address] [place] [address] DERMATOLOGY [place], [place] [address] (Wo rk) 05/30/2022 Office Visit Rheumatology Theresa Robledo, DO [facility] RHEUMATOLOGY [place], [place] [address] (Wo rk) documented as of this encounter Procedures Procedure Name Priority Date/Time Associated Diagnosis Comme nts FILM LIBRARY Routine 08/24/2012 12:00 AM Pain Results for this STORAGE ONLY MR EST procedure ar e in SPINE the results section. documented in this encounter Results Film Library- Storage only MR Spine (08/24/2012 12:00 AM EST) Specimen (Source) Anatomical Location Collection Method / Collectio n Time Received Time / Laterality Volume Narrative MICHEAL - 02/05/2016 10:33 PM EDT This exam is for storage only and is aut o-finalizing. Dr Jeffers [facility] FILM LIBRARY ORDERABLES Performing Organization Address City/State/ZIP Code Phon e Number [place], [place] documented in this encounter Visit Diagnoses Diagnosis Pain Generalized pain documented in this encounter Care Teams Diver Pumper Relationship Specialty Start Date End Date Sandro Garcia MD PCP - General 08/28/10 02/08/[address] [place] [address] [place] [address] documented as of this encounter
--- OUTSIDE RECORDS SUMMARY | 2022-04-12 02:25 | XMS_ITS | Encounter Summary ---
:1945 Author Organization [facility] [place] [address] Care Team Providers Name Role Phone Jennifer Pelaez MD Primary Care Provider Reason for Visit Reason Comments Follow-up Encounter Details Date Type Department Care Team Description 01/30/2018 Office Visit Dermatology at Cecilio Barillas, Seborrh eic keratosis; Dileep ANGULO [place] (actinic keratosis) [address] [place] [address] DERMATOLOGY [place], [place] [phone] Social History Tobacco Use Types Packs/Day Years Used Date Never Smoker Smokeless Tobacco: Never Used Sex Assigned at Date Recorded Not on file documented as of this encounter Progress Notes Cecilio Barillas MD - 01/30/2018 8:45 AM EDT Problem: 1. Repeat actinic check 2. Polymyalgia rheumatica/poorly defined connective tissue disease on prednisone Cruz follows up after last being seen in July. Continues on prednisone for his from rheumatologicissues. He is taking 10 mg a day. He try to drop down to 8 but his symptoms worsened. He has some new actinic's. Physical examination reveals 6 actinic keratoses present in the thinning parietal scalp. 1 of these is a cutaneous horn. Examination of the face the ears the neck hands is otherwise benign. He has numerous prednisone-induced ecchymoses 1-1.5 cm in diameter on both dorsal forearms and arms Assessment plan: Actinic keratoses 1. LN 2 x 2 applied each of 6 sites 2. Patient reassured about remainder benign skin examination 3. Return to clinic in another 6 months for repeat check. Cc: Jennifer Pelaez MD documented in this encounter Plan of Treatment Upcoming Encounters Date Type Specialty Care Team Description 04/23/2022 Office Visit Dermatology Cecilio Barillas MD [address] [place] [address] DERMATOLOGY [place], [place] [address] (Wo rk) 05/30/2022 Office Visit Rheumatology Theresa Robledo, DO [facility] [address] RHEUMATOLOGY [place], [place] [address] (Wo rk) documented as of this encounter Visit Diagnoses Diagnosis Seborrheic keratosis Other seborrheic keratosis [place] (actinic keratosis) Actinic keratosis documented in this encounter Care Teams Seed Laboratory Assistant Relationship Specialty Start Date End Date Jennifer Pelaez MD PCP - General 02/09/[address] [place] [address] [place] [address] documented as of this encounter
--- OUTSIDE RECORDS SUMMARY | 2022-04-12 02:25 | XMS_ITS | Encounter Summary ---
:1945 [place] [address] Care Team Providers Name Role Phone Jennifer Pelaez MD Primary Care Provider Encounter Details Date Type Department Care Team Description 03/18/2016 Orders Only Rheumatology at [facility] Lois Robledo, [facility] [place] [address] RHEUMATOLOGY DEPT [phone] [place], [place] [address] (Wo rk) Social History Tobacco Use Types Packs/Day Years Used Date Never Smoker Sex Assigned at Date Recorded Not on file documented as of this encounter Plan of Treatment Upcoming Encounters Date Type Specialty Care Team Description 04/23/2022 Office Visit Dermatology Cecilio Barillas MD [address] [place] [address] DERMATOLOGY [place], [place] [address] (Wo rk) 05/30/2022 Office Visit Rheumatology Theresa Robledo, [facility] [address] RHEUMATOLOGY [place], [place] [address] (Wo rk) documented as of this encounter Visit Diagnoses Diagnosis Arthritis Arthropathy, unspecified, site unspecifi ed documented in this encounter Care Teams Soda Fountain Operator Relationship Specialty Start Date End Date Jennifer Pelaez MD PCP - General 02/09/[address] [place] [address] [place], [place] [id number] documented as of this encounter
--- OUTSIDE RECORDS SUMMARY | 2022-04-12 02:25 | XMS_ITS | Encounter Summary ---
:1945 Author Organization [facility] [address] Care Team Providers Name Role Phone Jennifer Pelaez MD Primary Care Provider Reason for Visit Reason Comments Follow-up Encounter Details Date Type Department Care Team Description 08/27/2019 Office Visit Dermatology at Cecilio Barillas, History of basal cell carcinoma; Dileep ANGULO Seborrheic keratosis; [address] [place] (actinic keratosis) [place] DERMATOLOGY [place], [place] [phone] Social History Tobacco Use Types Packs/Day Years Used Date Never Smoker Smokeless Tobacco: Never Used Sex Assigned at Date Recorded Not on file documented as of this encounter Progress Notes Cecilio Barillas MD - 08/27/2019 8:15 AM EST Problem: 1. 6-month skin checkup 2. Polymyalgia rheumatica/poorly defined connective tissue disease on prednisone/[place] methotrexate 3. 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 He has been doing well. He notes some new actinic's. He is stillworking at [employer]. Physical examination reveals hyperkeratotic actinic's on the lateral cheeks of forehead and within the thinning parietal scalp. He has a benign examination of the chest and the back with several small seborrheic keratoses per. He has numerous ecchymoses on the dorsal hands and forearms from his prednisone for his connective tissue disease. Assessment plan: Actinic keratoses scalp and facial 1. LN 2 x 2 applied each of 6 sites 2. If does not resolve these do not resolve within 2 to 3 weeks return to clinic for possible shave C&D 3. Return to clinic in 6 months for repeat check. CC: Jennifer Pelaez MD documented in this encounter Plan of Treatment Upcoming Encounters Date Type Specialty Care Team Description 04/23/2022 Office Visit Dermatology Cecilio Barillas MD [address] [facility] DERMATOLOGY [place], [place] [address] (Wo rk) 05/30/2022 Office Visit Rheumatology Theresa Robledo, DO [facility] [address] RHEUMATOLOGY [place], [place] [address] (Wo rk) documented as of this encounter Visit Diagnoses Diagnosis History of basal cell carcinoma Personal history of other malignant neop lasm of skin Seborrheic keratosis Other seborrheic keratosis [place] (actinic keratosis) Actinic keratosis documented in this encounter Care Teams Diffusion Furnace Operator Relationship Specialty Start Date End Date Jennifer Pealez MD PCP - General 02/09/[address] [place] [address] [place] [address] documented as of this encounter
--- OUTSIDE RECORDS SUMMARY | 2022-04-12 02:25 | XMS_ITS | Encounter Summary ---
:1945 [place] [address] Care Team Providers Name Role Phone Jennifer Pelaez MD Primary Care Provider Encounter Details Date Type Department Care Team Description 09/01/2018 [facility] [place] [address] [place] [address] [phone] (Wo rk) Social History Tobacco Use Types Packs/Day Years Used Date Never Smoker Smokeless Tobacco: Never Used Sex Assigned at Date Recorded Not on file documented as of this encounter Medications at Time of Discharge Medication Sig Dispensed Refills Start Date End Date valACYclovir (VALTREX) 500 0 0 mg tablet metHOTREXate 25 mg/mL 1 ml subcutaneous 6 vial 2 018 03/15/2019 SolutionIndications: PMR weekly (polymyalgia rheumatica), High risk medication use, Healthcare maintenance, Arthritis, Elevated C-reactive protein (CRP), Osteopenia, unspecified location, half-way current use of systemic steroids folic acid (FOLVITE) 1 mg Take 1 tablet by 90 tablet 3 06/0703/03/2019 TabletIndications: mouth daily. Arthritis, PMR (polymyalgia rheumatica), Elevated C-reactive protein (CRP), High risk medication use, Healthcare maintenance, Osteopenia, unspecified location, half-way current use of systemic steroids Syringe with Needle, Disp, 1 Units by 20 Syringe 3 8 06/14/2019 (BD TUBERCULIN SYRINGE) 1 Misc.(Non-Drug; mL 27 x 1/2 Combo Route) route SyringeIndications: PMR once a week. (polymyalgia rheumatica), High risk medication use, Healthcare maintenance, Arthritis, Elevated C-reactive protein (CRP), Osteopenia, unspecified location, half-way current use of systemic steroids methylPREDNISolone Take 2 tablets by 180 each 1 06/29/2018 03/03/2019 (MEDROL) 4 mg mouth daily. TabletIndications: PMR (polymyalgia rheumatica), High risk medication use, Healthcare maintenance, Arthritis, Elevated C-reactive protein (CRP), Osteopenia, unspecified location, half-way current use of systemic steroids alendronate (FOSAMAX) 35 Take 1 tablet by 4 tablet 12 06/2909/04/2018 mg TabletIndications: mouth every 7 days. Osteopenia, unspecified Take as directed. location BD SAFETYGLIDE SHIELDING once a week. 0 8 06/14/2019 REG 1 mL 25 gauge x 5/8 SyringeIndications: PMR (polymyalgia rheumatica), Osteopenia, unspecified location, half-way current use of systemic steroids omeprazole (PRILOSEC) 20 Take 1 capsule by 0 05/201709/11/2020 mg Capsule, Delayed mouth daily. Release(E.C.)Indications: Arthritis, PMR (polymyalgia rheumatica), Elevated C-reactive protein (CRP) ERGOCALCIFEROL, VITAMIN Take 2,000 Units by 0 06/14/2019 D2, (VITAMIN D mouth daily. ORAL)Indications: PMR (polymyalgia rheumatica), Arthritis triamcinolone (KENALOG) Apply 1 Application 0 11/03/2020 0.1 % CreamIndications: topically as Arthritis, PMR needed. (polymyalgia rheumatica), Pain in right hip, Pain in left hip aspirin 81 mg Tablet, Take 81 mg by mouth 0 04/02/2021 Delayed Release daily. (E.C.)Indications: Pseudogout simvastatin (ZOCOR) 20 mg Take 20 mg by mouth 0 09/11/2020 TabletIndications: nightly. Tenosynovitis hydrochlorothiazide 0 03/19/201009/11 (HYDRODIURIL) 25 mg tablet metoprolol succinate 0 03/19/201004/05 (TOPROL XL) 100 mg XL tablet documented as of this encounter Plan of Treatment Upcoming Encounters Date Type Specialty Care Team Description 04/23/2022 Office Visit Dermatology Cecilio Barillas MD [address] [facility] DERMATOLOGY [place], [place] [address] (Wo rk) 05/30/2022 Office Visit Rheumatology Theresa Robledo, DO [facility] DR RHEUMATOLOGY [place], [place] [address] (Wo rk) documented as of this encounter Procedures Procedure Name Priority Date/Time Associated Diagnosis Comme nts FILM LIBRARY- Routine 09/01/2018 12:00 AM Results for this STORAGE ONLY DXA EST procedure a re in IMAGES the results section. documented in this encounter Results Film Library- Storage Only DXA Images (09/01/2018 12:00 AM EST) Specimen (Source) Anatomical Location Collection Method / Collectio n Time Received Time / Laterality Volume Narrative [facility] - 09/02/2018 5:36 AM EST This exam is for storage only and is aut o-finalizing. Lois Robledo DO IMG FILM LIBRARY ORDERABLES Performing Organization Address City/State/ZIP Code Phon e Number [place], [place] documented in this encounter Visit Diagnoses Not on filedocumented in this encounter Care Teams Hair Blender Relationship Specialty Start Date End Date Jennifer Pelaez MD PCP - General 02/09/[address] [place] [address] [place] [address] documented as of this encounter
--- OUTSIDE RECORDS SUMMARY | 2022-04-12 02:25 | XMS_ITS | Encounter Summary ---
:1945 Author Organization [facility] [place] [address] Care Team Providers Name Role Phone Jennifer Pelaez MD Primary Care Provider Reason for Visit Reason Comments Skin Check Encounter Details Date Type Department Care Team Description 11/09/2015 [facility]li Falk MD keratosis[facility] [address] [facility] [address] DERMATOLOGY [place], [place] [id number] [phone] Social History Tobacco Use Types Packs/Day Years Used Date Never Smoker Sex Assigned at Date Recorded Not on file documented as of this encounter Patient Instructions Patient InstructionsIvonne Taylor LPN - 11/09/2015 10:44 AM EST [facility] Actinic Keratosis: After Your Visit Your Care Instructions Actinic keratosis is a skin growth caused by sun damage. It can turn into skin cancer, but this isn't common. Actinic keratoses, also called solar keratoses, are small red, brown, or skin-colored scalypatches. They are most common on the face, neck, hands, and forearms. Your doctor can remove these growths by freezing or scraping them off or by putting medicines on them. Follow-up care is a ceja part of your treatment and safety. Be sure to make and go to all appointments, and call your doctor if you are having problems. It's also a good idea to know your test results and keep a list of the medicines you take. How can you care for yourself at home? ?? If your doctor removes the growth, clean the area with soap and water 2 times a day unless your doctor gives you different instructions. Don't use hydrogen peroxide or alcohol, which can slow healing. ?? You may cover the wound with a thin layer of petroleum jelly, such as Vaseline, and a nonstick bandage. To prevent actinic keratosis ?? Always wear sunscreen on exposed skin. Make sure the sunscreen blocks ultraviolet rays (both UVA and UVB) and has a sun protection factor (SPF) of at least 15. Use it every day, even when it is cloudy. Some doctors may recommend a higher SPF, such as 30. ?? Wear long sleeves, a hat, and pants if you are going to be outdoors for a long time. ?? Avoid the sun between 10 a.m. and 4 p.m., the peak time for UV rays. ?? Do not use tanning booths or sunlamps. When should you call for help? Watch closely for changes in your health, and be sure to contact your doctor if: ?? The areas that were treated are red, drain pus, or have red streaks leading from them. ?? You see other growths that do not go away. ?? You do not get better as expected. Where can you learn more? Visit our health information library at [email or web address] You can also view health information on [employer], your personal patient account. Log in or sign up today. Enter L364 in the search box to learn more about Actinic Keratosis: After Your Visit. ?? [id number] [employer]. Care instructions adapted under license by [facility]. This care instruction is for use with your licensed healthcare professional. If you have questionsabout a medical condition or this instruction, always ask your healthcare professional. [employer] disclaims any warranty or liability for your use of this information. Content Version: 10.4.294975; Current as of: May 05, 2014 documented in this encounter Progress Notes Cecilio Barillas MD - 11/09/2015 11:10 AM EST Problems: 1. Skin lesions of concern. 2. History of actinic keratoses. Cruz follows up and has noted more lesions on his skin. He is not sure what they are. Physical examination reveals, in fact, a number of actinic keratoses developing in new sites on the vertex of the scalp and the left and right temples, but the sites treated previously in February 2015 on the right eyebrow area and right upper forehead have remained healed. He has a number of seborrheic keratoses on his back. He has a few seborrheic keratoses present as small early sites on his left flank, a few on his right flank. There is no evidence of any malignant lesions. Assessment and Plan: Actinic keratoses. a. LN2 times two applied to each of seven sites. b. I recommended I see him again in another six months for repeat check. c. At that time, we will determine every six-month or every 12-month followup will be indicated. d. We discussed at length the etiology of actinic keratoses and the importance of their treatment. e. Reinforced sun avoidance precautions, which the patient is following. COPY: Jennifer Pelaez M.D. documented in this encounter Plan of Treatment Upcoming Encounters Date Type Specialty Care Team Description 04/23/2022 Office Visit Dermatology Cecilio Barillas MD [address] [facility] DERMATOLOGY [place], [place] [address] (Wo collette) 05/30/2022 Office Visit Rheumatology Theresa Robledo, DO [facility] RHEUMATOLOGY [place], [place] [address] (Wo collette) documented as of this encounter Visit Diagnoses Diagnosis AK (actinic keratosis) Actinic keratosis documented in this encounter Care Teams Him Clerk Relationship Specialty Start Date End Date Jennifer Pelaez MD PCP - General 02/09/[address] [place] [address] [place] [address] documented as of this encounter
--- OUTSIDE RECORDS SUMMARY | 2022-04-12 02:25 | XMS_ITS | Encounter Summary ---
:1945 Author Organization [facility] [place] [address] Care Team Providers Name Role Phone Jennifer Pelaez MD Primary Care Provider Reason for Visit Reason Onset Date Comments Other 01/15/2018 Medication Clarifica tion Encounter Details Date Type Department Care Team Description 01/15/2018 Telephone Rheumatology at [facility] Daniel Knight, Other ([facility] Kam ferreira RN Clarification) [place] [address] Social History Tobacco Use Types Packs/Day Years Used Date Never Smoker Smokeless Tobacco: Never Used Sex Assigned at Date Recorded Not on file documented as of this encounter Miscellaneous Notes Telephone Encounter - Daniel Knight RN - 01/15/2018 2:40 PM EDT Call received from Pharmacy to clarify route of Injectable Methotrexate. I confirmed the route is SCand not IM or IV. documented in this encounter Plan of Treatment Upcoming Encounters Date Type Specialty Care Team Description 04/23/2022 Office Visit Dermatology Cecilio Barillas MD [address] [place] [address] RD DERMATOLOGY [place], [place] [address] (Wo rk) 05/30/2022 Office Visit Rheumatology Theresa Robledo, [facility] DR RHEUMATOLOGY [place], [place] [address] (Wo rk) documented as of this encounter Visit Diagnoses Not on filedocumented in this encounter Care Teams Professor Of Genetics Relationship Specialty Start Date End Date Jennifer Pelaez MD PCP - General 02/09/[address] [place] [address] [place] [address] documented as of this encounter
--- OUTSIDE RECORDS SUMMARY | 2022-04-12 02:25 | XMS_ITS | Encounter Summary ---
:1945 [place] [address] Care Team Providers Name Role Phone Jennifer Pelaez MD Primary Care Provider Encounter Details Date Type Department Care Team Description 07/09/2017 Orders Only Rheumatology at [facility] Lois Robledo PMR ([facility] D, DO rheumatica) [place] [address] RHEUMATOLOGY [place], [place] [address] (Wo rk) Social History Tobacco Use Types Packs/Day Years Used Date Never Smoker Smokeless Tobacco: Never Used Sex Assigned at Date Recorded Not on file documented as of this encounter Plan of Treatment Upcoming Encounters Date Type Specialty Care Team Description 04/23/2022 Office Visit Dermatology Cecilio Barillas MD [address] [place] [address] DERMATOLOGY [place], [place] [address] (Wo rk) 05/30/2022 Office Visit Rheumatology Theresa Robledo, DO [facility] RHEUMATOLOGY [place], [place] [address] (Wo rk) documented as of this encounter Visit Diagnoses Diagnosis PMR (polymyalgia rheumatica) Polymyalgia rheumatica documented in this encounter Care Teams Assistant Engineer Relationship Specialty Start Date End Date Jennifer Pelaez MD PCP - General 02/09/[address] [place] [address] [place], [place] [id number] documented as of this encounter
--- OUTSIDE RECORDS SUMMARY | 2022-04-12 02:25 | XMS_ITS | Encounter Summary ---
:1945 Author Organization [facility] [place] [address] Care Team Providers Name Role Phone Jennifer Pelaez MD Primary Care Provider Encounter Details Date Type Department Care Team Description 07/16/2017 Office Visit [place] [facility] [place] Lois Robledo Arthritis; [facility] DO Kam PMR (polymyalgia rheumatica); [facility] Elevated C-reactive protein ([place]) [place] [address] RHEUMATOLOGY [place], [place] [address] (Wo rk) Social History Tobacco Use Types Packs/Day Years Used Date Never Smoker Smokeless Tobacco: Never Used Sex Assigned at Date Recorded Not on file documented as of this encounter Last Filed Vital Signs Vital Sign Reading Time Taken Comments Blood Pressure 131/71 07/16/2017 2:47 PM EDT Pulse 79 07/16/2017 2:47 PM EDT Temperature - - Respiratory Rate 18 07/16/2017 2:47 PM EDT Oxygen Saturation 100% 07/16/2017 2:47 PM EDT Inhaled Oxygen Concentration - - Weight 83.4 kg (183 lb 12.8 oz) 07/16/2017 2:47 PM EDT Height 176.5 cm (5' 9.5) 07/16/2017 2:47 PM EDT Body Mass Index 26.75 07/16/2017 2:47 PM EDT documented in this encounter Patient Instructions Patient InstructionsLois Robledo DO - 07/16/2017 3:00 PM EDT Methotrexate 6 tabs once per week Folic acid daily methylpred 12 mg x 3-4 weeks then 10 mg x 2-3 weeks, then 8mg x 3 weeks Labs every 4 weeks until follow up documented in this encounter Progress Notes Lois Robledo DO - 07/16/2017 3:00 PM EDT HPI: Mr Zambrano presents for follow up. His polymyalgia rheumatica. He is currently on 12 mg of methylprednisolone with some mild stiffness in his bilateral lateral thighs. He has been unable to taper in the recent past below 10 mg of methylprednisolone. Historically we did get down to 5 mg of prednisone and he flared and since that time been having significant difficulty tapering. Patient denies any fevers, chills, night sweats, no JVD significant GI symptoms, did have one episode of diarrhea which was self-limited. No pronounced headaches of the temporal region did have one headache which is occipital, no vision changes no scalp tenderness no jaw claudication. He has lost a little bit of weight but thinks this is more due to muscle mass. He has noted some weakness and going up and down the ladder and doing work at home. He reports some increasing fatigue as well as blurry vision was seen by ophthalmology no definite cataract formation. Notes dry skin on elbows, and knees, has improved w lubriderm He fell, 2 weeks ago, missed the bottom steps and had some bruisig. Background hx Cruz Zambrano is a 71 [...] has been seen by pain physicians and utilities operator. He went to PT/accupunture/chiropracter without relief He notes he cannot sit at times d/t It He notes the the buttock pain feels like he has a diaper rash He has tried lyrica, cymbalta, which have not helped, elavil He notes bl le swelling a few years ago, lasted some time, was sen in [place] for it, was tried oncorticosteroids, and then [...] Hematuria 32. Dysuria Musculoskeletal 33. Muscle weakness x 34. Myalgia x 35. Shoulder pain 36. 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 Well developed and nourished. The patient did not appear distressed or uncomfortable. The patient ambulated without difficulty or assistance. Head: Scalp: Appeared normal. Eyes: PERRL. Extraocular muscles were intact. External Eye: No hyperemia of the conjunctiva noted Sclera: Not red. Neck some fatty tissue enlargement noted potential small nodule on the thyroid also palpated. Lungs: Respiration rhythm and depth was normal. [...] Neurologic: gati nl from of all ext. upper extremity strength and handgrip biceps triceps and deltoid is 5 out of 5 lower extremity eczema muscle hip flexor, knee flexor extensor noted to be 4+ out of 5. Skin: No rash seen Laboratory Data: rf [...] xrays: oa dips and pips Impression/Recommendations : Crzu Zambrano is a 71 y.o. male Who initially presented with r right hand wrist/swelling and 3/4/5digit swelling along with w tenosyonvitis of the palmaris longus, who then developed bl hip and shoulder pain with am stiffness and elevated markers of inflammation along with rapid response to corticos teroids c/w PMR. PMR: He was initially doing quite well on a prednisone taper and was able to get down to 5 mg of prednisone however in January 2017 he flared and he has not had been able to consistently taper since thattime. Given multiple failed tapers below 10 mg of prednisone plan to add an additional agent. Discussed with him today methotrexate. He will start 6 tabs weekly with folic acid daily. Will complete labs in 4 weeks time. Most recent labs were completed the end of June and showed normal liver and kidney function normal blood counts as well as negative hepatitis B, C and tuberculosis testing. Depending on his response methotrexate may discontinue hydroxychloroquine. Hopefully will be able to continue tapering down on his prednisone In a few weeks. Methotrexate 6 tabs once per week Folic acid daily methylpred 12 mg x 3-4 weeks then 10 mg x 2-3 weeks, then 8mg x 3 weeks Labs every 4 weeks until follow up Steroid myopathy: rec PT< patient declines, reviewed exercises in clinic, will also check cpk to be complete ?thyroid nodule: US ordered, recent ts/ft4 neg Steroids: Pt will be on [facility] corticosteroids Con't fosamax, ca/vit d. The patient was educated on bisphoshponate use to include risk of pill esophagitis, AVN of the jaw and atypical subtrochanteric fractures. Benefits, risks and potential side effects of methotrexate were discussed including fatigue, mouth sores, nausea, hair thinning, liver and bone marrow effects requiring q 3 month labs to monitor for drug toxicity, rare allergic pulmonary reaction and, if appropriate, avoidance of . Alcohol intake should be limited. It takes 6-8 weeks for methotrexate to work. It was explained that this drug is taken once per WEEK, and daily folic acid starting a 1 mg per day can help counter the side effects.The patient is aware to seek care for infections/febrile episodes and to hold the medication while on antibiotic therapy for an infection. The patient will make me aware of any planned surgeries so hold parameters can be identified. The patient is aware to complete labs as requested. Corticosteroids; discussed w pt risks today to include weight gain, diabetes, osteoporosis, fluid retention, mood lability, poor sleep,increased risk for infection, thrombosis, AVN of bones Reviewed need to take ca/vit d CC: Jennifer Pelaez MD documented in this encounter Plan of Treatment Upcoming Encounters Date Type Specialty Care Team Description 04/23/2022 Office Visit Dermatology Cecilio Barillas MD [address] [place] [address] DERMATOLOGY [place], [place] [address] (Eren murdock) 05/30/2022 Office Visit Rheumatology Theresa Robledo DO [facility] DR RHEUMATOLOGY [place], [place] [address] (Eren murdock) documented as of this encounter Visit Diagnoses Diagnosis Arthritis Arthropathy, unspecified, site unspecifi ed PMR (polymyalgia rheumatica) Polymyalgia rheumatica Elevated C-reactive protein (CRP) documented in this encounter Care Teams Director Construction Services Relationship Specialty Start Date End Date Jennifer Pelaez MD PCP - General 02/09/[address] [place] [address] [place] [address] documented as of this encounter
--- OUTSIDE RECORDS SUMMARY | 2022-04-12 02:25 | XMS_ITS | Encounter Summary ---
:1945 Author Organization [facility] [place] [address] Care Team Providers Name Role Phone Jennifer Pelaez MD Primary Care Provider Reason for Visit Reason Comments Follow-up Encounter Details Date Type Department Care Team Description 07/29/2017 Office Visit Dermatology at Cecilio Barillas, Seborrh eic keratosis; [facility] [place] (actinic keratosis) [address] [facility] [address] [place] B DERMATOLOGY [place], [place] [id number] [phone] Social History Tobacco Use Types Packs/Day Years Used Date Never Smoker Smokeless Tobacco: Never Used Sex Assigned at Date Recorded Not on file documented as of this encounter Progress Notes Cecilio Barillas MD - 07/29/2017 10:30 AM EDT PROBLEM: 1. Repeat skin checkup. 2. History of actinic keratoses. 3. Polymyalgia rheumatica/poorly defined connective tissue disease on prednisone. Cruz follows up after last being seen in January. He continues on prednisone for his rheumatologic issues. He has now been started on methotrexate as a steroid-sparing agent, taking 15 mg once a week. He is concerned about some rough scabbing spots on his scalp and forehead. For 10 years Cruz worked in a [employer], starting in 1971, and we talked about the [email or web address]. Physical examination today reveals about 7 actinic keratoses present in the thinning parietal scalp on his forehead. Examination of the face, the ears, the neck, the chest, the back, hands, arms, forearms is otherwise benign. There is no evidence of any malignant lesions on exam today. He does have numerous prednisone-induced ecchymoses 1 to 1.5 cm in diameter on both dorsal forearms and arms. A/P: Actinic keratoses. a. LN2 x2 applied to each of 7 sites. b. Patient reassured about remainder of benign skin examination. c. Return to clinic in another 6 months for repeat check. Cc: Jennifer Pelaez MD documented in this encounter Plan of Treatment Upcoming Encounters Date Type Specialty Care Team Description 04/23/2022 Office Visit Dermatology Cecilio Barillas MD [address] [place] [address] DERMATOLOGY [place], [place] [address] (Wo rk) 05/30/2022 Office Visit Rheumatology Theresa Robledo, DO [facility] RHEUMATOLOGY [place], [place] [address] (Wo rk) documented as of this encounter Visit Diagnoses Diagnosis Seborrheic keratosis Other seborrheic keratosis [place] (actinic keratosis) Actinic keratosis documented in this encounter Care Teams Software Installation Engineer Relationship Specialty Start Date End Date Jennifer Pelaez MD PCP - General 02/09/[address] [place] [address] [place] [address] documented as of this encounter
--- OUTSIDE RECORDS SUMMARY | 2022-04-12 02:25 | XMS_ITS | Encounter Summary ---
:1945 [place] [address] Care Team Providers Name Role Phone Jennifer Pelaez MD Primary Care Provider Reason for Referral Consultation (Routine) - Specialty Diagnoses / Procedures Referred By Contact Refer red To Contact Ophthalmology Diagnoses Arthritis Lois Robledo DO [facility] D [place] [address] Referral ID Status Reason Start Date Expiration Date Visits V isits Requested Authorized [id number] Consult, 04/29/2016 10/26/2016 1 1 Test & Treat Encounter Details Date Type Department Care Team Description 04/29/2016 Office Visit Rheumatology at [facility] [place] Lois Robledo DO Arthritis [facility] [place] [address] RHEUMATOLOGY DEPT [phone] [place] [id number] (Wo rk) Social History Tobacco Use Types Packs/Day Years Used Date Never Smoker Smokeless Tobacco: Never Used Sex Assigned at Date Recorded Not on file documented as of this encounter Last Filed Vital Signs Vital Sign Reading Time Taken Comments Blood Pressure 129/69 04/29/2016 12:53 PM EDT Pulse 62 04/29/2016 12:53 PM EDT Temperature 36.8 ??C (98.2 ??F) 04/29/2016 12:53 PM EDT Respiratory Rate 18 04/29/2016 12:53 PM EDT Oxygen Saturation 98% 04/29/2016 12:53 PM EDT Inhaled Oxygen Concentration - - Weight 86.2 kg (190 lb) 04/29/2016 12:53 PM EDT Height 176.5 cm (5' 9.5) 04/29/2016 12:53 PM EDT Body Mass Index 27.66 04/29/2016 12:53 PM EDT documented in this encounter Progress Notes Lois Robledo, DO - 04/29/2016 1:00 PM EDT HPI: Pt presents for follow up. He is able to use his right hand. He has some n/t in his middle digits. He denies any other joint swelling. He had 5th digit swelling in the pip, the prednisone was down to 10 mg when it came back. He took 40mg of prednisone when it started swelling and it immediately resolved and he is tapering the prednisone now. He is on the colchicine and since March. He does not think it is doing much at this time. He h as had no other mcp, pip, mtp, joint swelling. Background hx Cruz Zambrano is a 70 [...] has been seen by pain physicians and sheet rock finisher. He went to PT/accupunture/chiropracter without relief He notes he cannot sit at times d/t It He notes the the buttock pain feels like he has a diaper rash He has tried lyrica, cymbalta, which have not helped, elavil He notes bl le swelling a few years ago, lasted some time, was sen in [place] for it, was tried oncorticosteroids, and then [...] Care Maintenance Date Next Due Influenza vaccine 2015 Pneumonia vaccine 2012 TB Screen (PPD/QGA) Has had screening no hx of pos DXA HCQ Eye Exam Viral Hepatitis Screen Review of Systems: X = positive response. Comments are only made for responses that are changed fromprevious, not discussed in HPI, or otherwise require clarification. Systemic Comments 1. Generalized pain 2. Fatigue/tiredness X w prednisone 3. Fevers 4. Chills 5. Night sweats 6. Recent weight loss 7. 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 Well developed [...] motion, or deformity as applicable) Hands: MCP???s: NMLt PIP???s: NML on the left, right 5th and 3rd w decr rom and synovitis, ,DIP???s:NML, full fist and claw on the left, has bl dupuytren's on the 2nd and 3rd digits, s/p CTS right , no swelling or warmth noted Wrists: NMl s/p surgery ont he right Elbows: NML Shoulders: NML Knees: NML Nails: No nail pitting, onycholysis or periungual [...] a 70 y.o. male w right who presentsfor follow up on right hand/wrist swelling which has now resolved, which orginally was in the softi tissues w tenosyonvitis of the palmaris longus,and 2nd and 5th pip invovement, He is seronegative (RF/ccp) and has no other joint involvement. . ddx includes: crystalline athropathy (pseudogout), no imaging evdience of cppd, vs seroneg RA, vs psA (no nail involvement, no rash) considered poss lyme disease (though atypical)-wlill order testing, don't feel c/w amyloidosis, and no changes c/w sarcoidosis,. He is on tapering prednisone doses, colchicine (feels not working) will start hcq 200 mg bid. Reviewed s/e of plaquenil will thim. Referral to ophthalmology ordered. Fu in 2 months CC: JENNIFER PELAEZ MD documented in this encounter Plan of Treatment Upcoming Encounters Date Type Specialty Care Team Description 04/23/2022 Office Visit Dermatology Cecilio Barillas MD [address] [place] [address] RD DERMATOLOGY [place], [place] [address] (Eren murdock) 05/30/2022 Office Visit Rheumatology Theresa Robledo DO [facility] [place] DR RHEUMATOLOGY [place], [place] [address] (Eren murdock) Scheduled Referrals Name Type Priority Associated Order Schedule Diagnoses Referral to Outpatient Referral Routine Arthritis Ordered: Ophthalmology 04/29/2016 documented as of this encounter Visit Diagnoses Diagnosis Arthritis Arthropathy, unspecified, site unspecifi ed documented in this encounter Care Teams Instrumentation And Controls Designer Relationship Specialty Start Date End Date Jennifer Pleaez MD PCP - General 02/09/[address] [place] [address] [place] [address] documented as of this encounter
--- OUTSIDE RECORDS SUMMARY | 2022-04-12 02:25 | XMS_ITS | Encounter Summary ---
:1945 Author Organization [facility] [place] [address] Care Team Providers Name Role Phone Jennifer Pelaez MD Primary Care Provider Reason for Referral Physical Therapy (Routine) - Specialty Diagnoses / Procedures Referred By Contact Refer red To Contact Physical Therapy Diagnoses Tenosynovitis Lois Robledo DO [facility] D R [place] [address] Referral ID Status Reason Start Date Expiration Date Visits V isits Requested Authorized [id number] Evaluate and 01/31/2016 07/29/2016 12 12 Treat Reason for Visit Consultation (Routine) - Closed Specialty Diagnoses / Procedures Referred By Contact Refer red To Contact Rheumatology Diagnoses R hand pain/swelling Kiran Cotto MD [facility] Rheumatology [address] [place] [id number] Referral ID Status Reason Start Date Expiration Date Visits V isits Requested Authorized [id number] Closed Consult, Test 01/09/2016 01/08/2017 1 [facility] PCP Updated and/or Approved Encounter Details Date Type Department Care Team Description 01/31/2016 Office Visit Rheumatology at [facility] [place] Lois Robledoosynoviyobany; [facility] DO Kam Facet arthropathy; [facility] [place] [address] RHEUMATOLOGY DEPT [phone] [place], [place] [address] Social History Tobacco Use Types Packs/Day Years Used Date Never Smoker Sex Assigned at Date Recorded Not on file documented as of this encounter Last Filed Vital Signs Vital Sign Reading Time Taken Comments Blood Pressure 134/72 01/31/2016 8:50 AM EDT Pulse 70 01/31/2016 8:50 AM EDT Temperature 36.5 ??C (97.7 ??F) 01/31/2016 8:50 AM EDT Respiratory Rate - - Oxygen Saturation 100% 01/31/2016 8:50 AM EDT Inhaled Oxygen Concentration - - Weight 88.7 kg (195 lb 9.6 oz) 01/31/2016 8:50 AM EDT Height 176.5 cm (5' 9.5) 01/31/2016 8:50 AM EDT Body Mass Index 28.47 01/31/2016 8:50 AM EDT documented in this encounter Patient Instructions Patient InstructionsMaLois mcclure DO - 01/31/2016 9:53 AM EDT Prednisone 20 mg x 1 weeks 15 x 2 week 10 mg x 1 week 7.5 mg x 1 week 5 mg x 1 week 2.5 mg x 1 week documented in this encounter Progress Notes Lois Robledo DO - 01/31/2016 9:03 AM EDT Rheumatology Outpatient Consultation Note Reason for Consult: The patient is seen at the request of Dr. JENNIFER PELAEZ MD for evaluation and treatment of pain in his right hand History of Present Illness: Cruz Zambrano is a 70 y.o. male [...] has been seen by pain physicians and liquor inspector. He went to PT/accupunture/chiropracter without relief He notes he cannot sit at times d/t It He notes the the buttock pain feels like he has a diaper rash He has tried lyrica, cymbalta, which have not helped, elavil He notes bl le swelling a few years ago, lasted some time, was sen in [place] for it, was tried oncorticosteroids, and then [...] 5. Night sweats 6. Recent weight loss X has lost 4-5 lbs unintentional 7. Recent Weight gain Head and neck 8. Headaches 9. Neck pain/stiffness 10. Lymphadenopathy 11. Ocular erythema 12. Xerophthalmia 13. Gritty eyes 14. Eye pain 15. Photophobia 16. Oral sores 17. Xerostomia 18. Jaw claudication Cardiopulmonary 19. Chest discomfort 20. Dyspnea 21. Cough X dry in the last week, but was cleaning the garage w dust 22. Hemoptysis Gastrointestinal 23. Dysphagia 24. Heartburn X, started prilosec 25. Nausea 26. Emesis 27. Abdominal pain 28. Hematochezia 29. Diarrhea 30. Constipation Genitourinary 31. Hematuria 32. Dysuria Musculoskeletal 33. Muscle weakness 34. Myalgia x 35. Shoulder pain 36. Raynaud's Neuropsychiatric 37. Paresthesia x 38. Dysesthesia x 39. Dizziness/vertigo 40. Anxiety 41. Depression 42. Cognitive problems 43. Initial insomnia x 44. Night awakenings X 4-6 hours per night, prior to the wrist was sleeping 7-8 w ambien, waking frequ, currenlty not in pain. 45. Nonrestorative sleep x Dermatologic 46. Xerosis cutis 47. Photosensitivity 48. 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 Marital Status: Spouse Name: N/A Number of Children: N/A ??? Years of Education: N/A Social History Main Topics ??? Smoking status: Never Smoker ??? Smokeless tobacco: None ??? Alcohol Use: None ??? Drug Use: None ??? Sexual Activity: None Other Topics Concern ??? 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 Well developed and [...] deformity as applicable) Hands: MCP???s: NML PIP???s: NML, thoug some decr rom on the rigth 2nd and 3rd, left nl DIP???s: NML, full fist and claw on the left, right w decr rom in flexion, has bl dupuytren's on the 2nd and 3rd digits, s/p CTS on 8 on trang right Wrists: NML Elbows: NML Shoulders: NML Cervical Spine: NML Thoracic Spine: NML Lumbosacral Spine: decr rom in ex and sb Hips: decr rom in internal rotation Knees: NML Ankles: NML Feet: NML, neg mtp compression, some loss of plantar fatpad bl Nails: No nail pitting, onycholysis or periungual erythema noted. Neurologic: gati nl from of all ext. Skin: No rash seen Laboratory Data: rf neg crp 2, esr 42 Uric acid during joint flare 5.3 Studies: Impression/Recommendations : Cruz Zambrano is a 70 y.o. male who presents today with right tenosynovitis to orthopedic surgery which began acutely about 6 weeks ago and is steroid responsive. His history sounds consistent with a crystalline athropathy such as pseudogout, gout would also be consideration but the distribution is atypical. The joint aspirate done during his procedure did not show crystals, but was analyzed over 24 hours after the specimen was obtained. RA could be consideration but would be atypical in the absence of other small joint synovitis (no mcp or pip involvement, rfalso neg, check ccp). Seems unlikely yared infectious or foregin body but is a consideration, suspectculutres were done with ortho. -assess plain films for chondrocal -lfts/tsh/ca/mg/alk phos, though doubt secondary etiology -assess uric acid level after resolution of his acute pain -steroid taper -would like surgical path results as well when available His back/buttock pain seems more mechanical in nature. He has had MRI x 2 of the l spine and sij which did not show changes c.w an inflammatory arthritis such as . He had no preceding infection for reactive athritis and does ot have le joint swelling that would be consistent w a typical presentationfor Kevin. Believe his lower back/sij pain is originating from severe facet arthropathy seein on the 2013 MRI. Referred to PT and discussed poss pain mgmt for facet injections. His MTP pain seems poss for metatarsalgia and loss of the plantar fat pad, he has no swelling and dean stiffness in the am that would be typical for an inflamm arthritis, however will further eval with plain films of the feet to assess for damage, will also check his ccp (RF neg off site). If swelling again occurs would like to aspirate, pt to call if needed for aspiration or could be done with his orthopedic surgeon if okay with them and plan for crystal analysis, cell count, gram stain/culture. CC: JENNIFER PELAEZ MD documented in this encounter Plan of Treatment Upcoming Encounters Date Type Specialty Care Team Description 04/23/2022 Office Visit Dermatology Cecilio Barillas MD [address] [facility] DERMATOLOGY [place], [place] [address] (Wo rk) 05/30/2022 Office Visit Rheumatology Theresa Robledo DO [facility] DR RHEUMATOLOGY [place]P [place] [address] (Wo rk) Scheduled Referrals Name Type Priority Associated Diagnoses Order S chedule Referral to Outpatient Referral Routine Tenosynovitis Ordered : Physical Therapy 01/31/2016 documented as of this encounter Procedures Procedure Name Priority Date/Time Associated Diagnosis Comme nts ANTI-CYCLIC Routine 01/31/2016 10:17 Tenosynovitis Results fo r this CITRULLINATED PEPTIDE AM EDT proced ure are in AB the results section. documented in this encounter Results Cyclic Citrullinated Peptide (01/31/2016 10:17 AM EDT) P athologist Signature Anti-Cyc Cit <8.0 <=17.0 [facility] Peptide unit/mL [facility] Specimen Anatomical Collection Method Collection Time Receive d Time (Source) Location / / Volume Laterality Blood specimen 01/31/2016 10:17 6 (specimen) AM EDT 10:28 AM EDT Resulting Agency Comment Spec In Lab Lois Robledo DO CHEMISTRY ORDERABLES Performing Organization Address City/State/[place] [address] documented in this encounter Visit Diagnoses Diagnosis Tenosynovitis Synovitis and tenosynovitis, unspecified Facet arthropathy 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
--- OUTSIDE RECORDS SUMMARY | 2022-04-12 02:25 | XMS_ITS | Encounter Summary ---
:1945 Author Organization [facility] [place] [address] Care Team Providers Name Role Phone Jennifer Pelaez MD Primary Care Provider Reason for Visit Reason Comments Skin Lesion Encounter Details Date Type Department Care Team Description 11/28/2015 Office Visit Dermatology at Cecilio Barillas, Seborrh eic keratosis; Dileep ANGULO [place] [address] [facility] [address] DERMATOLOGY [place], [place] [id number] [phone] Social History Tobacco Use Types Packs/Day Years Used Date Never Smoker Sex Assigned at Date Recorded Not on file documented as of this encounter Progress Notes Cecilio Barillas MD - 11/28/2015 12:02 PM EST Problem: Skin lesion of concern. Cruz follows up and has done well after our visit on November 09, 2015. The actinics I treated on his scalp have healed well, and he is pleased with that progress. However, he has two sites that are somewhat irritating still, one on the left submandibular jawline, and one on his lower back. Physical examination reveals an irritated seborrheic keratosis on the left submandibular jawline at about the midpoint; and a pedunculated compound versus intradermal nevus. This is often rubbed and becomes quite hard, he states. Assessment and Plan: Irritated skin lesions. a. After obtaining informed patient consent, the sites were anesthetized and both were removed with shave biopsy and not submitted for pathologic analysis. b. Patient reassured about their benign nature and benign appearance. c. I recommended I see him again in another six months for repeat actinic check. If doing well at that time, we will likely then go to [id number] followup. COPY: Jennifer Pelaez M.D. documented in this encounter Plan of Treatment Upcoming Encounters Date Type Specialty Care Team Description 04/23/2022 Office Visit Dermatology Cecilio Barillas MD [address] [place] [address] DERMATOLOGY [place], [place] [address] (Wo rk) 05/30/2022 Office Visit Rheumatology Theresa Robledo, DO [facility] DR RHEUMATOLOGY [place], [place] [address] (Wo rk) documented as of this encounter Visit Diagnoses Diagnosis Seborrheic keratosis Other seborrheic keratosis Nevus Benign neoplasm of skin, site unspecifie d documented in this encounter Care Teams Tariff Compiling Clerk Relationship Specialty Start Date End Date Jennifer Pelaez MD PCP - General 02/09/[address] [place] [address] [place] [address] documented as of this encounter
[2022-04-12 18:16] LABS: PSA, Diagnostic 10.2 ng/mL (<=6.5)
== END 2022-04-12 02:21 | disposition home or self-care (01) ==
LOC: LBO 02:21
PROVIDERS: PCP Internal Medicine; Visit Provider Urology
DX: R97.20 Elevated prostate specific antigen [PSA] (principal)
CPT/HCPCS: 36415; 84153

== ENCOUNTER → 2022-04-19 10:17 | Outpatient (BNVA) | payer MEDICARE, OTHER, SELFPAY | PROVIDERS: PCP Internal Medicine; Referring Provider Internal Medicine; Visit Provider Urology | DX: R35.1 Nocturia (principal); R31.29 Other microscopic hematuria; R97.20 Elevated prostate specific antigen [PSA] | CPT/HCPCS: 81003; 99214 ==

== ENCOUNTER 2022-10-18 01:33 | Outpatient (CLI) | payer MEDICARE, SELFPAY ==
[2022-10-18 23:09] LABS: PSA, Diagnostic 10.3 ng/mL (<=6.5)
== END 2022-10-18 01:34 | disposition home or self-care (01) ==
PROVIDERS: PCP Internal Medicine; Visit Provider Urology
DX: R97.20 Elevated prostate specific antigen [PSA] (principal)
CPT/HCPCS: 36415; 84153

== ENCOUNTER → 2022-10-25 10:03 | Outpatient (BNVA) | payer MEDICARE, SELFPAY | PROVIDERS: PCP Internal Medicine; Referring Provider Internal Medicine; Visit Provider Urology | DX: R97.20 Elevated prostate specific antigen [PSA] (principal) | CPT/HCPCS: 99213 ==

== ENCOUNTER 2023-01-06 13:04 | Outpatient (CLI) | payer MEDICARE, SELFPAY ==
--- NOTE | 2023-01-06 13:00 | DI.RAD_ITS ---
Exam(s) XR KNEE RT 3V AP,LAT,WAGN EXAM: XR KNEE RT 3V AP,LAT,WANG CLINICAL HISTORY: RIGHT KNEE PAIN. TECHNIQUE: 2D digital imaging was performed. COMPARISON: No exams were available for comparison FINDINGS: 3 views No evidence of fracture. Joint effusion noted. There is [id number] narrowing of the medial compartment. Lateral compartment exhibits normal heigh t. Some calcifications are noted just lateral to the lateral femoral condyle. Also some calcificati ons just above the patella. There are surgical clips in the medial subcutaneous soft tissues which are probably related to prior saphenous vein harvesting. IMPRESSION: [id number] narrowing of the medial compartment. DATA REPOSITORY: RADIATION DOSE DELIVERED:
== END 2023-01-06 13:05 | disposition home or self-care (01) ==
LOC: DIORS 13:04
PROVIDERS: PCP Internal Medicine; Referring Provider Internal Medicine; Visit Provider Student in an Organized Health Care Education/Training Program
DX: M17.11 Unilateral primary osteoarthritis, right knee (principal)
CPT/HCPCS: 20610; 73562; 99213; J7325

== ENCOUNTER 2023-03-27 01:39 | Outpatient (CLI) | payer MEDICARE, SELFPAY ==
--- NOTE | 2023-03-27 | DI.DEXA_ITS ---
Exam(s) XR DEXA BONE DENSITY W/WO KHUSHBOO EXAM: XR DEXA BONE DENSITY W/WO KHUSHBOO CLINICAL HISTORY: OSTEOPENIA, LOCALIZED OSTEOPOROSIS M81.6 TECHNIQUE: [employer] Horizon C densitometer analysis of left hip, lumbar spine and left forearm. Lat eral survey image of the thoracic and lumbar spine. COMPARISON: CT CT ABDOMEN PELVIS W from 08/29/2020 CR XR DEXA BONE DENSITY W/WO KHUSHBOO from 2015, 2017 and 02/14/2021 FINDINGS: Lateral view of the thoracic and lumbar spine shows severe thoracic kyphosis. There is mild anterior wedging of midthoracic vertebral bodies and mild anterior wedging of upper lumbar vertebral bodies. Bone mineral density measurements of the lumbar spine correspond to a total T-score of 0.5, in the n ormal range. This is not significantly changed from 2020 represents a 5.2 percent decrease compared with 2015. Bone mineral density measurements of the left hip correspond to a total T-score of -1.8. The femora l neck T-score is -2.5, in the osteoporotic range. This is a 3.1 percent decrease from 2020 and 19. 7 percent decrease compared with 2015.. The left forearm bone mineral density measurements correspond to a T-score of the distal 3rd of 0.4, in the normal range. Not significantly changed from prior exams.. IMPRESSION: Normal bone mineral density of the lumbar spine and forearm. Borderline osteoporosis the left hip.
== END 2023-03-27 01:59 ==
LOC: DI 01:39
PROVIDERS: PCP Internal Medicine; Visit Provider Internal Medicine Rheumatology
DX: M81.6 Localized osteoporosis [Lequesne] (principal); Z13.820 Encounter for screening for osteoporosis
CPT/HCPCS: 77080

== ENCOUNTER 2023-04-14 01:59 | Outpatient (RCR) | payer MEDICARE, SELFPAY ==
[2023-04-14] MEDS: Acetaminophen 325 MG TAB 650 MG PO (12:59)
[2023-04-14] MEDS: Normal Saline 250 ML 500 ML IV (13:05)
[2023-04-14] MEDS: ZOLEDRONIC ACID/MANNITOL/WATER 5 MG/100 ML BTL 300 MG IVPB (13:26)
== END 2023-05-05 23:59 | disposition home or self-care (01) ==
LOC: INF 01:59
PROVIDERS: PCP Internal Medicine; Visit Provider Nurse Practitioner Family
DX: M81.0 Age-related osteoporosis without current pathological fracture (principal)
CPT/HCPCS: 96360; 96365; J3489

== ENCOUNTER 2023-04-29 03:35 | Outpatient (CLI) | payer MEDICARE, SELFPAY ==
[2023-04-29 23:30] LABS: PSA, Diagnostic 9.7 ng/mL (<=6.5)
== END 2023-04-29 03:36 | disposition home or self-care (01) ==
LOC: LBO 03:35
PROVIDERS: Urology; PCP Internal Medicine; Visit Provider Internal Medicine
DX: R97.20 Elevated prostate specific antigen [PSA] (principal)
CPT/HCPCS: 36415; 84153

== ENCOUNTER 2023-10-30 03:57 | Outpatient (CLI) | payer MEDICARE, SELFPAY ==
[2023-10-30 22:24] LABS: PSA, Diagnostic 10.5 ng/mL (<=6.5)
== END 2023-10-30 03:58 | disposition home or self-care (01) ==
LOC: LBO 03:57
PROVIDERS: PCP Internal Medicine; Visit Provider Urology
DX: R97.20 Elevated prostate specific antigen [PSA] (principal)
CPT/HCPCS: 36415; 84153

== ENCOUNTER → 2023-11-11 14:21 | Outpatient (BNVA) | payer MEDICARE, SELFPAY | PROVIDERS: PCP Internal Medicine; Referring Provider Internal Medicine; Visit Provider Urology | DX: R35.1 Nocturia (principal); R97.20 Elevated prostate specific antigen [PSA] | CPT/HCPCS: 99214 ==

== ENCOUNTER 2024-05-14 00:59 | Outpatient (CLI) | payer MEDICARE, SELFPAY ==
[2024-05-14 23:02] LABS: PSA, Diagnostic 9.2 ng/mL (<=6.5)
== END 2024-05-14 01:00 | disposition home or self-care (01) ==
LOC: LBO 00:59
PROVIDERS: PCP Internal Medicine; Visit Provider Urology
DX: R97.20 Elevated prostate specific antigen [PSA] (principal)
CPT/HCPCS: 36415; 84153

== ENCOUNTER → 2024-05-21 14:18 | Outpatient (BNVA) | payer MEDICARE, SELFPAY | PROVIDERS: PCP Internal Medicine; Visit Provider Urology | DX: R35.1 Nocturia (principal); R97.20 Elevated prostate specific antigen [PSA] | CPT/HCPCS: 99214 ==

== ENCOUNTER 2024-12-24 00:19 | Outpatient (CLI) | payer MEDICARE, SELFPAY ==
[2024-12-24 22:45] LABS: PSA, Diagnostic 11.7 ng/mL (<=6.5)
== END 2024-12-24 00:20 | disposition home or self-care (01) ==
PROVIDERS: PCP Internal Medicine; Visit Provider Urology
DX: R97.20 Elevated prostate specific antigen [PSA] (principal)
CPT/HCPCS: 36415; 84153

== ENCOUNTER → 2025-01-04 13:53 | Outpatient (BNVA) | payer MEDICARE, SELFPAY | PROVIDERS: PCP Internal Medicine; Referring Provider Internal Medicine; Visit Provider Urology | DX: R97.20 Elevated prostate specific antigen [PSA] (principal) | CPT/HCPCS: 99213 ==

== ENCOUNTER 2025-04-07 02:40 | Outpatient (CLI) | payer MEDICARE, SELFPAY ==
[2025-04-07 18:44] LABS: PSA, Diagnostic 11.6 ng/mL (<=6.5)
== END 2025-04-07 02:41 | disposition home or self-care (01) ==
PROVIDERS: PCP Internal Medicine; Visit Provider Urology
DX: R97.20 Elevated prostate specific antigen [PSA] (principal)
CPT/HCPCS: 36415; 84153

== ENCOUNTER 2025-05-12 13:20 | Outpatient (CLI) | payer MEDICARE, SELFPAY ==
--- NOTE | 2025-05-12 13:00 | DI.RAD_ITS ---
Exam(s) XR KNEE LT 3V AP,LAT,WANG XR STANDING ALIGNMENT XR KNEE RT 1V EXAM: XR STANDING ALIGNMENT and XR knee RT 1 V and XR knee LT 3 V CLINICAL HISTORY: knee pain. TECHNIQUE: 2D digital imaging was performed. Eight images were obtained. COMPARISON: CR RIGHT KNEE 3 VIEWS from 05/04/2015 CR RIGHT KNEE LIMITED 1 OR 2 VIEW from 03/26/2016 CR LEFT KNEE LIMITED 1 OR 2 VIEWS from 03/26/2016 CR XR KNEE RT 3V AP,LAT,WANG from 01/06/2023 FINDINGS: BONES: The hips are well maintained. In the left knee there is moderate narrowing of the medial femoral tibial joint. There is mild spurring of the posterior patella. There is a small joint effusion. Dystrophic calcifications are seen around the knee. In the right knee, there is marked narrowing of the medial femoral tibial joint. Mild spurring is seen at the posterior patella. There is a joint effusion present. The ankles are well maintained.There is no significant leg length discrepancy. SOFT TISSUE: Atherosclerotic calcifications are present. Vascular clips are seen in the right lower extremity. IMPRESSION: Osteoarthritis of the knees bilaterally, right greater than left. DATA REPOSITORY: RADIATION DOSE DELIVERED:
== END 2025-05-12 13:21 | disposition home or self-care (01) ==
LOC: DIORS 13:20
PROVIDERS: PCP Internal Medicine; Referring Provider Internal Medicine; Visit Provider Student in an Organized Health Care Education/Training Program
DX: M17.11 Unilateral primary osteoarthritis, right knee (principal); M17.12 Unilateral primary osteoarthritis, left knee
CPT/HCPCS: 73562; 99214; 73560; 77073

== ENCOUNTER 2025-07-05 02:36 | Outpatient (CLI) | payer MEDICARE, SELFPAY ==
[2025-07-05 18:34] LABS: PSA, Diagnostic 10.0 ng/mL (<=6.5)
== END 2025-07-05 02:37 | disposition home or self-care (01) ==
LOC: LBO 02:36
PROVIDERS: PCP Internal Medicine; Visit Provider Urology
DX: R97.20 Elevated prostate specific antigen [PSA] (principal)
CPT/HCPCS: 36415; 84153

== ENCOUNTER → 2025-07-12 13:53 | Outpatient (BNVA) | payer MEDICARE, SELFPAY | PROVIDERS: PCP Internal Medicine; Referring Provider Internal Medicine; Visit Provider Urology | DX: R97.20 Elevated prostate specific antigen [PSA] (principal) | CPT/HCPCS: 99213 ==

== ENCOUNTER 2025-08-04 03:30 | Outpatient (CLI) | payer MEDICARE, SELFPAY ==
[2025-08-04 22:45] LABS: HCT 39.3 % (40.0-50.0); HGB 11.7 g/dL (13.5-17.5); MCH 26.6 pg (27.0-33.0); MCHC 29.8 % (32.0-36.0); MCV 89 fL (80-95); MPV 9.0 fL (8.0-11.0); Platelet Count 232 10^3/uL (130-400); RBC 4.40 10^6/uL (4.36-5.78); RDW 17.3 % (11.8-14.1); RDW-SD 56.2 fL; WBC 10.77 10^3/uL (4.4-10.8)
[2025-08-04 22:50] LABS: Anion Gap 7.6 mmol/L (3-11); BUN 18 mg/dL (7-18); CO2 29.4 mmol/L (21.0-32.0); Calcium 9.1 mg/dL (8.5-10.1); Chloride 103 mmol/L (98-107); Glucose 110 mg/dL (74-106); Potassium 4.4 mmol/L (3.5-5.1); Sodium 140 mmol/L (136-145)
== END 2025-08-04 03:31 | disposition home or self-care (01) ==
LOC: LBO 03:30 → LBN 16:16
PROVIDERS: PCP Internal Medicine; Visit Provider Student in an Organized Health Care Education/Training Program
DX: M17.11 Unilateral primary osteoarthritis, right knee (principal); Z01.818 Encounter for other preprocedural examination
CPT/HCPCS: 80048; 85027

== ENCOUNTER 2025-08-09 09:49 | Day surgery (SDC) | payer MEDICARE, SELFPAY ==
[2025-08-09] VITALS (28 sets, daily range): BP systolic 100–162; BP diastolic 48–85; PULSE 65–76; RESP 14–23; TEMP 36.2–36.6; O2SAT 92–100; BMI 25.3
--- NOTE | 2025-08-09 07:21 | PDOC.DSDIS_ITS ---
Date of service: 08/09/25 Discharge Plan Disposition Patient Disposition: Home Condition: Good Discharge Details Reason For Visit: Right knee DJD Attending Provider: Dk Martini Primary Care Provider: Jennifer Pelaez Home Meds and New Rx's Prescriptions: New aspirin 81 mg tablet,delayed release (DR/EC) 81 mg PO BID 30 Days Qty: 60 0RF acetaminophen 500 mg tablet 1,000 mg PO Q8H PRN Qty: 90 0RF Rx Instructions: Take two tablets up to every 8 hours as needed for pain docusate sodium [Colace] 100 mg capsule 100 mg PO BID Qty: 28 0RF gabapentin 300 mg capsule 300 mg PO QHS Qty: 14 0RF Rx Instructions: Take one tablet at bedtime oxycodone 5 mg tablet 5 mg PO Q4H PRNQty: 18 0RF Rx Instructions: Take one tablet up to every 4 hours as needed for severe postoperative pain celecoxib [Celebrex] 200 mg capsule 200 mg PO BID PRNQty: 60 0RF Rx Instructions: Take one tablet twice daily for pain and inflammation Continued methotrexate sodium 10 mg tablet 20 mg PO QWEEK omeprazole 20 mg capsule,delayed release(DR/EC) 20 mg PO HS calcium carbonate 500 mg calcium (1,250 mg) tablet 500 mg PO DAILY magnesium oxide 400 mg (241.3 mg magnesium) tablet 400 mg PO DAILY mecobalamin (vitamin B12) 1,000 mcg tablet,chewable 1,000 mcg PO DAILY valacyclovir 500 mg tablet 500 mg PO DAILY ascorbic acid (vitamin C) 250 mg tablet 250 mg PO DAILY cholecalciferol (vitamin D3) 75 mcg (3,000 unit) tablet 40 mcg PO DAILY metoprolol succinate 50 mg tablet extended release 24 hr 25 mg PO DAILY folic acid 1 MG tablet 1 mg PO DAILY calcium citrate 250 mg calcium tablet 333 mg PO DAILY magnesium citrate 100 mg capsule 400 mg PO DAILY simvastatin 20 mg tablet 10 mg PO QPM loratadine [Claritin] 10 mg tablet 10 mg PO DAILY Medrol 2 mg tablet 4 mg PO DAILY Discontinued aspirin [Adult Aspirin Regimen] 81 mg tablet,delayed release (DR/EC) 81 mg PO DAILY Discharge Instructions Additional Instructions: Total Knee Discharge Instructions Activity: The most important activity is to walk and to work on gentle motion (both flexion and extension). You should try to take short walks a few times a day. It is important that when resting you work on keeping the knee straight. Avoid putting a pillow behind the knee as this will encourage flexion. Work on range of motion exercises as provided by Physical Therapy. - Start outpatient physical therapy within 2 weeks. - You should wear the TARA hose on both legs for 2 weeks. You may remove these at night. You may also use any compression sock in place of the TARA hose. - Utilize [employer] to review exercises, see videos on exercises and obtain basic information pertaining to your surgery and your recovery. Dressing: Remove the Paxton wrap by 2 days after your surgery and put on the TARA stocking given to you from the hospital. Keep the surgical dressing (underneath the PAXTON wrap) in place for at least one week. After the first week it may be removed and replaced with light gauze and tape or nothing. The wound and dressing may get wet after 3 days but avoid soaking the dressing or otherwise it will need to be changed. Many people prefer covering the dressing with cling wrap (saran wrap) to minimize it from getting soaked. If it gets wet, just pat dry. If it starts to peel off then it will need to be changed. Medications: - You should take Tylenol and anti-inflammatory Celebrex as your primary pain control medications. If the Celebrex is too expensive or not covered, please call the office for another alternative (Advil/Ibuprofen or Naproxen/Aleve) - You have been prescribed a stronger pain medication Oxycodone for breakthrough pain, take as needed as prescribed. - You take a stomach acid reduction agent Omeprazole at baseline - continue with this medication to help reduce stomach acid and reflux. - You have been prescribed Gabapentin to take at night for restlessness and nerve pain. - You will be taking Aspirin 81mg twice a day for DVT prevention unless instructed otherwise. - You normally take methylprednisolone 4 mg daily - for two days following s urgery take 8 mg once a day then resume your normal dosing of 4 mg daily. - If you have constipation you should take Colace (which has been prescribed) or Miralax (which is available [id number]). It takes most people 3-4 days to have a bowel movement. Follow-up: 2 weeks If you have any acute concerns or questions, please do not hesitate to contact the office at [phone]. You may contact Dr. Martini with any questions after hours through the hospital at [phone] or on his cell phone at [phone]. Stand Alone Forms: Portal Information Referrals: Dk Martini MD [ [facility] STAFF PHYSICIAN, Orthopaedic Surgical] Equipment/Supplies: Walker Activity:: Elevate Remove Dressings/Wound Care:: Do Not Remove Shower/Bathe:: Cover Diet:: As Tolerated Discharge Orders Discharge Orders: Discharge Order (Routine); Ordered 08/09/25 Ordered By: Tiesha Matos
[2025-08-09] MEDS: Gabapentin 300 MG CAP PO (10:39)
[2025-08-09] MEDS: Acetaminophen 500 MG TAB 1000 MG PO (10:39)
[2025-08-09] MEDS: Celecoxib 200 MG CAP 400 MG PO (10:39)
[2025-08-09] MEDS: Lactated Ringers 1,000 ML 80 ML IV (10:54)
--- NOTE | 2025-08-09 11:11 | W.ANESPRE ---
General Info Date of Service Date Performed: 08/09/25 Height: 5 ft 9 in Weight: 77.8 kg Body Mass Index (BMI): 25.3 Surgical Procedure: Operation Date: 08/09/25 12:55 Proposed Procedure Side Surgeon p Knee Total Arthroplasty Right Dk Martini MD Meds Allergies and Home Medications Allergies Allergy/AdvReac Type Severity Reaction Status Date / Time No Known Allergies Allergy Verified 08/09/25 09:59 Home Medication Medication Instructions Recorded folic acid 1 mg tablet 1 mg PO DAILY 09/12/17 simvastatin 20 mg tablet 10 mg PO QPM 04/13/21 methylprednisolone 2 mg tablet 4 mg PO DAILY 04/19/22 (Medrol) omeprazole 20 mg capsule,delayed 20 mg PO HS 04/19/22 release methotrexate sodium 10 mg tablet 20 mg PO QWEEK 10/25/22 ascorbic acid (vitamin C) 250 mg 250 mg PO DAILY 11/07/22 tablet calcium carbonate 500 mg PO DAILY 11/07/22 cholecalciferol (vitamin D3) 75 40 mcg PO DAILY 11/07/22 mcg (3,000 unit) tablet magnesium oxide 400 mg (241.3 mg 400 mg PO DAILY 11/07/22 magnesium) tablet mecobalamin (vitamin B12) 1,000 1,000 mcg PO DAILY 11/07/22 mcg chewable tablet valacyclovir 500 mg tablet 500 mg PO DAILY 11/07/22 aspirin 81 mg tablet,delayed 81 mg PO DAILY 01/06/23 release (Adult Aspirin Regimen) metoprolol succinate 50 mg 25 mg PO DAILY 10/30/23 tablet,extended release 24 hr calcium citrate 333 mg PO DAILY 05/26/25 magnesium citrate 100 mg capsule 400 mg PO DAILY 05/26/25 loratadine 10 mg tablet (Claritin) 10 mg PO DAILY 08/09/25 Current Visit Medications: Current Medications Generic Name Dose Route Start Last Admin Trade Name Freq PRN Reason Stop Dose Admin Acetaminophen 1,000 mg 08/09/25 06:00 08/09/25 10:39 Acetaminophen 500 Mg Tab PO 08/09/25 23:59 1,000 mg PREOP PETER Administration Celecoxib 400 mg 08/09/25 06:00 08/09/25 10:39 Celecoxib 200 Mg Cap PO 08/09/25 23:59 400 mg PREOP PETER Administration Gabapentin 300 mg 08/09/25 06:00 08/09/25 10:39 Gabapentin 300 Mg Cap PO 08/09/25 23:59 300 mg PREOP PETER Administration Hydromorphone HCl 0.5 mg 08/09/25 07:18 Hydromorphone 2 Mg/Ml Syr IVP 09/08/25 07:17 Q2H PRN PRN Cefazolin Sodium/Dextrose 1 gm in 50 mls @ 100 mls/hr 08/09/25 08:00 Ancef Duplex IVPB 08/10/25 00:29 Q8H PETER Ringer's Solution 1,000 mls @ 80 mls/hr 08/09/25 06:00 08/09/25 10:54 IV 08/09/25 23:59 80 mls/hr INFUSION PETER Administration Cefazolin Sodium/Dextrose 2 gm in 50 mls @ 100 mls/hr 08/09/25 06:00 Ancef Duplex IVPB 08/09/25 23:59 PREOP PETER Tranexamic Acid/Sodium Chloride 1,000 mg in 100 mls @ 600 mls/hr 08/09/25 06:00 IVPB 08/09/25 23:59 PREOP PETER IV Miscellaneous Supplies 1 each 08/09/25 06:00 Iv Access IV 08/09/25 23:59 DIRECTED PETER Oxycodone HCl 0 mg 08/09/25 07:18 Oxycodone 5 Mg Tab PO 09/08/25 07:17 Q3H PRN PRN Pain Sodium Chloride 0 ml 08/09/25 06:00 Normal Saline Flush 10 Ml Syr IV 08/09/25 23:59 PRN PRN Sodium Chloride 0 ml 08/09/25 06:00 Normal Saline 10 Ml Vial IJ 08/09/25 23:59 DIRECTED PRN Sterile Water 0 ml 08/09/25 06:00 Water,Injection,Sterile 10 Ml Vial IJ 08/09/25 23:59 DIRECTED PRN Tranexamic Acid 1,300 mg 08/09/25 07:18 Tranexamic Acid 650 Mg Tab PO 09/08/25 07:17 ONCE PRN postoperative PFSH Active Problems Active Problems: Problem Status Onset Code History of total right knee replacement Acute 08/09/25 Z96.651 Benign neoplasm soft tissue Acute D21.9 Benign essential hypertension Acute I10 Atopic dermatitis Acute L20.9 Arthropathy Acute M12.9 Arthritis Acute M19.90 Anal fissure Acute K60.2 Actinic keratosis Acute L57.0 Osteoarthritis of left knee Acute M17.12 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 Polymyalgia rheumatica Acute M35.3 Osteoporosis Chronic M81.0 Aortic valve disorder Acute I35.9 Microscopic hematuria Acute R31.29 Diverticulosis Acute K57.90 S/P colonoscopy Acute ~08/23/19 Z98.890 Elevated PSA Acute 09/12/17 R97.20 Sensorineural hearing loss, bilateral Acute 07/23/16 H90.3 Status post cataract extraction and insertion of intraocular lens of left eye Acute 09/18/18 Z98.42, Z96.1 Status post cataract extraction and insertion of intraocular lens of right eye Chronic 09/04/18 Z98.41, Z96.1 Medical History Medical History Syncope Proctitis Pain in left hand Pain of right hip joint Pain in the coccyx Overweight Insomnia Inflamed seborrheic keratosis Hyperlipidemia Herpesviral vesicular dermatitis Gout Carpal tunnel syndrome Atherosclerosis of coronary artery without angina pectoris Motor nerve conduction block Internal hemorrhoids Hypertension GERD (gastroesophageal reflux disease) Primary osteoarthritis of right knee (04/30/18) Nuclear sclerotic cataract of left eye Cortical cataract of left eye Posterior subcapsular age-related cataract of left eye Cortical cataract of right eye Nuclear sclerotic cataract of right eye Posterior subcapsular age-related cataract, right eye Surgical History Surgical History History of loop recorder it situ S/P cardiac cath 2005 H/O colonoscopy 08/23/2019 H/O lithotripsy Hx of cataract surgery 09/04/18 History of hernia repair 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, CABG vein History of carpal tunnel release of both wrists 01/12/16 Tobacco Smoking/Tobacco Use Status: Never Passive smoking exposure: Yes Alcohol Alcohol Intake: current Alcohol intake frequency: a few times a month Substance Use Substance use: Never Substance use type: does not use Vital Signs and Lab Results Vital Signs Most Recent Vital Signs in EMR: Most Recent Vital Signs Temp Pulse Resp BP Pulse Ox 36.4 C L 71 14 162/76 H 99 08/09/25 11:03 08/09/25 11:03 08/09/25 11:03 08/09/25 10:05 08/09/25 11:03 Lab Results Complete Blood Count: WBC, (4.4-10.8) 10.77 10^3/uL 08/04/25, 13:50 RBC, (4.36-5.78) 4.40 10^6/uL 08/04/25, 13:50 Hgb, (13.5-17.5) 11.7 g/dL L 08/04/25, 13:50 Hct, (40.0-50.0) 39.3 % L 08/04/25, 13:50 Plt Count, (130-400) 232 10^3/uL 08/04/25, 13:50 Complete Metabolic Panel: Sodium, (136-145) 140 mmol/L 08/04/25, 13:50 Potassium, (3.5-5.1) 4.4 mmol/L 08/04/25, 13:50 Chloride, (98-107) 103 mmol/L 08/04/25, 13:50 Carbon Dioxide, (21.0-32.0) 29.4 mmol/L 08/04/25, 13:50 BUN, (7-18) 18 mg/dL 08/04/25, 13:50 Creatinine, (0.70-1.30) 0.6 mg/dL L 08/04/25, 13:50 Est GFR (CKD-EPI 2020), (mL/min/1.73m2) 99.42 08/04/25, 13:50 Calcium, (8.5-10.1) 9.1 mg/dL 08/04/25, 13:50 Glucose, (74-106) 110 mg/dL H 08/04/25, 13:50 Anesthesia Assessment and Plan Anesthesia History Personal History: No History of Anesthesia Complications Family History: No Family History of Anesthesia Complications Exercise Tolerance Exercise Tolerance: Metabolic Equivalents>4 Pertinent Negatives Pertinent Negatives: No Symptoms of GERD Cardiac & Pulmonary Exam Cardiac Exam: Heart Murmur Present (Systolic murmor) Pulmonary Exam: Clear Bilateral Breath Sounds Implantable Cardiac Device Does patient have a Pacemaker or an ICD?: No Airway Exam Known Difficult Airway: No Mallampati Class: 2 Mouth Opening: Normal (> 3cm) Thyromental Distance: Greater than 3 cm Neck Range of Motion: Full ROM Neck Circumference: Normal Teeth Condition: Normal Dentition ASA Classification ASA Score: ASA 3 Emergency Case?: No NPO Status NPO Status: NPO Clears >2 hours, Solids >8 hours Anesthesia Plan Resuscitation Status: Full Code Anesthesia Technique: Spinal Anesthesia Airway Planned: Natural Airway Pain Management: Surgeon and patient request nerve block Monitors Used: Standard Monitors
--- NOTE | 2025-08-09 12:15 | W.PM.OP ---
Operative Note Operative Note PRE-OP DIAGNOSIS: Right Knee Osteoarthritis POST-OP DIAGNOSIS: same PROCEDURE: Right Total Knee Replacement SURGEON: Dk Martini ACID PURIFICATION EQUIPMENT OPERATOR: Tiesha Matos ANESTHESIA TYPE: Spinal Refer to Anesthesia Record ESTIMATED BLOOD LOSS: 50 PATHOLOGY: none sent TOURNIQUET TIME: 0 COMPLICATIONS: None Patient was transported to: PACU Patient's condition: stable Implants: 1. Depuy Attune Cementless Cruciate Retaining Femoral Component, Size 7 2. Depuy Attune Cementless Fixed Bearing Tibial Component, Size 7 3. Depuy Attune 7x6mm CR/FB Poly Indications: I have seen Cruz in clinic for symptoms of knee arthritis, confirmed with radiographic findings. He has exhausted nonoperative methods and was having significant limitations in daily function and desired better function and less pain. I discussed the technical details of a knee replacement. I explained the risks of the procedure to include, but not limited to, bleeding, infection, pain, stiffness, fracture, damage to nerves and vessels, damage to muscles and tendons, loosening, need for repeat procedure, blood clot and cardiopulmonary demise. Despite these risks, Cruz elected to proceed. Findings: There was significant signs of arthritis throughout the knee. Procedure Description: Cruz was greeted in the preoperative holding area where the correct side was identified and marked. The consent was reviewed with the patient and signed. The history and physical was updated. All questions were answered. Preoperative medications were administered: Acetaminophen 1000mg, Celebrex 400mg, and Gabapentin 300mg. An adductor canal block was then administered by the anesthesia team in the DSU. Cruz was taken back to the operating room. A spinal anesthestic was then administered. The patient was placed into the supine position on the operating room table. Posts were placed for positioning during the procedure. All bony prominences were well padded. Prophylactic antibiotics in the form of Cefazolin were administered. 1g of Tranxemic Acid was given intravenously within 30 minutes of incision. The right leg was then prepped with Chloraprep and draped in a standard fashion with impervious stockinette. A second prep with Chloraprep was performed prior to application of Iodine impregnated skin protection. A timeout to confirm correct identity, side and site, procedure, allergies, anesthesia, and medical concerns was performed. With the knee in some flexion, a midline incision was made overlying the knee. Full thickness skin flaps were raised once the extensor mechanism was encountered. These were raised medially and laterally. Any bleeding was controlled with electrocautery. Once the extensor mechanism was fully exposed, a medial parapatellar arthrotomy was performed in a flexed position. All bleeding from the arthrotomy and the geniculate arteries was coagulated. A medial subperiosteal peel was performed with electrocautery to the midcoronal plane. The fat pad was removed while keeping the patellar tendon protected. The anterior distal femur synovium was removed for later visualization. The ACL and PCL were resected and the anterior horn of the lateral meniscus was transected. The knee was then flexed with the patella everted. Large osteophytes from the femur were removed. Using a step drill, and based on preoperative templating, the femoral canal was entered. This was done with a step drill without any difficulty. The intramedullary distal femoral cut guide was inserted, set to a 5 degree valgus cut and 9mm cut thickness. The distal femoral cut guide was then held in position and pinned. With the soft tissues protected, the distal cut was performed. This was passed over a few times to ensure a planar cut. I then turned attention to the tibia. The extramedullary guide was placed onto the leg. The distal aspect was slid medial to adjust for position of center of ankle and stay in line with shaft of the tibia. Approximately 5 degrees of posterior slope was kept in the proximal cutting guide. The center of the guide was aligned with the PCL. The stylus was used to assess cut thickness. The medial side, most involved side, was set for a 4mm cut. This was then held in position and pinned into place with 2 additional pins and a cross pin for stability. The medial and lateral collateral ligaments were protected and the cut was performed. With this completed, it was assessed and noted to be of appropriate dimensions. The guide was removed. A spacer block was inserted and the knee was brought into extension. The 6mm spacer block provided full extension, without hyperextension and with stability of both the medial and lateral collateral ligaments was assessed. The pins from the femur and the tibia were then removed. The distal femur was then sized. The anterior stylus was placed onto the lateral ridge of the anterior femur. This indicated a size 7 femur. The external rotation of the guide was adjusted to 0 degrees to match the epicondylar axis, perpendicular to Kendall´s line. The 4-in-1 cutting guide was the placed. The posterior medial femur cut was evaluated and appeared of good thickness. The spacer block was inserted underneath the cutting guide and stability was confirmed in 90 degrees of flexion. An lm wing was used to confirm appropriate position of the anterior cut to avoid notching. This cutting guide was ensured to be flush on the cut surface and then pinned into place with headed pins. While protecting the soft tissues, quad tendon, and collateral ligaments, the anterior and posterior cuts were performed with a saw. The central two pins were removed and the posterior and anterior chamfers were cut next. The notch-cutting guide was placed. This was pinned to lateralize the femoral component as much as possible while keeping it flush on the cut surface. This was then pinned into position. A reciprocating saw was used to make the notch cut. A rasp smoothed the cut surfaces. The medial and lateral menisci were removed. A trial femoral component was then inserted, impacted down to the cut surfaces, and the lug holes were drilled. A provisional trial tibial component was placed and the knee was brought through range of motion. There was noted to be excellent extension and flexion. There was no significant instability. The patella was tracking without thumbs. A size 6mm polyethylene component provided the best range of motion and stability with less than 2mm gapping with medial and lateral stress and full extension without significant hyperextension. The tibial cut surface was fully exposed. The tibia was then sized as a 7. The tibia had been previously marked during trialing to correspond to the center of the tibial component to help with rotation. The trial was aligned to this katherine, approximately rotated to the medial 1/3rd of the tibial tubercle. The trial was pinned into place. The tibia was prepared with a reamer and a keel punch and lug holes. The trial components were removed. The final components were opened on the back table. The periosteal and capsular tissues, especially posteriorly, around the knee were then systematically injected with a periarticular cocktail consisting of 200mg of Ropivacaine, 0.5mg of Epinephrine, and 30mg of Ketorolac, diluted to 100cc. On the back table, with the implants opened. The cementless knee components were placed. Starting with the tibial component, the tibia was subluxed anteriorly and the lug holes of the component were lined up. The tibia was then impacted with an impactor and mallet until the tibial component was in contact with the tibia. Then, the femoral component was inserted. The lug holes were aligned and the component was impacted into position. The final polyethylene component was inserted. The knee was irrigated with Surgiphor Betadine solution. This was allowed to sit in the knee for 3 minutes and then it was irrigated out with saline. The patella was tracking with a no-thumbs technique. A complete synovectomy was performed around the periphery of the patella. A lateral facetectomy was also performed. The capsule was then reapproximated with a No. 1 Vicryl at multiple locations. The capsule was finally closed with a No. 2 Stratafix, barbed suture. Deep tissues were then reapproximated with 0 Vicryl and 2-0 Vicryl. The skin was closed with a running 3-0 Monocryl in a subcuticular fashion. This was reinforced with skin glue. A Mepilex silver dressing was applied along with a [id number] JOE wrap. A CryoCuff was applied. Cruz was transferred to the hospital bed without difficulty an suffering no apparent complication. Cruz has a good prognosis. Physical therapy will start today and without restrictions, weight-bearing as tolerated. Aspirin 81mg BID will be used for DVT prophylaxis. Date of Procedure: 08/09/25
[2025-08-09] MEDS: ceFAZolin 2 GM/50 ML BAG IVPB (12:18)
[2025-08-09] MEDS: TRANEXAMIC ACID/SOD. CHL. 1,000 MG/100 ML BAG 600 MG IVPB (12:24)
[2025-08-09] MEDS: EPINEPHrine 1 MG/ML AMP pres-free (12:29)
[2025-08-09] MEDS: Ketorolac 30 MG/ML VIAL (12:29)
[2025-08-09] MEDS: ROPIvacaine 0.2% 200 MG/100 ML BAG (12:30)
--- NOTE | 2025-08-09 12:39 | W.ANESNERVE ---
Nerve Block Single Injection Procedure Date and Time Date Performed: 08/09/25 Procedure Start: 11:50 Location Where Procedure Performed Procedure Location: Day Surgery Unit Reason Performed: Postoperative Analgesia Requesting Provider: Dk Martini Timeout Performed Timeout Performed: Yes Monitoring Used ECG, Blood Pressure and See EMR for corresponding vital signs Sterility Sterility: Hand Hygiene, Surgical Cap, Surgical Mask, Sterile Gloves, Eye Protection and Chlorhexidine Sedation Given During Procedure Sedation Given (Indicate Dose Given): Versed IV Dose:: 2mg IVP Patient Mental Status Patient Mental Status: Sedate with meaningful communication Nerve Block 1st Nerve Block: Laterality: Right Block Type: Adductor Canal Ultrasound Image Saved?: Yes Needle / Catheter Used: 100mm SonoPlex II Local Anesthetic Bolus (Indicate Dose Given): Lidocaine used for local infiltration of skin, Injected in 3-5ml increments after negative blood aspiration, Bupivacaine 0.5% Dose:: 15cc/0.5% (75mg) and Exparel Dose:: 10cc/1.33% (133mg) Additives (Indicate Dose Given): Epinephrine to make 1:200,000 (5mcg/ml) Dose:: 75mcg (added to 15cc 0.5% Bupivacaine). Ultrasound: Sterile probe cover and gel used Nerve Stimulator: Supplement to Ultrasound use and No twitch or parasthesia noted < 0.5 mA Paresthesia: None Procedure Tolerated: No Complications and Patient tolerated well Procedure Outcome: Successful Performed By: Reji Queen
[2025-08-09] MEDS: Tranexamic Acid 650 MG TAB 1300 MG PO (14:20)
--- NOTE | 2025-08-09 15:12 | W.ANESPOSTOP ---
Postoperative Evaluation Date, Time and Location Date Performed: 08/09/25 Time Performed: 15:12 Patient Location: Day Surgery Unit Vital Signs Most Recent Imported Vital Signs: Most Recent Vital Signs Temp Pulse Resp BP Pulse Ox 36.3 C L 65 18 141/70 H 98 08/09/25 14:42 08/09/25 14:42 08/09/25 14:42 08/09/25 14:42 08/09/25 14:42 Pain Score Most Recent Pain Score: Most Recent Pain Score Pain Level 0 08/09/25 14:42 Assessment Mental Status: Awake (Alert & Oriented to Patient Baseline) Airway and Respiratory Function: Patent airway with normal (patient baseline) respiratory exam Cardiovascular Function: Hemodynamically Stable Hydration Status: Adequately Hydrated Nausea & Vomiting: No Nausea or Vomiting Pain: Pain is tolerable per patient Peripheral Nerve Block: Regional nerve block not resolved at time of post operative discharge
--- NOTE | 2025-08-09 15:46 | IN_ITS ---
PT Notes Visit Reasons: Right knee DJD Physical Therapy Day Surgery Initial Evaluation Date: 08/09/2025 Referring Doctor: Tiesha Matos NP/Dr. Martini PT Orders: PT CONSULT: Status post Ortho surgery Precautions: WBAT right LE Patient Profile/Admitting Diagnosis: Patient is 79-year-old male presenting status post elective right TKA by Dr. Martini on 08/09/2025. Postop uncomplicated PMHX: Benign neoplasm soft tissue (Acute) Benign essential hypertension (Acute) Atopic dermatitis (Acute) Arthropathy (Acute) Arthritis (Acute) Anal fissure (Acute) Actinic keratosis (Acute) Osteoarthritis of left knee (Acute) Toxic polyneuropathy (Acute) Polymyalgia rheumatica (Acute) Osteoporosis (Chronic) Aortic valve disorder (Acute) Microscopic hematuria (Acute) Sensorineural hearing loss, bilateral (Acute 07/23/16) Localized osteoarthritis of right knee (Chronic) Most recent Synvisc injection: 10/30/23; 01/06/23; 11/26/19Elevated PSA (Acute 09/12/17) Diverticulosis (Acute) S/P colonoscopy (Acute ~08/23/19) Status post cataract extraction and insertion of intraocular lens of left eye (Acute 09/18/18) Status post cataract extraction and insertion of intraocular lens of right eye (Chronic 09/04/18) Medical History (Updated 05/26/25 @ 08:14 by Анна Newton) Syncope Proctitis Pain in left hand Pain of right hip joint Pain in the coccyx Overweight Insomnia Inflamed seborrheic keratosis Hyperlipidemia Herpesviral vesicular dermatitis Gout Carpal tunnel syndrome Atherosclerosis of coronary artery without angina pectoris Motor nerve conduction block Internal hemorrhoids Hypertension GERD (gastroesophageal reflux disease) Primary osteoarthritis of right knee (04/30/18) Nuclear sclerotic cataract of left eye Cortical cataract of left eye Posterior subcapsular age-related cataract of left eye Cortical cataract of right eye Nuclear sclerotic cataract of right eye Posterior subcapsular age-related cataract, right eye Surgical History (Updated 05/26/25 @ 08:17 by Анна Newton) S/P cardiac cath 2006H/O colonoscopy 08/23/2019H/O lithotripsy Hx of cataract surgery 09/04/18History of hernia repair 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, CABG veinHistory of carpal tunnel release of both wrists 01/12/16 Social History/Home Situation: Patient resides with single-family home 1 level. Patient has 1 step then 3 steps with a rail to enter her home. He was independent without a device for ambulation. Independent ADLs. Equipment Owned/DME: [facility] Subjective: Patient reports he is feeling well however tired. He states he is looking forward to going home Objective: [] General Observation: Male presented seated in chair, present Mental Status: Alert and oriented x 4, cooperative, able to follow instructions, agreeable to participate Pain: 3/10 right knee ROM: [] Right Upper Extremity: WFL Left Upper Extremity: WFL Right Lower Extremity: Hip and ankle WFL, knee 0-95 degrees noted hamstring tightness limiting SLR Left Lower Extremity: WFL with noted hamstring tightness Strength: [] Right Upper Extremity: 5/5 Left Upper Extremity: 5/5 Right Lower Extremity: Hip flexion: 3/5; hip abduction: 3-/5; hip extension: 3/5; knee extension: 3/5; knee flexion: 2+/5 ankle DF: 3 /5 ; ankle PF: 3/5; good quad set, slight quad lag with SLR in shortened range. Left Lower Extremity:5/5 Sensation: Intact Bed Mobility/Transfers: [] Supine to sit supervision Sit to stand SBA with initial cue to push up Stand to sit SBA Bed to chair SBA with FWW Gait: Ambulated 100 feet with FWW SBA with intermittent cues for quad activation right mid stance. Patient demonstrates decreased step length, decreased yoselin, early heel off, decreased knee flexion right during swing phase. Stairs: Three 4 inch steps and two 6 inch steps with bilateral rails contact- guard assist Balance: [] Static Sitting: Normal Dynamic Sitting: Good Static Standing: Good with upper extremity support Dynamic Standing: Fair plus with upper extremity support Special Tests: [] Mobility Limitations Standardized Measure [] [facility] AM-PAC 6 clicks Basic Mobility Inpatient Short Form: [] Raw Score: 23 CMS Score: 11.20% deficit Informed Consent/Education: Patient instructed in purpose of PT consult. Packet containing TKA exercise protocol has been given to patient. Education and training on initial set of exercises that can be done at home have been completed with patient. Assessment: Patient is a 79-year-old male who presents with clinical signs and symptoms consistent with current/admitting diagnoses that have resulted to mobility limitations, gait instability, generalized weakness, and impairment of motor control as demonstrated by the following impairment level findings: 1. Decreased strength to right knee major muscle groups 2. Impaired standing balance 3. Limitation of joint range of motion in right knee 4. Pain right knee 5. Impaired functional activity tolerance Impairments are contributing to the following functional limitations: 1. Inability to safely ambulate without assistive device 2. Increase completion time for mobility ADL performance 3. Increased fall risk 4. Difficulty performing stairs without assistance Despite above-stated impairments and functional limitations patient demonstrates good potential to return to prior level of independence. Patient is assessed as a low complexity based on the following: History: 79-year-old male with impairment level findings, functional limitations, and past medical history as indicated above Examination: Demonstrable impairment in strength, balance, and mobility level with underlying impairments and functional limitations as documented above Presentation: stable Decision Making: low Goals: N/A. PT evaluation and 1-2 treatment sessions only for functional mobility training using recommended AD and for HEP instruction. Plan of Care/Treatment Plan: N/A. PT evaluation and 1-2 treatment session only for functional mobility training using recommended AD and for HEP instruction. DISCHARGE RECOMMENDATIONS: Home with HEP and outpatient PT as scheduled TREATMENT CODE/TIME: 95666/ [id number] Thank you for the opportunity to participate in the care of this patient. Flory Rizvi PT [facility]
== END 2025-08-09 16:25 | disposition home or self-care (01) ==
PROVIDERS: PCP Internal Medicine; Visit Provider Student in an Organized Health Care Education/Training Program
PROC: (CPT 27447; principal; 2025-08-09 12:45)
DX: M17.11 Unilateral primary osteoarthritis, right knee (principal); G89.18 Other acute postprocedural pain
CPT/HCPCS: 27447; 64447; 97161; C1776; J0166; J0665; J0666; J0690; J1100; J1885; J2003; J2250; J2371; J2401; J2405; J2704; J2795

== ENCOUNTER 2025-08-22 16:06 | Outpatient (CLI) | payer MEDICARE, SELFPAY ==
--- NOTE | 2025-08-22 13:31 | DI.RAD_ITS ---
Exam(s) XR STANDING ALIGNMENT XR KNEE RT 1V EXAM: XR STANDING ALIGNMENT CLINICAL HISTORY: 1ST POST OP S/P R TKA. TECHNIQUE: 2D digital imaging was performed. Standing AP views were performed from the pelvis through the ankles. Weightbearing lateral view of the right knee COMPARISON: CR XR KNEE LT 3V AP,LAT,WANG from 05/12/2025 CR XR STANDING ALIGNMENT from 05/12/2025 CR XR KNEE RT 1V from 05/12/2025 CR XR KNEE RT 1V from 08/22/2025 FINDINGS: BONES: No acute fracture is present. No bony destructive lesion is seen. Leg length discrepancy: No significant overall leg length discrepancy. JOINTS: Knees: Status post placement of right knee prosthesis. The alignment appears satisfactory. There are mild degenerative changes of the left knee. The ankle joints are unremarkable. The hip joints are unremarkable. SOFT TISSUE: Anterior soft tissue swelling at the right knee. Vascular calcifications. Multiple surgical clips noted in the medial right leg. Edema in the right lower extremity. IMPRESSION: Status post placement of right knee prosthesis. No significant leg length discrepancy. DATA REPOSITORY: RADIATION DOSE DELIVERED:
== END 2025-08-22 16:07 | disposition home or self-care (01) ==
LOC: DIORS 16:07
PROVIDERS: PCP Internal Medicine; Referring Provider Internal Medicine; Visit Provider Student in an Organized Health Care Education/Training Program
DX: Z47.1 Aftercare following joint replacement surgery (principal); Z96.651 Presence of right artificial knee joint
CPT/HCPCS: 99024; 73560; 77073

== ENCOUNTER → 2025-09-19 13:17 | Outpatient (BNVA) | payer MEDICARE, SELFPAY | PROVIDERS: PCP Internal Medicine; Referring Provider Internal Medicine; Visit Provider Physician Assistant | DX: Z47.1 Aftercare following joint replacement surgery (principal); Z96.651 Presence of right artificial knee joint | CPT/HCPCS: 99024 ==